=== PATIENT | female | born 1980 | race Caucasian/White ===

== ENCOUNTER 2018-05-08 15:54 | Emergency (ER) | payer MEDICAID, SELFPAY ==
[2018-05-08 15:54] VITALS: BP 187/100; PULSE 94; RESP 16; TEMP 36.6; O2SAT 100; BMI 33.9
--- NOTE | 2018-05-08 16:07 | RAD_ITS ---
STUDY: X-RAY CHEST REASON FOR EXAM: Female, 38 years old. Chest pain TECHNIQUE: AP COMPARISON: None. FINDINGS: EKG leads project over the chest. The lungs are clear and expanded. There is no demonstrated pleural abnormality. Normal size heart. Normal mediastinum and alan. Normal visualized pulmonary arteries. Normal visualized aortic arch and descending thoracic aorta. Normal visualized thoracic spine. Normal visualized ribs, clavicles, and shoulders. There is no demonstrated abnormality of the visualized soft tissue structures of the upper abdomen. RAD/Chest 1 View (Portable) IMPRESSION: Nonacute portable x-ray examination of the chest. Electronically Signed: Sukhwinder Liao MD at 16:21 EST , Service support ,
--- NOTE | 2018-05-08 16:07 | EKG12_ITS ---
Test Reason : CP Blood Pressure : / mmHG Vent. Rate : 085 BPM Atrial Rate : 085 BPM P-R Int : 152 ms QRS Dur : 078 ms QT Int : 390 ms P-R-T Axes : 034 -79 028 degrees QTc Int : 464 ms Normal sinus rhythm Indeterminate axis Borderline ECG Confirmed by ROSELIA WILLIS, GEM ([id number]), index editor GRAY CORREA ([id number]) on 05/11/2018 8:29:01 AM Referred By: MIKHAIL Confirmed By:GEM VELOZ MD
[2018-05-08] MEDS: Ipratropium/Albuterol Sulfate 3 ML AMPUL.NEB INHALATION (16:18)
[2018-05-08 16:19] VITALS: PULSE 78; RESP 10
[2018-05-08 16:24] VITALS: O2SAT 98
[2018-05-08] MEDS: HYDROcodone Bitartrate/Apap 5/325 Tablet PO (16:27)
[2018-05-08 16:48] LABS: Absolute Lymphocyte Count 5.39 X10^3/ul (0.83-4.51); Absolute Neutrophil Count 7.4 X10^3/uL (2.0-7.7); Basophil# 0.06 X10^3/uL; Basophil% 0.4 % (0-1); Differential Indicated SCAN CRITERIA MET; Eosinophil# 0.43 X10^3/uL; Hematocrit 51.8 % (37-47); Hemoglobin 17.6 g/dl (12.0-15.0); Lymphocyte # 5.39 X10^3/ul (4.0); Lymphocyte % 37.9 % (19-41); Mean Corpuscular Hgb 32.7 pg (27.0-32.0); Mean Corpuscular Volume 96.1 fL (81-99); Mean Platelet Vol. 11.4 fl (6.2-12.0); Monocyte% 6.3 % (0-10); Neutrophil # 7.38 X10^3/uL (2.7-7.7); POSITIVE COUNT NO; POSITIVE DIFFERENTIAL YES; POSITIVE MORPHOLOGY NO; Platelet Count 111 K/mm3 (150-450); RBC Distribution Width CV 14.3 % (11.6-14.6); RBC Distribution Width SD 50.4 fl (35.1-43.9); Red Blood Count 5.39 M/mm3 (4.2-5.4); White Blood Count 14.2 K/mm3 (4.4-11.0)
[2018-05-08 16:56] LABS: Anion Gap 6 (5-15); BUN 5 mg/dL (7-18); BUN/Creat Ratio 5.7 RATIO (10-20); Calcium,Total 8.8 mg/dL (8.5-10.1); Chloride 105 mmol/L (98-107); Creatinine, Serum 0.87 mg/dL (0.55-1.02); EST Glomerular Filtration Rate 77 mL/min (>60); Est Glom Filt Rate - Afr Amer 93 mL/min (>60); Estimated Creatinine Clearance 78.89 ml/min; Glucose 90 mg/dL (74-106); Potassium 3.6 mmol/L (3.5-5.1); Sodium Level 138 mmol/L (136-145)
[2018-05-08 16:58] LABS: D-Dimer Quantitative (DVT/PE) < 0.27 FEU/ug/m (0.27-0.49)
--- NOTE | 2018-05-08 17:07 | ED.VISSUMM ---
- ER Visit Summary Date of Service: 05/08/18 Chief Complaint: Chest pain History of Present Illness: The patient is a 38 F with right side chest pain that radiates to her back. It started this morning when she woke up. It is sharp. Nothing makes it better or worse. She never had this before. Patient reports her blood pressure has been high despite taking her lisinopril over the last 2 days. She is a smoker. Denies hormone use. Denies travel or recent hospitalization. She does have bilateral carpal tunnel pain. There has been an ongoing issue for her. Her pain gets out of control and causes her blood pressure to rise. Physical Examination: Afebrile and vital signs unremarkable except for blood pressure 187/100. Alert and oriented. No acute distress. HEENT exam unremarkable. Heart regular rate and rhythm. Wheezing and diminished breath sounds on her lung exam. Skin, extremities unremarkable. Test Results: EKG showed sinus rhythm at a rate of [address] and T wave changes. White count 14.2, hemoglobin 17.6, platelets 111. Metabolic panel unremarkable. Troponin and d-dimer normal. Chest x-ray normal. Emergency Department Course and Treatment: Patient treated with a DuoNeb and [place]ony while awaiting results. I suspect this is myofascial pain. She is hypertensive, and I did check a workup. Her workup was all fairly unremarkable. Heart score is 3, but I believe this is unlikely to be ACS. PE and dissection are extremely unlikely given her history, findings, and negative d-dimer. Platelets were 111 and lab called because they were clumping. They advised a repeat sample. Repeat was 145, but she had some continued clumping. I spoke with Dr. Kimble and asked him if this had any significance in the setting of chest pain, heart disease, PE, etc. He said that this has no significance at this time and had no further recommendations other than to follow-up with her primary doctor for repeat check. Patient was advised. Patient will receive a short course of pain medicine. Her repeat blood pressure was 126/91. She will continue her blood pressure medications at home. Follow-up with her primary care doctor for recheck. Treatment Plan: As above Disposition: Discharge Impression: 1. Chest wall pain 2. Hypertension This note was generated with [employer] software. It may contain incorrect words, spelling, and punctuation that were not noted in review of the chart prior to signing ED Disposition - Plan for ED Patient: Disposition: Home or Assisted Living Instructions: ED Chest Pain Atypical Unkn Cause Prescriptions: Hydrocodone Bitart/Apap 5-325 [[place] 5MG-325MG] 1 tab PO Q6H PRN PRN 3 Days #10 tab PRN Reason: Pain Referrals: Cayden Ayala MD [Primary Care Provider] -
[2018-05-08 17:08] VITALS: BP 126/71; PULSE 76; RESP 18; O2SAT 100
--- NOTE | 2018-05-08 17:10 | DCINST.ED_ITS ---
ED Disposition - Plan for ED Patient: Instructions: ED Chest Pain Atypical Unkn Cause Prescriptions: Hydrocodone Bitart/Apap 5-325 [[place] 5MG-325MG] 1 tab PO Q6H PRN PRN 3 Days #10 tab PRN Reason: Pain Referrals: Cayden Ayala MD [Primary Care Provider] -
[2018-05-08 17:15] LABS: Differential Comment SCANNED
[2018-05-08 17:18] LABS: Platelet Morphology CLUMPED
[2018-05-08 17:46] LABS: Platelet Count 145 K/mm3 (150-450)
[2018-05-08 18:01] VITALS: PULSE 79; RESP 16; O2SAT 98
== END 2018-05-08 18:10 | disposition home or self-care (01) ==
PROVIDERS: Emergency Provider Emergency Medicine; Family Provider Family Medicine; PCP Family Medicine
DX: R07.89 Other chest pain (principal); I10 Essential (primary) hypertension; R05 Cough; R06.00 Dyspnea, unspecified; G56.03 Carpal tunnel syndrome, bilateral upper limbs; Z79.899 Other long term (current) drug therapy; F17.200 Nicotine dependence, unspecified, uncomplicated
CPT/HCPCS: 71045; 80048; 84484; 85025; 85049; 85379; 93005; 94640; 99285; A4216

== ENCOUNTER 2018-10-20 15:48 | Emergency (ER) | payer MEDICAID, SELFPAY ==
[2018-10-20 15:49] VITALS: BP 188/114; PULSE 76; RESP 18; TEMP 36.2; O2SAT 98; BMI 33.0
--- NOTE | 2018-10-20 16:08 | DCINST.ED_ITS ---
ED Disposition - Plan for ED Patient: Instructions: Carpal Tunnel Prescriptions: Hydrocodone Bitart/Apap 5-325 [[place] 5MG-325MG] 1 tablet PO Q6H PRN PRN 3 Days #8 tablet PRN Reason: Pain Referrals: Cayden Ayala MD [Primary Care Provider] -
--- NOTE | 2018-10-20 16:11 | ED.DCSUM_ITS ---
- ER Visit Summary Date of Service: 10/20/18 Chief Complaint: Bilateral wrist pain History of Present Illness: The patient is a 38 F presenting with bilateral wrist pain. Patient states this started 3 to 4 weeks ago. She states she got a new job and has frequent repetitive motions with her hands. She is in the process of getting into orthopedics. She denies any injury. She has been wearing braces prescribed by Dr. Ayala. She has been taking ibuprofen at home. She presents due to persistent pain. Physical Examination: Vitals are stable. Patient is afebrile. Alert no acute distress. HEENT exam is unremarkable. Neck is supple. Lungs are clear and equal bilaterally. Heart is regular rate and rhythm. Extremities bilateral volar wrist tenderness with active full range of motion. Normal cap refill. Skin is warm and dry. No focal neurologic deficit. Remainder of exam is unremarkable. Emergency Department Course and Treatment: Patient was given short course of [place]. She is advised to continue her braces. Advised to follow-up with orthopedics. Advised return to ED for worsening complaints. Disposition: Discharge home Impression: Bilateral wrist pain, suspect carpal tunnel This note was generated with [employer] dictation software. It may contain incorrect words, spelling, and punctuation that were not noted in review of the chart prior to signing ED Disposition - Plan for ED Patient: Instructions: Carpal Tunnel Prescriptions: Hydrocodone Bitart/Apap 5-325 [[place] 5MG-325MG] 1 tab PO Q6H PRN PRN 3 Days #8 tab PRN Reason: Pain Prescription Printed Referrals: Cayden Ayala MD [Primary Care Provider] -
[2018-10-20] MEDS: HYDROcodone Bitartrate/Apap 5/325 Tablet PO (16:14)
== END 2018-10-20 16:41 | disposition home or self-care (01) ==
PROVIDERS: Emergency Provider Emergency Medicine; Family Provider Family Medicine; PCP Family Medicine
DX: M25.531 Pain in right wrist (principal); M25.532 Pain in left wrist; I10 Essential (primary) hypertension; Z79.899 Other long term (current) drug therapy; Z72.0 Tobacco use
CPT/HCPCS: 99282

== ENCOUNTER 2018-12-17 15:45 | Emergency (ER) | payer MEDICAID, SELFPAY ==
[2018-12-17 15:46] VITALS: BP 169/102; PULSE 74; RESP 18; TEMP 36.4; O2SAT 96; BMI 33.0
--- NOTE | 2018-12-17 16:30 | ED.VIS.GEN ---
History of Present Illness Chief Complaint: Upper Extremity Injury Informant: Patient Onset: Weeks Narrative: Patient presents to the ED with bilateral upper extremity pain. She localizes it to her wrists and hands. She was diagnosed with carpal tunnel syndrome by Dr. Ureña. She is scheduled to get nerve conduction studies on December 29. She states that she has tried wearing her cock-up wrist splints without relief. She has also tried ibuprofen without relief. She has not taken anything today for analgesia. She claims she was sent in by her orthopedic physician to have pain control. She denies any trauma. 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 Past Medical History - Allergies and Home Meds Allergies/Adverse Reactions: Allergies codeine Allergy (Verified 12/17/18 15:46) Other Methotrexate Analogues Adverse Reaction (Verified 12/17/18 15:46) Other Primary Care Physician: Cayden Ayala MD [Primary Care Provider] - Smoking Status: Current every day smoker Review of Systems General: Denies: Chills, Fever, Sweats Eyes: Denies: Visual changes - bilaterally, Diplopia ENT: Denies: Rhinorrhea, Sore throat Cardiovascular: Denies: Chest pain, Palpitations Respiratory: Denies: Dyspnea, Cough, Dyspnea on exertion Gastrointestinal: Denies: Abdominal pain, Nausea, Vomiting, Diarrhea, Melena, Hematochezia Genitourinary: Denies: Dysuria, Hematuria, Frequency Musculoskeletal: Reports: - - Bilateral wrist and hand pain.. Denies: Back pain, Extremity Pain Skin: Denies: Rash, Wounds Neurological: Reports: Parasthesia - 1-3 digits bilaterally. Denies: Headache, Weakness, Numbness Physical Exam Vital Signs/Narrative: Vital Signs Temp Pulse Resp BP Pulse Ox 12/17/18 15:46 97.6 F L 74 18 169/102 H 96 General: Well nourished, Well developed, No Acute Distress Head: Normocephalic, Atraumatic Eyes: Perrl, EOMI ENT: Moist mucous membranes, No rhinorrhea Neck: Supple, Nontender Cardiovascular: Regular rate, Regular rhythm, No murmurs Respiratory: No distress, CTA bilaterally, Chest nontender Abdomen: Soft, Nontender, Nondistended, Normal bowel sounds Back: Nontender, Normal Inspection Extremities: No edema, - - Tenderness to palpation of her bilateral ventral aspects of wrists. Positive Tinel sign bilaterally. Positive Phalen's bilaterally. Patient reports paresthesias to 1-3 digits bilaterally. No erythema, edema, ecchymosis. No concern for septic joint. Skin: Normal color, No rash Neurological: Alert, Oriented x3, Cranial nerves II-XII grossly intact, Normal Strength, Normal Sensation Psychological: Normal affect, Normal Mood Diagnostic/Tx/Re-eval - Medical Decision Making Patient presents to the ED with reports of bilateral upper extremity pain which she attributes to her carpal tunnel syndrome bilaterally. She denies any trauma. She was encouraged to read continue using her cock-up wrist splints. She will be placed on prednisone burst. She is given her first dose here. She was educated on rice therapy and advised to follow-up with her orthopedic physician as scheduled. She is educated on signs/symptoms. She is provided discharge instructions and agreeable to plan. Impression: Bilateral carpal tunnel syndrome Disposition: Home stable ED Disposition - Plan for ED Patient: Disposition: Non-Skill MI/Intermediate Care Diagnosis: Carpal tunnel syndrome on both sides Instructions: Carpal Tunnel Prescriptions: predniSONE tablet 60 mg PO DAILY #12 tab Prescription Printed Referrals: Cayden Ayala MD [Primary Care Provider] - Matt Ureña MD [STAFF PHYSICIAN] -
[2018-12-17] MEDS: predniSONE 20 MG Tablet 60 MG PO (17:17)
== END 2018-12-17 17:26 | disposition home or self-care (01) ==
PROVIDERS: Emergency Provider Physician Assistant; Family Provider Family Medicine; PCP Family Medicine
DX: G56.03 Carpal tunnel syndrome, bilateral upper limbs (principal); F17.200 Nicotine dependence, unspecified, uncomplicated
CPT/HCPCS: 99283

== ENCOUNTER → 2018-12-29 07:30 | Outpatient (CLI) | payer MEDICAID, SELFPAY ==
[2018-12-17 15:46] VITALS: BMI 33.0
--- NOTE | 2018-12-29 09:59 | NEURO_ITS ---
NCS and/or EMG Patient Report Ordering Doctor: Matt Ureña DATE OF SERVICE: 12/29/18 This is a bilateral upper extremity nerve conduction study performed on this 38-year-old female with a history of 4 years of abnormal sensations in her hands worse on the right. Bilateral upper extremity sensory motor nerve conduction studies performed demonstrating severe elongation of the left median motor distal latency with reduction of conduction velocity in amplitude and absence of the right median motor response. The bilateral median sensory responses are absent. The bilateral ulnar motor and sensory and radial sensory responses are preserved. The ulnar F waves are preserved, the median F waves are nondetectable. Impression: Severe carpal tunnel syndrome bilaterally. Dictated using [email or web address] software, not proofread
== END ==
PROVIDERS: Family Provider Family Medicine; PCP Family Medicine; Referring Provider Specialist; Visit Provider Specialist
DX: R20.2 Paresthesia of skin (principal)
CPT/HCPCS: 95911

== ENCOUNTER → 2020-01-30 10:33 | Outpatient (CLI) | payer MEDICAID, SELFPAY | PROVIDERS: PCP Family Medicine; Referring Provider Family Medicine; Visit Provider Family Medicine | DX: Z20.828 Contact with and (suspected) exposure to other viral communicable diseases (principal) | CPT/HCPCS: 87635; C9803; U0003 ==

== ENCOUNTER 2021-10-20 14:47 | Emergency (ER) | payer MEDICAID, SELFPAY ==
[2021-10-20 14:48] VITALS: BP 142/91; PULSE 91; RESP 15; TEMP 36.4; O2SAT 98; BMI 33.3
--- NOTE | 2021-10-20 15:13 | EX.ED.DYSGE1 ---
HPI History of Present Illness Chief Complaint: Nausea/Vomiting/Diarrhea Detail of Chief Complaint: Vomiting and diarrhea that started today Informant: patient Narrative Narrative: Patient presents to the emergency department with complaint of diarrhea that started this morning when she woke up. She has had frequent watery stools. Patient also started vomiting around noon and is vomited multiple times. She denies abdominal pain. Patient does feel somewhat lightheaded. 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 Patient denies any fevers. She denies urinary symptoms. Patient denies recent antibiotic usage. Prior similar symptoms: No PFSH PFSH Medical History (Updated 10/20/21 @ 16:[address] Puja Teixeira, DO) Anxiety HTN (hypertension) Hyperlipemia Home Medications lisinopril 5 mg tablet 5 mg PO DAILY 05/08/18 [History Last Taken 05/08/18 5 MG] prednisone 20 mg tablet 60 mg PO DAILY #12 tabs 12/17/18 [Rx Last Taken Unknown] ondansetron 4 mg disintegrating tablet 4 mg PO Q8H PRN PRN Nausea #10 tabs 10/20/21 [Rx Last Taken Unknown] Allergy/AdvReac Type Severity Reaction Status Date / Time codeine Allergy Other Verified 10/20/21 14:48 Methotrexate Analogues AdvReac Other Verified 12/17/18 15:46 Surgical History (Updated 10/20/21 @ 15:26 by Lexi Bonilla) History of partial hysterectomy Social History Smoking Status: Current every day smoker tobacco type: cigarettes EXAM Physical Exam Const Vital Signs: 10/20/21 14:48 Temperature 97.6 F L Temperature Source Temporal Pulse Rate 91 Respiratory Rate 15 Blood Pressure 142/91 H Blood Pressure Mean 108 Pulse Ox 98 Oxygen Delivery Method Room Air Positive well nourished and well developed General Appearance ED: well developed and NAD HEENT Reports TM's clear and moist mucous membranes normocephalic and atraumatic; Negative for trauma or tenderness Tympanic Membrane ED: Yes TM's clear Eyes PERRL and EOMs intact bilaterally General Eye ED: Negative for pale conjunctiva or scleral icterus Neck no lymphadenopathy, supple and no JVD General: Negative for tenderness Chest Wall inspection of chest normal and palpation of chest normal Chest: Negative for tenderness Resp normal respiratory effort and clear to auscultation bilaterally Effort and Inspection: Negative for respiratory distress or pain with movement Auscultation: Negative for rhonchi, wheezes or diminished lung sounds Cardio regular rate, regular rhythm, S1 normal heart sound, S2 normal heart sound and no murmurs Peripheral Pulses: pulses 2+ throughout GI normal to inspection, nondistended, normoactive bowel sounds, soft to palpation, non-tender, non-distended and no masses Back/Spine no CVA tenderness and no thoracic nor lumbar tenderness Extremity normal to inspection General Extremety ED: Negative for edema General Extremity: Negative for edema Neuro oriented x3, CN's II-XII intact bilaterally, no sensory deficits noted and gait normal Sensorium / Orientation: awake, alert, oriented to person, oriented to place and oriented to time Motor Exam: strength 5/5 throughout and strength abnormal Psych mental status grossly normal Skin no rashes or lesions noted and no wounds MDM MDM MDM Narrative Medical decision making narrative: IV line established on arrival. Patient was given a dose of Zofran IV. She was given a liter normal saline fluid bolus. Lab work showed an elevated white count 16.9 which I suspect is reactive from the retching and vomiting as well as from the gastroenteritis. Patient did have a depressed carbon dioxide of 17. Electrolytes otherwise unremarkable. Patient did have a repeat episode of 1 emesis and was given Reglan 5 mg IV and Benadryl 25 mg IV and then patient was able to tolerate p.o. intake. At this point she is asking to go home. I suspect patient has a viral gastroenteritis. She will be given a prescription for Zofran. She is to use Imodium as needed for diarrhea. Patient advised to return if persistent vomiting, diarrhea, dehydration, or condition should worsen anyway. Lab Data Attestation: I reviewed the patient's lab results. Labs: Laboratory Results - last 24 hr 10/20/21 10/20/21 15:10 15:10 WBC 16.9 H RBC 4.82 Hgb 16.2 H Hct 44.9 MCV 93.2 MCH 33.6 H MCHC 36.1 H RDW Std Deviation 47.1 H RDW Coeff of Zaria 13.8 Plt Count 307 MPV 11.3 Immature Gran % (Auto) 0.300 Neut % (Auto) 59.6 Lymph % (Auto) 34.9 [place] % (Auto) 3.3 Eos % (Auto) 1.2 Baso % (Auto) 0.7 Absolute Neuts (auto) 10.1 H Absolute Lymphs (auto) 5.90 H Nucleated RBC % 0 Differential Comment Sodium 137 Potassium 3.4 L Chloride 109 H Carbon Dioxide 17.0 L Anion Gap 11 BUN 13 Creatinine 1.19 H Estim Creat Clear Calc 55.98 Est GFR (MDRD) Af Amer 64 Est GFR (MDRD) Non-Af 53 L BUN/Creatinine Ratio 10.9 Glucose 181 H Calcium 10.1 Total Bilirubin 0.80 AST 17 ALT 27 Alkaline Phosphatase 114 Total Protein 8.0 Albumin 4.0 Globulin 4.0 Albumin/Globulin Ratio 1.0 Lipase 161 Discharge Plan Triage Chief Complaint: Nausea/Vomiting/Diarrhea ED Provider: Puja Teixeira Dx/Rx/DC Orders Clinical Impression: Viral gastroenteritis Instructions: ED Gastroenteritis, Viral (Adult) Prescriptions: New ondansetron [ondansetron] 4 MG tablet 4 mg PO Q8H PRN PRN (Reason: Nausea) Qty: 10 0RF No Action lisinopril 5 MG tablet 5 mg PO DAILY Label Comments: Take 1 tablet by mouth once daily. prednisone 20 MG tablet 60 mg PO DAILY Qty: 12 0RF Rx Instructions: With Food Primary Care Provider: Cayden Ayala Referrals: Cayden Ayala MD [Primary Care Provider] - 3-5 Days Activity Restrictions/Additional Instructions: Use Imodium as needed for the diarrhea. Disposition Disposition: Home, Self Care
[2021-10-20] MEDS: Ondansetron 4 MG/2 ML Vial IV (15:20)
[2021-10-20] MEDS: 0.9% Normal Saline 1,000 ML 1000 ML IV (15:20)
[2021-10-20 15:37] LABS: Absolute Neutrophil Count 10.1 X10^3/uL (2.0-7.7); Basophil# 0.11 X10^3/uL; Basophil% 0.7 % (0-1); Eosinophils% 1.2 % (0-5); Hematocrit 44.9 % (37-47); Hemoglobin 16.2 g/dL (12.0-15.0); Lymphocyte % 34.9 % (19-41); Mean Corp Hgb Conc 36.1 g/dL (32-36); Mean Corpuscular Hgb 33.6 pg (27.0-32.0); Mean Corpuscular Volume 93.2 fL (81-99); Mean Platelet Vol. 11.3 fl (6.2-12.0); Monocyte# 0.55 X10^3/uL; Monocyte% 3.3 % (0-10); NRBC Flagged by Analyzer 0 % (0-5); Neutrophil % 59.6 % (47-70); POSITIVE DIFFERENTIAL YES; POSITIVE MORPHOLOGY YES; Platelet Count 307 K/mm3 (150-450); RBC Distribution Width CV 13.8 % (11.6-14.6); RBC Distribution Width SD 47.1 fl (35.1-43.9); Red Blood Count 4.82 M/mm3 (4.2-5.4); White Blood Count 16.9 K/mm3 (4.4-11.0)
[2021-10-20 15:48] LABS: Differential Indicated SCAN CRITERIA MET
[2021-10-20 15:49] LABS: AST(SGOT) 17 U/L (15-37); Alanine Aminotransfer ALT/SGPT 27 U/L (13-56); Alkaline Phosphatase 114 U/L (45-117); Anion Gap 11 (5-15); BUN 13 mg/dL (7-18); BUN/Creat Ratio 10.9 RATIO (10-20); Calcium,Total 10.1 mg/dL (8.5-10.1); Chloride 109 mmol/L (98-107); Creatinine, Serum 1.19 mg/dL (0.55-1.02); EST Glomerular Filtration Rate 53 mL/min (>60); Est Glom Filt Rate - Afr Amer 64 mL/min (>60); Estimated Creatinine Clearance 55.98 ml/min; Glucose 181 mg/dL (74-106); Lipase 161 U/L (73-393); Potassium 3.4 mmol/L (3.5-5.1); Sodium Level 137 mmol/L (136-145)
[2021-10-20] MEDS: DiphenhydrAMINE 50 MG/ML Syringe 25 MG IV (16:22)
[2021-10-20] MEDS: Metoclopramide 10 MG/2 ML Vial 5 MG IV (16:22)
[2021-10-20 16:51] VITALS: RESP 18
== END 2021-10-20 17:05 | disposition home or self-care (01) ==
PROVIDERS: Emergency Provider Emergency Medicine; PCP Family Medicine; Visit Provider Emergency Medicine
DX: A08.4 Viral intestinal infection, unspecified (principal); I10 Essential (primary) hypertension; E78.5 Hyperlipidemia, unspecified; F17.210 Nicotine dependence, cigarettes, uncomplicated; Z79.899 Other long term (current) drug therapy
CPT/HCPCS: 80053; 83690; 85025; 96361; 96374; 96375; 99283; J7030; A4216; J2405

== ENCOUNTER 2021-10-20 22:59 | Emergency (ER) | payer MEDICAID, SELFPAY ==
[2021-10-20 23:00] VITALS: BP 165/110; PULSE 89; RESP 15; TEMP 36.2; O2SAT 100; BMI 31.4
--- NOTE | 2021-10-20 23:28 | EX.ED.DYSGE1 ---
HPI History of Present Illness Chief Complaint: Nausea/Vomiting Informant: patient and family Onset/Context/Timing Onset: Today Narrative Narrative: Patient returns to the ER secondary to continued nausea and vomiting. She was seen in the emergency room earlier today with nausea, vomiting, and diarrhea. Work-up revealed an elevated white count at 16.9 felt to be reactive from vomiting. She was able to tolerate p.o. fluids after receiving Reglan and Benadryl. She was discharged with a prescription for Zofran. Family states they were not able to make it to the pharmacy before they closed today. After returning home patient has had recurrent nausea and vomiting. She has not had any further diarrhea. [facility] Medical History Anxiety HTN (hypertension) Hyperlipemia Home Medications lisinopril 5 mg tablet 5 mg PO DAILY 05/08/18 [History Last Taken 05/08/18 5 MG] prednisone 20 mg tablet 60 mg PO DAILY #12 tabs 12/17/18 [Rx Last Taken Unknown] ondansetron 4 mg disintegrating tablet 4 mg PO Q8H PRN PRN Nausea #10 tabs 10/20/21 [Rx Last Taken Unknown] metoclopramide HCl 10 mg tablet (Reglan) 10 mg PO Q6H PRN nausea and vomiting #10 tabs 10/21/21 [Rx Last Taken Unknown] Allergy/AdvReac Type Severity Reaction Status Date / Time codeine Allergy Other Verified 10/20/21 14:48 Methotrexate Analogues AdvReac Other Verified 12/17/18 15:46 Surgical History History of partial hysterectomy Social History Smoking Status: Current every day smoker tobacco type: cigarettes ROS ROS ED Constitutional Constitutional ED: Denies chills or fever(s) Eyes Eyes: Denies change in vision or discharge from eye(s) ENT ENT ED: Denies discharge from eye(s), rhinorrhea or sore throat Cardiovascular Cardiovascular: Denies chest pain or palpitations Respiratory/Chest Respiratory/Chest: Denies cough or dyspnea Gastrointestinal Gastrointestinal: Reports abdominal pain, nausea and vomiting Genitourinary Genitourinary ED: Denies difficulty urinating or dysuria Musculoskeletal Musculoskeletal: Denies back pain or extremity pain Integumentary Denies Abrasions or rash Neurologic Neurologic: Denies headache(s) or weakness Psychiatric Psychiatric: Denies anxiety or depression Allergic/Immunologic Allergic/Immunologic ED: Denies lip swelling or urticaria EXAM Physical Exam Const Vital Signs: 10/20/21 23:00 10/21/21 03:29 Temperature 97.2 F L Temperature Source Temporal Pulse Rate 89 89 Respiratory Rate 15 16 Blood Pressure 165/110 H 139/79 H Blood Pressure Mean 128 Pulse Ox 100 95 Oxygen Delivery Method Room Air Positive well nourished and well developed General Appearance ED: well developed HEENT Reports moist mucous membranes Eyes EOMs intact bilaterally Chest Wall inspection of chest normal and palpation of chest normal Resp normal respiratory effort and clear to auscultation bilaterally Cardio regular rate and regular rhythm GI non-tender Auscultation: hypoactive bowel sounds Palpation: soft Extremity normal to inspection Neuro oriented x3 Skin no rashes or lesions noted MDM MDM MDM Narrative Medical decision making narrative: Patient received Reglan and Benadryl along with a liter of IV fluids. Due to a very busy emergency room patient slept here in 1 she awoke she reports recurrent nausea. She is then given a dose of Zofran. Treatment and Re-Evaluation Narrative: On final repeat check patient is requesting discharge to home. She states the meds will help for a while but then seem to wear off. She does not want to be admitted. She has Zofran at a local pharmacy to [facility] in the morning. I did send a prescription for Reglan tabs to the pharmacy here and she went home with those tonight. Return instructions are provided. Discharge Plan Triage Chief Complaint: Nausea/Vomiting ED Provider: Roseann Adams Dx/Rx/DC Orders Clinical Impression: Vomiting Instructions: ED Vomiting (Adult) Prescriptions: New metoclopramide HCl [Reglan] 10 mg tablet 10 mg PO Q6H PRN (Reason: nausea and vomiting) Qty: 10 0RF No Action lisinopril 5 MG tablet 5 mg PO DAILY Label Comments: Take 1 tablet by mouth once daily. prednisone 20 MG tablet 60 mg PO DAILY Qty: 12 0RF Rx Instructions: With Food ondansetron [ondansetron] 4 MG tablet 4 mg PO Q8H PRN PRN (Reason: Nausea) Qty: 10 0RF Primary Care Provider: Cayden Ayala Referrals: Cayden Ayala MD [Primary Care Provider] - 3-5 Days if not improving Disposition Disposition: Home, Self Care Discharge Date/Time: 10/21/21 03:29
[2021-10-20] MEDS: 0.9% Normal Saline 1,000 ML 1000 ML IV (23:51)
[2021-10-20] MEDS: Metoclopramide 10 MG/2 ML Vial 5 MG IV (23:51)
[2021-10-20] MEDS: DiphenhydrAMINE 50 MG/ML Syringe 25 MG IV (23:51)
[2021-10-21] MEDS: Ondansetron 4 MG/2 ML Vial IV (01:48)
[2021-10-21 03:29] VITALS: BP 139/79; PULSE 89; RESP 16; O2SAT 95
== END 2021-10-21 03:29 | disposition home or self-care (01) ==
PROVIDERS: Emergency Provider Emergency Medicine; PCP Family Medicine; Visit Provider Emergency Medicine
DX: R11.2 Nausea with vomiting, unspecified (principal); E78.5 Hyperlipidemia, unspecified; I10 Essential (primary) hypertension; F17.210 Nicotine dependence, cigarettes, uncomplicated; Z79.899 Other long term (current) drug therapy
CPT/HCPCS: J2405; J7030; A4216

== ENCOUNTER 2022-08-16 16:07 | Emergency (ER) | payer OTHER, MEDICAID, SELFPAY ==
[2022-08-16 16:08] VITALS: BP 136/89; PULSE 89; RESP 16; TEMP 35.9; O2SAT 99; BMI 29.7
--- NOTE | 2022-08-16 16:35 | EDS_ITS ---
HPI <OLGA Wolf - Last Filed: 08/16/22 16:44> History of Present Illness Chief Complaint: Laceration Narrative Narrative: Patient is a 42-year-old female with history of high blood pressure, tobacco use who presents to the emergency department with a laceration to the left fourth finger. 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 This injury occurred at 6 PM last evening. Secondary to this happening at work, she was at work today and is here for evaluation. Patient has full range of motion of her left hand. If the patient would have came in yesterday this laceration could have quired stitches. Patient's lacerations on the posterior side of the finger. PFSH <OLGA Wolf - Last Filed: 08/16/22 16:44> PFSH Medical History Anxiety HTN (hypertension) Hyperlipemia Home Medications lisinopril 5 mg tablet 5 mg PO DAILY 05/08/18 [History Last Taken 05/08/18 5 MG] prednisone 20 mg tablet 60 mg PO DAILY #12 tabs 12/17/18 [Rx Last Taken Unknown] ondansetron 4 mg disintegrating tablet 4 mg PO Q8H PRN PRN Nausea #10 tabs 10/20/21 [Rx Last Taken Unknown] metoclopramide HCl 10 mg tablet (Reglan) 10 mg PO Q6H PRN nausea and vomiting #10 tabs 10/21/21 [Rx Last Taken Unknown] Allergy/AdvReac Type Severity Reaction Status Date / Time codeine Allergy Other Verified 10/20/21 14:48 Methotrexate Analogues AdvReac Other Verified 12/17/18 15:46 Surgical History History of partial hysterectomy Social History Smoking Status: Current every day smoker tobacco type: cigarettes ROS <OLGA oWlf - Last Filed: 08/16/22 16:44> ROS ED ROS Narrative Constitutional: Negative for fever, chills, weight loss, weakness Eyes: Negative for vision loss, vision change, double vision ENT: Negative for any sore throat, ear pain, congestion Cardiovascular: Negative for any chest pain, tightness, palpitations Respiratory: Negative for any cough, sputum production, hemoptysis, dyspnea, dyspnea on exertion, orthopnea Gastrointestinal: Negative for any abdominal pain, nausea, vomiting, diarrhea, constipation, blood in stool, blood in vomit : Negative for any urinary frequency, dysuria, retention, blood in urine Muscle skeletal: Negative for any muscle joint pain, stiffness, myalgias, arthralgias, neck pain, back pain Neurological: Negative for any headache, syncope, numbness or tingling, dizziness Skin: Negative for any rashes, lumps, itching, abrasions. Laceration to the left fourth digit Psychiatric: Negative for any depression, anxiety, stress, suicidal ideation, homicidal ideation Hematologic: Negative for any easy bruising, excessive bruising, easy bleeding Allergies: Negative for any eczema, hives, rash EXAM <OLGA Wolf - Last Filed: 08/16/22 16:44> Physical Exam Narrative Exam Narrative: Vital signs reviewed. Extremities: No peripheral edema, no signs of gross trauma or deformity. Active full range of motion of all extremities. Patient has full range of motion of the left hand. Patient's laceration is in between the DIP and PIP joint of the posterior aspect of the fourth left finger. This would require sutures if it was done immediately however this is greater than 20 hours old. Patient has no tendon involvement. No neurological focal deficit. Neuro: Cranial nerves II through XII intact, no focal neurological deficits. Skin: Clean dry and intact with no rash, purpura, petechiae, vesicles or pustules. Backs/flank: No CVA tenderness, no midline spinal tenderness, no deformity. Psych: Normal mood and affect. No SI, HI or acute psychosis. Const Vital Signs: 08/16/22 16:08 Temperature 96.7 F L Temperature Source Temporal Pulse Rate 89 Respiratory Rate 16 Blood Pressure 136/89 H Blood Pressure Mean 104 Pulse Ox 99 Oxygen Delivery Method Room Air <Dr. Roseann Adams MD - Last Filed: 08/16/22 17:02> Physical Exam Const Vital Signs: 08/16/22 16:08 Temperature 96.7 F L Temperature Source Temporal Pulse Rate 89 Respiratory Rate 16 Blood Pressure 136/89 H Blood Pressure Mean 104 Pulse Ox 99 Oxygen Delivery Method Room Air [facility] <OLGA Wolf - Last Filed: 08/16/22 16:44> [facility] Treatment and Re-Evaluation Narrative: Patient appears well, patient appears nontoxic, vital signs are stable. Patient presents to the emergency department with complaints of a laceration to the left fourth finger that occurred yesterday while at work. This is a Workmen's Comp. All paperwork was filled out. At this time, patient will be updated on her tetanus vaccination today. Secondary to the wound being greater than 20 hours old, this will not be closed. The area was cleaned. I was able to place glue to the area patient tolerated well. Patient was placed in a tube gauze to decrease movement of the left finger to allow the skin to set. Patient is happy with the plan of care, she can return to work with full duty as long as she has a dressing in place. Patient has no questions, stable for discharge <Dr. Roseann Adams MD - Last Filed: 08/16/22 17:02> [facility] Treatment and Re-Evaluation Narrative: Patient appears well, patient appears nontoxic, vital signs are stable. Patient presents to the emergency department with complaints of a laceration to the left fourth finger that occurred yesterday while at work. This is a Workmen's Comp. All paperwork was filled out. At this time, patient will be updated on her tetanus vaccination today. Secondary to the wound being greater than 20 hours old, this will not be closed. The area was cleaned. I was able to place glue to the area patient tolerated well. Patient was placed in a tube gauze to decrease movement of the left finger to allow the skin to set. Patient is happy with the plan of care, she can return to work with full duty as long as she has a dressing in place. Patient has no questions, stable for discharge Patient seen and evaluated with ISHAAN. I personally interviewed and examined the patient. I was involved in all aspects of patient's orders, interpretation of results, and treatment. Patient presents secondary to laceration to her left fourth finger. Injury occurred 6 PM yesterday evening at work. She states she went to work today but bumped it on something and it started bleeding. Her employer wanted her to come in to have it evaluated. She denies numbness or tingling. She has full range of motion. She is unsure of her last tetanus update. Left upper extremity examination reveals a 1.5 cm laceration across the extensor surface of the fourth finger between the PIP and DIP joints. Bleeding is well controlled at this time. She has full range of motion of the digit. Normal sensation and cap refill distally. Patient presents well after 12 hours from initial injury. Wound will be cleansed and sealed with Dermabond. Dressing will be applied which will limit her ability to flex her finger. She is advised to keep the area covered with a glove at work. Discharge Plan Triage Chief Complaint: Laceration ED Midlevel Provider: Fernando Nava ED Provider: Roseann Adams Dx/Rx/DC Orders Clinical Impression: Finger laceration Instructions: ED Laceration, Extremity: Skin Glue Prescriptions: No Action lisinopril 5 MG tablet 5 mg PO DAILY Label Comments: Take 1 tablet by mouth once daily. prednisone 20 MG tablet 60 mg PO DAILY Qty: 12 0RF Rx Instructions: With Food ondansetron [ondansetron] 4 MG tablet 4 mg PO Q8H PRN PRN (Reason: Nausea) Qty: 10 0RF metoclopramide HCl [Reglan] 10 mg tablet 10 mg PO Q6H PRN (Reason: nausea and vomiting) Qty: 10 0RF Primary Care Provider: Cayden Ayala Referrals: Cayden Ayala MD [Primary Care Provider] - [facility] [Non-Staff] - Activity Restrictions/Additional Instructions: Keep your wound dressed. Your tetanus vaccination was updated. You can return to work full duty on August 18, 2022 Disposition Disposition: Home, Self Care
[2022-08-16] MEDS: Diphth,Pertuss(Acell),Tet Vac 0.5 ML Vial IM (16:59)
== END 2022-08-16 17:04 | disposition home or self-care (01) ==
PROVIDERS: Emergency Provider Emergency Medicine; PCP Family Medicine; Visit Provider Emergency Medicine
DX: S61.215A Laceration without foreign body of left ring finger without damage to nail, initial encounter (principal); F17.210 Nicotine dependence, cigarettes, uncomplicated; I10 Essential (primary) hypertension; E78.5 Hyperlipidemia, unspecified; W26.0XXA Contact with knife, initial encounter; Y92.512 Supermarket, store or market as the place of occurrence of the external cause; Y99.0 Civilian activity done for income or pay; Z23 Encounter for immunization
CPT/HCPCS: 12001; 90471; 90715; 99281; 99282

== ENCOUNTER 2023-03-27 07:51 | Emergency (ER) | payer MEDICAID, SELFPAY ==
[2023-03-27 07:52] VITALS: BP 191/123; PULSE 93; RESP 14; TEMP 37.2; O2SAT 100; BMI 30.1
--- NOTE | 2023-03-27 08:00 | ED.VIS.GI ---
HPI HPI - GI History of Present Illness Chief Complaint: Abd Pain Informant: patient Narrative Narrative: Patient presents with 25 hours of nausea and vomiting. She states bowel movements were little soft but not diarrhea. She cannot keep anything down. She gets intermittent cramping in the abdomen. She is also had a very slight cough. But she does not feel short of breath. No chest pain. She has had a little bit of nasal congestion. She has had chills but no documented fever. She does have some myalgias. She states she works at [employer] and everybody is sick with the flu. [facility] Medical History Anxiety HTN (hypertension) Hyperlipemia Home Medications lisinopril 5 mg tablet 5 mg PO DAILY 05/08/18 [History Last Taken 05/08/18 5 MG] atorvastatin 20 mg tablet 20 mg PO QHS 03/27/23 [History Last Taken Unknown] cholecalciferol (vitamin D3) 125 mcg (5,000 unit) capsule 125 mcg PO DAILY 03/27/23 [History Last Taken Unknown] fluoxetine 20 mg capsule 20 mg PO DAILY 03/27/23 [History Last Taken Unknown] omeprazole 20 mg capsule,delayed release 20 mg PO DAILY 03/27/23 [History Last Taken Unknown] ondansetron 4 mg disintegrating tablet 4 mg PO Q8H PRN PRN Nausea #10 tabs 03/27/23 [Rx Last Taken Unknown] promethazine 25 mg tablet 25 mg PO Q6H PRN PRN Nausea #10 TABLETS 03/27/23 [Rx Last Taken Unknown] Allergy/AdvReac Type Severity Reaction Status Date / Time codeine Allergy Other Verified 03/27/23 07:52 Methotrexate Analogues AdvReac Other Verified 03/27/23 07:52 Surgical History History of partial hysterectomy Social History Smoking Status: Current every day smoker tobacco type: cigarettes ROS ROS ED ROS Narrative A complete review of systems was performed and is negative except as documented in the history of present illness. Some specific details below. Constitutional: No recent fevers documented but she does have a lot of chills and feels hot and cold. EYE: Change in color or injection ENT: No difficulty swallowing. No swelling. Mild sneezing and nasal congestion. CV: No chest pain or palpitations. Respiratory: No dyspnea. No hemoptysis. Occasional cough very mild. No sputum. GI: Please see history of present illness. : No frequency dysuria or hematuria. Musculoskeletal: No recent trauma. Slight myalgias. Skin: No rash. Nondiaphoretic. Neuro: No weakness or numbness. Endocrine: No polyuria or polydipsia. EXAM Physical Exam Narrative Exam Narrative: CONSTITUTIONAL: Patient is nontoxic in appearance. The patient looks comfortable. HEENT: No notable trauma. Mucous membranes are somewhat dry. No sinus tenderness. No indication of pain with swallowing. No exudate. EYES: No conjunctival injection. No icterus. CARDIOVASCULAR: Regular rate. Rate about 90. Regular rhythm. No notable murmur. No JVD. RESPIRATORY: No respiratory distress. Breathing is unlabored. No wheezes. No rhonchi. No rales. No pain with a deep breath. No hypoxia with oxygen saturations normal at 100% on room air. GASTROINTESTINAL: Not distended. Bowel sounds are normal. No tenderness. No guarding. No rebound. No palpable mass. No bruit. Overall abdomen is actually quite benign. GENITOURINARY: No tenderness over the bladder. No CVA tenderness. MUSCULOSKELETAL: Atraumatic. No peripheral edema. No cord. No tenderness along the deep venous system. No asymmetry. NEUROLOGICAL: Patient is alert and appropriate. No focal deficit noted. SKIN: No noted rashes. No diaphoresis. PSYCHIATRIC: Patient is calm. Mood is appropriate. Const Vital Signs: 03/27/23 07:52 03/27/23 11:34 Temperature 98.9 F Temperature Source Temporal Pulse Rate 93 75 Respiratory Rate 14 18 Blood Pressure 191/123 H 167/90 H Blood Pressure Mean 145 115 Pulse Ox 100 99 Oxygen Delivery Method Room Air Room Air MDM MDM MDM Narrative Medical decision making narrative: Patient CBC shows a very high white count at 17.7. Platelets are normal. He is my only high. Patient's electrolytes show no marked abnormalities. Minimal elevation in creatinine and slight glucose elevation. Patient's liver function test show mild elevation of alkaline phosphatase but are otherwise normal. Patient is lipase is elevated. It is 214. This is just a little bit under 3 times normal. I rechecked the pain. She is feeling better. But she still has some just nonfocal hard to locate abdominal pain. With her high white count and negative viral studies I am going to do CAT scan of her abdomen. This may further define and indicate if she has pancreatitis. This is pending. My independent interpretation of her CT shows no significant acute abnormality. Final reading shows nothing acute but there is signs of a soft tissue in the right lower quadrant that is likely ovary patient's rechecked. She states the Phenergan really cut the nausea down and she feels significantly better now. We will get her home with Phenergan and Zofran so she has 2 options. Clinically she has a viral type illness. We did discuss that if she is having increased fevers pain vomiting blood in the stool distention or any other concerns she should return. Lab Data Attestation: I reviewed the patient's lab results. Labs: Laboratory Results - last 24 hr 03/27/23 03/27/23 08:05 08:24 WBC 17.7 H RBC 5.22 Hgb 16.2 H Hct 46.2 MCV 88.5 MCH 31.0 MCHC 35.1 RDW Std Deviation 44.1 H RDW Coeff of Zaria 13.5 Plt Count 266 MPV 11.6 Immature Gran % (Auto) 0.600 Neut % (Auto) 78.2 H Lymph % (Auto) 16.1 L Smyth % (Auto) 4.7 Eos % (Auto) 0.2 Baso % (Auto) 0.2 Absolute Neuts (auto) 13.9 H Absolute Lymphs (auto) 2.86 Nucleated RBC % 0 Sodium 138 Potassium 3.7 Chloride 104 Carbon Dioxide 25.0 Anion Gap 9 BUN 16 Creatinine 1.12 H Estim Creat Clear Calc 55.93 Est GFR (MDRD) Af Amer 68 Est GFR (MDRD) Non-Af 56 L BUN/Creatinine Ratio 14.3 Glucose 141 H Calcium 9.8 Total Bilirubin 1.30 H AST 25 ALT 24 Alkaline Phosphatase 127 H Total Protein 7.7 Albumin 3.8 Globulin 3.9 Albumin/Globulin Ratio 1.0 Lipase 214 H Radiography Diagnostic Testing: Clinical Impression(s) from Imaging Studies Abdomen/Pelvis CT 03/27/23 11:09 IMPRESSION: 1. No focal acute inflammatory process. 2. Soft tissue density in the right lower quadrant could represent right ovary. Electronically Signed: Madan Mayer MD at 12:10 EST , Discharge Plan Triage Chief Complaint: Abd Pain ED Provider: Manuel Gomez Dx/Rx/DC Orders Clinical Impression: Leukocytosis, Nausea & vomiting, Abdominal pain Instructions: ED Abdominal Pain Unkn Cause Fem Prescriptions: New promethazine [promethazine] 25 mg tablet 25 mg PO Q6H PRN PRN (Reason: Nausea) Qty: 10 0RF ondansetron [ondansetron] 4 mg tablet,disintegrating 4 mg PO Q8H PRN PRN (Reason: Nausea) Qty: 10 0RF No Action lisinopril 5 MG tablet 5 mg PO DAILY Patient Comments: Take 1 tablet by mouth once daily. atorvastatin 20 mg tablet 20 mg PO QHS Patient Comments: Take 1 tablet by mouth daily at bedtime. For cholesterol. fluoxetine 20 mg capsule 20 mg PO DAILY Patient Comments: TAKE 1 CAPSULE BY MOUTH ONCE DAILY omeprazole 20 mg capsule,delayed release(DR/EC) 20 mg PO DAILY cholecalciferol (vitamin D3) 125 mcg (5,000 unit) capsule 125 mcg PO DAILY Patient Comments: Take 1 capsule by mouth once daily. Primary Care Provider: Cayden Ayala Referrals: Cayden Ayala MD [Primary Care Provider] - 3-5 Days if not improving Disposition Disposition: Home, Self Care
[2023-03-27] MEDS: Ondansetron 4 MG/2 ML Vial IV ×2 (08:07→09:34)
[2023-03-27] MEDS: 0.9% Normal Saline (1000mL) 1,000 ML 1000 ML IV (08:07)
[2023-03-27 08:36] LABS: Absolute Lymphocyte Count 2.86 X10^3/uL (0.83-4.51); Absolute Neutrophil Count 13.9 X10^3/uL (2.0-7.7); Basophil# 0.03 X10^3/uL; Basophil% 0.2 % (0-1); Eosinophil# 0.03 X10^3/uL; Eosinophils% 0.2 % (0-5); Hematocrit 46.2 % (37-47); Hemoglobin 16.2 g/dL (12.0-15.0); Lymphocyte # 2.86 X10^3/ul (0.83-4.51); Lymphocyte % 16.1 % (19-41); Mean Corp Hgb Conc 35.1 g/dL (32-36); Mean Corpuscular Volume 88.5 fL (81-99); Mean Platelet Vol. 11.6 fl (6.2-12.0); Monocyte# 0.83 X10^3/uL; Monocyte% 4.7 % (0-10); NRBC Flagged by Analyzer 0 % (0-5); Neutrophil # 13.88 X10^3/uL (2.7-7.7); Neutrophil % 78.2 % (47-70); Platelet Count 266 K/mm3 (150-450); RBC Distribution Width CV 13.5 % (11.6-14.6); RBC Distribution Width SD 44.1 fl (35.1-43.9); Red Blood Count 5.22 M/mm3 (4.2-5.4); White Blood Count 17.7 K/mm3 (4.4-11.0)
--- OUTSIDE RECORDS SUMMARY | 2023-03-27 08:52 | XMS RPT_ITS | CCD ---
Author Name Unknown Address [address] [place] [address] Organization [facility] Care Team Providers Care Rhinestone Setter Name Role Phone Cathi Dunn MD Primary Care Provider CATHI DUNN Primary Care Unavailable CATHI DUNN Primary Care Unavailable CATHI DUNN Attending Unavailable CATHI DUNN Primary Care Unavailable BRITTANY QUARLES Referring Unavailable CATHI DUNN Primary Care Unavailable BRITTANY QUARLES Attending Unavailable CATHI DUNN Primary Care Unavailable CATHI DUNN Attending Unavailable CATHI DUNN Primary Care Unavailable CATHI DUNN Primary Care Unavailable CATHI DUNN Primary Care Unavailable CATHI DUNN Primary Care Unavailable SPENSER, KELLY Referring Unavailable CATHI DUNN Primary Care Unavailable SPENSER, KELLY Attending Unavailable CATHI DUNN Primary Care Unavailable CATHI DUNN Attending Unavailable Allergies Allergy Classification Reported Allergen(s) Allergy Type Date of Onset Reaction(s) Facility (20 sources) Acetaminophen / Codeine; Translations: [ACETAMINOPHEN-CO DEINE] Drug Allergy 5 [facility] Work Phone: (20 sources) flea bites [Other] Propensity to adverse reactions 5 [facility] Work Phone: (20 sources) Methotrexate; Translations: [METHOTREXATE] Drug Allergy 3 Other: See Comments, Unknown [facility] (1 source) OTHER; Translations: [OTHER] Propensity to adverse reactions (disorder) 5 [facility] Repository Medications Current Medications Medication Drug Class(es) Dates Sig (Normalized) Sig (Original) amoxicillin 875 mg oral tablet (1 source) Penicillin-class Antibacterial Start: 10-30-2023 End: 02-02-2023 take 1 tablet by mouth twice daily amoxicillin (AMOXIL) 875 mg tablet Indications: Other acute nonsuppurative otitis media of left ear, recurrence not specified Take 1 tablet by mouth two times a day for 7 days. 14 tablet 0 01/26/2023 02/02/2023 Active Completed/Discontinued Medications Medication Drug Class(es) Dates Sig (Normalized) Sig (Original) [id number] 200 actuat albuterol 0.09 mg/actuat metered dose inhaler (20 sources) beta2-Adrenergic Agonist Start: 04-09-2020 End: 03-27-2022 take 2 puff(s) by inhalation every six hours as needed albuterol HFA (PROAIR HFA) 90 mcg/actuation inhaler Indications: Chronic bronchitis, unspecified chronic bronchitis type (HCC) Inhale 2 Puffs as instructed every 6 hours as needed. 18 g 5 04/09/2020 03/27/2022 Discontinued Problems Active Problems Problem Classification Problem Date Documented Date Episodic/Chronic Anxiety disorders (2 sources) Mixed anxiety and depressive disorder; Translations: [Anxiety disorder, unspecified] Chronic Attention-deficit, conduct, and disruptive behavior disorders (20 sources) Attention-deficit hyperactivity disorder, unspecified type; Translations: [Attention deficit disorder with hyperactivity] Onset: 08-12-2007 08-12-2007 Chronic Chronic obstructive pulmonary disease and bronchiectasis (20 sources) Chronic bronchitis; Translations: [Unspecified chronic bronchitis] Onset: 07-18-2020 07-18-2020 Chronic Diseases of white blood cells (1 source) Leukocytosis; Translations: [Elevated white blood cell count, unspecified] Chronic Disorders of lipid metabolism (20 sources) Mixed hyperlipidemia; Translations: [Mixed hyperlipidemia] Onset: 07-18-2020 07-18-2020 Chronic Esophageal disorders (2 sources) Gastroesophageal reflux disease without esophagitis; Translations: [Gastro-esophageal reflux disease without esophagitis] Onset: 12-04-2022 12-03-2022 Chronic Essential hypertension (20 sources) Essential hypertension; Translations: [Essential (primary) hypertension] Onset: 07-18-2020 07-18-2020 Chronic Genitourinary symptoms and ill-defined conditions (3 sources) Microscopic hematuria; Translations: [Other microscopic hematuria] Episodic Mood disorders (20 sources) Recurrent major depressive episodes; Translations: [Major depressive disorder, recurrent, unspecified] Onset: 12-17-2004 06-29-2019 Chronic Nutritional deficiencies (3 sources) Vitamin D deficiency; Translations: [Vitamin D deficiency, unspecified] Onset: 03-27-2022 Chronic Other diseases of kidney and ureters (1 source) Abnormal renal function; Translations: [Disorder of kidney and ureter, unspecified] Episodic Other hematologic conditions (1 source) Red blood cell count raised; Translations: [Other abnormality of red blood cells] Episodic Other infections; including parasitic (1 source) Patient condition resolved; Translations: [Resolved [id number] syndrome] 01-19-2023 Episodic Other nutritional; endocrine; and metabolic disorders (11 sources) Obesity; Translations: [Other obesity due to excess calories] Onset: 07-19-2020 07-19-2020 Chronic Other nutritional; endocrine; and metabolic disorders (18 sources) Obesity caused by energy imbalance; Translations: [Other obesity due to excess calories] Onset: 07-19-2020 07-19-2020 Chronic Other upper respiratory infections (1 source) Bacterial sinusitis; Translations: [Chronic sinusitis, unspecified] 03-09-2023 Chronic Other upper respiratory infections (2 sources) Sore throat symptom; Translations: [Acute pharyngitis, unspecified] Episodic Otitis media and related conditions (1 source) Acute secretory otitis media; Translations: [Other acute nonsuppurative otitis media, left ear] 01-26-2023 Episodic Residual codes; unclassified (1 source) Generalized aches and pains; Translations: [Pain, unspecified] Episodic Spondylosis; intervertebral disc disorders; other back problems (1 source) Acute low back pain; Translations: [Acute low back pain without sciatica, unspecified back pain laterality] Episodic Substance-related disorders (7 sources) Smoker; Translations: [Nicotine dependence, unspecified, uncomplicated] Onset: 09-12-2009 01-19-2023 Chronic Viral infection (2 sources) Disease caused by 2019-nCoV; Translations: [COVID-19] Episodic Viral infection (1 source) COVID-19; Translations: [COVID] Onset: 03-27-2022 Past or Other Problems Problem Classification Problem Date Documented Da te Episodic/Chronic Other non-traumatic joint disorders (20 sources) Ankle pain; Translations: [Pain in unspecified ankle and joints of unspecified foot] Onset: 10-01-2012 10-01-2012 Episodic Other screening for suspected conditions (not mental disorders or infectious disease) (9 sources) Patient encounter status; Translations: [Encounter for screening for other suspected endocrine disorder] Onset: 03-27-2022 Episodic Screening and history of mental health and substance abuse codes (20 sources) Ex-cigarette smoker; Translations: [Personal history of nicotine dependence] Onset: 07-19-2020 07-19-2020 Episodic Sprains and strains (20 sources) Sprain of ankle; Translations: [Sprain of unspecified ligament of unspecified ankle, initial encounter] Onset: 10-01-2012 10-01-2012 Episodic Results Test Name Value Interpretation Reference Range Facil ity Vital Signs Date Time Vital Sign Value Performing Clinician Faci lity 01-26-2023 15:41-0400 Body temperature 98.2 [degF] Amanda Barrios APRN.THREAD MILLING MACHINE SET UP OPERATOR Work Phone: [facility] 01-26-2023 15:41-0400 Body weight 80.38 kg Amanda Barrios APRN.THREAD MILLING MACHINE SET UP OPERATOR Work Phone: [facility] 01-26-2023 15:41-0400 Diastolic blood pressure 80 mm[Hg] Amanda Martinez-Shane SENIOR ACCOUNTANT CPA.THREAD MILLING MACHINE SET UP OPERATOR Work Phone: [facility] 01-26-2023 15:41-0400 Heart rate 79 /min Amanda Barrios APRN.THREAD MILLING MACHINE SET UP OPERATOR Work Phone: [facility] 01-26-2023 15:41-0400 Respiratory rate 18 /min Amanda Barrios APRN.THREAD MILLING MACHINE SET UP OPERATOR Work Phone: [facility] 01-26-2023 15:41-0400 SaO2% (BldA) [Mass fraction] 99 % Amanda Barrios APRN.THREAD MILLING MACHINE SET UP OPERATOR Work Phone: [facility] 01-26-2023 15:41-0400 Systolic blood pressure 122 mm[Hg] Amanda Martinez-Shane GALVEZN.THREAD MILLING MACHINE SET UP OPERATOR Work Phone: [facility] 01-19-2023 13:34-0400 Body weight 82.15 kg Cathi Dunn MD Work Phone: [facility] 01-19-2023 13:34-0400 Diastolic blood pressure 74 mm[Hg] Cathi Dunn MD Work Phone: [facility] 01-19-2023 13:34-0400 Heart rate 74 /min Cathi Dunn MD Work Phone: [facility] 01-19-2023 13:34-0400 Respiratory rate 16 /min Cathi Dunn MD Work Phone: [facility] 01-19-2023 13:34-0400 Systolic blood pressure 124 mm[Hg] Cathi Dunn MD Work Phone: [facility] 12-04-2022 08:06-0400 Body height 168.5 cm Brittanygeovany Husainhof SENIOR ACCOUNTANT CPA.THREAD MILLING MACHINE SET UP OPERATOR Work Phone: [facility] 12-04-2022 08:06-0400 Body weight 82.56 kg Brittany Rodriguehof SENIOR ACCOUNTANT CPA.THREAD MILLING MACHINE SET UP OPERATOR Work Phone: [facility] 12-04-2022 08:06-0400 Diastolic blood pressure 102 mm[Hg] Brittany Tannhof SENIOR ACCOUNTANT CPA.THREAD MILLING MACHINE SET UP OPERATOR Work Phone: [facility] 12-04-2022 08:06-0400 Heart rate 68 /min Brittany Tannhof SENIOR ACCOUNTANT CPA.THREAD MILLING MACHINE SET UP OPERATOR Work Phone: [facility] 12-04-2022 08:06-0400 Respiratory rate 16 /min Brittany Tannhof SENIOR ACCOUNTANT CPA.THREAD MILLING MACHINE SET UP OPERATOR Work Phone: [facility] 12-04-2022 08:06-0400 SaO2% (BldA) [Mass fraction] 98 % Brittany Tannhof SENIOR ACCOUNTANT CPA.THREAD MILLING MACHINE SET UP OPERATOR Work Phone: [facility] 12-04-2022 08:06-0400 Systolic blood pressure 170 mm[Hg] Brittany Tannhof SENIOR ACCOUNTANT CPA.THREAD MILLING MACHINE SET UP OPERATOR Work Phone: [facility] 09-29-2022 19:02-0400 Body temperature 97.9 [degF] Cathi Dunn MD Work Phone: [facility] 09-29-2022 19:02-0400 Body weight 78.61 kg Cathi Dunn MD Work Phone: [facility] 09-29-2022 19:02-0400 Diastolic blood pressure 76 mm[Hg] Cathi Dunn MD Work Phone: [facility] 09-29-2022 19:02-0400 Heart rate 80 /min Cathi Dunn MD Work Phone: [facility] 09-29-2022 19:02-0400 Respiratory rate 20 /min Cathi Dunn MD Work Phone: [facility] 09-29-2022 19:02-0400 Systolic blood pressure 130 mm[Hg] Cathi Dunn MD Work Phone: [facility] 09-23-2022 15:11-0400 Body temperature 97.3 [degF] David Alejandro SENIOR ACCOUNTANT CPA.THREAD MILLING MACHINE SET UP OPERATOR Work Phone: [facility] 09-23-2022 15:11-0400 Body weight 76.75 kg David Alejandro SENIOR ACCOUNTANT CPA.THREAD MILLING MACHINE SET UP OPERATOR Work Phone: [facility] 09-23-2022 15:11-0400 Diastolic blood pressure 64 mm[Hg] David Alejandro SENIOR ACCOUNTANT CPA.THREAD MILLING MACHINE SET UP OPERATOR Work Phone: [facility] 09-23-2022 15:11-0400 Heart rate 66 /min David Alejandro SENIOR ACCOUNTANT CPA.THREAD MILLING MACHINE SET UP OPERATOR Work Phone: [facility] 09-23-2022 15:11-0400 Respiratory rate 16 /min David Alejandro SENIOR ACCOUNTANT CPA.THREAD MILLING MACHINE SET UP OPERATOR Work Phone: [facility] 09-23-2022 15:11-0400 SaO2% (BldA) [Mass fraction] 98 % David Alejandro SENIOR ACCOUNTANT CPA.THREAD MILLING MACHINE SET UP OPERATOR Work Phone: [facility] 09-23-2022 15:11-0400 Systolic blood pressure 102 mm[Hg] David Alejandro SENIOR ACCOUNTANT CPA.THREAD MILLING MACHINE SET UP OPERATOR Work Phone: [facility] 06-07-2022 10:41-0500 Body temperature 98.49 [degF] Judith Diana SENIOR ACCOUNTANT CPA.THREAD MILLING MACHINE SET UP OPERATOR Work Phone: [facility] 06-07-2022 10:41-0500 Body weight 85.09 kg Judith Diana SENIOR ACCOUNTANT CPA.THREAD MILLING MACHINE SET UP OPERATOR Work Phone: [facility] 06-07-2022 10:41-0500 Diastolic blood pressure 78 mm[Hg] Judith Diana SENIOR ACCOUNTANT CPA.THREAD MILLING MACHINE SET UP OPERATOR Work Phone: [facility] 06-07-2022 10:41-0500 Heart rate 82 /min Judith Diana SENIOR ACCOUNTANT CPA.THREAD MILLING MACHINE SET UP OPERATOR Work Phone: [facility] 06-07-2022 10:41-0500 Respiratory rate 21 /min Judith Diana SENIOR ACCOUNTANT CPA.THREAD MILLING MACHINE SET UP OPERATOR Work Phone: [facility] 06-07-2022 10:41-0500 SaO2% (BldA) [Mass fraction] 97 % Judith Diana SENIOR ACCOUNTANT CPA.THREAD MILLING MACHINE SET UP OPERATOR Work Phone: [facility] 06-07-2022 10:41-0500 Systolic blood pressure 108 mm[Hg] Judith Diana SENIOR ACCOUNTANT CPA.THREAD MILLING MACHINE SET UP OPERATOR Work Phone: [facility] 03-27-2022 13:50-0500 Body weight 84.1 kg Kelly Spenser SENIOR ACCOUNTANT CPA.THREAD MILLING MACHINE SET UP OPERATOR Work Phone: [facility] 03-27-2022 13:50-0500 Diastolic blood pressure 60 mm[Hg] Kelly Spenser SENIOR ACCOUNTANT CPA.THREAD MILLING MACHINE SET UP OPERATOR Work Phone: [facility] 03-27-2022 13:50-0500 Heart rate 64 /min Kelly Spenser SENIOR ACCOUNTANT CPA.THREAD MILLING MACHINE SET UP OPERATOR Work Phone: [facility] 03-27-2022 13:50-0500 Respiratory rate 16 /min Kelly Spenser SENIOR ACCOUNTANT CPA.THREAD MILLING MACHINE SET UP OPERATOR Work Phone: [facility] 03-27-2022 13:50-0500 Systolic blood pressure 110 mm[Hg] Kelly Spenser SENIOR ACCOUNTANT CPA.THREAD MILLING MACHINE SET UP OPERATOR Work Phone: [facility] 07-20-2021 12:39-0400 Body temperature 97.59 [degF] Ambar Denis APRN.THREAD MILLING MACHINE SET UP OPERATOR Work Phone: [facility] 07-20-2021 12:39-0400 Body weight 90.27 kg Ambar Denis APRN.THREAD MILLING MACHINE SET UP OPERATOR Work Phone: [facility] 07-20-2021 12:39-0400 Diastolic blood pressure 82 mm[Hg] Ambar Denis APRN.THREAD MILLING MACHINE SET UP OPERATOR Work Phone: [facility] 07-20-2021 12:39-0400 Heart rate 88 /min Ambar Denis APRN.THREAD MILLING MACHINE SET UP OPERATOR Work Phone: [facility] 07-20-2021 12:39-0400 Respiratory rate 16 /min Ambra Denis APRN.THREAD MILLING MACHINE SET UP OPERATOR Work Phone: [facility] 07-20-2021 12:39-0400 SaO2% (BldA) [Mass fraction] 97 % Ambar Denis APRN.THREAD MILLING MACHINE SET UP OPERATOR Work Phone: [facility] 07-20-2021 12:39-0400 Systolic blood pressure 142 mm[Hg] Ambar Denis APRN.THREAD MILLING MACHINE SET UP OPERATOR Work Phone: [facility] Encounters Encounter Date Encounter Type Care Provider Facility Start: 03-10-2023 ambulatory Cathi villalobos MD Work Phone: [facility] Start: 03-10-2023 Patient encounter procedure Cathi Dunn MD Work Phone: [facility] Procedures Date Procedure Procedure Detail Performing Clinician Start: 09-23-2022 Urnls dip stick/tabl et rgnt auto w/o microscopy Amanda Barrios APRN.THREAD MILLING MACHINE SET UP OPERATOR Work Phone: Start: 06-07-2022 Urnls dip stick/tabl et rgnt auto w/o microscopy Amanda Barrios APRN.THREAD MILLING MACHINE SET UP OPERATOR Work Phone: Start: 07-20-2021 STREP A MOLECULAR (POC) Ambar Denis APRN.THREAD MILLING MACHINE SET UP OPERATOR Work Phone: Start: 07-24-2020 Linda Denis APRN.ALEYDA Work Phone: Plan of Treatment Date Care Activity Detail Author Start: 08-16-2032 Urine microalbumin profile DTa P,Tdap,Td Vaccine (3 - Td or Tdap) [facility] Start: 02-08-2027 Urine microalbumin profile [facility] Start: 03-09-2024 Annual PCP Team Lean Process Deployment Consultant javad Disease Visit Annual PCP Team Chronic Disease Visit [facility] Start: 01-20-2024 Annual PCP Team Lean Process Deployment Consultant javad Disease Visit Annual PCP Team Chronic Disease Visit [facility] Start: 01-20-2024 BP Controlled (<130/80) BP Controlle d (<130/80) [facility] Start: 12-05-2023 ANNUAL PCP TEAM SUPERVISOR PAINT JAVAD DISEASE VISIT ANNUAL PCP TEAM CHRONIC DISEASE VISIT [facility] Start: 09-30-2023 ANNUAL PCP TEAM SUPERVISOR PAINT JAVAD DISEASE VISIT ANNUAL PCP TEAM CHRONIC DISEASE VISIT [facility] Start: 09-24-2023 BP CONTROLLED (<130/80) BP CONTROLLE D (<130/80) [facility] Start: 06-08-2023 BP CONTROLLED (<130/80) BP CONTROLLE D (<130/80) [facility] Start: 03-27-2023 ANNUAL PCP TEAM SUPERVISOR PAINT JAVAD DISEASE VISIT ANNUAL PCP TEAM CHRONIC DISEASE VISIT [facility] Start: 03-27-2023 BP CONTROLLED (<130/80) BP CONTROLLE D (<130/80) [facility] Start: 03-27-2023 COVID-19 VACCINE (#1) COVID-19 VACCI NE (#1) [facility] Immunizations Immunization Date Immunization Notes Care Provider Fa cility 02-02-2019 influenza, injectabl e, quadrivalent, contains preservative Ambar Denis APRN.CNP Work Phone: [facility] 02-02-2019 pneumococcal polysaccharide vaccine, 23 valent Ambar Denis APRN.CNP Work Phone: [facility] 02-02-2019 influenza virus vacc ine, unspecified formulation Kelly Dueñas APRN.ALEYDA Work Phone: [facility] 02-08-2017 tetanus toxoid, redu lalo diphtheria toxoid, and acellular pertussis vaccine, adsorbed Ambar Denis APRN.THREAD MILLING MACHINE SET UP OPERATOR Work Phone: [facility] Payers Date Payer Category Payer Medicaid [employer] [employer] [employer] [id number] 2002-Present [phone] [address] [place] [address] Medicaid [id number] 2002 Medicaid [id number] 2002 Medicaid [id number] Social History Date Type Detail Facility Start: 09-15-2017 End: 02-10-2022 Tobacco smoking status NHIS Ex-smoker [facility] End: 08-29-2019 History of tobacco use Current smoker [facility] Start: 01-29-1996 End: 08-29-2019 History of tobacco use Cigarette Smoker [facility] Start: 09-15-2017 End: 01-19-2023 Cigarettes smoked current (pack per day) - Reported 1 [facility] Start: 09-15-2017 End: 01-19-2023 Tobacco use and exposure Smokeless tobacco non-user [facility] Start: 07-20-2021 End: 03-06-2023 Alcohol intake Current non-drinker of alcohol (finding) [facility] Start: 07-16-2020 End: 03-26-2022 History SDOH Alcohol Frequency 1 [facility] Start: 07-16-2020 End: 03-26-2022 History SDOH Social Connections Membership 2 [facility] Start: 07-16-2020 End: 03-26-2022 History SDOH Social Connections Living 8 [facility] Start: 07-16-2020 End: 03-26-2022 History SDOH Physical Activity DPW 0 [facility] Start: 07-16-2020 End: 03-26-2022 History SDOH Stress 5 [facility] Start: 07-16-2020 History SDOH Financial 3 [facility] Start: 07-16-2020 Education 11 [facility] Start: 07-19-2020 End: 02-10-2022 Tobacco Comment 1 ppd for 20, currently vaping [facility] Start: 1980 Sex Assigned At Female [facility] Start: 07-10-2021 End: 07-20-2021 Exposure to SARS-CoV-2 (event) Not sure [facility] Start: 01-31-2022 End: 02-10-2022 Exposure to SARS-CoV-2 (event) Yes [facility] Work Phone: Start: 03-26-2022 History SDOH Financial 4 [facility] Start: 03-26-2022 End: 01-19-2023 Social connection and isolation panel [facility] Do you belong to any clubs or organizations such as latter-day groups, unions, fraternal or athletic groups, or school groups? No [facility] Are you now , , , , never or living with a partner? Living with partner [facility] Frequency of Alcohol Consumption Not on file [facility] How often do you hav e 6 or more drinks on 1 occasion? Never [facility] How hard is it for y ou to pay for the very basics like food, housing, medical care, and heating Not very hard [facility] Do you feel stress - tense, restless, nervous, or anxious, or unable to sleep at night because your mind is troubled all the time - these days [OSQ] Very much [facility] (I/We) worried wheth er (my/our) food would run out before (I/we) got money to buy more. Never true [facility] Start: 07-16-2020 Gender identity Identifies as female gender (finding) [facility] Start: 07-16-2020 Sexual orientation Heterosexual (finding) [facility] Start: 01-29-1996 Tobacco smoking status NHIS Smokes tobacco daily [facility] Clinical Notes 09-12-2009 to 03-10-2023 Telephone Encounter - Leonor Arevalo Ma - 03/10/2023 8:42 AM ESTTelephone Encounter - Cathi Dunn MD - 03/09/2023 6:20 PM ESTTelephone Encounter - Cheryl Brown Ma - 03/06/2023 2:11 PM EST Note Date & Type Note Facility 03-10-2023 Miscellaneous Notes See pt message and advise. Update pt once complete. Leonor Arevalo Ma documented in this encounter [facility] 03-09-2023 Miscellaneous Notes Note given today at virtual visit Cathi Dunn MD See mychart message. Cheryl Brown Ma documented in this encounter [facility] 03-09-2023 Note HNO ID: [id number] Author: Cathi Dunn MD Service: ? Author Type: Physician Type: Progress Notes Filed: 03/09/2023 3:48 PM Note Text: Chief Complaint No chief complaint on file. HPI: This Team Access Model visit is a virtual/phone encounter. It required patient-provider interaction for the medical decision making as documented below. Patient was offered a virtual/telemedicine appointment in lieu of an office visit due to recommendations to reduce patient exposure to COVID-19. Patient is aware of limitations of performing the visit without a face to face visit in the office setting and agrees. I have communicated my name and active licensure. The patient's identity and physical location were verified at the time of this visit. 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 Pt was in [facility] on Thursday for illness, the Covid and Flu test were negative. Pt c/o body aches and URI sx. She missed work 03/05- last week, would only give her a note excusing her for the Thursday that she was evaluated. Pt needs a note excusing her from work the previous days prior to evaluation. Fever resolved, but still with sinus pressure and congested. Feels she is able to return to work. Was recently treated with Amoxicillin that improved symptoms., but issues returned when the antibiotic was stopped. Past medical history, appointments, medications, allergies reviewed. Previous Medical History PAST MEDICAL HISTORY Diagnosis Date Adjustment disorder with depressed mood Condyloma acuminatum Depressive disorder, not elsewhere classified Essential hypertension Fetus or affected by ectopic of mother Other and unspecified ovarian cyst Ovarian cyst Other hyperlipidemia Type 2 diabetes mellitus (HCC) Pre-diabetes Unspecified chronic bronchitis (HCC) Chronic bronchitis Previous Surgical History PAST SURGICAL HISTORY Procedure Laterality Date ADENOIDECTOMY PRIMARY Adenoidectomy DELIVERY ONLY , low cervical LIG/TRNSXJ FLP TUBE ABDL/VAG APPR UNI/BI Tubal ligation TONSILLECTOMY PRIMARY/SECONDARY Tonsillectomy VAGINAL HYSTERECTOMY UTERUS 250 GM/< Hysterectomy, vaginal Family History FAMILY HISTORY Adopted: Yes Problem Relation Age of Onset Hypertension Mother Heart Mother [place] Lung Cancer Father Coronary Artery Disease Sister Hypertension Sister Developmental problem Brother Cancer Maternal Grandfather lung other (pt adopted) Other Patient Allergies ALLERGIES Allergen Reactions Flea Bites [Other] Methotrexate Other: See Comments Organ failure Tylenol-Codeine #3 * Current Medications Current Outpatient Medications on File Prior to Visit Medication Sig fluticasone (FLONASE) 50 mcg/actuation nasal spray Use 2 Sprays in each nostril once daily. Rinse mouth after use. varenicline (CHANTIX) 1 mg tablet Take 0.5 tablets by mouth once daily for 3 days, THEN 0.5 tablets two times a day for 4 days, THEN 1 tablet two times a day for 23 days. varenicline (CHANTIX) 1 mg tablet Take 1 tablet by mouth two times a day. (Patient not taking: Reported on 03/06/2023) atorvastatin (LIPITOR) 20 mg tablet Take 1 tablet by mouth daily at bedtime. For cholesterol. lisinopril-hydroCHLOROthiazide (ZESTORETIC) 20-12.5 mg per tablet Take half a pill daily. omeprazole (PRILOSEC) 20 mg capsule Take 1 capsule by mouth daily before breakfast. 1/2 hr before meal. FLUoxetine (PROZAC) 20 mg capsule Take 1 capsule by mouth once daily. Cholecalciferol, Vitamin D3, 125 mcg (5,000 unit) cap Take 1 capsule by mouth once daily. albuterol HFA (VENTOLIN HFA) 90 mcg/actuation inhaler Inhale 2 Puffs as instructed every 4 hours as needed for Wheezing/Shortness of Breath. No current facility-administered medications on file prior to visit. Social History Social History Tobacco Use Smoking status: Every Day Packs/day: 2.00 Years: 20.00 Additional pack years: 0.00 Total pack years: 40.00 Types: Cigarettes Start date: 01/1996 Smokeless tobacco: Never Tobacco comments: 1 ppd for 20, currently vaping Vaping Use Vaping Use: current everyday user Substances: Nicotine Devices: Disposable, Pre-filled or refillable cartridge Substance Use Topics Alcohol use: No Drug use: No EXAM: LMP 02/03/2011 Health Maintenance List Hepatitis B Vaccine(1 of 3 - 3-dose series) Never done Pneumococcal Vaccine(2 - PCV) due on 02/03/2020 BP Controlled (<130/80) due on 07/17/2021 Mammogram Screening due on 07/24/2021 Influenza Vaccine(1) due on 11/28/2022 Covid-19 Vaccine(1) due on 03/27/2023 Annual PCP Team Chronic Disease Visit due on 01/20/2024 DTaP,Tdap,Td Vaccine(3 - Td or Tdap) due on 08/16/2032 Hepatitis C Screening Completed HPV Vaccine Aged Out Pap T (more content not included)... [facility] 03-09-2023 History of Presen t illness Narrative Chief Complaint No chief complaint on file. HPI: This Team Access Model visit is a virtual/phone encounter. It required patient-provider interaction for the medical decision making as documented below. Patient was offered a virtual/telemedicine appointment in lieu of an office visit due to recommendations to reduce patient exposure to COVID-19. Patient is aware of limitations of performing the visit without a face to face visit in the office setting and agrees. I have communicated my name and active licensure. The patient's identity and physical location were verified at the time of this visit. 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 Pt was in [facility] on Thursday for illness, the Covid and Flu test were negative. Pt c/o body aches and URI sx. She missed work 03/05- last week, UC would only give her a note excusing her for the Thursday that she was evaluated. Pt needs a note excusing her from work the previous days prior to evaluation. Fever resolved, but still with sinus pressure and congested. Feels she is able to return to work. Was recently treated with Amoxicillin that improved symptoms., but issues returned when the antibiotic was stopped. Past medical history, appointments, medications, allergies reviewed. Previous Medical History PAST MEDICAL HISTORY Diagnosis Date Adjustment disorder with depressed mood Condyloma acuminatum Depressive disorder, not elsewhere classified Essential hypertension Fetus or affected by ectopic of mother Other and unspecified ovarian cyst Ovarian cyst Other hyperlipidemia Type 2 diabetes mellitus (HCC) Pre-diabetes Unspecified chronic bronchitis (HCC) Chronic bronchitis Previous Surgical History PAST SURGICAL HISTORY Procedure Laterality Date ADENOIDECTOMY PRIMARY <AGE 12 Adenoidectomy DELIVERY ONLY , low cervical LIG/TRNSXJ FLP TUBE ABDL/VAG APPR UNI/BI Tubal ligation TONSILLECTOMY PRIMARY/SECONDARY <AGE 12 Tonsillectomy VAGINAL HYSTERECTOMY UTERUS 250 GM/< Hysterectomy, vaginal Family History FAMILY HISTORY Adopted: Yes Problem Relation Age of Onset Hypertension Mother Heart Mother [place] Lung Cancer Father Coronary Artery Disease Sister Hypertension Sister Developmental problem Brother Cancer Maternal Grandfather lung other (pt adopted) Other Patient Allergies ALLERGIES Allergen Reactions Flea Bites [Other] Methotrexate Other: See Comments Organ failure Tylenol-Codeine #3 * Current Medications Current Outpatient Medications on File Prior to Visit Medication Sig fluticasone (FLONASE) 50 mcg/actuation nasal spray Use 2 Sprays in each nostril once daily. Rinse mouth after use. varenicline (CHANTIX) 1 mg tablet Take 0.5 tablets by mouth once daily for 3 days, THEN 0.5 tablets two times a day for 4 days, THEN 1 tablet two times a day for 23 days. varenicline (CHANTIX) 1 mg tablet Take 1 tablet by mouth two times a day. (Patient not taking: Reported on 03/06/2023) atorvastatin (LIPITOR) 20 mg tablet Take 1 tablet by mouth daily at bedtime. For cholesterol. lisinopril-hydroCHLOROthiazide (ZESTORETIC) 20-12.5 mg per tablet Take half a pill daily. omeprazole (PRILOSEC) 20 mg capsule Take 1 capsule by mouth daily before breakfast. 1/2 hr before meal. FLUoxetine (PROZAC) 20 mg capsule Take 1 capsule by mouth once daily. Cholecalciferol, Vitamin D3, 125 mcg (5,000 unit) cap Take 1 capsule by mouth once daily. albuterol HFA (VENTOLIN HFA) 90 mcg/actuation inhaler Inhale 2 Puffs as instructed every 4 hours as needed for Wheezing/Shortness of Breath. No current facility-administered medications on file prior to visit. Social History Social History Tobacco Use Smoking status: Every Day Packs/day: 2.00 Years: 20.00 Additional pack years: 0.00 Total pack years: 40.00 Types: Cigarettes Start date: 01/1996 Smokeless tobacco: Never Tobacco comments: 1 ppd for 20, currently vaping Vaping Use Vaping Use: current everyday user Substances: Nicotine Devices: Disposable, Pre-filled or refillable cartridge Substance Use Topics Alcohol use: No Drug use: No EXAM: LMP 02/03/2011 Health Maintenance List Hepatitis B Vaccine(1 of 3 - 3-dose series) Never done Pneumococcal Vaccine(2 - PCV) due on 02/03/2020 BP Controlled (<130/80) due on 07/17/2021 Mammogram Screening due on 07/24/2021 Influenza Vaccine(1) due on 11/28/2022 Covid-19 Vaccine(1) due on 03/27/2023 Annual PCP Team Chronic Disease Visit due on 01/20/2024 DTaP,Tdap,Td Vaccine(3 - Td or Tdap) due on 08/16/2032 Hepatitis C Screening Completed HPV Vaccine Aged Out Pap Testing Discontinued HPV Testing Discontinued HIV Screening Discontinued Data reviewed Office Visit on 03/06/2023 Component Date Value SARS-CoV-2 (Agent of COV* 03/06/2023 Not detected Influenza A PCR 03/06/2023 Not detected Influenza B PCR 03/06/2023 Not detected ASSESSMENT/PLAN: 1. Bacterial sinusitis - ICD9: 473.9, 041.9, ICD10: J32.9, B96.89 - Will begin treatment with Augmentin 875 mg PO BID for 10 days - Supportive care with plenty of fluids, rest, and analgesia prn. - Note for work done; may need [employer] papers also - AMOXICILLIN 875 MG-POTASSIUM CLAVULANATE 125 MG TABLET If not improved with antibiotics may consider ENT consult Follow up prn Cathi Dunn MD documented in this encounter [facility] 03-06-2023 Miscellaneous Notes PLEASE SEE OTHER MESSAGE 03/06/23. Roxanne Wilcox MA documented in this encounter [facility] 03-06-2023 Note HNO ID: [id number] Author: Buck Lockwood APRN.THREAD MILLING MACHINE SET UP OPERATOR Service: ? Author Type: Nurse Practitioner Type: Progress Notes Filed: 03/06/2023 11:20 AM Note Text: Subjective HPI Nontoxic-appearing female presents to urgent care with chief complaint of fever and cough. Duration of symptoms 3 days. Associated symptoms with today's chief complaint are on and off headache, muscle aches, fatigue, nonproductive cough, loose stools, night sweats, and fever. Patient stated symptoms started abruptly. Patient states they have used [id number] medication with some success. Patient states they were in contact with individuals who were diagnosed with influenza/COVID-19. Patient denies any pain at this time. Patient denies any visual changes, visual disturbance, shortness of breath, rash, exercise intolerance, pleuritic pain, productive cough, abdominal pain, nausea, vomiting, chest pain, or new rashes. Past medical history prescription medication use allergies reviewed. .Patient presents with: Cough: Congestion, diarrhea, nausea, fever, L ear pain, bodyaches x2 days PAST MEDICAL HISTORY Diagnosis Date Adjustment disorder with depressed mood Condyloma acuminatum Depressive disorder, not elsewhere classified Essential hypertension Fetus or affected by ectopic of mother Other and unspecified ovarian cyst Ovarian cyst Other hyperlipidemia Type 2 diabetes mellitus (HCC) Pre-diabetes Unspecified chronic bronchitis (HCC) Chronic bronchitis PAST SURGICAL HISTORY Procedure Laterality Date ADENOIDECTOMY PRIMARY Adenoidectomy DELIVERY ONLY , low cervical LIG/TRNSXJ FLP TUBE ABDL/VAG APPR UNI/BI Tubal ligation TONSILLECTOMY PRIMARY/SECONDARY Tonsillectomy VAGINAL HYSTERECTOMY UTERUS 250 GM/< Hysterectomy, vaginal ALLERGIES Flea Bites [Other], Methotrexate, and Tylenol-Codeine #3 [Acetaminophen-Codeine] MEDICATIONS fluticasone (FLONASE) 50 mcg/actuation nasal spray Use 2 Sprays in each nostril once daily. Rinse mouth after use. varenicline (CHANTIX) 1 mg tablet Take 0.5 tablets by mouth once daily for 3 days, THEN 0.5 tablets two times a day for 4 days, THEN 1 tablet two times a day for 23 days. varenicline (CHANTIX) 1 mg tablet Take 1 tablet by mouth two times a day. (Patient not taking: Reported on 03/06/2023) atorvastatin (LIPITOR) 20 mg tablet Take 1 tablet by mouth daily at bedtime. For cholesterol. lisinopril-hydroCHLOROthiazide (ZESTORETIC) 20-12.5 mg per tablet Take half a pill daily. omeprazole (PRILOSEC) 20 mg capsule Take 1 capsule by mouth daily before breakfast. 1/2 hr before meal. FLUoxetine (PROZAC) 20 mg capsule Take 1 capsule by mouth once daily. Cholecalciferol, Vitamin D3, 125 mcg (5,000 unit) cap Take 1 capsule by mouth once daily. albuterol HFA (VENTOLIN HFA) 90 mcg/actuation inhaler Inhale 2 Puffs as instructed every 4 hours as needed for Wheezing/Shortness of Breath. FAMILY HISTORY Adopted: Yes Problem Relation Age of Onset Hypertension Mother Heart Mother [place] Lung Cancer Father Coronary Artery Disease Sister Hypertension Sister Developmental problem Brother Cancer Maternal Grandfather lung other (pt adopted) Other Social History Tobacco Use Smoking status: Every Day Packs/day: 2.00 Years: 20.00 Additional pack years: 0.00 Total pack years: 40.00 Types: Cigarettes Start date: 01/1996 Smokeless tobacco: Never Tobacco comments: 1 ppd for 20, currently vaping Vaping Use Vaping Use: current everyday user Substances: Nicotine Devices: Disposable, Pre-filled or refillable cartridge Substance Use Topics Alcohol use: No Drug use: No BP 163/93 Pulse 79 Temp 36.8 ?C (98.2 ?F) Resp 18 Wt 82.6 kg (182 lb 3.2 oz) LMP 02/03/2011 SpO2 99% BMI 29.11 kg/m? Bp 147/82 Review of Systems Constitutional: Positive for chills, fever and malaise/fatigue. HENT: Positive for congestion and sore throat. Negative for ear discharge, ear pain and sinus pain. Eyes: Negative for blurred vision, pain, discharge and redness. Respiratory: Positive for cough. Negative for hemoptysis, sputum production, shortness of breath, wheezing and stridor. Cardiovascular: Negative for chest pain. Gastrointestinal: Positive for diarrhea. Negative for abdominal pain, nausea and vomiting. Genitourinary: Negative. Musculoskeletal: Positive for myalgias. Skin: Negative for itching and rash. Neurological: Positive for headaches. Negative for dizziness. Objective Physical Exam Constitutional: General: She is not in acute distress. Appearance: She is not diaphoretic. HENT: Head: Normocephalic. Jaw: No trismus, tenderness, swelling or pain on movement. Right Ear: Tympanic membrane, ear canal and external ear normal. Left Ear: Tympanic membrane, ear canal and external ear normal. Nose: Congestion present. Mouth/Throat: Mouth: Mucous membranes are moist. Pharynx (more content not included)... [facility] 01-26-2023 Note HNO ID: [id number] Author: Amanda Barrios APRN.THREAD MILLING MACHINE SET UP OPERATOR Service: ? Author Type: Nurse Practitioner Type: Progress Notes Filed: 01/26/2023 3:56 PM Note Text: Subjective Ear Pain Pertinent negatives include no chest pain, chills, congestion, coughing, fever, headaches, myalgias or sore throat. Chen Bailon is a 42 year old female who presents with 3 days of left ear pain, complains of itchiness in the ear and drainage in the ear, also feeling that the ear is completely clogged . She had COVID 2 weeks ago, those symptoms have resolved. She has not had a fever. She has been taking ibuprofen for pain. Rates pain 11/06. Describes pain as throbbing . Review of Systems Constitutional: Negative for chills and fever. HENT: Positive for ear pain and hearing loss. Negative for congestion and sore throat. Respiratory: Negative for cough and shortness of breath. Cardiovascular: Negative for chest pain. Musculoskeletal: Negative for myalgias. Neurological: Negative for dizziness and headaches. BP 122/80 Pulse 79 Temp 36.8 ?C (98.2 ?F) Resp 18 Wt 80.4 kg (177 lb 3.2 oz) LMP 02/03/2011 SpO2 99% BMI 28.31 kg/m? PAST MEDICAL HISTORY Diagnosis Date Adjustment disorder with depressed mood Condyloma acuminatum Depressive disorder, not elsewhere classified Essential hypertension Fetus or affected by ectopic of mother Other and unspecified ovarian cyst Ovarian cyst Other hyperlipidemia Type 2 diabetes mellitus (HCC) Pre-diabetes Unspecified chronic bronchitis (HCC) Chronic bronchitis PAST SURGICAL HISTORY Procedure Laterality Date ADENOIDECTOMY PRIMARY Adenoidectomy DELIVERY ONLY , low cervical LIG/TRNSXJ FLP TUBE ABDL/VAG APPR UNI/BI Tubal ligation TONSILLECTOMY PRIMARY/SECONDARY Tonsillectomy VAGINAL HYSTERECTOMY UTERUS 250 GM/< Hysterectomy, vaginal ALLERGIES Flea Bites [Other], Methotrexate, and Tylenol-Codeine #3 [Acetaminophen-Codeine] MEDICATIONS fluticasone (FLONASE) 50 mcg/actuation nasal spray Use 2 Sprays in each nostril once daily. Rinse mouth after use. amoxicillin (AMOXIL) 875 mg tablet Take 1 tablet by mouth two times a day for 7 days. varenicline (CHANTIX) 1 mg tablet Take 0.5 tablets by mouth once daily for 3 days, THEN 0.5 tablets two times a day for 4 days, THEN 1 tablet two times a day for 23 days. [START ON 02/18/2023] varenicline (CHANTIX) 1 mg tablet Take 1 tablet by mouth two times a day. atorvastatin (LIPITOR) 20 mg tablet Take 1 tablet by mouth daily at bedtime. For cholesterol. lisinopril-hydroCHLOROthiazide (ZESTORETIC) 20-12.5 mg per tablet Take half a pill daily. omeprazole (PRILOSEC) 20 mg capsule Take 1 capsule by mouth daily before breakfast. 1/2 hr before meal. FLUoxetine (PROZAC) 20 mg capsule Take 1 capsule by mouth once daily. Cholecalciferol, Vitamin D3, 125 mcg (5,000 unit) cap Take 1 capsule by mouth once daily. albuterol HFA (VENTOLIN HFA) 90 mcg/actuation inhaler Inhale 2 Puffs as instructed every 4 hours as needed for Wheezing/Shortness of Breath. FAMILY HISTORY Adopted: Yes Problem Relation Age of Onset Hypertension Mother Heart Mother [place] Lung Cancer Father Coronary Artery Disease Sister Hypertension Sister Developmental problem Brother Cancer Maternal Grandfather lung other (pt adopted) Other Social History Tobacco Use Smoking status: Every Day Packs/day: 2.00 Years: 20.00 Additional pack years: 0.00 Total pack years: 40.00 Types: Cigarettes Start date: 01/1996 Smokeless tobacco: Never Tobacco comments: 1 ppd for 20, currently vaping Vaping Use Vaping Use: current everyday user Substances: Nicotine Devices: Disposable, Pre-filled or refillable cartridge Substance Use Topics Alcohol use: No Drug use: No Objective Physical Exam Vitals and nursing note reviewed. Constitutional: General: She is not in acute distress. Appearance: Normal appearance. She is not ill-appearing. HENT: Right Ear: Tympanic membrane, ear canal and external ear normal. Left Ear: Ear canal and external ear normal. A middle ear effusion is present. Tympanic membrane is injected. Nose: Nose normal. Mouth/Throat: Mouth: Mucous membranes are moist. Pharynx: Oropharynx is clear. Uvula midline. No oropharyngeal exudate or posterior oropharyngeal erythema. Cardiovascular: Rate and Rhythm: Normal rate and regular rhythm. Heart sounds: Normal heart sounds. Pulmonary: Effort: Pulmonary effort is normal. No respiratory distress. Breath sounds: Normal breath sounds. No wheezing or rales. Musculoskeletal: Cervical back: Neck supple. Lymphadenopathy: Cervical: No cervical adenopathy. Skin: General: Skin is warm and dry. Findings: No erythema or rash. Neurological: Mental Status: She is alert. ASSESSMENT/PLAN: 1. Other acute nonsuppurative otitis media of left ear, recurrence not specified - ICD9: 381.00, (more content not included)... [facility] 01-26-2023 History of Presen t illness Narrative Subjective Ear Pain Pertinent negatives include no chest pain, chills, congestion, coughing, fever, headaches, myalgias or sore throat. Chen Bailon is a 42 year old female who presents with 3 days of left ear pain, complains of itchiness in the ear and drainage in the ear, also feeling that the ear is completely clogged . She had COVID 2 weeks ago, those symptoms have resolved. She has not had a fever. She has been taking ibuprofen for pain. Rates pain 8/10. Describes pain as throbbing . Review of Systems Constitutional: Negative for chills and fever. HENT: Positive for ear pain and hearing loss. Negative for congestion and sore throat. Respiratory: Negative for cough and shortness of breath. Cardiovascular: Negative for chest pain. Musculoskeletal: Negative for myalgias. Neurological: Negative for dizziness and headaches. BP 122/80 Pulse 79 Temp 36.8 C (98.2 F) Resp 18 Wt 80.4 kg (177 lb 3.2 oz) LMP 02/03/2011 SpO2 99% BMI 28.31 kg/m PAST MEDICAL HISTORY Diagnosis Date Adjustment disorder with depressed mood Condyloma acuminatum Depressive disorder, not elsewhere classified Essential hypertension Fetus or affected by ectopic of mother Other and unspecified ovarian cyst Ovarian cyst Other hyperlipidemia Type 2 diabetes mellitus (HCC) Pre-diabetes Unspecified chronic bronchitis (HCC) Chronic bronchitis PAST SURGICAL HISTORY Procedure Laterality Date ADENOIDECTOMY PRIMARY <AGE 12 Adenoidectomy DELIVERY ONLY , low cervical LIG/TRNSXJ FLP TUBE ABDL/VAG APPR UNI/BI Tubal ligation TONSILLECTOMY PRIMARY/SECONDARY <AGE 12 Tonsillectomy VAGINAL HYSTERECTOMY UTERUS 250 GM/< Hysterectomy, vaginal ALLERGIES Flea Bites [Other], Methotrexate, and Tylenol-Codeine #3 [Acetaminophen-Codeine] MEDICATIONS fluticasone (FLONASE) 50 mcg/actuation nasal spray Use 2 Sprays in each nostril once daily. Rinse mouth after use. amoxicillin (AMOXIL) 875 mg tablet Take 1 tablet by mouth two times a day for 7 days. varenicline (CHANTIX) 1 mg tablet Take 0.5 tablets by mouth once daily for 3 days, THEN 0.5 tablets two times a day for 4 days, THEN 1 tablet two times a day for 23 days. [START ON 02/18/2023] varenicline (CHANTIX) 1 mg tablet Take 1 tablet by mouth two times a day. atorvastatin (LIPITOR) 20 mg tablet Take 1 tablet by mouth daily at bedtime. For cholesterol. lisinopril-hydroCHLOROthiazide (ZESTORETIC) 20-12.5 mg per tablet Take half a pill daily. omeprazole (PRILOSEC) 20 mg capsule Take 1 capsule by mouth daily before breakfast. 1/2 hr before meal. FLUoxetine (PROZAC) 20 mg capsule Take 1 capsule by mouth once daily. Cholecalciferol, Vitamin D3, 125 mcg (5,000 unit) cap Take 1 capsule by mouth once daily. albuterol HFA (VENTOLIN HFA) 90 mcg/actuation inhaler Inhale 2 Puffs as instructed every 4 hours as needed for Wheezing/Shortness of Breath. FAMILY HISTORY Adopted: Yes Problem Relation Age of Onset Hypertension Mother Heart Mother [place] Lung Cancer Father Coronary Artery Disease Sister Hypertension Sister Developmental problem Brother Cancer Maternal Grandfather lung other (pt adopted) Other Social History Tobacco Use Smoking status: Every Day Packs/day: 2.00 Years: 20.00 Additional pack years: 0.00 Total pack years: 40.00 Types: Cigarettes Start date: 01/1996 Smokeless tobacco: Never Tobacco comments: 1 ppd for 20, currently vaping Vaping Use Vaping Use: current everyday user Substances: Nicotine Devices: Disposable, Pre-filled or refillable cartridge Substance Use Topics Alcohol use: No Drug use: No Objective Physical Exam Vitals and nursing note reviewed. Constitutional: General: She is not in acute distress. Appearance: Normal appearance. She is not ill-appearing. HENT: Right Ear: Tympanic membrane, ear canal and external ear normal. Left Ear: Ear canal and external ear normal. A middle ear effusion is present. Tympanic membrane is injected. Nose: Nose normal. Mouth/Throat: Mouth: Mucous membranes are moist. Pharynx: Oropharynx is clear. Uvula midline. No oropharyngeal exudate or posterior oropharyngeal erythema. Cardiovascular: Rate and Rhythm: Normal rate and regular rhythm. Heart sounds: Normal heart sounds. Pulmonary: Effort: Pulmonary effort is normal. No respiratory distress. Breath sounds: Normal breath sounds. No wheezing or rales. Musculoskeletal: Cervical back: Neck supple. Lymphadenopathy: Cervical: No cervical adenopathy. Skin: General: Skin is warm and dry. Findings: No erythema or rash. Neurological: Mental Status: She is alert. ASSESSMENT/PLAN: 1. Other acute nonsuppurative otitis media of left ear, recurrence not specified - ICD9: 381.00, ICD10: H65.192 - Will begin treatment with as per antibiotic as written, see orders - Supportive care with plenty of fluids, rest, and analgesia prn. - FLUTICASONE PROPIONATE 50 MCG/ACTUATION NASAL SPRAY,SUSPENSION - AMOXICILLIN 875 MG TABLET - Follow-up with your PCP in 3-5 days if symptoms have not improved or sooner if symptoms worsen - Discussed red flags and need for immediate medical evaluation if any occur. - Discussed supportive care treatment with fluids, rest and analgesia. - Discussed expected course of illness Amanda Barrios APRN.THREAD MILLING MACHINE SET UP OPERATOR documented in this encounter [facility] 01-26-2023 Instructions Amanda Barrios APRN.CNP - 01/26/2023 3:52 PM EDT ASSESSMENT/PLAN: 1. Other acute nonsuppurative otitis media of left ear, recurrence not specified - ICD9: 381.00, ICD10: H65.192 - Will begin treatment with as per antibiotic as written, see orders - Supportive care with plenty of fluids, rest, and analgesia prn. - FLUTICASONE PROPIONATE 50 MCG/ACTUATION NASAL SPRAY,SUSPENSION - AMOXICILLIN 875 MG TABLET - Follow-up with your PCP in 3-5 days if symptoms have not improved or sooner if symptoms worsen - Discussed red flags and need for immediate medical evaluation if any occur. - Discussed supportive care treatment with fluids, rest and analgesia. - Discussed expected course of illness Amanda Barrios APRN.CNP OTITIS MEDIA GENERAL INFORMATION: Otitis media is an infection of the middle ear. The middle ear sits behind the eardrum. This infection may be caused by a virus or bacteria and often follows a cold. Children often have repeat ear infections. Otitis media is not contagious. INSTRUCTIONS: 1. An antibiotic has been prescribed. It should be taken exactly as prescribed. Do not stop the medicine even if the symptoms go away. 2. [id number]-[id number] pain medication may be taken or other pain medication as prescribed by the doctor. 3. Nothing should be placed in the ear unless instructed by your doctor. 4. The patient may return to school/daycare or work when the temperature is normal (98.6 F or 37 C). 5. The patient should not swim while the ear is infected. CONTACT YOUR DOCTOR IF YOU OR YOUR CHILD: 1. Does not feel better within 36 hours. 2. Develops a temperature over 102E F (39E C). 3. Starts vomiting or has diarrhea. 4. Develops drainage from the affected ear. 5. Has any new problem that may be related to the medicine prescribed. RETURN TO THE ED IF: 1. You or your child has a severe headache or pain around the ear. 2. You or your child notice swelling around the ear. 3. You or your child has a seizure (convulsion), twitching of the facial muscles, or passes out. 4. You or your child is dizzy, has a stiff neck, or cannot walk or talk normally. 5. Your child becomes more irritable or listless (not interested in his or her surroundings, does not get soothed by you holding him or her). documented in this encounter [facility] 01-19-2023 Note HNO ID: [id number] Author: Cathi Dunn MD Service: ? Author Type: Physician Type: Progress Notes Filed: 01/19/2023 1:57 PM Note Text: Chief Complaint Patient presents with: Follow Up: Post covmo HPI Chen Bailon is a 42 year old female who presents here today for follow up. Smokes 1 to 2 ppd. She would like to quit. She tried to switch go vaping but it made her cough and chest hurt more. She moved to a new home this past week and is not able to smoke inside. Pt states she has been smoking since she was 16 years old. She is not sure if she would tolerate the patch due to have skin sensitivity. Follow up from [facility]. Pt had FMLA forms completed. Was off from 01/04/23 to 01/11/20. She went back to work on 01/13/23. Her sx have improved. She is able to work her full day without any fatigue or need to rest. She states her employer is asking for her to have a follow up to confirm she is ok to return to work. Denies any further sx other than ears. She took 2 home tests on 01/05/23 which came back positive. She used OTC medications and rested. She states that her ears are still congestion, pop, itch and has some congestion still. Past medical history, appointments, medications, allergies reviewed. Previous Medical History PAST MEDICAL HISTORY Diagnosis Date Adjustment disorder with depressed mood Condyloma acuminatum Depressive disorder, not elsewhere classified Essential hypertension Fetus or affected by ectopic of mother Other and unspecified ovarian cyst Ovarian cyst Other hyperlipidemia Type 2 diabetes mellitus (HCC) Pre-diabetes Unspecified chronic bronchitis (HCC) Chronic bronchitis Previous Surgical History PAST SURGICAL HISTORY Procedure Laterality Date ADENOIDECTOMY PRIMARY Adenoidectomy DELIVERY ONLY , low cervical LIG/TRNSXJ FLP TUBE ABDL/VAG APPR UNI/BI Tubal ligation TONSILLECTOMY PRIMARY/SECONDARY Tonsillectomy VAGINAL HYSTERECTOMY UTERUS 250 GM/< Hysterectomy, vaginal Family History FAMILY HISTORY Adopted: Yes Problem Relation Age of Onset Hypertension Mother Heart Mother HI Lung Cancer Father Coronary Artery Disease Sister Hypertension Sister Developmental problem Brother Cancer Maternal Grandfather lung other (pt adopted) Other Patient Allergies ALLERGIES Allergen Reactions Flea Bites [Other] Methotrexate Other: See Comments Organ failure Tylenol-Codeine #3 * Current Medications Current Outpatient Medications on File Prior to Visit Medication Sig atorvastatin (LIPITOR) 20 mg tablet Take 1 tablet by mouth daily at bedtime. For cholesterol. lisinopril-hydroCHLOROthiazide (ZESTORETIC) 20-12.5 mg per tablet Take half a pill daily. omeprazole (PRILOSEC) 20 mg capsule Take 1 capsule by mouth daily before breakfast. 1/2 hr before meal. FLUoxetine (PROZAC) 20 mg capsule Take 1 capsule by mouth once daily. dextromethorphan-guaiFENesin (MUCINEX DM) 30-600 mg per tablet Take 1 tablet by mouth twice daily. Cholecalciferol, Vitamin D3, 125 mcg (5,000 unit) cap Take 1 capsule by mouth once daily. fluticasone (FLOVENT HFA) 110 mcg/actuation inhaler Inhale 1 Puff as instructed twice daily. albuterol HFA (VENTOLIN HFA) 90 mcg/actuation inhaler Inhale 2 Puffs as instructed every 4 hours as needed for Wheezing/Shortness of Breath. (Patient not taking: Reported on 06/07/2022) No current facility-administered medications on file prior to visit. Social History Social History Tobacco Use Smoking status: Every Day Packs/day: 2.00 Years: 20.00 Additional pack years: 0.00 Total pack years: 40.00 Types: Cigarettes Start date: 01/1996 Smokeless tobacco: Never Tobacco comments: 1 ppd for 20, currently vaping Vaping Use Vaping Use: current everyday user Substances: Nicotine Devices: Disposable, Pre-filled or refillable cartridge Substance Use Topics Alcohol use: No Drug use: No EXAM: BP 124/74 Pulse 74 Resp 16 Wt 82.1 kg (181 lb 1.6 oz) LMP 02/03/2011 BMI 28.93 kg/m? General Appearance: Well appearing, alert, in no acute distress, well-hydrated, well nourished. and Overweight. Ears: External ears normal, canals clear. Lungs: Lungs clear to auscultation. No wheezing, rhonchi, rales.. Heart: RRR without murmur, gallop, or rubs. No ectopy. Health Maintenance List Hepatitis B Vaccine(1 of 3 - 3-dose series) Never done BP Controlled (<130/80) due on 07/17/2021 Mammogram Screening due on 07/24/2021 Influenza Vaccine(1) due on 11/28/2022 Covid-19 Vaccine(1) due on 03/27/2023 Annual PCP Team Chronic Disease Visit due on 12/05/2023 DTaP,Tdap,Td Vaccine(3 - Td or Tdap) due on 08/16/2032 Hepatitis C Screening Completed HPV Vaccine Aged Out Pap Testing Discontinued HPV Testing Discontinued HIV Screening Discontinued none None ASSESSMENT/PLAN: 1. Resolved [id number] syndrome - ICD9: V12.09, ICD10: Z86.16 (primar (more content not included)... [facility] 01-19-2023 History of Presen t illness Narrative Chief Complaint Patient presents with: Follow Up: Post covid HPI Chen Bailon is a 42 year old female who presents here today for follow up. Smokes 1 to 2 ppd. She would like to quit. She tried to switch go vaping but it made her cough and chest hurt more. She moved to a new home this past week and is not able to smoke inside. Pt states she has been smoking since she was 16 years old. She is not sure if she would tolerate the patch due to have skin sensitivity. Follow up from [facility]. Pt had FMLA forms completed. Was off from 01/04/23 to 01/11/20. She went back to work on 01/13/23. Her sx have improved. She is able to work her full day without any fatigue or need to rest. She states her employer is asking for her to have a follow up to confirm she is ok to return to work. Denies any further sx other than ears. She took 2 home tests on 01/05/23 which came back positive. She used OTC medications and rested. She states that her ears are still congestion, pop, itch and has some congestion still. Past medical history, appointments, medications, allergies reviewed. Previous Medical History PAST MEDICAL HISTORY Diagnosis Date Adjustment disorder with depressed mood Condyloma acuminatum Depressive disorder, not elsewhere classified Essential hypertension Fetus or affected by ectopic of mother Other and unspecified ovarian cyst Ovarian cyst Other hyperlipidemia Type 2 diabetes mellitus (HCC) Pre-diabetes Unspecified chronic bronchitis (HCC) Chronic bronchitis Previous Surgical History PAST SURGICAL HISTORY Procedure Laterality Date ADENOIDECTOMY PRIMARY <AGE 12 Adenoidectomy DELIVERY ONLY , low cervical LIG/TRNSXJ FLP TUBE ABDL/VAG APPR UNI/BI Tubal ligation TONSILLECTOMY PRIMARY/SECONDARY <AGE 12 Tonsillectomy VAGINAL HYSTERECTOMY UTERUS 250 GM/< Hysterectomy, vaginal Family History FAMILY HISTORY Adopted: Yes Problem Relation Age of Onset Hypertension Mother Heart Mother HI Lung Cancer Father Coronary Artery Disease Sister Hypertension Sister Developmental problem Brother Cancer Maternal Grandfather lung other (pt adopted) Other Patient Allergies ALLERGIES Allergen Reactions Flea Bites [Other] Methotrexate Other: See Comments Organ failure Tylenol-Codeine #3 * Current Medications Current Outpatient Medications on File Prior to Visit Medication Sig atorvastatin (LIPITOR) 20 mg tablet Take 1 tablet by mouth daily at bedtime. For cholesterol. lisinopril-hydroCHLOROthiazide (ZESTORETIC) 20-12.5 mg per tablet Take half a pill daily. omeprazole (PRILOSEC) 20 mg capsule Take 1 capsule by mouth daily before breakfast. 1/2 hr before meal. FLUoxetine (PROZAC) 20 mg capsule Take 1 capsule by mouth once daily. dextromethorphan-guaiFENesin (MUCINEX DM) 30-600 mg per tablet Take 1 tablet by mouth twice daily. Cholecalciferol, Vitamin D3, 125 mcg (5,000 unit) cap Take 1 capsule by mouth once daily. fluticasone (FLOVENT HFA) 110 mcg/actuation inhaler Inhale 1 Puff as instructed twice daily. albuterol HFA (VENTOLIN HFA) 90 mcg/actuation inhaler Inhale 2 Puffs as instructed every 4 hours as needed for Wheezing/Shortness of Breath. (Patient not taking: Reported on 06/07/2022) No current facility-administered medications on file prior to visit. Social History Social History Tobacco Use Smoking status: Every Day Packs/day: 2.00 Years: 20.00 Additional pack years: 0.00 Total pack years: 40.00 Types: Cigarettes Start date: 01/1996 Smokeless tobacco: Never Tobacco comments: 1 ppd for 20, currently vaping Vaping Use Vaping Use: current everyday user Substances: Nicotine Devices: Disposable, Pre-filled or refillable cartridge Substance Use Topics Alcohol use: No Drug use: No EXAM: BP 124/74 Pulse 74 Resp 16 Wt 82.1 kg (181 lb 1.6 oz) LMP 02/03/2011 BMI 28.93 kg/m General Appearance: Well appearing, alert, in no acute distress, well-hydrated, well nourished. and Overweight. Ears: External ears normal, canals clear. Lungs: Lungs clear to auscultation. No wheezing, rhonchi, rales.. Heart: RRR without murmur, gallop, or rubs. No ectopy. Health Maintenance List Hepatitis B Vaccine(1 of 3 - 3-dose series) Never done BP Controlled (<130/80) due on 07/17/2021 Mammogram Screening due on 07/24/2021 Influenza Vaccine(1) due on 11/28/2022 Covid-19 Vaccine(1) due on 03/27/2023 Annual PCP Team Chronic Disease Visit due on 12/05/2023 DTaP,Tdap,Td Vaccine(3 - Td or Tdap) due on 08/16/2032 Hepatitis C Screening Completed HPV Vaccine Aged Out Pap Testing Discontinued HPV Testing Discontinued HIV Screening Discontinued none None ASSESSMENT/PLAN: 1. Resolved [id number] syndrome - ICD9: V12.09, ICD10: Z86.16 (primary diagnosis) Sx improved Return to work letter written and faxed to [employer]. 2. Smoker - ICD9: 305.1, ICD10: F17.200 - Cessation encouraged. - Physiologic and physical aspects of tobacco addiction as well as strategies for quitting were discussed. - Counseling was given focusing on the harmful effects of this addiction especially given the patient's medical condition(s) which will be worsened because of the chemicals in tobacco. - Counseling was given 3-4 minutes. - Prescription for Chantix given Follow up in as needed. I agree with the Chief Complaint, ROS, and Past Histories independently gathered by the clinical software support analyst and the remaining scribed note accurately describes my personal service to the patient. Medical Decision Making: Problems: Low: Acute, uncomplicated illness or injury Risk: Moderate: Drug management Medical Decision Making Level: 3 - Low Cathi Dunn MD The documentation for this note was completed by Cheryl Brown Ma acting as scribe for Cathi Dunn MD. January 19, 2023 1:41 PM. Cheryl Brown Ma documented in this encounter [facility] 01-09-2023 Miscellaneous Notes Form faxed to [employer]. Pt notified via [employer]. Cheryl Brown Ma Form done Cathi Dunn MD DIANA/FMLA paperwork printed and on PCP's desk. Dr. Dunn please review & advise. Roxanne Wilcox MA Asked pt to send home Covid test results to the office before routing to Provider. Want positive test results before routing to Provider to decide if letter can be written. Leonor Arevalo Ma documented in this encounter [facility] 12-05-2022 Miscellaneous Notes Pt notified of results via [employer]. Cheryl Brown Ma Can you please call the patient and let her know I reviewed her lab results. Labs were all normal. A1c was 5.1, no signs of diabetes. Repeat testing will be due in 1 year. Please let me know if she has any questions. Thank you. Brittany Quarles APRN.ALEYDA documented in this encounter [facility] 12-04-2022 Note HNO ID: [id number] Author: Brittany Quarles APRN.ALEYDA Service: ? Author Type: Nurse Practitioner Type: Progress Notes Filed: 12/04/2022 8:42 AM Note Text: This is a 42 year old female who presents today with: Patient presents with: Yearly Exam HISTORY OF PRESENT ILLNESS: Chen Bailon is a 42 year old female. Patient presents with: Yearly Exam Here in the office for wellness exam. Diet: Eating a well balanced diet. Exercise: Walking daily. Vision: had exam, wearing glasses as needed. Dental: Due for exam. Sleep: 8 hours per night. Mood:Denies any increased sadness, anxiety, or SI/HI. HTN: Taking Zestoretic 20/12.5 mg daily. Not currently checking blood pressure at home. Denies chest pain, palpitations, dizziness, or edema. Currently out of medication for 2 days, waiting for insurance to restart. Refers she has had headache since running out of medication. Lipids: Taking Lipitor 20 mg daily. Watching diet. GERD: Taking Prilosec 20 mg daily. Symptoms well controlled medication. Chronic bronchitis: Using albuterol as needed. Smoking 3/4 PPD. Mammogram: Last completed 2020, normal. Due at this time order is in place. Pap: Last Pap 2010. No longer needed Hyster partial, still has right ovary. Vaccines: [place] wanting any vaccines at this time. PAST MEDICAL HISTORY: PAST MEDICAL HISTORY Diagnosis Date Adjustment disorder with depressed mood Condyloma acuminatum Depressive disorder, not elsewhere classified Essential hypertension Fetus or affected by ectopic of mother Other and unspecified ovarian cyst Ovarian cyst Other hyperlipidemia Type 2 diabetes mellitus (HCC) Pre-diabetes Unspecified chronic bronchitis (HCC) Chronic bronchitis PAST SURGICAL HISTORY Procedure Laterality Date ADENOIDECTOMY PRIMARY Adenoidectomy DELIVERY ONLY , low cervical LIG/TRNSXJ FLP TUBE ABDL/VAG APPR UNI/BI Tubal ligation TONSILLECTOMY PRIMARY/SECONDARY Tonsillectomy VAGINAL HYSTERECTOMY UTERUS 250 GM/< Hysterectomy, vaginal ALLERGIES Flea Bites [Other], Methotrexate, and Tylenol-Codeine #3 [Acetaminophen-Codeine] MEDICATIONS Current Outpatient Medications Medication Sig lisinopril-hydroCHLOROthiazide (ZESTORETIC) 20-12.5 mg per tablet Take half a pill daily. omeprazole (PRILOSEC) 20 mg capsule Take 1 capsule by mouth daily before breakfast. 1/2 hr before meal. FLUoxetine (PROZAC) 20 mg capsule Take 1 capsule by mouth once daily. dextromethorphan-guaiFENesin (MUCINEX DM) 30-600 mg per tablet Take 1 tablet by mouth twice daily. Cholecalciferol, Vitamin D3, 125 mcg (5,000 unit) cap Take 1 capsule by mouth once daily. atorvastatin (LIPITOR) 20 mg tablet Take 1 tablet by mouth daily at bedtime. For cholesterol. fluticasone (FLOVENT HFA) 110 mcg/actuation inhaler Inhale 1 Puff as instructed twice daily. albuterol HFA (VENTOLIN HFA) 90 mcg/actuation inhaler Inhale 2 Puffs as instructed every 4 hours as needed for Wheezing/Shortness of Breath. (Patient not taking: Reported on 06/07/2022) No current facility-administered medications for this visit. FAMILY HISTORY Adopted: Yes Problem Relation Age of Onset Hypertension Mother Heart Mother HI Lung Cancer Father Coronary Artery Disease Sister Hypertension Sister Developmental problem Brother Cancer Maternal Grandfather lung other (pt adopted) Other Social History Tobacco Use Smoking status: Former Packs/day: 1.00 Years: 20.00 Additional pack years: 0.00 Total pack years: 20.00 Types: Cigarettes Quit date: 08/2019 Years since quittin.2 Smokeless tobacco: Never Tobacco comments: 1 ppd for 20, currently vaping Vaping Use Vaping Use: current everyday user Substances: Nicotine Devices: Disposable, Pre-filled or refillable cartridge Substance Use Topics Alcohol use: No Drug use: No REVIEW OF SYSTEMS GENERAL: No weight loss, malaise or fevers/chills HEENT: Negative for frequent or significant headaches, No changes in hearing or vision. NECK: Negative for lumps, goiter, pain and significant neck swelling RESPIRATORY: Negative for cough, hemoptysis, wheezing, dyspnea or shortness of breath CARDIOVASCULAR: Negative for chest pain, leg swelling, orthopnea, or palpitations GI: No nausea, vomiting, or diarrhea/constipation. No hematochezia/melena. No heartburn or reflux symptoms. : No history of dysuria, frequency or incontinence MUSCULOSKELETAL: Negative for joint pain or swelling. SKIN: Negative for lesions, rash, and itching ENDOCRINE: Negative for cold or heat intolerance, polyuria, polydipsia and goiter NEURO: No history of headaches, syncope, paralysis, seizures or tremors MOOD: Negative for depression, anxiety, or suicidal ideation. EXAM: BP 170/102 Pulse 68 Resp 16 Ht 168.5 cm (5' 6.34 ) Wt 82.6 kg (182 lb) LMP 02/03/2011 SpO2 98% BMI 29.08 kg/m? PHYSICAL EXAM: General Appearance: Well appea (more content not included)... [facility] 12-04-2022 Instructions Brittany Quarles APRN.ALEYDA - 12/04/2022 8:23 AM EDT Get fasting labs completed. Start back on blood pressure medication, monitor blood pressure at home. Goal 130/80 or less. Due for mammogram May schedule appointment with ag equipment field service technician for exam. Recommend smoking cessation. Continue to eat well balanced diet and stay active. Follow up in 1 year or sooner pending test results. Health Promotion: - Eat healthy -- go to [employer] to get started - Have a yearly physical - Mammogram yearly after age 40 - Get at least 30 minutes of physical activity daily - Get at least 7 to 8 hours of sleep each night - Reach and maintain a healthy weight - Get help to quit or don't start smoking - Limit alcohol use to one drink or less - Do not use illegal drugs or misuse prescription drugs - Wear a helmet when riding a bike and wear protective gear for sports - Wear a seatbelt in cars and not text and drive - Wear sunscreen documented in this encounter [facility] 12-04-2022 History of Presen t illness Narrative This is a 42 year old female who presents today with: Patient presents with: Yearly Exam HISTORY OF PRESENT ILLNESS: Chen Bailon is a 42 year old female. Patient presents with: Yearly Exam Here in the office for wellness exam. Diet: Eating a well balanced diet. Exercise: Walking daily. Vision: had exam, wearing glasses as needed. Dental: Due for exam. Sleep: 8 hours per night. Mood:Denies any increased sadness, anxiety, or SI/HI. HTN: Taking Zestoretic 20/12.5 mg daily. Not currently checking blood pressure at home. Denies chest pain, palpitations, dizziness, or edema. Currently out of medication for 2 days, waiting for insurance to restart. Refers she has had headache since running out of medication. Lipids: Taking Lipitor 20 mg daily. Watching diet. GERD: Taking Prilosec 20 mg daily. Symptoms well controlled medication. Chronic bronchitis: Using albuterol as needed. Smoking 3/4 PPD. Mammogram: Last completed 2020, normal. Due at this time order is in place. Pap: Last Pap 2010. No longer needed Hyster partial, still has right ovary. Vaccines: [place] wanting any vaccines at this time. PAST MEDICAL HISTORY: PAST MEDICAL HISTORY Diagnosis Date Adjustment disorder with depressed mood Condyloma acuminatum Depressive disorder, not elsewhere classified Essential hypertension Fetus or affected by ectopic of mother Other and unspecified ovarian cyst Ovarian cyst Other hyperlipidemia Type 2 diabetes mellitus (HCC) Pre-diabetes Unspecified chronic bronchitis (HCC) Chronic bronchitis PAST SURGICAL HISTORY Procedure Laterality Date ADENOIDECTOMY PRIMARY <AGE 12 Adenoidectomy DELIVERY ONLY , low cervical LIG/TRNSXJ FLP TUBE ABDL/VAG APPR UNI/BI Tubal ligation TONSILLECTOMY PRIMARY/SECONDARY <AGE 12 Tonsillectomy VAGINAL HYSTERECTOMY UTERUS 250 GM/< Hysterectomy, vaginal ALLERGIES Flea Bites [Other], Methotrexate, and Tylenol-Codeine #3 [Acetaminophen-Codeine] MEDICATIONS Current Outpatient Medications Medication Sig lisinopril-hydroCHLOROthiazide (ZESTORETIC) 20-12.5 mg per tablet Take half a pill daily. omeprazole (PRILOSEC) 20 mg capsule Take 1 capsule by mouth daily before breakfast. 1/2 hr before meal. FLUoxetine (PROZAC) 20 mg capsule Take 1 capsule by mouth once daily. dextromethorphan-guaiFENesin (MUCINEX DM) 30-600 mg per tablet Take 1 tablet by mouth twice daily. Cholecalciferol, Vitamin D3, 125 mcg (5,000 unit) cap Take 1 capsule by mouth once daily. atorvastatin (LIPITOR) 20 mg tablet Take 1 tablet by mouth daily at bedtime. For cholesterol. fluticasone (FLOVENT HFA) 110 mcg/actuation inhaler Inhale 1 Puff as instructed twice daily. albuterol HFA (VENTOLIN HFA) 90 mcg/actuation inhaler Inhale 2 Puffs as instructed every 4 hours as needed for Wheezing/Shortness of Breath. (Patient not taking: Reported on 06/07/2022) No current facility-administered medications for this visit. FAMILY HISTORY Adopted: Yes Problem Relation Age of Onset Hypertension Mother Heart Mother HI Lung Cancer Father Coronary Artery Disease Sister Hypertension Sister Developmental problem Brother Cancer Maternal Grandfather lung other (pt adopted) Other Social History Tobacco Use Smoking status: Former Packs/day: 1.00 Years: 20.00 Additional pack years: 0.00 Total pack years: 20.00 Types: Cigarettes Quit date: 08/2019 Years since quittin.2 Smokeless tobacco: Never Tobacco comments: 1 ppd for 20, currently vaping Vaping Use Vaping Use: current everyday user Substances: Nicotine Devices: Disposable, Pre-filled or refillable cartridge Substance Use Topics Alcohol use: No Drug use: No REVIEW OF SYSTEMS GENERAL: No weight loss, malaise or fevers/chills HEENT: Negative for frequent or significant headaches, No changes in hearing or vision. NECK: Negative for lumps, goiter, pain and significant neck swelling RESPIRATORY: Negative for cough, hemoptysis, wheezing, dyspnea or shortness of breath CARDIOVASCULAR: Negative for chest pain, leg swelling, orthopnea, or palpitations GI: No nausea, vomiting, or diarrhea/constipation. No hematochezia/melena. No heartburn or reflux symptoms. : No history of dysuria, frequency or incontinence MUSCULOSKELETAL: Negative for joint pain or swelling. SKIN: Negative for lesions, rash, and itching ENDOCRINE: Negative for cold or heat intolerance, polyuria, polydipsia and goiter NEURO: No history of headaches, syncope, paralysis, seizures or tremors MOOD: Negative for depression, anxiety, or suicidal ideation. EXAM: BP 170/102 Pulse 68 Resp 16 Ht 168.5 cm (5' 6.34 ) Wt 82.6 kg (182 lb) LMP 02/03/2011 SpO2 98% BMI 29.08 kg/m PHYSICAL EXAM: General Appearance: Well appearing, alert, in no acute distress, well-hydrated, well nourished. Skin: Skin color, texture, turgor normal, no suspicious rashes or lesions. Head: Normocephalic, no masses, lesions, tenderness or abnormalities. Eyes: Anicteric sclera. Pupils are equally round and reactive to light. Extraocular movements are intact. Ears: External ears normal, canals clear. TMs pearly molina. Neck: Supple, no adenopathy; thyroid symmetric, normal size, no bruits. Lungs: Lungs clear to auscultation. No wheezing, rhonchi, rales. Heart: RRR without murmur, gallop, or rubs. No ectopy. Abdomen: Normal abdominal exam, Abdomen soft, non-tender. Bowel sounds normal. No masses, organomegaly, Negative CVA tenderness. Extremities: No deformities, edema, skin discoloration, clubbing or cyanosis. Good capillary refill. Musculoskeletal: No joint swelling, deformity, or tenderness. Peripheral Pulses: Normal, Capillary refill <2secs, strong peripheral pulses, Pulses palpable. Neurologic: Gait normal. Reflexes normal and symmetric. Sensation grossly intact. Mood: Pleasant, good eye contact, engaged. ASSESSMENT/PLAN: 1. Wellness examination - ICD9: V70.0, ICD10: Z00.00 (primary diagnosis) - Counseled on healthy diet and regular exercise - Calcium intake with supplements or by diet of 1000 mg/day for under 50, 5992-5596 mg/day for 50+ - Discussed need and benefit for weight loss. BMI 29.08 kg/(m^2) - Mammogram ordered - exam recommended once yearly - Smoking cessation encouraged; discussed risks to health and quitting strategies. Patient is not ready to quit - Depression screening tool completed and reviewed with patient. Based on score and interview, patient is not at risk for depression and recommended no further intervention at this time. - Follow up for annual exam in one year - COMP METABOLIC PANEL 2. Primary hypertension - ICD9: 401.9, ICD10: I10 - Uncontrolled, out of medication. - Continue current medications - Recommend home blood pressure monitoring, to bring results to next visit - Encouraged sodium restriction, DASH or Mediterranean diet - Recommend regular aerobic exercise - Discussed need for and benefit of weight loss. BMI 29.08 kg/(m^2) - Smoking cessation encouraged; discussed risks to health and quitting strategies. Patient is not ready to quit 3. Mixed hyperlipidemia - ICD9: 272.2, ICD10: E78.2 - Control undetermined, due for labs - Continue current medications - Counseled on healthy diet and regular exercise - ATORVASTATIN 20 MG TABLET - LIPID PANEL BASIC 4. GERD without esophagitis - ICD9: 530.81, ICD10: K21.9 - Stable, continue with current medication. 5. Chronic bronchitis, unspecified chronic bronchitis type (HCC) - ICD9: 491.9, ICD10: J42 - Stable, continue with albuterol as needed. - Smoking cessation encouraged. 6. Women's annual routine gynecological examination - ICD9: V72.31, ICD10: Z01.419 - CONSULT TO GYNECOLOGY 7. Screening for diabetes mellitus - ICD9: V77.1, ICD10: Z13.1 - HGB A1C Follow-up in 1 year or sooner pending test results. Discussed treatment plan and patient voices understanding. Patient's questions answered appropriately. Medications and potential side effects were discussed and patient voices understanding. Brittany Quarles APRN.CNP This note was partially generated using [employer] voice recognition system. Note was reviewed for accuracy. There may be minor misspellings or grammar miscues with [employer] voice recognition. documented in this encounter [facility] 12-02-2022 Miscellaneous Notes The following approved medication requests have been transmitted electronically. Requested Prescriptions Pending Prescriptions Disp Refills lisinopril-hydroCHLOROthiazide (ZESTORETIC) 20-12.5 mg per tablet 30 tablet 11 Sig: Take half a pill daily. Malik Mcdowell APRN.CNP Please see request was sent to pcp and he was out of office on 11/28 and this week Meghna Mcintosh Ma Patient has been identified by name and date of : Yes Last office visit in this department: 09/29/2022 Labs-03/27/22 NOV-12/04/22 RX INSTRUCTIONS: Patient aware RX will be sent to pharmacy. No need to notify patient. Patient phones requesting refills as follows: Requested Prescriptions Pending Prescriptions Disp Refills lisinopril-hydroCHLOROthiazide (ZESTORETIC) 20-12.5 mg per tablet 30 tablet 11 Sig: Take half a pill daily. Please review and advise. Roseann Garcia documented in this encounter [facility] 10-27-2022 Miscellaneous Notes The following approved medication requests have been transmitted electronically. Requested Prescriptions Pending Prescriptions Disp Refills FLUoxetine (PROZAC) 20 mg capsule 90 capsule 3 Sig: Take 1 capsule by mouth once daily. Malik Mcdowell APRN.ALEYDA Last office visit: none F/u scheduled: 09/29/22 Cheryl Brown Ma documented in this encounter [facility] 09-29-2022 Note HNO ID: [id number] Author: Cathi Dunn MD Service: ? Author Type: Physician Type: Progress Notes Filed: 09/29/2022 7:24 PM Note Text: Chief Complaint Patient presents with: Covid Follow Up HPI Chen Bailon is a 42 year old female who presents here today for Covid follow up. Pt here today for Covid + follow up. Pt was down visiting her mother in [place], [place] and was notified by her Mother that she tested positive for Covid. Pt seen in on 09/23/22 for UTI symptoms. Pt states on the evening of 09/23/22 and through out the night she started having symptoms. On 09/24/22 pt took a home test that came back positive. Pt had symptoms of fever, chills, body aches, sore throat, ear fullness/clogged, stuffy nose and fatigue. Feeling much better, fever down, notes that she still has some stuffy nose, nasal drainage, some continued tiredness and her ears cracking/popping. Has been using Ibuprofen OTC. Pt is needing a return to work letter, stating that she is okay to return to work. Works at [employer] in [employer] [facility]. Today is day 5. Past medical history, appointments, medications, allergies reviewed. Previous Medical History PAST MEDICAL HISTORY Diagnosis Date Adjustment disorder with depressed mood Condyloma acuminatum Depressive disorder, not elsewhere classified Essential hypertension Fetus or affected by ectopic of mother Other and unspecified ovarian cyst Ovarian cyst Other hyperlipidemia Type 2 diabetes mellitus (HCC) Pre-diabetes Unspecified chronic bronchitis (HCC) Chronic bronchitis Previous Surgical History PAST SURGICAL HISTORY Procedure Laterality Date ADENOIDECTOMY PRIMARY Adenoidectomy DELIVERY ONLY , low cervical LIG/TRNSXJ FLP TUBE ABDL/VAG APPR UNI/BI Tubal ligation TONSILLECTOMY PRIMARY/SECONDARY Tonsillectomy VAGINAL HYSTERECTOMY UTERUS 250 GM/< Hysterectomy, vaginal Family History FAMILY HISTORY Adopted: Yes Problem Relation Age of Onset Hypertension Mother Heart Mother HI Lung Cancer Father Coronary Artery Disease Sister Hypertension Sister Developmental problem Brother Cancer Maternal Grandfather lung other (pt adopted) Other Patient Allergies ALLERGIES Allergen Reactions Flea Bites [Other] Methotrexate Other: See Comments Organ failure Tylenol-Codeine #3 * Current Medications Current Outpatient Medications on File Prior to Visit Medication Sig nitrofurantoin monohydrate and macrocrystal (MACROBID) 100 mg capsule Take 1 capsule by mouth twice daily for 7 days. dextromethorphan-guaiFENesin (MUCINEX DM) 30-600 mg per tablet Take 1 tablet by mouth twice daily. Cholecalciferol, Vitamin D3, 125 mcg (5,000 unit) cap Take 1 capsule by mouth once daily. atorvastatin (LIPITOR) 20 mg tablet Take 1 tablet by mouth daily at bedtime. For cholesterol. FLUoxetine (PROZAC) 20 mg capsule Take 1 capsule by mouth once daily. lisinopril-hydroCHLOROthiazide (PRINZIDE,ZESTORETIC) 20-12.5 mg per tablet Take half a pill daily. omeprazole (PRILOSEC) 20 mg capsule Take 1 capsule by mouth daily before breakfast. 1/2 hr before meal. fluticasone (FLOVENT HFA) 110 mcg/actuation inhaler Inhale 1 Puff as instructed twice daily. albuterol HFA (VENTOLIN HFA) 90 mcg/actuation inhaler Inhale 2 Puffs as instructed every 4 hours as needed for Wheezing/Shortness of Breath. (Patient not taking: Reported on 06/07/2022) No current facility-administered medications on file prior to visit. Social History Social History Tobacco Use Smoking status: Former Packs/day: 1.00 Years: 20.00 Pack years: 20.00 Types: Cigarettes Quit date: 08/2019 Years since quittin.0 Smokeless tobacco: Never Tobacco comments: 1 ppd for 20, currently vaping Vaping Use Vaping Use: current everyday user Substances: Nicotine Devices: Disposable, Pre-filled or refillable cartridge Substance Use Topics Alcohol use: No Drug use: No EXAM: BP 130/76 (BP Site: Right Arm, BP Position: Sitting, BP Cuff Size: Regular Adult) Pulse 80 Temp 36.6 ?C (97.9 ?F) (Tympanic) Resp 20 Wt 78.6 kg (173 lb 4.8 oz) LMP 02/03/2011 BMI 27.80 kg/m? General Appearance: Well appearing, alert, in no acute distress, well-hydrated, well nourished.. Health Maintenance List HEPATITIS B(1 of 3 - 3-dose series) Never done MAMMOGRAM due on 07/24/2021 COVID-19 VACCINE(1) due on 03/27/2023 INFLUENZA(1) due on 11/28/2022 ANNUAL PCP TEAM CHRONIC DISEASE VISIT due on 03/27/2023 BP CONTROLLED (<130/80) due on 09/24/2023 DTAP,TDAP,TD(2 - Td or Tdap) due on 02/08/2027 HEPATITIS C SCREENING Completed PAP TESTING Discontinued HPV TESTING Discontinued HIV SCREENING Discontinued Data reviewed None ASSESSMENT/PLAN: 1. COVID - ICD9: 079.89, ICD10: U07.1 Note given for return to work; as she is 5 days out and improving, no fever, may return to work with wearing a mask for the next 5 days Follo (more content not included)... [facility] 09-29-2022 History of Presen t illness Narrative Chief Complaint Patient presents with: Covid Follow Up HPI Chen Bailon is a 42 year old female who presents here today for Covid follow up. Pt here today for Covid + follow up. Pt was down visiting her mother in [place], [place] and was notified by her Mother that she tested positive for Covid. Pt seen in on 09/23/22 for UTI symptoms. Pt states on the evening of 09/23/22 and through out the night she started having symptoms. On 09/24/22 pt took a home test that came back positive. Pt had symptoms of fever, chills, body aches, sore throat, ear fullness/clogged, stuffy nose and fatigue. Feeling much better, fever down, notes that she still has some stuffy nose, nasal drainage, some continued tiredness and her ears cracking/popping. Has been using Ibuprofen OTC. Pt is needing a return to work letter, stating that she is okay to return to work. Works at [employer] in the [facility]. Today is day 5. Past medical history, appointments, medications, allergies reviewed. Previous Medical History PAST MEDICAL HISTORY Diagnosis Date Adjustment disorder with depressed mood Condyloma acuminatum Depressive disorder, not elsewhere classified Essential hypertension Fetus or affected by ectopic of mother Other and unspecified ovarian cyst Ovarian cyst Other hyperlipidemia Type 2 diabetes mellitus (HCC) Pre-diabetes Unspecified chronic bronchitis (HCC) Chronic bronchitis Previous Surgical History PAST SURGICAL HISTORY Procedure Laterality Date ADENOIDECTOMY PRIMARY <AGE 12 Adenoidectomy DELIVERY ONLY , low cervical LIG/TRNSXJ FLP TUBE ABDL/VAG APPR UNI/BI Tubal ligation TONSILLECTOMY PRIMARY/SECONDARY <AGE 12 Tonsillectomy VAGINAL HYSTERECTOMY UTERUS 250 GM/< Hysterectomy, vaginal Family History FAMILY HISTORY Adopted: Yes Problem Relation Age of Onset Hypertension Mother Heart Mother HI Lung Cancer Father Coronary Artery Disease Sister Hypertension Sister Developmental problem Brother Cancer Maternal Grandfather lung other (pt adopted) Other Patient Allergies ALLERGIES Allergen Reactions Flea Bites [Other] Methotrexate Other: See Comments Organ failure Tylenol-Codeine #3 * Current Medications Current Outpatient Medications on File Prior to Visit Medication Sig nitrofurantoin monohydrate and macrocrystal (MACROBID) 100 mg capsule Take 1 capsule by mouth twice daily for 7 days. dextromethorphan-guaiFENesin (MUCINEX DM) 30-600 mg per tablet Take 1 tablet by mouth twice daily. Cholecalciferol, Vitamin D3, 125 mcg (5,000 unit) cap Take 1 capsule by mouth once daily. atorvastatin (LIPITOR) 20 mg tablet Take 1 tablet by mouth daily at bedtime. For cholesterol. FLUoxetine (PROZAC) 20 mg capsule Take 1 capsule by mouth once daily. lisinopril-hydroCHLOROthiazide (PRINZIDE,ZESTORETIC) 20-12.5 mg per tablet Take half a pill daily. omeprazole (PRILOSEC) 20 mg capsule Take 1 capsule by mouth daily before breakfast. 1/2 hr before meal. fluticasone (FLOVENT HFA) 110 mcg/actuation inhaler Inhale 1 Puff as instructed twice daily. albuterol HFA (VENTOLIN HFA) 90 mcg/actuation inhaler Inhale 2 Puffs as instructed every 4 hours as needed for Wheezing/Shortness of Breath. (Patient not taking: Reported on 06/07/2022) No current facility-administered medications on file prior to visit. Social History Social History Tobacco Use Smoking status: Former Packs/day: 1.00 Years: 20.00 Pack years: 20.00 Types: Cigarettes Quit date: 08/2019 Years since quittin.0 Smokeless tobacco: Never Tobacco comments: 1 ppd for 20, currently vaping Vaping Use Vaping Use: current everyday user Substances: Nicotine Devices: Disposable, Pre-filled or refillable cartridge Substance Use Topics Alcohol use: No Drug use: No EXAM: BP 130/76 (BP Site: Right Arm, BP Position: Sitting, BP Cuff Size: Regular Adult) Pulse 80 Temp 36.6 C (97.9 F) (Tympanic) Resp 20 Wt 78.6 kg (173 lb 4.8 oz) LMP 02/03/2011 BMI 27.80 kg/m General Appearance: Well appearing, alert, in no acute distress, well-hydrated, well nourished.. Health Maintenance List HEPATITIS B(1 of 3 - 3-dose series) Never done MAMMOGRAM due on 07/24/2021 COVID-19 VACCINE(1) due on 03/27/2023 INFLUENZA(1) due on 11/28/2022 ANNUAL PCP TEAM CHRONIC DISEASE VISIT due on 03/27/2023 BP CONTROLLED (<130/80) due on 09/24/2023 DTAP,TDAP,TD(2 - Td or Tdap) due on 02/08/2027 HEPATITIS C SCREENING Completed PAP TESTING Discontinued HPV TESTING Discontinued HIV SCREENING Discontinued Data reviewed None ASSESSMENT/PLAN: 1. COVID - ICD9: 079.89, ICD10: U07.1 Note given for return to work; as she is 5 days out and improving, no fever, may return to work with wearing a mask for the next 5 days Follow up prn Medical Decision Making: Problems: Low: Acute, uncomplicated illness or injury Risk: Low: Low risk from testing/treatment Medical Decision Making Level: 3 - Low Cathi Dunn MD documented in this encounter [facility] 09-29-2022 Miscellaneous Notes Pt scheduled, ok to come early if needed. Leonor Arevalo Ma Offered to schedule in office appt. Wait pt response. Leonor Arevalo Ma Pt was seen in [facility] on 09/23/22 w/only UTI complaint no Covid complaints. States she took home Covid test on 09/23 that was positive. Pt is past 5 day window to return back to work. Notified pt she needs to complete a visit to receive letter. Pt states she does not have a working phone but has device she is able to use to write [employer] messages and initially requested an appt on 09/29/22 after 4:00 pm with RS. This was offered to her. Leonor Arevalo Ma documented in this encounter [facility] 09-29-2022 Miscellaneous Notes Pt responded in another message, closing this message as this is a duplicate. Leonor Arevalo Ma Attempted to reach pt but receive message stating person you dialed is not able to receive calls at this time. Offered 7:40 pm VV via [employer]. Offered pt can receive letter via [employer] or we can fax letter to Employer if she can provide fax number. Leonor Arevalo Ma Offered pt VV at 7:20 pm with ME due to PCP due to R. Spenser being out of the office. Wait pt response. Leonor Arevalo Ma documented in this encounter [facility] 09-24-2022 Miscellaneous Notes Patient notified and verbalized understanding of instructions given.Nahomy Vasquez LPN Please call patient and let her know her urine culture revealed possible contamination. She may continue medication if symptoms are improving. If symptoms worsen, follow-up with PCP. documented in this encounter [facility] 09-23-2022 Note HNO ID: [id number] Author: David Allen APRN.THREAD MILLING MACHINE SET UP OPERATOR Service: ? Author Type: Nurse Practitioner Type: Progress Notes Filed: 09/23/2022 4:11 PM Note Text: Subjective HPI HPI Chen Bailon is a 42 year old female who presents today for CC of urinary urgency, frequency, burning, back pain. This started 5 days ago. Has tried otc medication for relief. Symptoms are worsened by nothing. Risk factors hx of UTI. .Patient presents with: Urinary Frequency: Frequency, lower back pain and blood x 5 days PAST MEDICAL HISTORY Diagnosis Date Adjustment disorder with depressed mood Condyloma acuminatum Depressive disorder, not elsewhere classified Essential hypertension Fetus or affected by ectopic of mother Other and unspecified ovarian cyst Ovarian cyst Other hyperlipidemia Type 2 diabetes mellitus (HCC) Pre-diabetes Unspecified chronic bronchitis (HCC) Chronic bronchitis PAST SURGICAL HISTORY Procedure Laterality Date ADENOIDECTOMY PRIMARY Adenoidectomy DELIVERY ONLY , low cervical LIG/TRNSXJ FLP TUBE ABDL/VAG APPR UNI/BI Tubal ligation TONSILLECTOMY PRIMARY/SECONDARY Tonsillectomy VAGINAL HYSTERECTOMY UTERUS 250 GM/< Hysterectomy, vaginal ALLERGIES Flea Bites [Other], Methotrexate, and Tylenol-Codeine #3 [Acetaminophen-Codeine] MEDICATIONS dextromethorphan-guaiFENesin (MUCINEX DM) 30-600 mg per tablet Take 1 tablet by mouth twice daily. Cholecalciferol, Vitamin D3, 125 mcg (5,000 unit) cap Take 1 capsule by mouth once daily. atorvastatin (LIPITOR) 20 mg tablet Take 1 tablet by mouth daily at bedtime. For cholesterol. FLUoxetine (PROZAC) 20 mg capsule Take 1 capsule by mouth once daily. lisinopril-hydroCHLOROthiazide (PRINZIDE,ZESTORETIC) 20-12.5 mg per tablet Take half a pill daily. omeprazole (PRILOSEC) 20 mg capsule Take 1 capsule by mouth daily before breakfast. 1/2 hr before meal. fluticasone (FLOVENT HFA) 110 mcg/actuation inhaler Inhale 1 Puff as instructed twice daily. albuterol HFA (VENTOLIN HFA) 90 mcg/actuation inhaler Inhale 2 Puffs as instructed every 4 hours as needed for Wheezing/Shortness of Breath. (Patient not taking: Reported on 06/07/2022) FAMILY HISTORY Adopted: Yes Problem Relation Age of Onset Hypertension Mother Heart Mother HI Lung Cancer Father Coronary Artery Disease Sister Hypertension Sister Developmental problem Brother Cancer Maternal Grandfather lung other (pt adopted) Other Social History Tobacco Use Smoking status: Former Packs/day: 1.00 Years: 20.00 Pack years: 20.00 Types: Cigarettes Quit date: 08/2019 Years since quittin.0 Smokeless tobacco: Never Tobacco comments: 1 ppd for 20, currently vaping Vaping Use Vaping Use: current everyday user Substances: Nicotine Devices: Disposable, Pre-filled or refillable cartridge Substance Use Topics Alcohol use: No Drug use: No Review of Systems Constitutional: Negative for chills, fever and weight loss. Respiratory: Negative for cough, shortness of breath and wheezing. Cardiovascular: Negative for chest pain and palpitations. Gastrointestinal: Negative for abdominal pain, blood in stool, constipation, diarrhea, heartburn, melena, nausea and vomiting. Genitourinary: Positive for dysuria, frequency and urgency. Negative for flank pain and hematuria. Musculoskeletal: Negative for myalgias. Objective Blood pressure 102/64, pulse 66, temperature 36.3 ?C (97.3 ?F), temperature source Tympanic, resp. rate 16, weight 76.7 kg (169 lb 3.2 oz), last menstrual period 02/03/2011, SpO2 98 %. Component Latest Ref Rng AND Units 03/27/2022 Protein, Total 6.3 - 8.0 g/dL 7.4 Albumin 3.9 - 4.9 g/dL 4.5 Calcium 8.5 - 10.2 mg/dL 9.8 Bilirubin, Total 0.2 - 1.3 mg/dL 0.4 Alkaline Phosphatase 34 - 123 U/L 128 (H) AST 13 - 35 U/L 16 ALT 7 - 38 U/L 14 Glucose 74 - 99 mg/dL 64 (L) BUN 7 - 21 mg/dL 8 Creatinine 0.58 - 0.96 mg/dL 1.03 (H) Sodium 136 - 144 mmol/L 138 Potassium 3.7 - 5.1 mmol/L 4.1 Chloride 97 - 105 mmol/L 103 CO2 22 - 30 mmol/L 21 (L) Anion Gap 9 - 18 mmol/L 14 eGFR >=60 mL/min/1.73mA? 70 Physical Exam Constitutional: General: She is not in acute distress. Appearance: Normal appearance. She is not toxic-appearing. Cardiovascular: Rate and Rhythm: Normal rate and regular rhythm. Heart sounds: Normal heart sounds. Pulmonary: Effort: Pulmonary effort is normal. Breath sounds: Normal breath sounds. Abdominal: General: Bowel sounds are normal. Palpations: Abdomen is soft. Tenderness: There is no abdominal tenderness. Skin: General: Skin is warm and dry. ASSESSMENT/PLAN: 1. Urinary frequency - ICD9: 788.41, ICD10: R35.0 acute - UA positive for germán esterase, hematuria, and proteinuria - Send urine for culture - Begin treatment with Macrobid 100 mg BID for 7 days Agrees to plan Declines avs - UA DIP, URINE (POC) - URINE CULTURE - NITROFURANT (more content not included)... [facility] 09-23-2022 Instructions David Allen APRN.CNP - 09/23/2022 4:11 PM EDT Patient Education for Female Urinary Tract Infections Possible complications: Pyelonehritis Renal abscess Expected course/prognosis: * symptoms resolve within 2-3 days after starting treatment in almost all patients * one-fourth of women with simple UTI experience a second UTI within 6 months, and half at some time during lifetime. * patients with multiple recurrent UTI and no underlying urinary tract abnormality may receive long-term prophylactic antibioitic treatment. Trimethoprim-sulfamethoxazole and nitrofurantoin common used. * women with frequent or intercourse-related UTI should empty bladder immediately before and following intercourse and consider postcoital antibiotic treament Instructions: * Maintain good hydration * Avoid sexual intercourse when symptoms present *Take antibiotic as directed * Return if symptoms not resolved or markedly improved within 48 hours * Return if fever, chills, or flank pain develop * If taking prophylactic antiobiotics, take at bedtime * Take showers instead of tub baths * Avoid feminine hygiene sprays and scented douches * Wipe urethra from front to back documented in this encounter [facility] 09-23-2022 History of Presen t illness Narrative Subjective HPI HPI Chen Bailon is a 42 year old female who presents today for CC of urinary urgency, frequency, burning, back pain. This started 5 days ago. Has tried otc medication for relief. Symptoms are worsened by nothing. Risk factors hx of UTI. .Patient presents with: Urinary Frequency: Frequency, lower back pain and blood x 5 days PAST MEDICAL HISTORY Diagnosis Date Adjustment disorder with depressed mood Condyloma acuminatum Depressive disorder, not elsewhere classified Essential hypertension Fetus or affected by ectopic of mother Other and unspecified ovarian cyst Ovarian cyst Other hyperlipidemia Type 2 diabetes mellitus (HCC) Pre-diabetes Unspecified chronic bronchitis (HCC) Chronic bronchitis PAST SURGICAL HISTORY Procedure Laterality Date ADENOIDECTOMY PRIMARY <AGE 12 Adenoidectomy DELIVERY ONLY , low cervical LIG/TRNSXJ FLP TUBE ABDL/VAG APPR UNI/BI Tubal ligation TONSILLECTOMY PRIMARY/SECONDARY <AGE 12 Tonsillectomy VAGINAL HYSTERECTOMY UTERUS 250 GM/< Hysterectomy, vaginal ALLERGIES Flea Bites [Other], Methotrexate, and Tylenol-Codeine #3 [Acetaminophen-Codeine] MEDICATIONS dextromethorphan-guaiFENesin (MUCINEX DM) 30-600 mg per tablet Take 1 tablet by mouth twice daily. Cholecalciferol, Vitamin D3, 125 mcg (5,000 unit) cap Take 1 capsule by mouth once daily. atorvastatin (LIPITOR) 20 mg tablet Take 1 tablet by mouth daily at bedtime. For cholesterol. FLUoxetine (PROZAC) 20 mg capsule Take 1 capsule by mouth once daily. lisinopril-hydroCHLOROthiazide (PRINZIDE,ZESTORETIC) 20-12.5 mg per tablet Take half a pill daily. omeprazole (PRILOSEC) 20 mg capsule Take 1 capsule by mouth daily before breakfast. 1/2 hr before meal. fluticasone (FLOVENT HFA) 110 mcg/actuation inhaler Inhale 1 Puff as instructed twice daily. albuterol HFA (VENTOLIN HFA) 90 mcg/actuation inhaler Inhale 2 Puffs as instructed every 4 hours as needed for Wheezing/Shortness of Breath. (Patient not taking: Reported on 06/07/2022) FAMILY HISTORY Adopted: Yes Problem Relation Age of Onset Hypertension Mother Heart Mother HI Lung Cancer Father Coronary Artery Disease Sister Hypertension Sister Developmental problem Brother Cancer Maternal Grandfather lung other (pt adopted) Other Social History Tobacco Use Smoking status: Former Packs/day: 1.00 Years: 20.00 Pack years: 20.00 Types: Cigarettes Quit date: 08/2019 Years since quittin.0 Smokeless tobacco: Never Tobacco comments: 1 ppd for 20, currently vaping Vaping Use Vaping Use: current everyday user Substances: Nicotine Devices: Disposable, Pre-filled or refillable cartridge Substance Use Topics Alcohol use: No Drug use: No Review of Systems Constitutional: Negative for chills, fever and weight loss. Respiratory: Negative for cough, shortness of breath and wheezing. Cardiovascular: Negative for chest pain and palpitations. Gastrointestinal: Negative for abdominal pain, blood in stool, constipation, diarrhea, heartburn, melena, nausea and vomiting. Genitourinary: Positive for dysuria, frequency and urgency. Negative for flank pain and hematuria. Musculoskeletal: Negative for myalgias. Objective Blood pressure 102/64, pulse 66, temperature 36.3 C (97.3 F), temperature source Tympanic, resp. rate 16, weight 76.7 kg (169 lb 3.2 oz), last menstrual period 02/03/2011, SpO2 98 %. Component Latest Ref Rng & Units 03/27/2022 Protein, Total 6.3 - 8.0 g/dL 7.4 Albumin 3.9 - 4.9 g/dL 4.5 Calcium 8.5 - 10.2 mg/dL 9.8 Bilirubin, Total 0.2 - 1.3 mg/dL 0.4 Alkaline Phosphatase 34 - 123 U/L 128 (H) AST 13 - 35 U/L 16 ALT 7 - 38 U/L 14 Glucose 74 - 99 mg/dL 64 (L) BUN 7 - 21 mg/dL 8 Creatinine 0.58 - 0.96 mg/dL 1.03 (H) Sodium 136 - 144 mmol/L 138 Potassium 3.7 - 5.1 mmol/L 4.1 Chloride 97 - 105 mmol/L 103 CO2 22 - 30 mmol/L 21 (L) Anion Gap 9 - 18 mmol/L 14 eGFR >=60 mL/min/1.73m 70 Physical Exam Constitutional: General: She is not in acute distress. Appearance: Normal appearance. She is not toxic-appearing. Cardiovascular: Rate and Rhythm: Normal rate and regular rhythm. Heart sounds: Normal heart sounds. Pulmonary: Effort: Pulmonary effort is normal. Breath sounds: Normal breath sounds. Abdominal: General: Bowel sounds are normal. Palpations: Abdomen is soft. Tenderness: There is no abdominal tenderness. Skin: General: Skin is warm and dry. ASSESSMENT/PLAN: 1. Urinary frequency - ICD9: 788.41, ICD10: R35.0 acute - UA positive for germán esterase, hematuria, and proteinuria - Send urine for culture - Begin treatment with Macrobid 100 mg BID for 7 days Agrees to plan Declines avs - UA DIP, URINE (POC) - URINE CULTURE - NITROFURANTOIN MONOHYDRATE & MACROCRYSTAL 100 MG ORAL CAP No problem-specific Assessment & Plan notes found for this encounter. documented in this encounter [facility] 07-30-2022 Note Patient Outreach (IN [facility]) CHEN BAILON ([id number]) 1980 F Date Time Provider Department 07/30/22 CATHI DUNN During your visit today, we recorded the following information about you: Allergies As of Date: 07/30/2022 Noted Allergy Reaction flea bites [Other] 12/17/2004 METHOTREXATE 06/07/2022 14 - Other: See Comments Comments: Organ failure TYLENOL-CODEINE #3 (ACETAMINOPHEN*12/17/2004 Date Reviewed: 06/07/2022 Reviewed by: Judith Ortiz APRN.ALEYDA - Fully Assessed Visit Diagnosis:Encounter for screening mammogram for breast cancer [Z12.31] Order(s):[facility] SCREENING [[id number]] Order #: [id number] FUTURE Prescriptions as of 08/04/2022 - dextromethorphan-guaiFENesin (MUCINEX DM) 30-600 mg per tablet Take 1 tablet by mouth twice daily. - Cholecalciferol, Vitamin D3, 125 mcg (5,000 unit) cap Take 1 capsule by mouth once daily. - atorvastatin (LIPITOR) 20 mg tablet Take 1 tablet by mouth daily at bedtime. For cholesterol. - FLUoxetine (PROZAC) 20 mg capsule Take 1 capsule by mouth once daily. - lisinopril-hydroCHLOROthiazide (PRINZIDE,ZESTORETIC) 20-12.5 mg per tablet Take half a pill daily. - omeprazole (PRILOSEC) 20 mg capsule Take 1 capsule by mouth daily before breakfast. 1/2 hr before meal. - fluticasone (FLOVENT HFA) 110 mcg/actuation inhaler Inhale 1 Puff as instructed twice daily. - albuterol HFA (VENTOLIN HFA) 90 mcg/actuation inhaler Inhale 2 Puffs as instructed every 4 hours as needed for Wheezing/Shortness of Breath. Problem List As Of Date 07/30/2022 Noted Resolved Major depressive disorder, recurrent episode (H*12/17/2004 ATTN DEFICIT W HYPERACT [F90.9] 08/12/2007 Tobacco abuse [Z72.0] 09/12/2009 07/19/2020 Ankle pain [M25.579] 10/01/2012 Sprain of ankle, unspecified site [S93.409A] 10/01/2012 Hypertension, essential [I10] 07/18/2020 Hyperlipidemia, mixed [E78.2] 07/18/2020 Chronic bronchitis (HCC) [J42] 07/18/2020 Class 1 obesity due to excess calories without *07/19/2020 Former cigarette smoker [Z87.891] 07/19/2020 Encounter Status:Closed by [email or web address], [facility] on 08/04/22 [facility] 06-09-2022 Miscellaneous Notes Please see pt message regarding urine testing Tammi Goldstein documented in this encounter [facility] 06-07-2022 Note HNO ID: [id number] Author: Judith Ortiz APRN.THREAD MILLING MACHINE SET UP OPERATOR Service: ? Author Type: Nurse Practitioner Type: Progress Notes Filed: 06/07/2022 10:55 AM Note Text: Subjective The history is provided by the patient. No mens locker room attendant was used. HPI Chen Bailon is a 42 year old female who presents today for CC of lower back and ?fever for one day She denies any frequency urgency or pain with urination. She has also noted nasal drainage and cough. Did home covid test that is negative. BP 108/78 Pulse 82 Temp 36.9 ?C (98.5 ?F) Resp 21 Wt 85.1 kg (187 lb 9.6 oz) LMP 02/03/2011 SpO2 97% BMI 30.10 kg/m? Social History Tobacco Use Smoking status: Former Packs/day: 1.00 Years: 20.00 Pack years: 20.00 Types: Cigarettes Quit date: 08/2019 Years since quittin.7 Smokeless tobacco: Never Tobacco comments: 1 ppd for 20, currently vaping Vaping Use Vaping Use: current everyday user Substances: Nicotine Devices: Disposable, Pre-filled or refillable cartridge Substance Use Topics Alcohol use: No Drug use: No PAST MEDICAL HISTORY Diagnosis Date Adjustment disorder with depressed mood Condyloma acuminatum Depressive disorder, not elsewhere classified Essential hypertension Fetus or affected by ectopic of mother Other and unspecified ovarian cyst Ovarian cyst Other hyperlipidemia Type 2 diabetes mellitus (HCC) Pre-diabetes Unspecified chronic bronchitis (HCC) Chronic bronchitis I have confirmed and edited as necessary, the [facility] Review of Systems Constitutional: Positive for chills, fever (tactile) and malaise/fatigue. HENT: Positive for congestion. Negative for ear pain, sinus pain and sore throat. Respiratory: Positive for cough. Negative for sputum production, shortness of breath and wheezing. Cardiovascular: Negative for chest pain. Gastrointestinal: Negative for abdominal pain, diarrhea, nausea and vomiting. Genitourinary: Positive for flank pain. Negative for dysuria, frequency, hematuria and urgency. Musculoskeletal: Positive for myalgias. Neurological: Negative for headaches. Objective Physical Exam Vitals and nursing note reviewed. Constitutional: Appearance: Normal appearance. HENT: Head: Normocephalic and atraumatic. Right Ear: Tympanic membrane, ear canal and external ear normal. Left Ear: Tympanic membrane, ear canal and external ear normal. Nose: Mucosal edema, congestion and rhinorrhea present. Right Sinus: No maxillary sinus tenderness or frontal sinus tenderness. Left Sinus: No maxillary sinus tenderness or frontal sinus tenderness. Mouth/Throat: Pharynx: Uvula midline. No oropharyngeal exudate or posterior oropharyngeal erythema. Cardiovascular: Rate and Rhythm: Normal rate and regular rhythm. Heart sounds: Normal heart sounds. Pulmonary: Effort: Pulmonary effort is normal. Breath sounds: Normal breath sounds. Comments: A ratting cough was noted during this encounter. Talking in full sentences. Handling secretions without drooling. Lips and nailbeds are pink without cyanosis. Abdominal: General: Bowel sounds are normal. There is no abdominal bruit. Palpations: Abdomen is not rigid. There is no mass or pulsatile mass. Tenderness: There is no abdominal tenderness. There is no guarding or rebound. Negative signs include Iniguez's sign and McBurney's sign. Lymphadenopathy: Head: Right side of head: No submental, submandibular or tonsillar adenopathy. Left side of head: No submental, submandibular or tonsillar adenopathy. Cervical: No cervical adenopathy. Skin: General: Skin is warm and dry. Neurological: Mental Status: She is alert and oriented to person, place, and time. Psychiatric: Mood and Affect: Affect normal. ASSESSMENT/PLAN: 1. Acute low back pain without sciatica, unspecified back pain laterality - ICD9: 724.2, ICD10: M54.50 (primary diagnosis) Appears to be body aches, no CVAT Will send urine culture if positive will need antibiotic called in - UA DIP, URINE (POC) - URINE CULTURE 2. Microscopic hematuria - ICD9: 599.72, ICD10: R31.29 Will send urine for micro, if still blood follow up with PCP - URINALYSIS, WITH MICROSCOPIC 3. URI, acute - ICD9: 465.9, ICD10: J06.9 - Discussed viral etiology and rationale for treatment. - Symptomatic treatment with prn analgesia - Supportive care with fluids and rest Home isolation Testing ordered Comfort measures discussed - see patient instructions. When to seek higher level of care Notified in 12-24 hours with results, available on [facility] - COVID WITH FLUA+B, ROUTINE 4. Body aches - ICD9: 780.96, ICD10: R52 Tylenol/ibuprofen - COVID WITH FLUA+B, ROUTINE Judith Ortiz APRN.CNP [facility] 06-07-2022 Instructions Judith Ortiz APRN.ALEYDA - 06/07/2022 10:54 AM EST covid and influenza test ordered You will be notified in 12-24 hours, results [facility] Home isolation until results are back Rest, increase water intake Motrin or Tylenol as needed for fever or pain. Salt water gargles, chloraseptic spray or lozenges as needed for sore throat. Warm beverages, honey. Nasal saline spray as needed Cool mist humidifier at night Tylenol (generic acetaminophen) 500 mg-2 tabs every 8 hrs. as needed for fever and aches Ibuprofen 600 mg (3-200mg tablets) every 6 hours Mucinex DM as ordered Will send urine for microscopic testing and culture, will call if treatment needed with antibiotic. If still blood in urine will need to follow up with PCP. * Seek medical care immediately, call 911, go to ER if you have chest pain, difficulty breathing, shortness of breath, inability to swallow. documented in this encounter [facility] 06-07-2022 History of Presen t illness Narrative Subjective The history is provided by the patient. No mens locker room attendant was used. HPI Chen Bailon is a 42 year old female who presents today for CC of lower back and ?fever for one day She denies any frequency urgency or pain with urination. She has also noted nasal drainage and cough. Did home covid test that is negative. BP 108/78 Pulse 82 Temp 36.9 C (98.5 F) Resp 21 Wt 85.1 kg (187 lb 9.6 oz) LMP 02/03/2011 SpO2 97% BMI 30.10 kg/m Social History Tobacco Use Smoking status: Former Packs/day: 1.00 Years: 20.00 Pack years: 20.00 Types: Cigarettes Quit date: 08/2019 Years since quittin.7 Smokeless tobacco: Never Tobacco comments: 1 ppd for 20, currently vaping Vaping Use Vaping Use: current everyday user Substances: Nicotine Devices: Disposable, Pre-filled or refillable cartridge Substance Use Topics Alcohol use: No Drug use: No PAST MEDICAL HISTORY Diagnosis Date Adjustment disorder with depressed mood Condyloma acuminatum Depressive disorder, not elsewhere classified Essential hypertension Fetus or affected by ectopic of mother Other and unspecified ovarian cyst Ovarian cyst Other hyperlipidemia Type 2 diabetes mellitus (HCC) Pre-diabetes Unspecified chronic bronchitis (HCC) Chronic bronchitis I have confirmed and edited as necessary, the [facility] Review of Systems Constitutional: Positive for chills, fever (tactile) and malaise/fatigue. HENT: Positive for congestion. Negative for ear pain, sinus pain and sore throat. Respiratory: Positive for cough. Negative for sputum production, shortness of breath and wheezing. Cardiovascular: Negative for chest pain. Gastrointestinal: Negative for abdominal pain, diarrhea, nausea and vomiting. Genitourinary: Positive for flank pain. Negative for dysuria, frequency, hematuria and urgency. Musculoskeletal: Positive for myalgias. Neurological: Negative for headaches. Objective Physical Exam Vitals and nursing note reviewed. Constitutional: Appearance: Normal appearance. HENT: Head: Normocephalic and atraumatic. Right Ear: Tympanic membrane, ear canal and external ear normal. Left Ear: Tympanic membrane, ear canal and external ear normal. Nose: Mucosal edema, congestion and rhinorrhea present. Right Sinus: No maxillary sinus tenderness or frontal sinus tenderness. Left Sinus: No maxillary sinus tenderness or frontal sinus tenderness. Mouth/Throat: Pharynx: Uvula midline. No oropharyngeal exudate or posterior oropharyngeal erythema. Cardiovascular: Rate and Rhythm: Normal rate and regular rhythm. Heart sounds: Normal heart sounds. Pulmonary: Effort: Pulmonary effort is normal. Breath sounds: Normal breath sounds. Comments: A ratting cough was noted during this encounter. Talking in full sentences. Handling secretions without drooling. Lips and nailbeds are pink without cyanosis. Abdominal: General: Bowel sounds are normal. There is no abdominal bruit. Palpations: Abdomen is not rigid. There is no mass or pulsatile mass. Tenderness: There is no abdominal tenderness. There is no guarding or rebound. Negative signs include Iniguez's sign and McBurney's sign. Lymphadenopathy: Head: Right side of head: No submental, submandibular or tonsillar adenopathy. Left side of head: No submental, submandibular or tonsillar adenopathy. Cervical: No cervical adenopathy. Skin: General: Skin is warm and dry. Neurological: Mental Status: She is alert and oriented to person, place, and time. Psychiatric: Mood and Affect: Affect normal. ASSESSMENT/PLAN: 1. Acute low back pain without sciatica, unspecified back pain laterality - ICD9: 724.2, ICD10: M54.50 (primary diagnosis) Appears to be body aches, no CVAT Will send urine culture if positive will need antibiotic called in - UA DIP, URINE (POC) - URINE CULTURE 2. Microscopic hematuria - ICD9: 599.72, ICD10: R31.29 Will send urine for micro, if still blood follow up with PCP - URINALYSIS, WITH MICROSCOPIC 3. URI, acute - ICD9: 465.9, ICD10: J06.9 - Discussed viral etiology and rationale for treatment. - Symptomatic treatment with prn analgesia - Supportive care with fluids and rest Home isolation Testing ordered Comfort measures discussed - see patient instructions. When to seek higher level of care Notified in 12-24 hours with results, available on mychart - COVID WITH FLUA+B, ROUTINE 4. Body aches - ICD9: 780.96, ICD10: R52 Tylenol/ibuprofen - COVID WITH FLUA+B, ROUTINE Judith Ortiz APRN.CNP documented in this encounter [facility] 04-01-2022 Miscellaneous Notes Pt notified and voiced understanding. Appt scheduled with Brittany Quarles on Thu at 4:20 PM. Reminder mailed. Cheryl Brown Ma ----- Message from Malik Mcdowell APRN.CNP sent at 03/29/2022 11:04 AM EST ----- Please let the patient know that her labs are abnormal, cholesterol is very high. She needs set up with a yearly visit to discuss results and recommendations. Malik Mcdowell CNP documented in this encounter [facility] 03-28-2022 Miscellaneous Notes Pt informed, verbalized understanding. Pt reports hasn't taken Lipitor in 6 months but will restart med. Tammi Fry Ma Please let Chen know that we received her lab results. Her kidney function is a bit decreased, but looks like this is stable for her. Her WBC and RBC counts are increased, again looks like this is not abnormal for her. I recommend she focus on getting at least 60-80ounces of water daily and rechecking these labs again in 2 weeks. She should then follow up with her PCP. Her cholesterol and triglyceride levels are very high. Is she taking the Lipitor 20mg that has been prescribed on her medication list? Kelly Dueñas APRN.CNP documented in this encounter [facility] 03-27-2022 Note HNO ID: [id number] Author: Kelly Dueñas APRN.CNP Service: ? Author Type: Nurse Practitioner Type: Progress Notes Filed: 03/27/2022 5:51 PM Note Text: Chief Complaint Patient presents with: Discussion: On fmla forms for being off work with flu then covid HPI Chen Bailon is a 42 year old female who presents here today for Above Complaints.. In December was in [facility] and was told she had the flu and written off work for 5 days. She works at [employer] and [employer] is requesting official FMLA forms. Most recently she tested positive for COVID on 03/21 and was home for 5 days. Had 102 fever. After 5 days was not allowed to return even though fever and sx had resolved. Is required to have release from physician prior to returning to work. Has filed a claim with [employer]. Past medical history, appointments, medications, allergies reviewed. Previous Medical History PAST MEDICAL HISTORY Diagnosis Date Adjustment disorder with depressed mood Condyloma acuminatum Depressive disorder, not elsewhere classified Essential hypertension Fetus or affected by ectopic of mother Other and unspecified ovarian cyst Ovarian cyst Other hyperlipidemia Type 2 diabetes mellitus (HCC) Pre-diabetes Unspecified chronic bronchitis (HCC) Chronic bronchitis Previous Surgical History PAST SURGICAL HISTORY Procedure Laterality Date ADENOIDECTOMY PRIMARY Adenoidectomy DELIVERY ONLY , low cervical LIG/TRNSXJ FLP TUBE ABDL/VAG APPR UNI/BI Tubal ligation TONSILLECTOMY PRIMARY/SECONDARY Tonsillectomy VAGINAL HYSTERECTOMY UTERUS 250 GM/< Hysterectomy, vaginal Family History FAMILY HISTORY Adopted: Yes Problem Relation Age of Onset Hypertension Mother Heart Mother HI Lung Cancer Father Coronary Artery Disease Sister Hypertension Sister Developmental problem Brother Cancer Maternal Grandfather lung other (pt adopted) Other Patient Allergies ALLERGIES Allergen Reactions Flea Bites [Other] Tylenol-Codeine #3 * Current Medications Current Outpatient Medications on File Prior to Visit Medication Sig Cholecalciferol, Vitamin D3, 125 mcg (5,000 unit) cap Take 1 capsule by mouth once daily. atorvastatin (LIPITOR) 20 mg tablet Take 1 tablet by mouth daily at bedtime. For cholesterol. FLUoxetine (PROZAC) 20 mg capsule Take 1 capsule by mouth once daily. lisinopril-hydroCHLOROthiazide (PRINZIDE,ZESTORETIC) 20-12.5 mg per tablet Take half a pill daily. omeprazole (PRILOSEC) 20 mg capsule Take 1 capsule by mouth daily before breakfast. 1/2 hr before meal. fluticasone (FLOVENT HFA) 110 mcg/actuation inhaler Inhale 1 Puff as instructed twice daily. albuterol HFA (VENTOLIN HFA) 90 mcg/actuation inhaler Inhale 2 Puffs as instructed every 4 hours as needed for Wheezing/Shortness of Breath. predniSONE (DELTASONE) 10 mg tablet Take 4 tabs daily for 3 days, then 2 tabs daily for 3 days, then 1 tab daily for 3 days with food. (Patient not taking: Reported on 03/27/2022) benzonatate (TESSALON PERLES) 100 mg capsule Take 1 capsule by mouth three times daily as needed for cough. (Patient not taking: Reported on 03/27/2022) ondansetron orally disintegrating (ZOFRAN ODT) 4 mg disintegrating tablet Take 1 tablet by mouth every 8 hours as needed for nausea/vomiting. (Patient not taking: Reported on 03/27/2022) albuterol HFA (PROAIR HFA) 90 mcg/actuation inhaler Inhale 2 Puffs as instructed every 6 hours as needed. fluticasone (FLONASE) 50 mcg/actuation nasal spray Use 2 Sprays in each nostril once daily. Rinse mouth after use. Current Facility-Administered Medications on File Prior to Visit Medication perflutren lipid microspheres 1.3 mL in NaCl (PF) 0.9% 10 mL injection (DEFINITY) sodium chloride 0.9 % (flush) 10 mL (BD POSIFLUSH) Social History Social History Tobacco Use Smoking status: Former Packs/day: 1.00 Years: 20.00 Pack years: 20.00 Types: Cigarettes Quit date: 08/2019 Years since quittin.5 Smokeless tobacco: Never Tobacco comments: 1 ppd for 20, currently vaping Vaping Use Vaping Use: current everyday user Substances: Nicotine Devices: Disposable, Pre-filled or refillable cartridge Substance Use Topics Alcohol use: No Drug use: No Review of Symptoms REVIEW OF SYSTEMS See HPI, otherwise negative EXAM: BP 110/60 (BP Site: Left Arm, BP Position: Sitting, BP Cuff Size: Regular Adult) Pulse 64 Resp 16 Wt 84.1 kg (185 lb 6.4 oz) LMP 02/03/2011 BMI 29.74 kg/m? General Appearance: Well appearing, alert, in no acute distress, well-hydrated, well nourished.. Lungs: Lungs clear to auscultation. No wheezing, rhonchi, rales.. Heart: RRR without murmur, gallop, or rubs. No ectopy. Health Maintenance List HEPATITIS B(1 of 3 - 3-dose series) Never done MAMMOGRAM due on 07/24/2021 INFLUENZA(1) due on 09/26/2022 COVID-19 VACCINE(1) due on 03/27/2023 CANDACE (more content not included)... [facility] 03-27-2022 Instructions Kelly Dueñas APRN.CNP - 03/27/2022 2:26 PM EST Have your labs drawn. Schedule your mammogram. Let me know if your work needs anything else from our office. documented in this encounter [facility] 03-27-2022 History of Presen t illness Narrative Chief Complaint Patient presents with: Discussion: On fmla forms for being off work with flu then covid HPI Chen Bailon is a 42 year old female who presents here today for Above Complaints.. [facility] and was told she had the flu and written off work for 5 days. She works at [employer] is requesting official FMLA forms. Most recently she tested positive for COVID on 03/21 and was home for 5 days. Had 102 fever. After 5 days was not allowed to return even though fever and sx had resolved. Is required to have release from physician prior to returning to work. Has filed a claim with [employer]. Past medical history, appointments, medications, allergies reviewed. Previous Medical History PAST MEDICAL HISTORY Diagnosis Date Adjustment disorder with depressed mood Condyloma acuminatum Depressive disorder, not elsewhere classified Essential hypertension Fetus or affected by ectopic of mother Other and unspecified ovarian cyst Ovarian cyst Other hyperlipidemia Type 2 diabetes mellitus (HCC) Pre-diabetes Unspecified chronic bronchitis (HCC) Chronic bronchitis Previous Surgical History PAST SURGICAL HISTORY Procedure Laterality Date ADENOIDECTOMY PRIMARY <AGE 12 Adenoidectomy DELIVERY ONLY , low cervical LIG/TRNSXJ FLP TUBE ABDL/VAG APPR UNI/BI Tubal ligation TONSILLECTOMY PRIMARY/SECONDARY <AGE 12 Tonsillectomy VAGINAL HYSTERECTOMY UTERUS 250 GM/< Hysterectomy, vaginal Family History FAMILY HISTORY Adopted: Yes Problem Relation Age of Onset Hypertension Mother Heart Mother [place] Lung Cancer Father Coronary Artery Disease Sister Hypertension Sister Developmental problem Brother Cancer Maternal Grandfather lung other (pt adopted) Other Patient Allergies ALLERGIES Allergen Reactions Flea Bites [Other] Tylenol-Codeine #3 * Current Medications Current Outpatient Medications on File Prior to Visit Medication Sig Cholecalciferol, Vitamin D3, 125 mcg (5,000 unit) cap Take 1 capsule by mouth once daily. atorvastatin (LIPITOR) 20 mg tablet Take 1 tablet by mouth daily at bedtime. For cholesterol. FLUoxetine (PROZAC) 20 mg capsule Take 1 capsule by mouth once daily. lisinopril-hydroCHLOROthiazide (PRINZIDE,ZESTORETIC) 20-12.5 mg per tablet Take half a pill daily. omeprazole (PRILOSEC) 20 mg capsule Take 1 capsule by mouth daily before breakfast. 1/2 hr before meal. fluticasone (FLOVENT HFA) 110 mcg/actuation inhaler Inhale 1 Puff as instructed twice daily. albuterol HFA (VENTOLIN HFA) 90 mcg/actuation inhaler Inhale 2 Puffs as instructed every 4 hours as needed for Wheezing/Shortness of Breath. predniSONE (DELTASONE) 10 mg tablet Take 4 tabs daily for 3 days, then 2 tabs daily for 3 days, then 1 tab daily for 3 days with food. (Patient not taking: Reported on 03/27/2022) benzonatate (TESSALON PERLES) 100 mg capsule Take 1 capsule by mouth three times daily as needed for cough. (Patient not taking: Reported on 03/27/2022) ondansetron orally disintegrating (ZOFRAN ODT) 4 mg disintegrating tablet Take 1 tablet by mouth every 8 hours as needed for nausea/vomiting. (Patient not taking: Reported on 03/27/2022) albuterol HFA (PROAIR HFA) 90 mcg/actuation inhaler Inhale 2 Puffs as instructed every 6 hours as needed. fluticasone (FLONASE) 50 mcg/actuation nasal spray Use 2 Sprays in each nostril once daily. Rinse mouth after use. Current Facility-Administered Medications on File Prior to Visit Medication perflutren lipid microspheres 1.3 mL in NaCl (PF) 0.9% 10 mL injection (DEFINITY) sodium chloride 0.9 % (flush) 10 mL (BD POSIFLUSH) Social History Social History Tobacco Use Smoking status: Former Packs/day: 1.00 Years: 20.00 Pack years: 20.00 Types: Cigarettes Quit date: 08/2019 Years since quittin.5 Smokeless tobacco: Never Tobacco comments: 1 ppd for 20, currently vaping Vaping Use Vaping Use: current everyday user Substances: Nicotine Devices: Disposable, Pre-filled or refillable cartridge Substance Use Topics Alcohol use: No Drug use: No Review of Symptoms REVIEW OF SYSTEMS See HPI, otherwise negative EXAM: BP 110/60 (BP Site: Left Arm, BP Position: Sitting, BP Cuff Size: Regular Adult) Pulse 64 Resp 16 Wt 84.1 kg (185 lb 6.4 oz) LMP 02/03/2011 BMI 29.74 kg/m General Appearance: Well appearing, alert, in no acute distress, well-hydrated, well nourished.. Lungs: Lungs clear to auscultation. No wheezing, rhonchi, rales.. Heart: RRR without murmur, gallop, or rubs. No ectopy. Health Maintenance List HEPATITIS B(1 of 3 - 3-dose series) Never done MAMMOGRAM due on 07/24/2021 INFLUENZA(1) due on 09/26/2022 COVID-19 VACCINE(1) due on 03/27/2023 ANNUAL PCP TEAM CHRONIC DISEASE VISIT due on 05/08/2022 BP CONTROLLED (<130/80) due on 02/10/2023 DTAP,TDAP,TD(2 - Td or Tdap) due on 02/08/2027 HEPATITIS C SCREENING Completed PAP TESTING Discontinued HPV TESTING Discontinued HIV SCREENING Discontinued Data reviewed Previous records, office notes ASSESSMENT/PLAN: 1. COVID - ICD9: 079.89, ICD10: U07.1 (primary diagnosis) Swab for COVID/influenza. Continue supportive care. Tx with doxycycline. 2. Vitamin D deficiency - ICD9: 268.9, ICD10: E55.9 Due for regular labs. - VITAMIN D 25 HYDROXY 3. Screening for thyroid disorder - ICD9: V77.0, ICD10: Z13.29 Due for regular labs. - TSH BLD 4. Screening for lipid disorders - ICD9: V77.91, ICD10: Z13.220 Due for regular labs. - LIPID PANEL BASIC 5. Screening for diabetes mellitus - ICD9: V77.1, ICD10: Z13.1 Due for regular labs. - COMP METABOLIC PANEL - HGB A1C 6. Well adult exam - ICD9: V70.0, ICD10: Z00.00 Letter written for work for days missed due to illness. If necessary, patient or [employer] will send forms to be completed. - VITAMIN D 25 HYDROXY - LIPID PANEL BASIC - COMP METABOLIC PANEL - CBC - HGB A1C - TSH BLD Kelly Dueñas APRN.CNP Greater than 50% of 38-minute visit spent face to face with patient in counseling and education. documented in this encounter [facility] 03-10-2022 Miscellaneous Notes The following approved medication requests have been transmitted electronically. Requested Prescriptions Pending Prescriptions Disp Refills Cholecalciferol, Vitamin D3, 125 mcg (5,000 unit) cap 90 capsule 3 Sig: Take 1 capsule by mouth once daily. Malik Mcdowell APRN.CNP Patient phones requesting refills as follows: Requested Prescriptions Pending Prescriptions Disp Refills Cholecalciferol, Vitamin D3, 125 mcg (5,000 unit) cap 90 capsule 3 Sig: Take 1 capsule by mouth once daily. REESE-05/08/21 Labs-05/13/21 NOV-none med filled 02/01/21 Please review and advise. Sun Joshi LPN documented in this encounter [facility] 02-03-2022 Miscellaneous Notes Pt notified via [employer] that she needs to call in to schedule yearly. Probably should get her in for a yearly. The following approved medication requests have been transmitted electronically. Requested Prescriptions Signed Prescriptions Disp Refills atorvastatin (LIPITOR) 20 mg tablet 30 tablet 2 Sig: Take 1 tablet by mouth daily at bedtime. For cholesterol. Authorizing Provider: MALIK MCDOWELL FLUoxetine (PROZAC) 20 mg capsule 90 capsule 3 Sig: Take 1 capsule by mouth once daily. Authorizing Provider: MALIK MCDOWELL APRN.THREAD MILLING MACHINE SET UP OPERATOR Patient has been identified by name and date of : Yes Requested Prescriptions Pending Prescriptions Disp Refills atorvastatin (LIPITOR) 20 mg tablet 30 tablet 2 Sig: Take 1 tablet by mouth daily at bedtime. For cholesterol. FLUoxetine (PROZAC) 20 mg capsule 90 capsule 3 Sig: Take 1 capsule by mouth once daily. RX INSTRUCTIONS: Patient aware RX will be sent to pharmacy. No need to notify patient. Aletha Denis MA Reese: 04/2021 acute issues No appointment scheduled documented in this encounter [facility] 08-27-2021 Miscellaneous Notes OK to refill as ordered Cathi Dunn MD Last OV; 05/08/21 Next OV: NOne Last Rx: 01/30/21 #30 w/5. Leonor Arevalo Ma documented in this encounter [facility] 07-20-2021 Instructions Ambar Denis APRN.THREAD MILLING MACHINE SET UP OPERATOR - 07/20/2021 1:05 PM EDT 1.) Get more rest than you usually do - this will speed your recovery. If you push hard with your usual busy schedule, you will be sicker longer. 2.) Drink a lot of water - enough to make you urinate every 2-3 hours (your urine should be a light yellow color). This helps thin the phlegm and sooth the airways. Gatorade (G2) is less in sugar and replaces your electrolytes if not eating well. 3.) Run a cool mist humidifier in your bedroom on high with the door closed. This is a natural way to decongest, and it helps lessen scratchy throats, nasal stuffiness and coughs. 4.) For those without blood pressure concerns, take Sudafed as a decongestant (decreases stuffiness-lets drain), but realize that you will need to take it every 4-6 hours for several days. The lower dose is generally better tolerated (30mg)... Some people can make feel fast heart rate/jittery. You also may try anti-allergy pill like Claritin(loratidine) 10mg or bib, benadryl (makes sleepy) over the counter as directed to help with drippy nose. Mucinex 600-1200mg twice daily(plain) may help thin secretions so they are easier to cough up. Those with high blood pressure and not with prostate problems can try oisy-[id number]-khypjjt Coricidin HBP for congestion. You may find nasal sprays such as Flonase or Nasacort, saline nasal spray and/or Netti Pot may be beneficial 5.) Take ibuprofen or acetominophen every 4-6 hours for pain/aches as needed if not contraindicated for you. Antibiotic as directed per prescription If you should breakout in a rash, stop the medicine and call the office. Any antibiotic has the potential to cause diarrhea due to alteration in the normal bacterial avery of the gut. This can be reduced by eating yogurt with active cultures or taking probiotics daily while on the medication. If diarrhea becomes severe (watery, large volumes or more than 3-4/day) call the office. Women may experience yeast vaginitis due to alteration in the vaginal avery. Symptoms include vaginal itching, irritation, and often a clumpy white discharge. If this occurs, there are several effective over the counter remedies available, including one-dose treatments. If these are unsuccessful, call the office. Antibiotics may interfer with control. If you are on oral contraceptives, use another form of protection (condoms, foams, jellies, diaphragm) throught the end of whatever pill pack you are on in 10 days. If you are not improving in 3-5 days or are worsening follow up with PCP documented in this encounter [facility] 07-20-2021 History of Presen t illness Narrative CC: Patient presents with: Eye Problem: right eye swelling and itching x 1 day, congestion sore throat x 1 week HPI: Chen Bailon is a 41 year old female who presents to the office with complaint of head congestion, cough, nonproductive and sore throat for a week. Symptoms are worsening Associated symptoms includes facial pain/pressure. Denies nausea, vomiting and diarrhea. Treatments tried include nothing so far. with no relief of symptoms. Sick contacts: unknown. History of asthma, frequent episodes of bronchitis, chronic bronchitis, bronchiectasis or COPD: No Smoker: No Seasonal/environmental allergies: No The ROS is otherwise negative. The patient's pmh, medications, allergies, and past visits are reviewed. PHYSICAL EXAM: BP 142/82 Pulse 88 Temp 36.4 C (97.6 F) Resp 16 Wt 90.3 kg (199 lb) LMP 02/03/2011 SpO2 97% BMI 31.93 kg/m General appearance: alert, cooperative, pleasant, in no acute distress Head: Normocephalic Eyes: EOM's intact, conjunctiva pink and moist, no icterus, sclera white, non-injected Oropharynx:moderate erythema, without exudates present Heart: Negative. RRR without obvious murmur, gallop, or rubs. No ectopy. Lungs: clear to auscultation, without rales or wheeze, good air exchange Patient also had a small insect bite under the right eye with a minimal amount of swelling said it manuel itch at times. No erythema noted or drainage notes. Denies any other symptoms with this. PAST MEDICAL HISTORY Diagnosis Date Adjustment disorder with depressed mood Condyloma acuminatum Depressive disorder, not elsewhere classified Essential hypertension Fetus or affected by ectopic of mother Other and unspecified ovarian cyst Ovarian cyst Other hyperlipidemia Type 2 diabetes mellitus (HCC) Pre-diabetes Unspecified chronic bronchitis (HCC) Chronic bronchitis PAST SURGICAL HISTORY Procedure Laterality Date ADENOIDECTOMY PRIMARY <AGE 12 Adenoidectomy DELIVERY ONLY , low cervical LIG/TRNSXJ FLP TUBE ABDL/VAG APPR UNI/BI Tubal ligation TONSILLECTOMY PRIMARY/SECONDARY <AGE 12 Tonsillectomy VAGINAL HYSTERECTOMY UTERUS 250 GM/< Hysterectomy, vaginal ALLERGIES Flea Bites [Other] and Tylenol-Codeine #3 [Acetaminophen-Codeine] MEDICATIONS FLUoxetine (PROZAC) 20 mg capsule Take 1 capsule by mouth once daily. Cholecalciferol, Vitamin D3, 125 mcg (5,000 unit) cap Take 1 capsule by mouth once daily. omeprazole (PRILOSEC) 20 mg capsule Take 1 capsule by mouth daily before breakfast. 1/2 hr before meal. lisinopril-hydroCHLOROthiazide (PRINZIDE,ZESTORETIC) 20-12.5 mg per tablet Take half a pill daily. atorvastatin (LIPITOR) 20 mg tablet Take 1 tablet by mouth daily at bedtime. For cholesterol. fluticasone (FLONASE) 50 mcg/actuation nasal spray Use 2 Sprays in each nostril once daily. Rinse mouth after use. fluticasone (FLOVENT HFA) 110 mcg/actuation inhaler Inhale 1 Puff as instructed twice daily. albuterol HFA (VENTOLIN HFA) 90 mcg/actuation inhaler Inhale 2 Puffs as instructed every 4 hours as needed for Wheezing/Shortness of Breath. doxycycline monohydrate 100 mg tablet Take 1 tablet by mouth twice daily for 5 days. albuterol HFA (PROAIR HFA) 90 mcg/actuation inhaler Inhale 2 Puffs as instructed every 6 hours as needed. FAMILY HISTORY Adopted: Yes Problem Relation Age of Onset Hypertension Mother Heart Mother [place] Lung Cancer Father Coronary Artery Disease Sister Hypertension Sister Developmental problem Brother Cancer Maternal Grandfather lung other (pt adopted) Other Social History Tobacco Use Smoking status: Former Smoker Packs/day: 1.00 Years: 20.00 Pack years: 20.00 Types: Cigarettes Quit date: 08/2019 Years since quittin.8 Smokeless tobacco: Never Used Tobacco comment: 1 ppd for 20, currently vaping Vaping Use Vaping Use: current everyday user Substances: Nicotine Devices: Disposable, Pre-filled or refillable cartridge Substance Use Topics Alcohol use: No Drug use: No ASSESSMENT/PLAN: 1. Sore throat - ICD9: 462, ICD10: J02.9 - STREP A MOLECULAR (POC) - negative Prescription instructions reviewed with patient as applicable. Doxycycline bid for 5 days for sinus. Will monitor symptoms or worsening. Potential red flag symptoms discussed with the patient. Reviewed appropriate action plan to take if red flag symptoms occur. Patient agreeable to treatment plan. Ambar Denis APRN.ALEYDA documented in this encounter [facility] documented as of this encounter (statuses as of 07/20/2021) [facility] History of Past illness Narrative* Problem Noted Date Resolved Date Tobacco abuse 09/12/2009 07/19/2020 documented as of this encounter (statuses as of 08/27/2021) [facility] of Past illness Narrative* Problem Noted Date Resolved Date Tobacco abuse 09/12/2009 07/19/2020 documented as of this encounter (statuses as of 08/27/2021) [facility] of Past illness Narrative* Problem Noted Date Resolved Date Tobacco abuse 09/12/2009 07/19/2020 documented as of this encounter (statuses as of 02/03/2022) [facility] of Past [facility] Narrative* Problem Noted Date Resolved Date Tobacco abuse 09/12/2009 07/19/2020 documented as of this encounter (statuses as of 03/10/2022) [facility] of Past illness Narrative* Problem Noted Date Resolved Date Tobacco abuse 09/12/2009 07/19/2020 documented as of this encounter (statuses as of 04/02/2022) [address]16-2010 History of Past illness Narrative* Problem Noted Date Resolved Date Tobacco abuse 09/12/2009 07/19/2020 documented as of this encounter (statuses as of 04/02/2022) [facility] of Past illness Narrative* Problem Noted Date Resolved Date Tobacco abuse 09/12/2009 07/19/2020 documented as of this encounter (statuses as of 04/03/2022) [facility] of Past illness Narrative* Problem Noted Date Resolved Date Tobacco abuse 09/12/2009 07/19/2020 documented as of this encounter (statuses as of 06/07/2022) [address]16[address]2010 History of Past illness Narrative* Problem Noted Date Resolved Date Tobacco abuse 09/12/2009 07/19/2020 documented as of this encounter (statuses as of 06/09/2022) [facility] of Past [facility] Narrative* Problem Noted Date Resolved Date Tobacco abuse 09/12/2009 07/19/2020 documented as of this encounter (statuses as of 08/04/2022) [facility] of Past illness Narrative* Problem Noted Date Resolved Date Tobacco abuse 09/12/2009 07/19/2020 documented as of this encounter (statuses as of 09/24/2022) [facility] of Past [facility] Narrative* Problem Noted Date Resolved Date Tobacco abuse 09/12/2009 07/19/2020 documented as of this encounter (statuses as of 09/25/2022) [facility] Past [facility] Narrative* Problem Noted Date Resolved Date Tobacco abuse 09/12/2009 07/19/2020 documented as of this encounter (statuses as of 09/29/2022) [facility] of Past illness Narrative* Problem Noted Date Resolved Date Tobacco abuse 09/12/2009 07/19/2020 documented as of this encounter (statuses as of 09/30/2022) [address]2010 History of Past illness Narrative* Problem Noted Date Resolved Date Tobacco abuse 09/12/2009 07/19/2020 documented as of this encounter (statuses as of 09/30/2022) [address]16[address]2010 History of Past illness Narrative* Problem Noted Date Diagnosed Date Resolved Date Tobacco abuse 09/12/2009 07/19/2020 documented as of this encounter (statuses as of 10/27/2022) [address]16[address]2010 History of Past illness Narrative* Problem Noted Date Diagnosed Date Resolved Date Tobacco abuse 09/12/2009 07/19/2020 documented as of this encounter (statuses as of 12/02/2022) [address]2010 History of Past illness Narrative* Problem Noted Date Diagnosed Date Resolved Date Tobacco abuse 09/12/2009 07/19/2020 documented as of this encounter (statuses as of 12/02/2022) [address]16[address]2010 History of Past illness Narrative* Problem Noted Date Diagnosed Date Resolved Date Tobacco abuse 09/12/2009 07/19/2020 documented as of this encounter (statuses as of 12/04/2022) [address]16[address]2010 History of Past illness Narrative* Problem Noted Date Diagnosed Date Resolved Date Tobacco abuse 09/12/2009 07/19/2020 documented as of this encounter (statuses as of 12/05/2022) [address]2010 History of Past illness Narrative* Problem Noted Date Diagnosed Date Resolved Date Tobacco abuse 09/12/2009 07/19/2020 documented as of this encounter (statuses as of 01/09/2023) [facility] Diagnosis Sore throat- Primary [facility] Primary hypertension- Primary Unspecified essential hypertension Mixed hyperlipidemia Anxiety and depression Dysthymic disorder [facility] Diagnosis Vitamin D deficiency Unspecified vitamin D deficiency [facility] Diagnosis COVID- Primary Vitamin D deficiency Unspecified vitamin D deficiency Screening for thyroid disorder Screening for lipid disorders Screening for diabetes mellitus Well adult exam Routine general medical examination at a health care facility [facility] Diagnosis Hyperlipidemia, mixed- Primary Mixed hyperlipidemia Elevated red blood cell count Polycythemia, secondary Leukocytosis, unspecified type Decreased renal function Unspecified disorder of kidney and ureter documented in this encounter [facility] note* Diagnosis Acute low back pain without sciatica, unspecified back pain laterality- Primary Microscopic hematuria URI, acute Acute upper respiratory infections of unspecified site Body aches Generalized pain documented in this encounter [facility] note* Diagnosis Microscopic hematuria- Primary documented in this encounter [facility] note* Diagnosis Encounter for screening mammogram for breast cancer documented in this encounter [facility] note* Diagnosis Urinary frequency- Primary documented in this encounter [facility] note* Diagnosis COVID- Primary documented in this encounter [facility] note* Diagnosis Anxiety and depression Dysthymic disorder documented in this encounter [facility] note* Diagnosis Mixed hyperlipidemia documented in this encounter [facility] note* Diagnosis Wellness examination- Primary Primary hypertension Unspecified essential hypertension Mixed hyperlipidemia GERD without esophagitis Esophageal reflux Chronic bronchitis, unspecified chronic bronchitis type (HCC) Women's annual routine gynecological examination Screening for diabetes mellitus documented in this encounter [facility] note* Diagnosis Resolved [id number] syndrome- Primary Smoker Tobacco use disorder documented in this encounter [facility] note* Diagnosis Other acute nonsuppurative otitis media of left ear, recurrence not specified- Primary documented in this encounter [facility] note* Diagnosis Bacterial sinusitis- Primary Unspecified sinusitis (chronic) documented in this encounter [facility] for referral (narrative)* Diagnostic Procedure Only (Routine) - Pending Review Specialty Diagnoses / Procedures Referred By Enrrique durán Referred To Contact [facility] Diagnoses Encounter for screening mammogram for breast cancer Procedures ROGER SCREENING SCREENING MAMMOGRAPHY BI 2-VIEW BREAST INC CAD Cathi Dunn MD [address] [place] [address] [facility] [address] [place] [address] Referral ID Status Reason Start Date Expiration Date Visits Requested Visits Authorized [id number] Pending Review Auto-Generat ed Referral 07/30/2022 08/29/2023 1 1 [facility] Summary Purpose Family History No Family History Records FoundNo Family History Records Found Advance Directives No Advanced Directives Records FoundNo Advanced Directives Records Found Health Concerns Infection Onset Date Last Indicated Resolved Time COVID-19 Rule-Out 06/07/2022 06/07/2022 Infection Onset Date Last Indicated Resolved Time COVID-19 Rule-Out 06/07/2022 06/07/2022 06/08/2022 4:09 AM EDT COVID-19 Confirmed 06/07/2022 06/07/2022 Infection Onset Date Last Indicated Resolved Time COVID-19 Rule-Out 03/06/2023 03/06/2023 03/06/2023 7:21 PM EST Reason for Referral Specialty Diagnoses / Procedures Referred By Contac t Referred To Contact Gynecology Diagnoses Women's annual routine gynecological examination Procedures CONSULT TO GYNECOLOGY OFFICE/OUTPATIENT [facility] MDM 60-74 MINUTES Brittany Quarles, NELLY.THREAD MILLING MACHINE SET UP OPERATOR [address] [place] [address] Referral ID Status Reason Start Date Expiration Date Visits Requested Visits Authorized [id number] Authorized PCP Requested Referral Auto-Generate d Referral 12/04/2022 12/04/2023 1 1 Additional Source Comments INFORMATION SOURCE (unrecogn ized section and content) DATE CREATED AUTHOR AUTHOR'S ORGANIZ ATION 03/11/2023 [facility] Source Comments (unrecognize d section and content) In the event this informatio n is protected by the Federal Confidentiality of Alcohol and Drug Abuse Patient Records regulations: The Federal rules restrict any use of the information to criminally investigate or prosecute any alcohol or drug abuse patient.[facility] the event this information is protected by the Federal Confidentiality of Alcohol and Drug Abuse Patient Records regulations: The Federal rules restrict any use of the information to criminally investigate or prosecute any alcohol or drug abuse patient.[facility] the event this information is protected by the Federal Confidentiality of Alcohol and Drug Abuse Patient Records regulations: The Federal rules restrict any use of the information to criminally investigate or prosecute any alcohol or drug abuse patient.[facility] the event this information is protected by the Federal Confidentiality of Alcohol and Drug Abuse Patient Records regulations: The Federal rules restrict any use of the information to criminally investigate or prosecute any alcohol or drug abuse patient.[facility] the event this information is protected by the Federal Confidentiality of Alcohol and Drug Abuse Patient Records regulations: The Federal rules restrict any use of the information to criminally investigate or prosecute any alcohol or drug abuse patient.[facility] the event this information is protected by the Federal Confidentiality of Alcohol and Drug Abuse Patient Records regulations: The Federal rules restrict any use of the information to criminally investigate or prosecute any alcohol or drug abuse patient.[facility] the event this information is protected by the Federal Confidentiality of Alcohol and Drug Abuse Patient Records regulations: The Federal rules restrict any use of the information to criminally investigate or prosecute any alcohol or drug abuse patient.[facility] the event this information is protected by the Federal Confidentiality of Alcohol and Drug Abuse Patient Records regulations: The Federal rules restrict any use of the information to criminally investigate or prosecute any alcohol or drug abuse patient.[facility] the event this information is protected by the Federal Confidentiality of Alcohol and Drug Abuse Patient Records regulations: The Federal rules restrict any use of the information to criminally investigate or prosecute any alcohol or drug abuse patient.[facility] the event this information is protected by the Federal Confidentiality of Alcohol and Drug Abuse Patient Records regulations: The Federal rules restrict any use of the information to criminally investigate or prosecute any alcohol or drug abuse patient.[facility] the event this information is protected by the Federal Confidentiality of Alcohol and Drug Abuse Patient Records regulations: The Federal rules restrict any use of the information to criminally investigate or prosecute any alcohol or drug abuse patient.[facility] the event this information is protected by the Federal Confidentiality of Alcohol and Drug Abuse Patient Records regulations: The Federal rules restrict any use of the information to criminally investigate or prosecute any alcohol or drug abuse patient.[facility] the event this information is protected by the Federal Confidentiality of Alcohol and Drug Abuse Patient Records regulations: The Federal rules restrict any use of the information to criminally investigate or prosecute any alcohol or drug abuse patient.[facility] the event this information is protected by the Federal Confidentiality of Alcohol and Drug Abuse Patient Records regulations: The Federal rules restrict any use of the information to criminally investigate or prosecute any alcohol or drug abuse patient.[facility] HospitalIn the event this information is protected by the Federal Confidentiality of Alcohol and Drug Abuse Patient Records regulations: The Federal rules restrict any use of the information to criminally investigate or prosecute any alcohol or drug abuse patient.[facility] the event this information is protected by the Federal Confidentiality of Alcohol and Drug Abuse Patient Records regulations: The Federal rules restrict any use of the information to criminally investigate or prosecute any alcohol or drug abuse patient.[facility] HospitalIn the event this information is protected by the Federal Confidentiality of Alcohol and Drug Abuse Patient Records regulations: The Federal rules restrict any use of the information to criminally investigate or prosecute any alcohol or drug abuse patient.[facility] HospitalIn the event this information is protected by the Federal Confidentiality of Alcohol and Drug Abuse Patient Records regulations: The Federal rules restrict any use of the information to criminally investigate or prosecute any alcohol or drug abuse patient.[facility] HospitalIn the event this information is protected by the Federal Confidentiality of Alcohol and Drug Abuse Patient Records regulations: The Federal rules restrict any use of the information to criminally investigate or prosecute any alcohol or drug abuse patient.[facility] HospitalIn the event this information is protected by the Federal Confidentiality of Alcohol and Drug Abuse Patient Records regulations: The Federal rules restrict any use of the information to criminally investigate or prosecute any alcohol or drug abuse patient.[facility] HospitalIn the event this information is protected by the Federal Confidentiality of Alcohol and Drug Abuse Patient Records regulations: The Federal rules restrict any use of the information to criminally investigate or prosecute any alcohol or drug abuse patient.[facility] HospitalIn the event this information is protected by the Federal Confidentiality of Alcohol and Drug Abuse Patient Records regulations: The Federal rules restrict any use of the information to criminally investigate or prosecute any alcohol or drug abuse patient.[facility] HospitalIn the event this information is protected by the Federal Confidentiality of Alcohol and Drug Abuse Patient Records regulations: The Federal rules restrict any use of the information to criminally investigate or prosecute any alcohol or drug abuse patient.[facility] HospitalIn the event this information is protected by the Federal Confidentiality of Alcohol and Drug Abuse Patient Records regulations: The Federal rules restrict any use of the information to criminally investigate or prosecute any alcohol or drug abuse patient.[facility] HospitalIn the event this information is protected by the Federal Confidentiality of Alcohol and Drug Abuse Patient Records regulations: The Federal rules restrict any use of the information to criminally investigate or prosecute any alcohol or drug abuse patient.[facility] HospitalIn the event this information is protected by the Federal Confidentiality of Alcohol and Drug Abuse Patient Records regulations: The Federal rules restrict any use of the information to criminally investigate or prosecute any alcohol or drug abuse patient.[facility] HospitalIn the event this information is protected by the Federal Confidentiality of Alcohol and Drug Abuse Patient Records regulations: The Federal rules restrict any use of the information to criminally investigate or prosecute any alcohol or drug abuse patient.[facility] HospitalIn the event this information is protected by the Federal Confidentiality of Alcohol and Drug Abuse Patient Records regulations: The Federal rules restrict any use of the information to criminally investigate or prosecute any alcohol or drug abuse patient.[facility] HospitalIn the event this information is protected by the Federal Confidentiality of Alcohol and Drug Abuse Patient Records regulations: The Federal rules restrict any use of the information to criminally investigate or prosecute any alcohol or drug abuse patient.[facility] Reason for Visit (unrecogniz ed section and content) Reason Onset Date Comments Refill Request 08/26/2021 Reason Onset Date Comments Refill Request 02/03/2022 Reason Onset Date Comments Refill Request 03/08/2022 Reason Comments Discussion On fmla forms for be ing off work with flu then covid Reason Comments Results Reason Comments Urinary Problem Fever, kidneys hurt, sleeping a lot, low back pain x 1 day Reason Comments Urinary Frequency Frequency, lower wally k pain and blood x 5 days Reason Comments Covid Follow Up Reason Onset Date Comments Refill Request 10/24/2022 Reason Onset Date Comments Refill Request 12/02/2022 Reason Comments Refill Request Reason Comments Yearly Exam Reason Comments Results Labs Reason Comments Follow Up Post covid Reason Comments Ear Pain Bilateral ear pain a nd clogged, L ear drainage x3 days Reason Comments URI Care Teams (unrecognized sec tion and content) Rhinestone Setter Relationship Specialty Start Date End Date Cathi Dunn MD [address] [place] [address] PCP - General 08/12/07 Rhinestone Setter Relationship Specialty Start Date End Date Cathi Dunn MD [address] [place] [address] PCP - General 08/12/07 Rhinestone Setter Relationship Specialty Start Date End Date Cathi Dunn MD [address] [place] [address] PCP - General 08/12/07 Rhinestone Setter Relationship Specialty Start Date End Date Cathi Dunn MD [address] [place] [address] PCP - General 08/12/07 Rhinestone Setter Relationship Specialty Start Date End Date Cathi Dunn MD [facility] [place] [address] PCP - General 08/12/07 Rhinestone Setter Relationship Specialty Start Date End Date Cathi Dunn MD [address] [facility] [place] [address] PCP - General 08/12/07 Rhinestone Setter Relationship Specialty Start Date End Date Cathi Dunn MD [address] [facility] [place] [address] PCP - General 08/12/07 Rhinestone Setter Relationship Specialty Start Date End Date Cathi Dunn MD [address] [facility] [place] [address] PCP - General 08/12/07 Rhinestone Setter Relationship Specialty Start Date End Date Cathi Dunn MD [address] [facility] [place] [address] PCP - General 08/12/07 Rhinestone Setter Relationship Specialty Start Date End Date Cathi Dunn MD [address] [facility] [place] [address] PCP - General 08/12/07 Rhinestone Setter Relationship Specialty Start Date End Date Cathi Dunn MD [address] [facility] [place] [address] PCP - General 08/12/07 Rhinestone Setter Relationship Specialty Start Date End Date Cathi Dunn MD [address] [facility] [place] [address] PCP - General 08/12/07 Rhinestone Setter Relationship Specialty Start Date End Date Cathi Dunn MD [address] [facility] [place] [address] PCP - General 08/12/07 Rhinestone Setter Relationship Specialty Start Date End Date Cathi Dunn MD [address] [place] [address] PCP - General 08/12/07 Rhinestone Setter Relationship Specialty Start Date End Date Cathi Dunn MD [address] [place] [address] PCP - General 08/12/07 Rhinestone Setter Relationship Specialty Start Date End Date Cathi Dunn MD [address] [place] [address] PCP - General 08/12/07 Rhinestone Setter Relationship Specialty Start Date End Date Cathi Dunn MD [address] [place] [address] PCP - General 08/12/07 Rhinestone Setter Relationship Specialty Start Date End Date Cathi Dunn MD [address] [place] [address] PCP - General 08/12/07 Rhinestone Setter Relationship Specialty Start Date End Date Cathi Dunn MD [address] [place] [address] PCP - General 08/12/07 Rhinestone Setter Relationship Specialty Start Date End Date Cathi Dunn MD [address] [place] [address] PCP - General 08/12/07 Rhinestone Setter Relationship Specialty Start Date End Date Cathi Dunn MD [address] [place] [address] PCP - General 08/12/07 FOR RECORDS PERTAINING TO PATIENTS WHO ARE OR HAVE BEEN ENROLLED IN A CHEMICAL DEPENDENCY/SUBSTANCEABUSE PROGRAM, SOME INFORMATION MAY BE OMITTED. This clinical summary was aggregated from multiple sources. Caution should be exercised in using it in the provision of clinical care. This summary normalizes information from multiple sources, and as a consequence, information in this document may materially change the coding, format and clinical context of patient data. In addition, data may be omitted in some cases. CLINICAL DECISIONS SHOULD BE BASED ON THE PRIMARY CLINICAL RECORDS. [facility]. provides no warranty or guarantee of the accuracy or completeness of information in this document.
[2023-03-27 08:54] LABS: AST(SGOT) 25 U/L (15-37); Alanine Aminotransfer ALT/SGPT 24 U/L (13-56); Albumin, Serum 3.8 g/dL (3.2-5.0); Alkaline Phosphatase 127 U/L (45-117); Anion Gap 9 (5-15); BUN 16 mg/dL (7-18); BUN/Creat Ratio 14.3 RATIO (10-20); Calcium,Total 9.8 mg/dL (8.5-10.1); Chloride 104 mmol/L (98-107); Creatinine, Serum 1.12 mg/dL (0.55-1.02); EST Glomerular Filtration Rate 56 mL/min (>60); Est Glom Filt Rate - Afr Amer 68 mL/min (>60); Estimated Creatinine Clearance 55.93 ml/min; Globulin 3.9 g/dL (2.2-4.2); Glucose 141 mg/dL (74-106); Lipase 214 U/L (13-75); Potassium 3.7 mmol/L (3.5-5.1); Protein, Total 7.7 g/dL (6.4-8.2); Sodium Level 138 mmol/L (136-145)
[2023-03-27 09:01] VITALS: BMI 32.6
--- NOTE | 2023-03-27 11:09 | CT_ITS ---
STUDY: CT ABDOMEN AND PELVIS WITH CONTRAST REASON FOR EXAM: Female, 43 years old. Pain RADIATION DOSAGE (If Supplied By Facility): CTDIvol = ( 14.78 ) mGy, DLP = ( 857.90 ) mGycm TECHNIQUE: IV 100mL Isovue-300 was administered. Transaxial images were obtained from the dome of the diaphragm to the symphysis pubis. Multiplanar coronal and sagittal images were reformatted. Individualized Dose Optimization Techniques Were Used For This CT. COMPARISON: No relevant prior comparison study available FINDINGS: The visualized lung bases are unremarkable. The visualized portions of the heart are within normal limits. Normal liver. Normal gallbladder and extrahepatic biliary system. Normal spleen. Normal pancreas. Normal bilateral adrenal glands. Normal visualized stomach. Normal in caliber small bowel loops. No evidence of acute diverticulitis. The appendix is visualized and appears normal. There is atherosclerotic calcification of the abdominal aorta, without a demonstrated aneurysm. No retroperitoneal adenopathy. Normal right kidney. Normal left kidney. Normal urinary bladder. 2.3 cm soft tissue density in the right lower quadrant adjacent to surgical clips could represent right ovary. Absent uterus consistent with previous hysterectomy. Normal abdominal wall. Degenerative changes in the lower lumbar spine. CT/Abdomen/Pelvis W IV Cont ONLY IMPRESSION: 1. No focal acute inflammatory process. 2. Soft tissue density in the right lower quadrant could represent right ovary. Electronically Signed: Madan Mayer MD at 12:10 EST ,
[2023-03-27 11:34] VITALS: BP 167/90; PULSE 75; RESP 18; O2SAT 99
[2023-03-27] MEDS: proMETHazine 25 MG Tablet PO (11:50)
[2023-03-27] MEDS: Ibuprofen 200 MG Tablet 400 MG PO (13:20)
== END 2023-03-27 13:31 | disposition home or self-care (01) ==
PROVIDERS: Emergency Provider Emergency Medicine; PCP Family Medicine; Visit Provider Emergency Medicine
DX: R10.9 Unspecified abdominal pain (principal); F17.210 Nicotine dependence, cigarettes, uncomplicated; R11.2 Nausea with vomiting, unspecified; R74.8 Abnormal levels of other serum enzymes; I10 Essential (primary) hypertension; E78.5 Hyperlipidemia, unspecified; F41.9 Anxiety disorder, unspecified; Z79.899 Other long term (current) drug therapy
CPT/HCPCS: 74177; 80053; 83690; 85025; 87631; 96361; 96374; 96376; 99282; J7030; Q9967; A4216; J2405

== ENCOUNTER 2023-03-29 12:02 | Emergency (ER) | payer MEDICAID, SELFPAY ==
[2023-03-29 12:04] VITALS: BP 89/74; PULSE 58; RESP 16; TEMP 36; O2SAT 98
[2023-03-29 12:13] VITALS: BP 112/79; PULSE 95; RESP 27
[2023-03-29 12:14] VITALS: BMI 28.7
--- NOTE | 2023-03-29 12:36 | CT_ITS ---
STUDY: CT BRAIN WITHOUT CONTRAST REASON FOR EXAM: Female, 43 years old. dizziness RADIATION DOSAGE (If Supplied By Facility): CTDIvol = ( 44.99 ) mGy, DLP = ( 745.49 ) mGycm TECHNIQUE: Transaxial CT imaging of the brain was performed without administration of intravenous contrast material. Individualized dose optimization techniques were used for this CT. COMPARISON: No relevant priors. FINDINGS: Normal soft tissue structures. Normal calvarium. Normal size ventricles and extra-axial spaces for the patient''s age. Normal white matter tracts of the cerebral hemispheres. Normal basal ganglia and thalami. Normal brainstem. Normal cerebellum. There is no intracranial hemorrhage. There are no findings of an acute ischemic infarction. Normal visualized paranasal sinuses. CT/Brain/Head without Contrast IMPRESSION: No evidence of acute intracranial bleed, mass or ischemia. Electronically Signed: Guzman Lares DO at 13:51 EST ,
--- NOTE | 2023-03-29 12:37 | EKG12_ITS ---
Test Reason : DIZZINESS Blood Pressure : / mmHG Vent. Rate : 078 BPM Atrial Rate : 078 BPM P-R Int : 134 ms QRS Dur : 078 ms QT Int : 404 ms P-R-T Axes : 003 205 012 degrees QTc Int : 460 ms Normal sinus rhythm Normal ECG Confirmed by ROSELIA WILLIS, GEM ([id number]), content editor GONZALO CASTILLO ([id number]) on 03/31/2023 8:31:50 AM Referred By: KENJI Confirmed By:GEM VELOZ MD
--- NOTE | 2023-03-29 12:45 | EX.ED.DYSGE1 ---
HPI <RAMON Marino - Last Filed: 03/29/23 20:40> History of Present Illness Chief Complaint: Dizziness Narrative Narrative: Patient presenting today due to dizziness that started at 9:45 AM this morning when she woke up. She reports that she tried to get out of bed but felt off balance with walking, she also felt a room spinning sensation. She reports that she had to ask her partner to help her ambulate because she felt like she was going to fall, she felt like he was pulling her towards the right. She reports that her symptoms then subsided and she went outside to smoke a cigarette but was unable to light the lead athlete with her right hand, she then put the cigarette in her right hand and felt like she was unable to hold it. She reports intermittent numbness, tingling, and weakness in her right arm. She denies any history of stroke. She reports a history of hypertension, hyperlipidemia, tobacco abuse, depression, anxiety, and GERD. She reports that she was here a few days ago with nausea, vomiting, diarrhea, and abdominal pain which has resolved. [facility] <RAMON Marino - Last Filed: 03/29/23 20:40> [facility] Medical History Anxiety HTN (hypertension) Hyperlipemia Home Medications lisinopril 5 mg tablet 5 mg PO DAILY 05/08/18 [History Last Taken 05/08/18 5 MG] atorvastatin 20 mg tablet 20 mg PO QHS 03/27/23 [History Last Taken Unknown] cholecalciferol (vitamin D3) 125 mcg (5,000 unit) capsule 125 mcg PO DAILY 03/27/23 [History Last Taken Unknown] fluoxetine 20 mg capsule 20 mg PO DAILY 03/27/23 [History Last Taken Unknown] omeprazole 20 mg capsule,delayed release 20 mg PO DAILY 03/27/23 [History Last Taken Unknown] ondansetron 4 mg disintegrating tablet 4 mg PO Q8H PRN PRN Nausea #10 tabs 03/27/23 [Rx Last Taken Unknown] promethazine 25 mg tablet 25 mg PO Q6H PRN PRN Nausea #10 TABLETS 03/27/23 [Rx Last Taken Unknown] meclizine 25 mg tablet 25 mg PO 4X/DAY PRN PRN Dizziness #20 tabs 03/29/23 [Rx Last Taken Unknown] Allergy/AdvReac Type Severity Reaction Status Date / Time codeine Allergy Other Verified 03/29/23 12:03 Methotrexate Analogues AdvReac Other Verified 03/29/23 12:03 Surgical History History of partial hysterectomy Social History Smoking Status: Current every day smoker tobacco type: cigarettes ROS <RAMON Marino - Last Filed: 03/29/23 20:40> ROS ED Constitutional Constitutional ED: Denies chills or fever(s) Eyes Eyes: Denies change in vision Cardiovascular Cardiovascular: Denies chest pain or palpitations Respiratory/Chest Respiratory/Chest: Denies cough or dyspnea Gastrointestinal Gastrointestinal: Denies abdominal pain, nausea or vomiting Genitourinary Genitourinary ED: Denies dysuria, hematuria or urinary urgency Musculoskeletal Musculoskeletal: Denies arthralgias or myalgias Integumentary Denies rash Neurologic Neurologic: Reports dizziness and paresthesias; Denies confusion, headache(s) or weakness EXAM <RAMON Marino - Last Filed: 03/29/23 20:40> Physical Exam Const Vital Signs: 03/29/23 12:04 03/29/23 12:13 03/29/23 12:15 Temperature 96.8 F L Temperature Source Temporal Pulse Rate 58 L 95 Respiratory Rate 16 27 H Respiratory Effort Normal Non-Labored Respiratory Pattern Normal Blood Pressure 89/74 L 112/79 Blood Pressure Mean 79 90 Pulse Ox 98 Oxygen Delivery Method Room Air Room Air 03/29/23 14:57 Temperature Temperature Source Pulse Rate 78 Respiratory Rate 18 Respiratory Effort Respiratory Pattern Blood Pressure 107/57 L Blood Pressure Mean 73 Pulse Ox 97 Oxygen Delivery Method Positive well nourished, well developed and no apparent distress General Appearance ED: well developed HEENT Reports normocephalic, head/scalp atraumatic and TM's clear Tympanic Membrane ED: Yes TM's clear bilateral Mouth ED: Yes moist mucous membranes normal Eyes PERRL and EOMs intact bilaterally Neck full ROM and supple Chest Wall inspection of chest normal Resp normal respiratory effort and clear to auscultation bilaterally Cardio regular rate and regular rhythm GI soft to palpation, non-tender, non-distended and no masses Back/Spine normal ROM and normal to inspection Extremity normal to inspection and full ROM Neuro oriented x3, CN's II-XII intact bilaterally, moves all extremities, no focal motor deficits and no sensory deficits noted Sensorium / Orientation: awake and alert Coordination / Balance: shgemy-ht-colv test normal, tzxd-qd-sacz test normal, Romberg test negative, rapid alternating mvmt upper ext normal and rapid alternating mvmt lower ext normal Speech: speech normal Gait (Neuro): normal gait; Negative for ataxic Motor Exam: strength 5/5 throughout Psych mental status grossly normal and thought process normal Skin no rashes or lesions noted and no wounds <Dr. Manuel Gomez MD - Last Filed: 03/29/23 13:13> Physical Exam Const Vital Signs: 03/29/23 12:04 03/29/23 12:13 03/29/23 12:15 Temperature 96.8 F L Temperature Source Temporal Pulse Rate 58 L 95 Respiratory Rate 16 27 H Respiratory Effort Normal Non-Labored Respiratory Pattern Normal Blood Pressure 89/74 L 112/79 Blood Pressure Mean 79 90 Pulse Ox 98 Oxygen Delivery Method Room Air Room Air 03/29/23 14:57 Temperature Temperature Source Pulse Rate 78 Respiratory Rate 18 Respiratory Effort Respiratory Pattern Blood Pressure 107/57 L Blood Pressure Mean 73 Pulse Ox 97 Oxygen Delivery Method [facility] <RAMON Marino - Last Filed: 03/29/23 20:40> [facility] Narrative Medical decision making narrative: Patient presenting with dizziness and intermittent right arm paresthesias that started this morning. She reports she felt off balance with walking which concerned her. I did ambulate her in the room, not appreciating any ataxia. I did perform a Jozef-Hallpike on her, she reported feeling dizzy on the left side, there was no nystagmus. Her blood pressure is a little low at 89/74. She recently had N/V/D. I do suspect that she could be dehydrated given she is normally hypertensive here. Low suspicion for stroke, however, head CT will be obtained to rule out intracranial abnormality. NIH 0. Basic labs will be obtained. She will be given IV fluids and meclizine. She has elevated WBC but this is consistent with previous labs. BUN 22, creatinine 1.7, this is elevated from baseline. I do suspect that she is dehydrated. Head CT is negative for any acute process. On reexamination she reports that she is feeling much better. Her blood pressure has improved and she is requesting to go home. She was given potassium replacement here. I did encourage her to stay well-hydrated and have given her return instructions. She will also be given a prescription for meclizine. Lab Data Attestation: I reviewed the patient's lab results. Lab results narrative: WBC 16.6, RBC 5.72, H&H 17.4 and 51.5, potassium 3, BUN 22, creatinine 1.7 Labs: Laboratory Results - last 24 hr 03/29/23 12:45 WBC 16.6 H RBC 5.72 H Hgb 17.4 H Hct 51.5 H MCV 90.0 MCH 30.4 MCHC 33.8 RDW Std Deviation 43.9 RDW Coeff of Zaria 13.3 Plt Count MPV Not Reportable Immature Gran % (Auto) 0.600 Neut % (Auto) 45.9 L Lymph % (Auto) 44.6 H Mckean % (Auto) 6.9 Eos % (Auto) 1.0 Baso % (Auto) 1.0 Absolute Neuts (auto) 7.6 Absolute Lymphs (auto) 7.42 H Nucleated RBC % 0 Differential Comment SCANNED Reactive Lymphocytes 2+ Platelet Estimate ADEQUATE Plt Morphology Comment LARGE Sodium 136 Potassium 3.0 L Chloride 105 Carbon Dioxide 23.0 Anion Gap 8 BUN 22 H Creatinine 1.70 H Estim Creat Clear Calc 38.40 Est GFR (MDRD) Af Amer 42 L Est GFR (MDRD) Non-Af 35 L BUN/Creatinine Ratio 12.9 Glucose 85 Calcium 9.7 Radiography Diagnostic Testing: Clinical Impression(s) from Imaging Studies Brain CT 03/29/23 12:36 IMPRESSION: No evidence of acute intracranial bleed, mass or ischemia. Electronically Signed: Guzman Lares DO at 13:51 EST , <Dr. Manuel Gomez MD - Last Filed: 03/29/23 13:13> [facility] Lab Data Labs: Laboratory Results - last 24 hr 03/29/23 12:45 WBC 16.6 H RBC 5.72 H Hgb 17.4 H Hct 51.5 H MCV 90.0 MCH 30.4 MCHC 33.8 RDW Std Deviation 43.9 RDW Coeff of Zaria 13.3 Plt Count MPV Not Reportable Immature Gran % (Auto) 0.600 Neut % (Auto) 45.9 L Lymph % (Auto) 44.6 H Mckean % (Auto) 6.9 Eos % (Auto) 1.0 Baso % (Auto) 1.0 Absolute Neuts (auto) 7.6 Absolute Lymphs (auto) 7.42 H Nucleated RBC % 0 Differential Comment SCANNED Reactive Lymphocytes 2+ Platelet Estimate ADEQUATE Plt Morphology Comment LARGE Sodium 136 Potassium 3.0 L Chloride 105 Carbon Dioxide 23.0 Anion Gap 8 BUN 22 H Creatinine 1.70 H Estim Creat Clear Calc 38.40 Est GFR (MDRD) Af Amer 42 L Est GFR (MDRD) Non-Af 35 L BUN/Creatinine Ratio 12.9 Glucose 85 Calcium 9.7 Radiography Diagnostic Testing: Clinical Impression(s) from Imaging Studies Brain CT 03/29/23 12:36 IMPRESSION: No evidence of acute intracranial bleed, mass or ischemia. Electronically Signed: Guzman DO Arnaud at 13:51 EST , EKG Initial EKG: Comments: My independent interpretation of the patient's EKG shows a normal sinus rhythm. Overall rate of 78. No acute ST elevation or depression. No ectopy. AK interval, QRS duration and QTc are normal. Treatment and Re-Evaluation :: I have personally performed a face to face assessment of the patient and have reviewed the ISHAAN Note. I performed a substantive portion of the visit including all aspects of the following. My mac findings include: History: Patient's story is a little bit different than prior given when I talk with her. She does tell me she noted right arm symptoms mostly. But then she got dizziness. When I asked her to explain this it does sound like true vertigo. I do not think she was presyncopal. She did not feel like she was going to pass out but she felt like she was falling so she laid on the ground. She states she got warm feeling in her hand. But then she tells me she got warm and tingly in all her extremities. She states that the nausea vomiting and diarrhea that she had the other day is markedly better. She is not having it anymore but she is still not drinking much. She states she was drinking water. Then she moved up to drinking some Sprite. She is eating saltine crackers. But it does not sound like she has much fluid intake. This brings into question does she have electrolyte issues or dehydration as the source of her symptoms. Her blood pressure was initially low and it was low at home and this could be supportive of this. Exam: NIH is 0. Patient is awake alert appropriate. She can tell exactly what area of what finger I am touching on her including her right hand that seems to have more symptoms than the left. Medical Decision Making: We will do CT scan of the head doubt this is a stroke type issue. We will do electrolytes. Discharge Plan Triage Chief Complaint: Dizziness ED Midlevel Provider: Torie Escobedo ED Provider: Manuel Gomez Dx/Rx/DC Orders Clinical Impression: Dizziness, Dehydration Instructions: ED Dehydration (Adult), ED Vertigo, Unspecified Prescriptions: New meclizine 25 mg tablet 25 mg PO 4X/DAY PRN PRN (Reason: Dizziness) Qty: 20 0RF No Action lisinopril 5 MG tablet 5 mg PO DAILY Patient Comments: Take 1 tablet by mouth once daily. atorvastatin 20 mg tablet 20 mg PO QHS Patient Comments: Take 1 tablet by mouth daily at bedtime. For cholesterol. fluoxetine 20 mg capsule 20 mg PO DAILY Patient Comments: TAKE 1 CAPSULE BY MOUTH ONCE DAILY omeprazole 20 mg capsule,delayed release(DR/EC) 20 mg PO DAILY cholecalciferol (vitamin D3) 125 mcg (5,000 unit) capsule 125 mcg PO DAILY Patient Comments: Take 1 capsule by mouth once daily. promethazine [promethazine] 25 mg tablet 25 mg PO Q6H PRN PRN (Reason: Nausea) Qty: 10 0RF ondansetron [ondansetron] 4 mg tablet,disintegrating 4 mg PO Q8H PRN PRN (Reason: Nausea) Qty: 10 0RF Primary Care Provider: Cayden Ayala Referrals: Cayden Ayala MD [Primary Care Provider] - 3-5 Days Activity Restrictions/Additional Instructions: Well-hydrated, please return for any worsening of your symptoms. Disposition Disposition: Home, Self Care Discharge Date/Time: 12/31/23 14:59
[2023-03-29] MEDS: Meclizine HCl 25 MG Tablet PO (12:50)
[2023-03-29] MEDS: 0.9% Normal Saline (1000mL) 1,000 ML 999 ML IV (12:52)
[2023-03-29 12:54] LABS: Absolute Lymphocyte Count 7.42 X10^3/uL (0.83-4.51); Absolute Neutrophil Count 7.6 X10^3/uL (2.0-7.7); Basophil# 0.17 X10^3/uL; Differential Indicated SCAN CRITERIA MET; Eosinophil# 0.17 X10^3/uL; Hematocrit 51.5 % (37-47); Hemoglobin 17.4 g/dL (12.0-15.0); Lymphocyte # 7.42 X10^3/ul (0.83-4.51); Lymphocyte % 44.6 % (19-41); Mean Corp Hgb Conc 33.8 g/dL (32-36); Mean Corpuscular Hgb 30.4 pg (27.0-32.0); Monocyte# 1.15 X10^3/uL; Monocyte% 6.9 % (0-10); NRBC Flagged by Analyzer 0 % (0-5); Neutrophil # 7.62 X10^3/uL (2.7-7.7); Neutrophil % 45.9 % (47-70); POSITIVE DIFFERENTIAL YES; POSITIVE MORPHOLOGY YES; RBC Distribution Width CV 13.3 % (11.6-14.6); RBC Distribution Width SD 43.9 fl (35.1-43.9); Red Blood Count 5.72 M/mm3 (4.2-5.4); White Blood Count 16.6 K/mm3 (4.4-11.0)
--- OUTSIDE RECORDS SUMMARY | 2023-03-29 12:58 | XMS RPT_ITS | CCD ---
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 Name Role Phone Cathi Dunn MD Primary Care Provider CATHI DUNN Primary Care Unavailable BRITTANY QUARLES Attending Unavailable CATHI DUNN Attending Unavailable CATHI DUNN Primary Care Unavailable CATHI DUNN Primary Care Unavailable CATHI DUNN Primary Care Unavailable CATHI DUNN Attending Unavailable CATHI DUNN Primary Care Unavailable CATHI DUNN Primary Care Unavailable CATHI DUNN Primary Care Unavailable CATHI DUNN Attending Unavailable CATHI DUNN Primary Care Unavailable BRITTANY QUARLES Referring Unavailable CATHI DUNN Primary Care Unavailable Allergies Allergy Classification Reported Allergen(s) Allergy Type Date of Onset Reaction(s) Facility (20 sources) Acetaminophen / Codeine; Translations: [ACETAMINOPHEN-CO DEINE] Drug Allergy [address] [place] [address] Work Phone: (20 sources) flea bites [Other] Propensity to adverse reactions [address] [place] [address] Work Phone: (20 sources) Methotrexate; Translations: [METHOTREXATE] Drug Allergy 3 Other: See Comments, Unknown [facility] (1 source) OTHER; Translations: [OTHER] Propensity to adverse reactions (disorder) 5 [facility] Repository Medications Current Medications Medication Drug Class(es) Dates Sig (Normalized) Sig (Original) amoxicillin 875 mg oral tablet (1 source) Penicillin-class Antibacterial Start: 01-26-2023 End: 02-02-2023 take 1 tablet by mouth twice daily amoxicillin (AMOXIL) 875 mg tablet Indications: Other acute nonsuppurative otitis media of left ear, recurrence not specified Take 1 tablet by mouth two times a day for 7 days. 14 tablet 0 01/26/2023 02/02/2023 Active Completed/Discontinued Medications Medication Drug Class(es) Dates Sig (Normalized) Sig (Original) [id number] 200 actuat albuterol 0.09 mg/actuat metered dose [...] unspecified] Onset: 12-17-2004 06-29-2019 Chronic Nutritional deficiencies (2 sources) Vitamin D deficiency; Translations: [Vitamin D deficiency, unspecified] Chronic Other diseases of kidney and ureters (1 source) Abnormal renal function; Translations: [Disorder of kidney and ureter, unspecified] Episodic Other hematologic conditions (1 source) Red blood cell count raised; Translations: [Other abnormality of red blood cells] Episodic Other infections; including parasitic (1 source) Patient condition resolved; Translations: [Resolved [id number] syndrome] 01-19-2023 Episodic Other nutritional; endocrine; and [...] Disease caused by 2019-nCoV; Translations: [COVID-19] Episodic Past or Other Problems Problem Classification Problem Date Documented Da te Episodic/Chronic Other non-traumatic joint disorders (20 sources) Ankle pain; Translations: [Pain in unspecified ankle and joints of unspecified foot] Onset: 10-01-2012 10-01-2012 Episodic Other screening for suspected conditions (not mental disorders or infectious disease) (6 sources) Patient encounter status; Translations: [Encounter for screening for other suspected endocrine disorder] Onset: 12-04-2022 Episodic Screening and history of mental health [...] 01-26-2023 15:41-0400 Body temperature 98.2 [degF] Amanda Praisler-Wood MEDICAID COLLECTION SPECIALIST.FIRST HELPER Work Phone: [facility] 01-26-2023 15:41-0400 Body weight 80.38 kg Amanda Praisler-Wood MEDICAID COLLECTION SPECIALIST.FIRST HELPER Work Phone: [facility] 01-26-2023 15:41-0400 Diastolic blood pressure 80 mm[Hg] Amanda Praisler-Wood MEDICAID COLLECTION SPECIALIST.FIRST HELPER Work Phone: [facility] 01-26-2023 15:41-0400 Heart rate 79 /min Amanda Praisler-Wood MEDICAID COLLECTION SPECIALIST.FIRST HELPER Work Phone: [facility] 01-26-2023 15:41-0400 Respiratory rate 18 /min Amanda Praisler-Wood MEDICAID COLLECTION SPECIALIST.FIRST HELPER Work Phone: [facility] 01-26-2023 15:41-0400 SaO2% (BldA) [Mass fraction] 99 % Amanda Praisler-Wood MEDICAID COLLECTION SPECIALIST.FIRST HELPER Work Phone: [facility] 01-26-2023 15:41-0400 Systolic blood pressure 122 mm[Hg] Amanda Praisler-Wood MEDICAID COLLECTION SPECIALIST.FIRST HELPER Work Phone: [facility] 01-19-2023 13:34-0400 Body weight 82.15 kg Cathi Dunn MD Work Phone: [facility] 01-19-2023 13:34-0400 Diastolic blood pressure 74 mm[Hg] Cathi Dunn MD Work Phone: [facility] 01-19-2023 13:34-0400 Heart rate 74 /min Cathi Dunn MD Work Phone: [facility] 01-19-2023 13:34-0400 Respiratory rate 16 /min Cathi Dunn MD Work Phone: [facility] 01-19-2023 13:34-0400 Systolic blood pressure 124 mm[Hg] Cathi Dunn MD Work Phone: [facility] 12-04-2022 08:06-0400 Body height 168.5 cm Brittany Rodriguehof MEDICAID COLLECTION SPECIALIST.FIRST HELPER Work Phone: [facility] 12-04-2022 08:06-0400 Body weight 82.56 kg Brittany Husainhof MEDICAID COLLECTION SPECIALIST.FIRST HELPER Work Phone: [facility] 12-04-2022 08:06-0400 Diastolic blood pressure 102 mm[Hg] Brittany Husainhof MEDICAID COLLECTION SPECIALIST.FIRST HELPER Work Phone: [facility] 12-04-2022 08:06-0400 Heart rate 68 /min Brittanygeovany Husainhof MEDICAID COLLECTION SPECIALIST.FIRST HELPER Work Phone: [facility] 12-04-2022 08:06-0400 Respiratory rate 16 /min Brittany Husainhof MEDICAID COLLECTION SPECIALIST.FIRST HELPER Work Phone: [facility] 12-04-2022 08:06-0400 SaO2% (BldA) [Mass fraction] 98 % Brittanygeovany Husainhof MEDICAID COLLECTION SPECIALIST.FIRST HELPER Work Phone: [facility] 12-04-2022 08:06-0400 Systolic blood pressure 170 mm[Hg] Brittany Husainhof MEDICAID COLLECTION SPECIALIST.FIRST HELPER Work Phone: [facility] 09-29-2022 19:02-0400 Body temperature 97.9 [degF] Catih Dunn MD Work Phone: [facility] 09-29-2022 19:02-0400 Body weight 78.61 kg Cathi Dunn MD Work Phone: [facility] 09-29-2022 19:02-0400 Diastolic blood pressure 76 mm[Hg] Cathi Dunn MD Work Phone: [facility] 09-29-2022 19:02-0400 Heart rate 80 /min Cathi Dunn MD Work Phone: [facility] 09-29-2022 19:02-0400 Respiratory rate 20 /min Cathi Dunn MD Work Phone: [facility] 09-29-2022 19:02-0400 Systolic blood pressure 130 mm[Hg] Cathi Dunn MD Work Phone: [facility] 09-23-2022 15:11-0400 Body temperature 97.3 [degF] David Allen MEDICAID COLLECTION SPECIALIST.FIRST HELPER Work Phone: [facility] 09-23-2022 15:11-0400 Body weight 76.75 kg David Allen MEDICAID COLLECTION SPECIALIST.FIRST HELPER Work Phone: [facility] 09-23-2022 15:11-0400 Diastolic blood pressure 64 mm[Hg] David Allen MEDICAID COLLECTION SPECIALIST.FIRST HELPER Work Phone: [facility] 09-23-2022 15:11-0400 Heart rate 66 /min David Allen MEDICAID COLLECTION SPECIALIST.FIRST HELPER Work Phone: [facility] 09-23-2022 15:11-0400 Respiratory rate 16 /min David Allen MEDICAID COLLECTION SPECIALIST.FIRST HELPER Work Phone: [facility] 09-23-2022 15:11-0400 SaO2% (BldA) [Mass fraction] 98 % David Allen MEDICAID COLLECTION SPECIALIST.FIRST HELPER Work Phone: [facility] 09-23-2022 15:11-0400 Systolic blood pressure 102 mm[Hg] David Allen MEDICAID COLLECTION SPECIALIST.FIRST HELPER Work Phone: [facility] 06-07-2022 10:41-0500 Body temperature 98.49 [degF] Judith Ortiz MEDICAID COLLECTION SPECIALIST.FIRST HELPER Work Phone: [facility] 06-07-2022 10:41-0500 Body weight 85.09 kg Judith Diana MEDICAID COLLECTION SPECIALIST.FIRST HELPER Work Phone: [facility] 06-07-2022 10:41-0500 Diastolic blood pressure 78 mm[Hg] Judith Diana MEDICAID COLLECTION SPECIALIST.FIRST HELPER Work Phone: [facility] 06-07-2022 10:41-0500 Heart rate 82 /min Judith Diana MEDICAID COLLECTION SPECIALIST.FIRST HELPER Work Phone: [facility] 06-07-2022 10:41-0500 Respiratory rate 21 /min Judith Diana MEDICAID COLLECTION SPECIALIST.FIRST HELPER Work Phone: [facility] 06-07-2022 10:41-0500 SaO2% (BldA) [Mass fraction] 97 % Judith Diana MEDICAID COLLECTION SPECIALIST.FIRST HELPER Work Phone: [facility] 06-07-2022 10:41-0500 Systolic blood pressure 108 mm[Hg] Judith Diana MEDICAID COLLECTION SPECIALIST.FIRST HELPER Work Phone: [facility] 03-27-2022 13:50-0500 Body weight 84.1 kg Kelly Spenser MEDICAID COLLECTION SPECIALIST.FIRST HELPER Work Phone: [facility] 03-27-2022 13:50-0500 Diastolic blood pressure 60 mm[Hg] Kelly Spenser MEDICAID COLLECTION SPECIALIST.FIRST HELPER Work Phone: [facility] 03-27-2022 13:50-0500 Heart rate 64 /min Kelly Spenser MEDICAID COLLECTION SPECIALIST.FIRST HELPER Work Phone: [facility] 03-27-2022 13:50-0500 Respiratory rate 16 /min Kelly Spenser MEDICAID COLLECTION SPECIALIST.FIRST HELPER Work Phone: [facility] 03-27-2022 13:50-0500 Systolic blood pressure 110 mm[Hg] Kelly Spenser MEDICAID COLLECTION SPECIALIST.FIRST HELPER Work Phone: [facility] 07-20-2021 12:39-0400 Body temperature 97.59 [degF] Ambar Denis MEDICAID COLLECTION SPECIALIST.FIRST HELPER Work Phone: [facility] 07-20-2021 12:39-0400 Body weight 90.27 kg Ambar Denis APRN.FIRST HELPER Work Phone: [facility] 07-20-2021 12:39-0400 Diastolic blood pressure 82 mm[Hg] Ambar Denis APRN.FIRST HELPER Work Phone: [facility] 07-20-2021 12:39-0400 Heart rate 88 /min Ambar Denis APRN.FIRST HELPER Work Phone: [facility] 07-20-2021 12:39-0400 Respiratory rate 16 /min Ambar Denis APRN.FIRST HELPER Work Phone: [facility] 07-20-2021 12:39-0400 SaO2% (BldA) [Mass fraction] 97 % Ambar Denis APRN.FIRST HELPER Work Phone: [facility] 07-20-2021 12:39-0400 Systolic blood pressure 142 mm[Hg] Ambar Denis APRN.FIRST HELPER Work Phone: [facility] Encounters Encounter Date Encounter Type Care Provider Facility Start: 03-10-2023 ambulatory Cathi villalobos MD Work Phone: [facility] Start: 03-10-2023 Patient encounter procedure Cathi Dunn MD Work Phone: [facility] Procedures Date Procedure Procedure Detail Performing Clinician Start: 09-23-2022 Urnls dip stick/tabl et rgnt auto w/o microscopy Amanda Barrios APRN.FIRST HELPER Work Phone: Start: 06-07-2022 Urnls dip stick/tabl et rgnt auto w/o microscopy Amanda Barrios APRN.FIRST HELPER Work Phone: Start: 07-20-2021 STREP A MOLECULAR (POC) Ambar Denis APRN.FIRST HELPER Work Phone: Start: 07-24-2020 Mammography Ambar Denis APRN.FIRST HELPER Work Phone: Plan of Treatment Date Care Activity Detail Author Start: 08-16-2032 Urine microalbumin profile DTa P,Tdap,Td Vaccine (3 - Td or Tdap) [facility] Start: 02-08-2027 Urine microalbumin profile [facility] Start: 03-09-2024 Annual PCP Team Bobbin Trucker javad Disease Visit Annual PCP Team Chronic Disease Visit [facility] Start: 01-20-2024 Annual PCP Team Bobbin Trucker javad Disease Visit Annual PCP Team Chronic Disease Visit [facility] Start: 01-20-2024 BP Controlled (<130/80) BP Controlle d (<130/80) [facility] Start: 12-05-2023 ANNUAL PCP TEAM INVERTER AND CLIPPER JAVAD DISEASE VISIT ANNUAL PCP TEAM CHRONIC DISEASE VISIT [facility] Start: 09-30-2023 ANNUAL PCP TEAM INVERTER AND CLIPPER JAVAD DISEASE VISIT ANNUAL PCP TEAM CHRONIC DISEASE VISIT [facility] Start: 09-24-2023 BP CONTROLLED (<130/80) BP CONTROLLE D (<130/80) [facility] Start: 06-08-2023 BP CONTROLLED (<130/80) BP CONTROLLE D (<130/80) [facility] Start: 03-27-2023 ANNUAL PCP TEAM INVERTER AND CLIPPER JAVAD DISEASE VISIT ANNUAL PCP TEAM CHRONIC DISEASE VISIT [facility] Start: 03-27-2023 BP CONTROLLED (<130/80) BP CONTROLLE D (<130/80) [facility] Start: 03-27-2023 COVID-19 VACCINE (#1) COVID-19 VACCI NE (#1) [facility] Immunizations Immunization Date Immunization Notes Care Provider Fa tammyty 02-02-2019 influenza, injectabl e, quadrivalent, contains preservative Ambar Denis APRN.FIRST HELPER Work Phone: [facility] 02-02-2019 pneumococcal polysaccharide vaccine, 23 valent Ambar Denis APRN.FIRST HELPER Work Phone: [facility] 02-02-2019 influenza virus vacc ine, unspecified formulation Kelly Dueñas APRN.FIRST HELPER Work Phone: [facility] 02-08-2017 tetanus toxoid, redu lalo diphtheria toxoid, and acellular pertussis vaccine, adsorbed Ambar Denis APRN.FIRST HELPER Work Phone: [facility] Payers Date Payer Category Payer Medicaid [id number] 2002 Medicaid [employer] [id number] 2002-Present [phone] [address] [place] [address] Medicaid [id number] 2002 Medicaid [id number] Social History Date Type Detail Facility Start: 09-15-2017 End: 02-10-2022 Tobacco smoking status NHIS Ex-smoker [facility] End: 08-29-2019 History of tobacco use Current smoker [facility] Start: 01-29-1996 End: 08-29-2019 History of tobacco use Cigarette Smoker [facility] Start: 09-15-2017 End: 01-19-2023 Cigarettes smoked current (pack per day) - Reported 1 [facility] Start: 09-15-2017 End: 01-19-2023 Tobacco use and exposure Smokeless tobacco non-user [facility] Start: 07-20-2021 End: 03-06-2023 Alcohol intake Current non-drinker of alcohol (finding) [facility] Start: 07-16-2020 End: 03-26-2022 History SDOH Alcohol Frequency 1 [facility] Start: 07-16-2020 End: 03-26-2022 History SDOH Social Connections Membership 2 [facility] Start: 07-16-2020 End: 03-26-2022 History SDOH Social Connections Living 8 [facility] Start: 07-16-2020 End: 03-26-2022 History SDOH Physical Activity DPW 0 [facility] Start: 07-16-2020 End: 03-26-2022 History SDOH Stress 5 [facility] Start: 07-16-2020 History SDOH Financial 3 [facility] Start: 07-16-2020 Education 11 [facility] Start: 07-19-2020 End: 02-10-2022 Tobacco Comment 1 ppd for 20, currently vaping [facility] Start: 1980 Sex Assigned At Female [facility] Start: 07-10-2021 End: 07-20-2021 Exposure to SARS-CoV-2 (event) Not sure [facility] Start: 01-31-2022 End: 02-10-2022 Exposure to SARS-CoV-2 (event) Yes [facility] Work Phone: Start: 03-26-2022 History SDOH Financial 4 [facility] Start: 03-26-2022 End: 01-19-2023 Social connection and isolation panel [facility] Do you belong to any clubs or organizations such as gnosticist groups, unions, fraternal or athletic groups, or school groups? No [facility] Are you now , , , , never or living with a partner? Living with partner [facility] Frequency of Alcohol Consumption Not on file [facility] How often do you hav e 6 or more drinks on 1 occasion? Never [facility] How hard is it for y ou to pay for the very basics like food, housing, medical care, and heating Not very hard [facility] Do you feel stress - tense, restless, nervous, or anxious, or unable to sleep at night because your mind is troubled all the time - these days [OSQ] Very much [facility] (I/We) worried albin er (my/our) food would run out before (I/we) got money to buy more. Never true [facility] Start: 07-16-2020 Gender identity Identifies as female gender (finding) [facility] Start: 07-16-2020 Sexual orientation Heterosexual (finding) [facility] Start: 01-29-1996 Tobacco smoking status NHIS Smokes tobacco daily [facility] Clinical Notes 09-12-2009 to 03-10-2023 Telephone Encounter - Leonor Arevalo Ma - 03/10/2023 8:42 AM ESTTelephone Encounter - Cathi Dunn MD - 03/09/2023 6:20 PM ESTTelephone Encounter - Cheryl Brown Ma - 03/06/2023 2:11 PM EST Note Date & Type Note Facility 03-10-2023 Miscellaneous Notes See pt message and advise. Update pt once complete. Leonor Arevalo Ma documented in this encounter [facility] 03-09-2023 Miscellaneous Notes Note given today at virtual visit Ctahi Dunn MD See RETCt message. Cheryl Brown Ma documented in this encounter [facility] 03-09-2023 Note HNO ID: [id number] Author: Cathi Dunn MD Service: ? Author [...] visit. Either the patient or their legal b2b sales representative has been informed of the [...] Age of Onset Hypertension Mother Heart Mother [place] Lung Cancer Father Coronary Artery Disease Sister [...] Out Pap T (more content not included)... [facility] 03-09-2023 History of Presen t illness Narrative [...] visit. Either the patient or their legal b2b sales representative has been informed of the [...] Age of Onset Hypertension Mother Heart Mother [place] Lung Cancer Father Coronary Artery Disease Sister [...] Cathi Dunn MD documented in this encounter [facility] 03-06-2023 Miscellaneous Notes PLEASE SEE OTHER MESSAGE 03/06/23. Roxanne Wilcox MA documented in this encounter [facility] 03-06-2023 Note HNO ID: [id number] Author: Buck Lockwood APRN.FIRST HELPER Service: ? Author Type: Nurse Practitioner Type: [...] started abruptly. Patient states they have used [id number] medication with some success. Patient states they [...] Age of Onset Hypertension Mother Heart Mother [place] Lung Cancer Father Coronary Artery Disease Sister [...] are moist. Pharynx (more content not included)... [facility] 01-26-2023 Note HNO ID: [id number] Author: Amanda Barrios APRN.FIRST HELPER Service: ? Author Type: Nurse Practitioner Type: [...] Age of Onset Hypertension Mother Heart Mother [place] Lung Cancer Father Coronary Artery Disease Sister [...] - ICD9: 381.00, (more content not included)... [facility] 01-26-2023 History of Presen t illness Narrative [...] Age of Onset Hypertension Mother Heart Mother [place] Lung Cancer Father Coronary Artery Disease Sister [...] Discussed expected course of illness Amanda Barrios APRN.FIRST HELPER documented in this encounter [facility] 01-26-2023 Instructions Amanda Barrios APRN.ALEYDA - 01/26/2023 3:52 PM EDT ASSESSMENT/PLAN: 1. [...] Discussed expected course of illness Amanda Barrios APRN.FIRST HELPER OTITIS MEDIA GENERAL INFORMATION: Otitis media is [...] even if the symptoms go away. 2. Yrcq-tve-aqkggyo pain medication may be taken or other [...] him or her). documented in this encounter [facility] 01-19-2023 Note HNO ID: [id number] Author: Cathi Dunn MD Service: ? Author Type: Physician Type: Progress Notes Filed: 01/19/2023 1:57 PM Note Text: Chief Complaint Patient presents with: Follow Up: Post covmt HPI Chen Bailon is a 42 year [...] to have skin sensitivity. Follow up from [facility]. Pt had FMLA forms completed. Was [...] Age of Onset Hypertension Mother Heart Mother [place] Lung Cancer Father Coronary Artery Disease Sister [...] Screening Discontinued none None ASSESSMENT/PLAN: 1. Resolved [id number] syndrome - ICD9: V12.09, ICD10: Z86.16 (primar (more content not included)... [facility] 01-19-2023 History of Presen t illness Narrative [...] to have skin sensitivity. Follow up from [facility]. Pt had FMLA forms completed. Was off [...] Age of Onset Hypertension Mother Heart Mother [place] Lung Cancer Father Coronary Artery Disease Sister [...] Screening Discontinued none None ASSESSMENT/PLAN: 1. Resolved [id number] syndrome - ICD9: V12.09, ICD10: Z86.16 (primary [...] Past Histories independently gathered by the clinical technician support association and the remaining scribed note accurately describes [...] Cheryl Brown Ma documented in this encounter [facility] 01-09-2023 Miscellaneous Notes Form faxed to [facility]. Pt notified via [email or web address]. Cheryl Brown Ma Form done Cathi Dunn MD DIANA/FMLA paperwork printed and on PCP's desk. Dr. Dunn please review & advise. Roxanne Wilcox MA Asked pt to send home Covid test results to the office before routing to Provider. Want positive test results before routing to Provider to decide if letter can be written. Leonor Arevalo Ma documented in this encounter [facility] 12-05-2022 Miscellaneous Notes Pt notified of results via [email or web address]. Cheryl Brown Ma Can you please call the patient and let her know I reviewed her lab results. Labs were all normal. A1c was 5.1, no signs of diabetes. Repeat testing will be due in 1 year. Please let me know if she has any questions. Thank you. Brittany Quarles APRN.FIRST HELPER documented in this encounter [facility] 12-04-2022 Note HNO ID: [id number] Author: Brittany Quarles APRN.FIRST HELPER Service: ? Author Type: Nurse Practitioner Type: [...] Age of Onset Hypertension Mother Heart Mother [place] Lung Cancer Father Coronary Artery Disease Sister [...] Appearance: Well appea (more content not included)... [facility] 12-04-2022 Instructions Brittany Quarles APRN.CNP - 12/04/2022 8:23 AM EDT Get fasting labs completed. Start back on blood pressure medication, monitor blood pressure at home. Goal 130/80 or less. Due for mammogram May schedule appointment with heavy equipment technician for exam. Recommend smoking cessation. Continue to eat well balanced diet and stay active. Follow up in 1 year or sooner pending test results. Health Promotion: - Eat healthy -- go to [email or web address] to get started - Have a yearly [...] - Wear sunscreen documented in this encounter [facility] 12-04-2022 History of Presen t illness Narrative [...] Age of Onset Hypertension Mother Heart Mother [place] Lung Cancer Father Coronary Artery Disease Sister [...] diet of 1000 mg/day for under 50, [id number] mg/day for 50+ - Discussed need and [...] APRN.CNP This note was partially generated using [employer] voice recognition system. Note was reviewed for accuracy. There may be minor misspellings or grammar miscues with [employer] voice recognition. documented in this encounter [facility] 12-02-2022 Miscellaneous Notes The following approved medication [...] advise. Roseann Garcia documented in this encounter [facility] 10-27-2022 Miscellaneous Notes The following approved medication requests have been transmitted electronically. Requested Prescriptions Pending Prescriptions Disp Refills FLUoxetine (PROZAC) 20 mg capsule 90 capsule 3 Sig: Take 1 capsule by mouth once daily. Malik Mcdowell APRN.ALEYDA Last office visit: none F/u scheduled: 09/29/22 Cheryl Brown Ma documented in this encounter [facility] 09-29-2022 Note HNO ID: [id number] Author: Cathi Dunn MD Service: ? Author Type: Physician Type: Progress Notes Filed: 09/29/2022 7:24 PM Note Text: Chief Complaint Patient presents with: Covid Follow Up HPI Chen Bailon is a 42 year old female who presents here today for Covid follow up. Pt here today for Covid + follow up. Pt was down visiting her mother in [place], [place] and was notified by her Mother [...] okay to return to work. Works at [employer] in [place]. Today is day 5. Past medical history, [...] Age of Onset Hypertension Mother Heart Mother [place] Lung Cancer Father Coronary Artery Disease Sister [...] 5 days Follo (more content not included)... [facility] 09-29-2022 History of Presen t illness Narrative Chief Complaint Patient presents with: Covid Follow Up HPI Chen Bailon is a 42 year old female who presents here today for Covid follow up. Pt here today for Covid + follow up. Pt was down visiting her mother in [place], [place] and was notified by her Mother [...] okay to return to work. Works at [employer] in [employer]. Today is day 5. Past medical history, [...] Age of Onset Hypertension Mother Heart Mother [place] Lung Cancer Father Coronary Artery Disease Sister [...] Cathi Dunn MD documented in this encounter [facility] 09-29-2022 Miscellaneous Notes Pt scheduled, ok to [...] she is able to use to write [employer] messages and initially requested an appt on 09/29/22 after 4:00 pm with RS. This was offered to her. Leonor Arevalo Ma documented in this encounter [facility] 09-29-2022 Miscellaneous Notes Pt responded in another message, closing this message as this is a duplicate. Leonor Arevalo Ma Attempted to reach pt but receive message stating person you dialed is not able to receive calls at this time. Offered 7:40 pm VV via [employer]. Offered pt can receive letter via Rust[employer] or we can fax letter to Employer if she can provide fax number. Leonor Arevalo Ma Offered pt VV at 7:20 pm with ME due to PCP due to R. Spenser being out of the office. Wait pt response. Leonor Arevalo Ma documented in this encounter [facility] 09-24-2022 Miscellaneous Notes Patient notified and verbalized understanding of instructions given.Nahomy Vasquez LPN Please call patient and let her know her urine culture revealed possible contamination. She may continue medication if symptoms are improving. If symptoms worsen, follow-up with PCP. documented in this encounter [facility] 09-23-2022 Note HNO ID: [id number] Author: David Allen APRN.FIRST HELPER Service: ? Author Type: Nurse Practitioner Type: [...] Age of Onset Hypertension Mother Heart Mother [place] Lung Cancer Father Coronary Artery Disease Sister [...] CULTURE - NITROFURANT (more content not included)... [facility] 09-23-2022 Instructions David Allen APRN.CNP - 09/23/2022 [...] front to back documented in this encounter [facility] 09-23-2022 History of Presen t illness Narrative [...] Age of Onset Hypertension Mother Heart Mother [place] Lung Cancer Father Coronary Artery Disease Sister [...] for this encounter. documented in this encounter [facility] 07-30-2022 Note Patient Outreach (IN TMMN) CHEN BAILON ([id number]) 1980 F Date Time Provider Department 07/30/22 CATHI DUNN During your visit today, we recorded the following information about you: Allergies As of Date: 07/30/2022 Noted Allergy Reaction flea bites [Other] 12/17/2004 METHOTREXATE 06/07/2022 14 - Other: See Comments Comments: Organ failure TYLENOL-CODEINE #3 (ACETAMINOPHEN*12/17/2004 Date Reviewed: 06/07/2022 Reviewed by: Judith Ortiz APRN.FIRST HELPER - Fully Assessed Visit Diagnosis:Encounter for screening mammogram for breast cancer [Z12.31] Order(s):[facility] SCREENING [[id number]] Order #: [id number] FUTURE Prescriptions as of 08/04/2022 - dextromethorphan-guaiFENesin [...] cigarette smoker [Z87.891] 07/19/2020 Encounter Status:Closed by Assurz, PRODUSER on 08/04/22 [facility] 06-09-2022 Miscellaneous Notes Please see pt message regarding urine testing Tammi Goldstein documented in this encounter [facility] 06-07-2022 Note HNO ID: [id number] Author: Judith Ortiz APRN.FIRST HELPER Service: ? Author Type: Nurse Practitioner Type: Progress Notes Filed: 06/07/2022 10:55 AM Note Text: Subjective The history is provided by the patient. No russian language instructor was used. HPI Chen Bailon is a [...] have confirmed and edited as necessary, the [facility] Review of Systems Constitutional: Positive for chills, [...] in 12-24 hours with results, available on [facility] - COVID WITH FLUA+B, ROUTINE 4. Body aches - ICD9: 780.96, ICD10: R52 Tylenol/ibuprofen - COVID WITH FLUA+B, ROUTINE Judith Ortiz APRN.CNP [facility] 06-07-2022 Instructions Judith Ortiz APRN.ALEYDA - 06/07/2022 10:54 AM EST covid and influenza test ordered You will be notified in 12-24 hours, results available on [employer] Home isolation until results are back Rest, [...] inability to swallow. documented in this encounter [facility] 06-07-2022 History of Presen t illness Narrative Subjective The history is provided by the patient. No russian language instructor was used. HPI Chen Bailon is a [...] have confirmed and edited as necessary, the [facility] Review of Systems Constitutional: Positive for chills, [...] Judith Ortiz APRN.CNP documented in this encounter [facility] 04-01-2022 Miscellaneous Notes Pt notified and voiced [...] Malik Mcdowell CNP documented in this encounter [facility] 03-28-2022 Miscellaneous Notes Pt informed, verbalized understanding. [...] been prescribed on her medication list? Kelly Spenser, MEDICAID COLLECTION SPECIALIST.FIRST HELPER documented in this encounter [facility] 03-27-2022 Instructions Kelly Dueñas APRN.CNP - 03/27/2022 2:26 PM EST Have your labs drawn. Schedule your mammogram. Let me know if your work needs anything else from our office. documented in this encounter [facility] 03-27-2022 History of Presen t illness Narrative Chief Complaint Patient presents with: Discussion: On fmla forms for being off work with flu then covid HPI Chen Bailon is a 42 year old female who presents here today for Above Complaints.. In December was in [facility] and was told she had the flu and written off work for 5 days. She works at [employer] is requesting official FMLA forms. Most recently she tested positive for COVID on 03/21 and was home for 5 days. Had 102 fever. After 5 days was not allowed to return even though fever and sx had resolved. Is required to have release from physician prior to returning to work. Has filed a claim with [employer]. Past medical history, appointments, medications, allergies reviewed. [...] Age of Onset Hypertension Mother Heart Mother [place] Lung Cancer Father Coronary Artery Disease Sister [...] counseling and education. documented in this encounter [facility] 03-10-2022 Miscellaneous Notes The following approved medication requests have been transmitted electronically. Requested Prescriptions Pending Prescriptions Disp Refills Cholecalciferol, Vitamin D3, 125 mcg (5,000 unit) cap 90 capsule 3 Sig: Take 1 capsule by mouth once daily. Malik Mcdowell APRN.FIRST HELPER Patient phones requesting refills as follows: Requested Prescriptions Pending Prescriptions Disp Refills Cholecalciferol, Vitamin D3, 125 mcg (5,000 unit) cap 90 capsule 3 Sig: Take 1 capsule by mouth once daily. REESE-05/08/21 Labs-05/13/21 NOV-none med filled 02/01/21 Please review and advise. Sun Joshi LPN documented in this encounter [facility] 02-03-2022 Miscellaneous Notes Pt notified via Rustoria that she needs to call in to [...] mouth once daily. Authorizing Provider: MALIK MCDOWELL APRN.FIRST HELPER Patient has been identified by name and [...] No appointment scheduled documented in this encounter [facility] 08-27-2021 Miscellaneous Notes OK to refill as ordered Cathi Dunn MD Last OV; 05/08/21 Next OV: NOne Last Rx: 01/30/21 #30 w/5. Leonor Arevalo Ma documented in this encounter [facility] 07-20-2021 Instructions Ambar Denis APRN.FIRST HELPER - 07/20/2021 1:05 PM EDT 1.) Get [...] and not with prostate problems can try [id number] Coricidin HBP for congestion. You may find [...] up with PCP documented in this encounter [facility] 07-20-2021 History of Presen t illness Narrative [...] Age of Onset Hypertension Mother Heart Mother [place] Lung Cancer Father Coronary Artery Disease Sister [...] Ambar Denis APRN.ALEYDA documented in this encounter [facility] documented as of this encounter (statuses as of 07/20/2021) [facility] of [facility] Narrative* Problem Noted Date Resolved Date Tobacco abuse 09/12/2009 07/19/2020 documented as of this encounter (statuses as of 08/27/2021) [facility] Narrative* Problem Noted Date Resolved Date Tobacco abuse 09/12/2009 07/19/2020 documented as of this encounter (statuses as of 08/27/2021) [facility] Narrative* Problem Noted Date Resolved Date Tobacco abuse 09/12/2009 07/19/2020 documented as of this encounter (statuses as of 02/03/2022) [facility] Narrative* Problem Noted Date Resolved Date Tobacco abuse 09/12/2009 07/19/2020 documented as of this encounter (statuses as of 03/10/2022) [facility] Narrative* Problem Noted Date Resolved Date Tobacco abuse 09/12/2009 07/19/2020 documented as of this encounter (statuses as of 04/02/2022) [facility] Narrative* Problem Noted Date Resolved Date Tobacco abuse 09/12/2009 07/19/2020 documented as of this encounter (statuses as of 04/02/2022) [facility] Narrative* Problem Noted Date Resolved Date Tobacco abuse 09/12/2009 07/19/2020 documented as of this encounter (statuses as of 04/03/2022) [facility] Narrative* Problem Noted Date Resolved Date Tobacco abuse 09/12/2009 07/19/2020 documented as of this encounter (statuses as of 06/07/2022) [facility] Narrative* Problem Noted Date Resolved Date Tobacco abuse 09/12/2009 07/19/2020 documented as of this encounter (statuses as of 06/09/2022) [address] History of Past illness Narrative* Problem Noted Date Resolved Date Tobacco abuse 09/12/2009 07/19/2020 documented as of this encounter (statuses as of 08/04/2022) [address] History of Past illness Narrative* Problem Noted Date Resolved Date Tobacco abuse 09/12/2009 07/19/2020 documented as of this encounter (statuses as of 09/24/2022) [address] History of Past illness Narrative* Problem Noted Date Resolved Date Tobacco abuse 09/12/2009 07/19/2020 documented as of this encounter (statuses as of 09/25/2022) [address] History of Past illness Narrative* Problem Noted Date Resolved Date Tobacco abuse 09/12/2009 07/19/2020 documented as of this encounter (statuses as of 09/29/2022) [facility] N[facility]* Problem Noted Date Resolved Date Tobacco abuse 09/12/2009 07/19/2020 documented as of this encounter (statuses as of 09/30/2022) [facility] N[facility]ative* Problem Noted Date Resolved Date Tobacco abuse 09/12/2009 07/19/2020 documented as of this encounter (statuses as of 09/30/2022) [facility] N[facility]ative* Problem Noted Date Diagnosed Date Resolved Date Tobacco abuse 09/12/2009 07/19/2020 documented as of this encounter (statuses as of 10/27/2022) [facility] N[facility]ative* Problem Noted Date Diagnosed Date Resolved Date Tobacco abuse 09/12/2009 07/19/2020 documented as of this encounter (statuses as of 12/02/2022) [facility] Narrative* Problem Noted Date Diagnosed Date Resolved Date Tobacco abuse 09/12/2009 07/19/2020 documented as of this encounter (statuses as of 12/02/2022) [facility] N[facility]ative* Problem Noted Date Diagnosed Date Resolved Date Tobacco abuse 09/12/2009 07/19/2020 documented as of this encounter (statuses as of 12/04/2022) [facility] Narrative* Problem Noted Date Diagnosed Date Resolved Date Tobacco abuse 09/12/2009 07/19/2020 documented as of this encounter (statuses as of 12/05/2022) [facility] N[facility]ative* Problem Noted Date Diagnosed Date Resolved Date Tobacco abuse 09/12/2009 07/19/2020 documented as of this encounter (statuses as of 01/09/2023) [facility] note* Diagnosis Sore throat- Primary Acute pharyngitis [facility] Diagnosis Primary hypertension- Primary Unspecified essential hypertension Mixed hyperlipidemia Anxiety and depression Dysthymic disorder [facility] Diagnosis Vitamin D deficiency Unspecified vitamin D deficiency [facility] Diagnosis COVID- Primary Vitamin D deficiency Unspecified vitamin D deficiency Screening for thyroid disorder Screening for lipid disorders Screening for diabetes mellitus Well adult exam Routine general medical examination at a [facility] care facility [facility] Diagnosis Hyperlipidemia, mixed- Primary Mixed hyperlipidemia Elevated red blood cell count Polycythemia, secondary Leukocytosis, unspecified type Decreased renal function Unspecified disorder of kidney and ureter [facility] Diagnosis Acute low back pain without sciatica, unspecified back pain laterality- Primary Microscopic hematuria URI, acute Acute upper respiratory infections of unspecified site Body aches Generalized pain [facility] Diagnosis Microscopic hematuria- Primary [facility] Diagnosis Encounter for screening mammogram for breast cancer [facility] Diagnosis Urinary frequency- Primary [facility] Diagnosis COVID- Primary [facility] Diagnosis Anxiety and depression Dysthymic disorder [facility] Diagnosis Mixed hyperlipidemia [facility] Diagnosis Wellness examination- Primary Primary hypertension Unspecified essential hypertension Mixed hyperlipidemia GERD without esophagitis Esophageal reflux Chronic bronchitis, unspecified chronic bronchitis type (HCC) Women's annual routine gynecological examination Screening for diabetes mellitus [facility] Diagnosis Resolved [id number] syndrome- Primary Smoker Tobacco use disorder [facility] Diagnosis Other acute nonsuppurative otitis media of left ear, recurrence not specified- Primary [facility] Diagnosis Bacterial sinusitis- Primary Unspecified sinusitis (chronic) documented in this encounter [facility] for referral (narrative)* Diagnostic Procedure Only (Routine) - Pending Review Specialty Diagnoses / Procedures Referred By Enrrique durán Referred To Contact [facility] Diagnoses Encounter for screening mammogram for breast cancer Procedures ROGER SCREENING SCREENING MAMMOGRAPHY BI 2-VIEW BREAST INC CAD Cathi Dunn MD [address] [place] [address] [facility] [address] [place] [address] Referral ID Status Reason Start Date Expiration Date Visits Requested Visits Authorized [id number] Pending Review Auto-Generat ed Referral 07/30/2022 08/29/2023 1 1 [facility] Summary Purpose Family History No Family History [...] Referral Specialty Diagnoses / Procedures Referred By Enrrique durán Referred To Contact Gynecology Diagnoses Women's annual routine gynecological examination Procedures CONSULT TO GYNECOLOGY OFFICE/OUTPATIENT [facility] MDM 60-74 MINUTES Brittany Quarles, NELLY.ALEYDA [address] [place] [address] Referral ID Status Reason Start Date Expiration Date Visits Requested Visits Authorized [id number] Authorized PCP Requested Referral Auto-Generate d Referral 12/04/2022 12/04/2023 1 1 Additional Source Comments INFORMATION SOURCE (unrecogn ized section and content) DATE CREATED AUTHOR AUTHOR'S HANNY HALE 03/28/2023 [facility] Source Comments (unrecognize d section and content) In the event this informatio n is protected by the Federal Confidentiality of Alcohol and Drug Abuse Patient Records regulations: The Federal rules restrict any use of the information to criminally investigate or prosecute any alcohol or drug abuse patient.[facility] the event this information is protected by the Federal Confidentiality of Alcohol and Drug Abuse Patient Records regulations: The Federal rules restrict any use of the information to criminally investigate or prosecute any alcohol or drug abuse patient.[facility] the event this information is protected by the Federal Confidentiality of Alcohol and Drug Abuse Patient Records regulations: The Federal rules restrict any use of the information to criminally investigate or prosecute any alcohol or drug abuse patient.[facility] the event this information is protected by the Federal Confidentiality of Alcohol and Drug Abuse Patient Records regulations: The Federal rules restrict any use of the information to criminally investigate or prosecute any alcohol or drug abuse patient.[facility] the event this information is protected by the Federal Confidentiality of Alcohol and Drug Abuse Patient Records regulations: The Federal rules restrict any use of the information to criminally investigate or prosecute any alcohol or drug abuse patient.[facility] the event this information is protected by the Federal Confidentiality of Alcohol and Drug Abuse Patient Records regulations: The Federal rules restrict any use of the information to criminally investigate or prosecute any alcohol or drug abuse patient.[facility] the event this information is protected by the Federal Confidentiality of Alcohol and Drug Abuse Patient Records regulations: The Federal rules restrict any use of the information to criminally investigate or prosecute any alcohol or drug abuse patient.[facility] the event this information is protected by the Federal Confidentiality of Alcohol and Drug Abuse Patient Records regulations: The Federal rules restrict any use of the information to criminally investigate or prosecute any alcohol or drug abuse patient.[facility] the event this information is protected by the Federal Confidentiality of Alcohol and Drug Abuse Patient Records regulations: The Federal rules restrict any use of the information to criminally investigate or prosecute any alcohol or drug abuse patient.[facility] the event this information is protected by the Federal Confidentiality of Alcohol and Drug Abuse Patient Records regulations: The Federal rules restrict any use of the information to criminally investigate or prosecute any alcohol or drug abuse patient.[facility] the event this information is protected by the Federal Confidentiality of Alcohol and Drug Abuse Patient Records regulations: The Federal rules restrict any use of the information to criminally investigate or prosecute any alcohol or drug abuse patient.[facility] the event this information is protected by the Federal Confidentiality of Alcohol and Drug Abuse Patient Records regulations: The Federal rules restrict any use of the information to criminally investigate or prosecute any alcohol or drug abuse patient.[facility] Center[facility] the event this information is protected by the Federal Confidentiality of Alcohol and Drug Abuse Patient Records regulations: The Federal rules restrict any use of the information to criminally investigate or prosecute any alcohol or drug abuse patient.[facility] Center[facility] the event this information is protected by the Federal Confidentiality of Alcohol and Drug Abuse Patient Records regulations: The Federal rules restrict any use of the information to criminally investigate or prosecute any alcohol or drug abuse patient.[facility] Center[facility] the event this information is protected by the Federal Confidentiality of Alcohol and Drug Abuse Patient Records regulations: The Federal rules restrict any use of the information to criminally investigate or prosecute any alcohol or drug abuse patient.[facility] Center[facility] the event this information is protected by the Federal Confidentiality of Alcohol and Drug Abuse Patient Records regulations: The Federal rules restrict any use of the information to criminally investigate or prosecute any alcohol or drug abuse patient.[facility] Center[facility] the event this information is protected by the Federal Confidentiality of Alcohol and Drug Abuse Patient Records regulations: The Federal rules restrict any use of the information to criminally investigate or prosecute any alcohol or drug abuse patient.[facility] Center[facility] the event this information is protected by the Federal Confidentiality of Alcohol and Drug Abuse Patient Records regulations: The Federal rules restrict any use of the information to criminally investigate or prosecute any alcohol or drug abuse patient.[facility] Center[facility] the event this information is protected by the Federal Confidentiality of Alcohol and Drug Abuse Patient Records regulations: The Federal rules restrict any use of the information to criminally investigate or prosecute any alcohol or drug abuse patient.[facility] Center[facility] the event this information is protected by the Federal Confidentiality of Alcohol and Drug Abuse Patient Records regulations: The Federal rules restrict any use of the information to criminally investigate or prosecute any alcohol or drug abuse patient.[facility] Center[facility] the event this information is protected by the Federal Confidentiality of Alcohol and Drug Abuse Patient Records regulations: The Federal rules restrict any use of the information to criminally investigate or prosecute any alcohol or drug abuse patient.[facility] CenterIn the event this information is protected by the Federal Confidentiality of Alcohol and Drug Abuse Patient Records regulations: The Federal rules restrict any use of the information to criminally investigate or prosecute any alcohol or drug abuse patient.[facility] CenterIn the event this information is protected by the Federal Confidentiality of Alcohol and Drug Abuse Patient Records regulations: The Federal rules restrict any use of the information to criminally investigate or prosecute any alcohol or drug abuse patient.[facility] CenterIn the event this information is protected by the Federal Confidentiality of Alcohol and Drug Abuse Patient Records regulations: The Federal rules restrict any use of the information to criminally investigate or prosecute any alcohol or drug abuse patient.[facility] CenterIn the event this information is protected by the Federal Confidentiality of Alcohol and Drug Abuse Patient Records regulations: The Federal rules restrict any use of the information to criminally investigate or prosecute any alcohol or drug abuse patient.[facility] CenterIn the event this information is protected by the Federal Confidentiality of Alcohol and Drug Abuse Patient Records regulations: The Federal rules restrict any use of the information to criminally investigate or prosecute any alcohol or drug abuse patient.[facility] CenterIn the event this information is protected by the Federal Confidentiality of Alcohol and Drug Abuse Patient Records regulations: The Federal rules restrict any use of the information to criminally investigate or prosecute any alcohol or drug abuse patient.[facility] CenterIn the event this information is protected by the Federal Confidentiality of Alcohol and Drug Abuse Patient Records regulations: The Federal rules restrict any use of the information to criminally investigate or prosecute any alcohol or drug abuse patient.[facility] CenterIn the event this information is protected by the Federal Confidentiality of Alcohol and Drug Abuse Patient Records regulations: The Federal rules restrict any use of the information to criminally investigate or prosecute any alcohol or drug abuse patient.[facility] Reason for Visit (unrecogniz ed section and [...] Care Teams (unrecognized sec tion and content) [employer] Operator Relationship Specialty Start Date End Date Cathi Dunn MD [address] [facility] [place] [address] PCP - General 08/12/07 [employer] Cart Operator Relationship Specialty Start Date End Date Cathi Dunn MD [address] [place] [address], [place] [address] PCP - General 08/12/07 [employer] Cart Operator Relationship Specialty Start Date End Date Cathi Dunn MD [address] [place] [address] [place] [address] PCP - General 08/12/07 [employer] Operator Relationship Specialty Start Date End Date Cathi Dunn MD [address] [place] [address] [place] [address] PCP - General 08/12/07 Sand[employer]ink Cart Operator Relationship Specialty Start Date End Date Cathi Dunn MD [address] [place] [address] [place] [address] PCP - General 08/12/07 Sand[employer] Drink Cart Operator Relationship Specialty Start Date End Date Cathi Dunn MD [address] [place] [address], [place] [address] PCP - General 08/12/07 [employer] Cart Operator Relationship Specialty Start Date End Date Cathi Dunn MD [address] [place] [address], [place] [address] PCP - General 08/12/07 Sand[employer] Cart Operator Relationship Specialty Start Date End Date Cathi Dunn MD [address] [place] [address], [place] [address] PCP - General 08/12/07 Sand[employer] Cart Operator Relationship Specialty Start Date End Date Cathi Dunn MD [address] [place] [address], [place] [address] PCP - General 08/12/07 Sand[employer] Cart Operator Relationship Specialty Start Date End Date Cathi Dunn MD [address] [facility] [place] [address] PCP - General 08/12/07 Sand[employer] Cart Operator Relationship Specialty Start Date End Date Cathi Dunn MD [address] [place] [address] PCP - General 08/12/07 [employer] Operator Relationship Specialty Start Date End Date Cathi Dunn MD [address] [place] [address] PCP - General 08/12/07 [employer] Operator Relationship Specialty Start Date End Date Cathi Dunn MD [address] [place] [address] PCP - General 08/12/07 [employer] Operator Relationship Specialty Start Date End Date Cathi Dunn MD [address] [place] [address] PCP - General 08/12/07 [employer] Operator Relationship Specialty Start Date End Date Cathi Dunn MD [address] [place] [address] PCP - General 08/12/07 [employer] Operator Relationship Specialty Start Date End Date Cathi Dunn MD [address] [place] [address] PCP - General 08/12/07 [employer] Operator Relationship Specialty Start Date End Date Cathi Dunn MD [address] [place] [address] PCP - General 08/12/07 [employer] Operator Relationship Specialty Start Date End Date Cathi Dunn MD [address] [place], [place] [id number] PCP - General 08/12/07 [employer] Operator Relationship Specialty Start Date End Date Cathi Dunn MD [address] [place], [place] [id number] PCP - General 08/12/07 [employer] Operator Relationship Specialty Start Date End Date Cathi Dunn MD [address] [place], [place] [id number] PCP - General 08/12/07 [employer] Operator Relationship Specialty Start Date End Date Cathi Dunn MD [address] [place], [place] [id number] PCP - General 08/12/07 FOR RECORDS PERTAINING [...] BE BASED ON THE PRIMARY CLINICAL RECORDS. [facility]. provides no warranty or guarantee of the accuracy or completeness of information in this document.
[2023-03-29 13:03] LABS: Anion Gap 8 (5-15); BUN 22 mg/dL (7-18); BUN/Creat Ratio 12.9 RATIO (10-20); Calcium,Total 9.7 mg/dL (8.5-10.1); Chloride 105 mmol/L (98-107); EST Glomerular Filtration Rate 35 mL/min (>60); Est Glom Filt Rate - Afr Amer 42 mL/min (>60); Glucose 85 mg/dL (74-106); Sodium Level 136 mmol/L (136-145)
[2023-03-29] MEDS: Potassium Chloride Oral Tablet 20 MEQ 40 MEQ PO (13:19)
[2023-03-29 13:28] LABS: Differential Comment SCANNED; Platelet Estimate ADEQUATE (ADEQ); Platelet Morphology LARGE; Reactive Lymphocyte 2+
[2023-03-29] MEDS: 0.9% Normal Saline (500mL Bag) 500 ML 999 ML IV (13:54)
[2023-03-29 14:57] VITALS: BP 107/57; PULSE 78; RESP 18; O2SAT 97
== END 2023-03-29 14:59 | disposition home or self-care (01) ==
PROVIDERS: Physician Assistant; Emergency Provider Emergency Medicine; PCP Family Medicine; Visit Provider Emergency Medicine
DX: E86.0 Dehydration (principal); R42 Dizziness and giddiness; I95.9 Hypotension, unspecified; R20.0 Anesthesia of skin; R20.2 Paresthesia of skin; I10 Essential (primary) hypertension; E78.5 Hyperlipidemia, unspecified; K21.9 Gastro-esophageal reflux disease without esophagitis; F17.210 Nicotine dependence, cigarettes, uncomplicated; Z79.899 Other long term (current) drug therapy
CPT/HCPCS: 70450; 80048; 85025; 93005; 96360; 96361; 99283; J7030; J7040; A4216

== ENCOUNTER → 2023-06-08 | Outpatient (CLI) | payer MEDICAID, SELFPAY ==
--- NOTE | 2023-06-08 | NASAL_PTH ---
PATHOLOGY RESULTS PATIENT: CHEN JARAMILLO LOC: [facility] U#:[id number] AGE/SX: 43/F ROOM: RE06/08/[address]: Dr. Calvin Brewster MD : 1980 BED: DIS: 06/08/2023 SPEC #: [id number] RECD: 06/09/23 08:02 STATUS: DIGNA RONALD #: [id number] DEEPA: 06/08/23 00:[address]: Calvin Brewster DEPT: SURGICAL PATHOLOGY RECD BY: Roxanne Gray ENTERED: 06/09/23 08:04 SP TYPE: NASAL SPEC OTHR DR: Dr. Cayden Ayala MD [facility] Tissues: Nasopharynx, NOS Eustachian tube, NOS Procedures: Surgery Specimen Level IV HEADER OPERATION: Left myringotomy with tubes and nasopharyngeal biopsy PRE-OP DIAGNOSIS: Chronic serous otitis media, left ear, Conductive hearing loss, unilateral, left ear with unrestricted hearing on the contralateral side TISSUE SUBMITTED: A- Nasopharyngeal roof biopsy, B- Nasopharynx/Eustachian tube orifice MICROSCOPIC DIAGNOSIS A. Nasopharyngeal roof, biopsy; Benign respiratory mucosa. Underlying polytypic lymphoid aggregates. No evidence of malignancy. See comment. B. Nasopharynx/Eustachian tube orifice, biopsy; Benign respiratory mucosa. Underlying polytypic lymphoid aggregates. No evidence of malignancy. See comment. AM/ 06/10/23 COMMENT A&B. Immunohistochemistry ([id number]) supports the above diagnosis. The lesions may represent adenoidal tissue. Clinical correlation is suggested. Case has been reviewed in consultation with Dr. Glass who concurs with the above diagnosis. IDC:[id number] MICROSCOPIC DESCRIPTION Slides are reviewed. GROSS DESCRIPTION A - Received in fixative is one container labeled with the patient's name and designated Nasopharyngeal roof. The specimen consists of multiple irregular fragments of mendosa soft tissue that in aggregate measure 1.5 x 1.0 x 0.1 cm. The specimen is totally submitted in one cassette. B - Received in fixative is one container labeled with the patient's name and designated Nasopharynx/ Eustachian tube orifice. The specimen consists of two irregular fragments of light mendosa soft tissue measuring 0.8 x 0.4 x 0.1 cm and 0.2 x 0.2 x 0.1 cm. The specimen is totally submitted in one cassette. / SJ:cristina 06/09/2023 TC:5 CPT:36158g9
--- OUTSIDE RECORDS SUMMARY | 2023-06-08 20:41 | XMS RPT_ITS | CCD ---
Author Name Unknown Address [address] [place] [address] Organization [facility] Care Team Providers Care Venereal Disease Investigator Name Role Phone Cathi Dunn MD Primary Care Provider [phone] Cathi Dunn MD Primary Care Provider Louis Felipe MD Unavailable CATHI DUNN Referring Unavailable CATHI DUNN Primary Care Unavailable CATHI DUNN Primary Care Unavailable BRITTANY QUARLES Referring Unavailable LOUIS FELIPE Attending Unavailable CATHI DUNN Primary Care Unavailable CATHI DUNN Primary Care Unavailable LOUIS FELIPE Referring Unavailable CATHI DUNN Primary Care Unavailable BRITTANY QUARLES Attending Unavailable CATHI DUNN Primary Care Unavailable LOUIS FELIPE Attending Unavailable CATHI DUNN Primary Care Unavailable BRITTANY QUARLES Attending Unavailable CATHI DUNN Attending Unavailable CATHI DUNN Primary Care Unavailable CATHI DUNN Primary Care Unavailable CATHI DUNN Primary Care Unavailable CATHI DUNN Primary Care Unavailable BRITTANY QUARLES Referring Unavailable CATHI DUNN Primary Care Unavailable CATHI DUNN Primary Care Unavailable CATHI DUNN Attending Unavailable CATHI DUNN Primary Care Unavailable CATHI DUNN Attending Unavailable CATHI DUNN Primary Care Unavailable CATHI DUNN Primary Care Unavailable BRITTANY QUARLES Attending Unavailable CATHI DUNN Primary Care Unavailable BRITTANY QUARLES Referring Unavailable CATHI DUNN Referring Unavailable CATHI DUNN Primary Care Unavailable Allergies Allergy Classification Reported Allergen(s) Allergy Type Date of Onset Reaction(s) Facility (20 sources) Acetaminophen / Codeine; Translations: [ACETAMINOPHEN-CO DEINE] Drug Allergy 5 [facility] Work Phone: (20 sources) flea bites [Other] Propensity to adverse reactions 5 [facility] Work Phone: (20 sources) Methotrexate; Translations: [METHOTREXATE] Drug Allergy Other: See Comments, Unknown [facility] (1 source) OTHER; Translations: [OTHER] Propensity to adverse reactions (disorder) 5 [facility] Repository Medications Current Medications Medication Drug Class(es) Dates Sig (Normalized) Sig (Original) [id number] 200 actuat albuterol 0.09 mg/actuat metered dose inhaler (20 sources) beta2-Adrenergic Agonist Start: 03-31-2023 End: 08-18-2023 take 2 puff(s) by inhalation every four hours as needed for wheezing albuterol HFA (VENTOLIN HFA) 90 mcg/actuation inhaler Indications: Bronchitis Inhale 2 Puffs as instructed every 4 hours as needed for wheezing/shortnes s of breath. 1 Each 2 05/20/2023 08/18/2023 Active Completed/Discontinued Medications Medication Drug Class(es) Dates Sig (Normalized) Sig (Original) benzonatate 100 mg oral capsule (2 sources) Non-narcotic Antitussive Start: 02-10-2022 End: 03-27-2022 take 1 capsule by mouth every eight hours as needed benzonatate (TESSALON PERLES) 100 mg capsule Take 1 capsule by mouth three times daily as needed for cough. 18 capsule 0 02/10/2022 03/27/2022 Discontinued Problems Active Problems Problem Classification [...] [Unspecified chronic bronchitis] Onset: 07-18-2020 07-18-2020 Chronic Chronic obstructive pulmonary disease and bronchiectasis (1 source) Bronchitis, not specified as acute or chronic; Translations: [Bronchitis] Onset: 03-31-2023 Episodic Conditions associated with dizziness or vertigo (1 source) Benign paroxysmal vertigo, unspecified ear; Translations: [BPPV (benign paroxysmal positional vertigo), unspecified laterality] Onset: 03-31-2023 Episodic Diseases of white blood cells (7 sources) Leukocytosis; Translations: [Elevated white blood cell count, unspecified] Onset: 05-13-2023 Chronic Disorders of lipid metabolism (20 sources) Mixed hyperlipidemia; Translations: [Mixed hyperlipidemia] Onset: 07-18-2020 07-18-2020 Chronic Esophageal disorders (2 sources) Gastroesophageal reflux disease without esophagitis; Translations: [Gastro-esophageal reflux disease without esophagitis] Onset: 12-04-2022 12-03-2022 Chronic Essential hypertension (20 sources) Essential hypertension; Translations: [Essential (primary) hypertension] Onset: 07-18-2020 07-18-2020 Chronic Fluid and electrolyte disorders (1 source) Dehydration; Translations: [Dehydration] Onset: 03-31-2023 Episodic Genitourinary symptoms and ill-defined conditions (3 sources) Microscopic hematuria; Translations: [Other microscopic hematuria] Episodic Mood disorders (20 sources) Recurrent major depressive episodes; Translations: [Major depressive disorder, recurrent, unspecified] Onset: 12-17-2004 06-29-2019 Chronic Nutritional deficiencies (2 sources) Vitamin D deficiency; Translations: [Vitamin D deficiency, unspecified] Chronic Other aftercare (1 source) Encounter for follow-up examination after completed treatment for conditions other than malignant neoplasm; Translations: [Hospital discharge follow-up] Onset: 03-31-2023 Episodic Other diseases of kidney and ureters (1 source) Abnormal renal function; Translations: [Disorder of kidney and ureter, unspecified] Episodic Other hematologic conditions (1 source) Red blood cell count raised; Translations: [Other abnormality of red blood cells] Episodic Other infections; including parasitic (1 source) Patient condition resolved; Translations: [Resolved avpm-[id number] syndrome] 01-19-2023 Episodic Other lower respiratory disease (1 source) Cough; Translations: [Acute cough] 05-11-2023 Episodic Other nutritional; endocrine; and metabolic disorders (11 sources) Obesity; Translations: [Other obesity due to excess calories] Onset: 07-19-2020 07-19-2020 Chronic Other nutritional; endocrine; and metabolic disorders (20 sources) Obesity caused by energy imbalance; Translations: [Other obesity due to excess calories] Onset: 07-19-2020 07-19-2020 Chronic Other screening for suspected conditions (not mental disorders or infectious disease) (8 sources) Patient encounter status; Translations: [Encounter for screening for other suspected endocrine disorder] Onset: 12-04-2022 Episodic Other upper respiratory disease (1 source) Congestion of nasal sinus; Translations: [Nasal congestion] 05-20-2023 Episodic Other upper respiratory disease (1 source) Nasal congestion; Translations: [Sinus congestion] Onset: 05-20-2023 Episodic Other upper respiratory infections (1 source) Bacterial sinusitis; Translations: [Chronic sinusitis, unspecified] 03-09-2023 Chronic Other upper respiratory infections (7 sources) Sore throat symptom; Translations: [Acute pharyngitis, unspecified] Onset: 05-20-2023 Episodic Otitis media and related conditions (1 source) Acute secretory otitis media; Translations: [Other acute nonsuppurative otitis media, left ear] 01-26-2023 Episodic Residual codes; unclassified (1 source) Generalized aches and pains; Translations: [Pain, unspecified] Episodic Residual codes; unclassified (1 source) Chronic disease - general; Translations: [Illness, unspecified] 05-13-2023 Episodic Residual codes; unclassified (1 source) Illness, unspecified; Translations: [Chronic illness] Onset: 05-13-2023 Episodic Spondylosis; intervertebral disc disorders; other back problems (1 source) Acute low back pain; Translations: [Acute low back pain without sciatica, unspecified back pain laterality] Episodic Substance-related disorders (13 sources) Smoker; Translations: [Nicotine dependence, unspecified, uncomplicated] Onset: 09-12-2009 01-19-2023 Chronic Viral infection (2 sources) Disease caused by 2019-nCoV; Translations: [COVID-19] Episodic Past or Other Problems Problem Classification Problem Date Documented Da te Episodic/Chronic Other non-traumatic joint disorders (20 sources) Ankle pain; Translations: [Pain in unspecified ankle and joints of unspecified foot] Onset: 10-01-2012 10-01-2012 Episodic Screening and history of mental health [...] Vital Sign Value Performing Clinician Faci lity 05-20-2023 14:10-0500 Body temperature 98.91 [degF] Brittany Quarles STATISTICAL ENGINEER.WEIGHER AND CRUSHER Work Phone: [facility] 05-20-2023 14:10-0500 Body weight 86.18 kg Brittany Quarles STATISTICAL ENGINEER.WEIGHER AND CRUSHER Work Phone: [facility] 05-20-2023 14:10-0500 Diastolic blood pressure 82 mm[Hg] Brittany Quarles STATISTICAL ENGINEER.WEIGHER AND CRUSHER Work Phone: [facility] 05-20-2023 14:10-0500 Heart rate 87 /min Brittany Quarles STATISTICAL ENGINEER.WEIGHER AND CRUSHER Work Phone: [facility] 05-20-2023 14:10-0500 Respiratory rate 16 /min Brittany Quarles STATISTICAL ENGINEER.WEIGHER AND CRUSHER Work Phone: [facility] 05-20-2023 14:10-0500 SaO2% (BldA) [Mass fraction] 96 % Brittany Quarles STATISTICAL ENGINEER.WEIGHER AND CRUSHER Work Phone: [facility] 05-20-2023 14:10-0500 Systolic blood pressure 116 mm[Hg] Brittany Quarles STATISTICAL ENGINEER.WEIGHER AND CRUSHER Work Phone: [facility] 05-13-2023 10:49-0500 Body height 168.9 cm Louis Felipe MD Work Phone: [facility] 05-13-2023 10:49-0500 Body temperature 97.5 [degF] Louis Felipe MD Work Phone: [facility] 05-13-2023 10:49-0500 Body weight 84.82 kg Louis Felipe MD Work Phone: [facility] 05-13-2023 10:49-0500 Diastolic blood pressure 98 mm[Hg] Louis Felipe MD Work Phone: [facility] 05-13-2023 10:49-0500 Heart rate 87 /min Louis Felipe MD Work Phone: [facility] 05-13-2023 10:49-0500 SaO2% (BldA) [Mass fraction] 99 % Louis Felipe MD Work Phone: [facility] 05-13-2023 10:49-0500 Systolic blood pressure 159 mm[Hg] Louis Felipe MD Work Phone: [facility] 05-11-2023 13:34-0500 Body temperature 97.7 [degF] Calvin Dowell MD Work Phone: [facility] 05-11-2023 13:34-0500 Body weight 84.73 kg Calvin Dowell MD Work Phone: [facility] 05-11-2023 13:34-0500 Diastolic blood pressure 72 mm[Hg] Calvin Dowell MD Work Phone: [facility] 05-11-2023 13:34-0500 Heart rate 94 /min Calvin Dowell MD Work Phone: [facility] 05-11-2023 13:34-0500 Respiratory rate 16 /min Calvin Dowell MD Work Phone: [facility] 05-11-2023 13:34-0500 SaO2% (BldA) [Mass fraction] 97 % Calvin Dowell MD Work Phone: [facility] 05-11-2023 13:34-0500 Systolic blood pressure 124 mm[Hg] Calvin Dowell MD Work Phone: [facility] 01-26-2023 15:41-0400 Body temperature 98.2 [degF] Amanda Praisler-Wood STATISTICAL ENGINEER.WEIGHER AND CRUSHER Work Phone: [facility] 01-26-2023 15:41-0400 Body weight 80.38 kg Amanda Praisler-Wood STATISTICAL ENGINEER.WEIGHER AND CRUSHER Work Phone: [facility] 01-26-2023 15:41-0400 Diastolic blood pressure 80 mm[Hg] Amanda Praisler-Wood STATISTICAL ENGINEER.WEIGHER AND CRUSHER Work Phone: [facility] 01-26-2023 15:41-0400 Heart rate 79 /min Amanda Praisler-Wood STATISTICAL ENGINEER.WEIGHER AND CRUSHER Work Phone: [facility] 01-26-2023 15:41-0400 Respiratory rate 18 /min Amanda Praisler-Wood STATISTICAL ENGINEER.WEIGHER AND CRUSHER Work Phone: [facility] 01-26-2023 15:41-0400 SaO2% (BldA) [Mass fraction] 99 % Amanda Praisler-Wood STATISTICAL ENGINEER.WEIGHER AND CRUSHER Work Phone: [facility] 01-26-2023 15:41-0400 Systolic blood pressure 122 mm[Hg] Amanda Praisler-Wood STATISTICAL ENGINEER.WEIGHER AND CRUSHER Work Phone: [facility] 01-19-2023 13:34-0400 Body weight 82.15 kg Cathi Dunn MD Work Phone: [facility] 01-19-2023 13:34-0400 Diastolic blood pressure 74 mm[Hg] Cathi Dunn MD Work Phone: [facility] 01-19-2023 13:34-0400 Heart rate 74 /min Cathi Dunn MD Work Phone: [facility] 01-19-2023 13:34-0400 Respiratory rate 16 /min Cathi Dunn MD Work Phone: [facility] 01-19-2023 13:34-0400 Systolic blood pressure 124 mm[Hg] Cathi Dunn MD Work Phone: [facility] 12-04-2022 08:06-0400 Body height 168.5 cm Brittany Tannhof STATISTICAL ENGINEER.WEIGHER AND CRUSHER Work Phone: [facility] 12-04-2022 08:06-0400 Body weight 82.56 kg Brittany Tannhof STATISTICAL ENGINEER.WEIGHER AND CRUSHER Work Phone: [facility] 12-04-2022 08:06-0400 Diastolic blood pressure 102 mm[Hg] Brittany Tannhof STATISTICAL ENGINEER.WEIGHER AND CRUSHER Work Phone: [facility] 12-04-2022 08:06-0400 Heart rate 68 /min Brittany Tannhof STATISTICAL ENGINEER.WEIGHER AND CRUSHER Work Phone: [facility] 12-04-2022 08:06-0400 Respiratory rate 16 /min Brittany Tannhof STATISTICAL ENGINEER.WEIGHER AND CRUSHER Work Phone: [facility] 12-04-2022 08:06-0400 SaO2% (BldA) [Mass fraction] 98 % Brittany Tannhof STATISTICAL ENGINEER.WEIGHER AND CRUSHER Work Phone: [facility] 12-04-2022 08:06-0400 Systolic blood pressure 170 mm[Hg] Brittany Tannhof STATISTICAL ENGINEER.WEIGHER AND CRUSHER Work Phone: [facility] 09-29-2022 19:02-0400 Body temperature 97.9 [degF] Cathi Dunn MD Work Phone: [facility] 09-29-2022 19:02-0400 Body weight 78.61 kg Cathi Dunn MD Work Phone: [facility] 09-29-2022 19:02-0400 Diastolic blood pressure 76 mm[Hg] Cathi Dunn MD Work Phone: [facility] 09-29-2022 19:02-0400 Heart rate 80 /min Cathi Dunn MD Work Phone: [facility] 09-29-2022 19:02-0400 Respiratory rate 20 /min Cathi Dunn MD Work Phone: [facility] 09-29-2022 19:02-0400 Systolic blood pressure 130 mm[Hg] Cathi Dunn MD Work Phone: [facility] 09-23-2022 15:11-0400 Body temperature 97.3 [degF] David Alejandro STATISTICAL ENGINEER.WEIGHER AND CRUSHER Work Phone: [facility] 09-23-2022 15:11-0400 Body weight 76.75 kg David Alejandro STATISTICAL ENGINEER.WEIGHER AND CRUSHER Work Phone: [facility] 09-23-2022 15:11-0400 Diastolic blood pressure 64 mm[Hg] David Alejandro STATISTICAL ENGINEER.WEIGHER AND CRUSHER Work Phone: [facility] 09-23-2022 15:11-0400 Heart rate 66 /min David Alejandro STATISTICAL ENGINEER.WEIGHER AND CRUSHER Work Phone: [facility] 09-23-2022 15:11-0400 Respiratory rate 16 /min David Alejandro STATISTICAL ENGINEER.WEIGHER AND CRUSHER Work Phone: [facility] 09-23-2022 15:11-0400 SaO2% (BldA) [Mass fraction] 98 % David Alejandro STATISTICAL ENGINEER.WEIGHER AND CRUSHER Work Phone: [facility] 09-23-2022 15:11-0400 Systolic blood pressure 102 mm[Hg] David Alejandro STATISTICAL ENGINEER.WEIGHER AND CRUSHER Work Phone: [facility] 06-07-2022 10:41-0500 Body temperature 98.49 [degF] Judith Diana STATISTICAL ENGINEER.WEIGHER AND CRUSHER Work Phone: [facility] 06-07-2022 10:41-0500 Body weight 85.09 kg Judith Diana STATISTICAL ENGINEER.WEIGHER AND CRUSHER Work Phone: [facility] 06-07-2022 10:41-0500 Diastolic blood pressure 78 mm[Hg] Judith Diana STATISTICAL ENGINEER.WEIGHER AND CRUSHER Work Phone: [facility] 06-07-2022 10:41-0500 Heart rate 82 /min Judith Diana STATISTICAL ENGINEER.WEIGHER AND CRUSHER Work Phone: [facility] 06-07-2022 10:41-0500 Respiratory rate 21 /min Judith Diana STATISTICAL ENGINEER.WEIGHER AND CRUSHER Work Phone: [facility] 06-07-2022 10:41-0500 SaO2% (BldA) [Mass fraction] 97 % Judith Ortiz STATISTICAL ENGINEER.WEIGHER AND CRUSHER Work Phone: [facility] 06-07-2022 10:41-0500 Systolic blood pressure 108 mm[Hg] Judith Ortiz STATISTICAL ENGINEER.WEIGHER AND CRUSHER Work Phone: [facility] 03-27-2022 13:50-0500 Body weight 84.1 kg Kelly Dueñas STATISTICAL ENGINEER.WEIGHER AND CRUSHER Work Phone: [facility] 03-27-2022 13:50-0500 Diastolic blood pressure 60 mm[Hg] Kelly Spenser STATISTICAL ENGINEER.WEIGHER AND CRUSHER Work Phone: [facility] 03-27-2022 13:50-0500 Heart rate 64 /min Kelly Ibarraman STATISTICAL ENGINEER.WEIGHER AND CRUSHER Work Phone: [facility] 03-27-2022 13:50-0500 Respiratory rate 16 /min Kelly Dueñas STATISTICAL ENGINEER.WEIGHER AND CRUSHER Work Phone: [facility] 03-27-2022 13:50-0500 Systolic blood pressure 110 mm[Hg] Kellybri Ibarraman STATISTICAL ENGINEER.WEIGHER AND CRUSHER Work Phone: [facility] 07-20-2021 12:39-0400 Body temperature 97.59 [degF] Ambar Denis STATISTICAL ENGINEER.WEIGHER AND CRUSHER Work Phone: [facility] 07-20-2021 12:39-0400 Body weight 90.27 kg Ambar Denis APRN.WEIGHER AND CRUSHER Work Phone: [facility] 07-20-2021 12:39-0400 Diastolic blood pressure 82 mm[Hg] Ambar Denis STATISTICAL ENGINEER.WEIGHER AND CRUSHER Work Phone: [facility] 07-20-2021 12:39-0400 Heart rate 88 /min Ambar Denis STATISTICAL ENGINEER.WEIGHER AND CRUSHER Work Phone: [facility] 07-20-2021 12:39-0400 Respiratory rate 16 /min Ambar Denis STATISTICAL ENGINEER.WEIGHER AND CRUSHER Work Phone: [facility] 07-20-2021 12:39-0400 SaO2% (BldA) [Mass fraction] 97 % Ambar Denis APRN.WEIGHER AND CRUSHER Work Phone: [facility] 07-20-2021 12:39-0400 Systolic blood pressure 142 mm[Hg] Ambar Denis APRN.ALEYDA Work Phone: [facility] Encounters Encounter Date Encounter Type Care Provider Facility Start: 06-03-2023 End: 06-03-2023 ambulatory [facility] Facility:[facility] Start: 06-03-2023 End: 06-03-2023 ambulatory Louis Felipe MD Work Phone: Hematology/Oncology Procedures Date Procedure Procedure Detail Performing Clinician Start: 05-20-2023 STREP A MOLECULAR (POC) Brittany Quarles APRN.WEIGHER AND CRUSHER Work Phone: Start: 09-23-2022 Urnls dip stick/tabl et rgnt auto w/o microscopy Amanda Barrios APRN.WEIGHER AND CRUSHER Work Phone: Start: 06-07-2022 Urnls dip stick/tabl et rgnt auto w/o microscopy Amanda Barrios APRN.WEIGHER AND CRUSHER Work Phone: Start: 07-20-2021 STREP A MOLECULAR (POC) Ambar Denis APRN.WEIGHER AND CRUSHER Work Phone: Start: 07-24-2020 Mammography Ambar Denis APRN.WEIGHER AND CRUSHER Work Phone: Plan of Treatment Date Care Activity Detail Author Start: 08-16-2032 Urine microalbumin profile DTa P,Tdap,Td Vaccine (3 - Td or Tdap) [facility] Start: 02-08-2027 Urine microalbumin profile [facility] Start: 05-20-2024 Annual PCP Team Lap Winder javad Disease Visit Annual PCP Team Chronic Disease Visit [facility] Start: 05-11-2024 BP Controlled (<130/80) BP Controlle d (<130/80) [facility] Start: 04-13-2024 Screening for malign ant neoplasm of breast Mammogram Screening [facility] Start: 01-02-2025 Annual PCP Team Lap Winder javad Disease Visit Annual PCP Team Chronic Disease Visit [facility] Start: 03-09-2024 Annual PCP Team Lap Winder javad Disease Visit Annual PCP Team Chronic Disease Visit [facility] Start: 01-20-2024 Annual PCP Team Lap Winder javad Disease Visit Annual PCP Team Chronic Disease Visit [facility] Start: 01-20-2024 BP Controlled (<130/80) BP Controlle d (<130/80) [facility] Start: 12-05-2023 ANNUAL PCP TEAM FIRST MATE JAVAD DISEASE VISIT ANNUAL PCP TEAM CHRONIC DISEASE VISIT [facility] Start: 09-30-2023 ANNUAL PCP TEAM FIRST MATE JAVAD DISEASE VISIT ANNUAL PCP TEAM CHRONIC DISEASE VISIT [facility] Start: 09-24-2023 BP CONTROLLED (<130/80) BP CONTROLLE D (<130/80) [facility] Start: 06-08-2023 BP CONTROLLED (<130/80) BP CONTROLLE D (<130/80) [facility] Start: 03-27-2023 ANNUAL PCP TEAM FIRST MATE JAVAD DISEASE VISIT ANNUAL PCP TEAM CHRONIC DISEASE VISIT [facility] Start: 03-27-2023 BP CONTROLLED (<130/80) BP CONTROLLE D (<130/80) [facility] Start: 03-27-2023 COVID-19 VACCINE (#1) COVID-19 VACCI NE (#1) [facility] Immunizations Immunization Date Immunization Notes Care Provider Ulisses vernon 02-02-2019 influenza, injectabl e, quadrivalent, contains preservative Ambar Denis APRN.WEIGHER AND CRUSHER Work Phone: [facility] 02-02-2019 pneumococcal polysaccharide vaccine, 23 valent Ambar Denis APRN.WEIGHER AND CRUSHER Work Phone: [facility] 02-02-2019 influenza virus vacc ine, unspecified formulation Kelly Dueñas APRN.WEIGHER AND CRUSHER Work Phone: [facility] 02-08-2017 tetanus toxoid, redu lalo diphtheria toxoid, and acellular pertussis vaccine, adsorbed Ambar Denis APRN.WEIGHER AND CRUSHER Work Phone: [facility] Payers Date Payer Category Payer Medicaid [id number] 2002 Medicaid [employer] [employer] [id number] 2002-Present [phone] [address] [place] [address] Medicaid [id number] 2002 Medicaid [id number] Social History Date Type Detail Facility Start: 09-15-2017 End: 02-10-2022 Tobacco smoking status NHIS Ex-smoker [facility] End: 08-29-2019 History of tobacco use Current smoker [facility] Start: 01-29-1996 End: 08-29-2019 History of tobacco use Cigarette Smoker [facility] Start: 09-15-2017 End: 01-19-2023 Cigarettes smoked current (pack per day) - Reported 1 [facility] Start: 09-15-2017 End: 05-13-2023 Tobacco use and exposure Smokeless tobacco non-user [facility] Start: 07-20-2021 End: 05-20-2023 Alcohol intake Current non-drinker of alcohol (finding) [facility] Start: 07-16-2020 End: 03-26-2022 History SDOH Alcohol Frequency 1 [facility] Start: 07-16-2020 End: 03-26-2022 History SDOH Social Connections Membership 2 [facility] Start: 07-16-2020 End: 03-26-2022 History SDOH Social Connections Living 8 [facility] Start: 07-16-2020 End: 03-26-2022 History SDOH Physical Activity DPW 0 [facility] Start: 07-16-2020 End: 03-26-2022 History SDOH Stress 5 [facility] Start: 07-16-2020 History SDOH Financial 3 [facility] Start: 07-16-2020 Education 11 [facility] Start: 07-19-2020 End: 02-10-2022 Tobacco Comment 1 ppd for 20, currently vaping [facility] Start: 1980 Sex Assigned At Female [facility] Start: 07-10-2021 End: 07-20-2021 Exposure to SARS-CoV-2 (event) Not sure [facility] Start: 01-31-2022 End: 02-10-2022 Exposure to SARS-CoV-2 (event) Yes [facility] Work Phone: Start: 03-26-2022 History SDOH Financial 4 [facility] Start: 03-26-2022 End: 01-19-2023 Social connection and isolation panel [facility] Do you belong to any clubs or organizations such as mandaen groups, unions, fraternal or athletic groups, or school groups? No [facility] Are you now , , , , never or living with a partner? Living with partner [facility] Frequency of Alcohol Consumption Not on file [facility] How often do you hav e 6 or more drinks on 1 occasion? Never [facility] How hard is it for y ou to pay for the very basics like food, housing, medical care, and heating Not very hard [facility] Do you feel stress - tense, restless, nervous, or anxious, or unable to sleep at night because your mind is troubled all the time - these days [OSQ] Very much [facility] (I/We) worried albin er (my/our) food would run out before (I/we) got money to buy more. Never true [facility] Start: 07-16-2020 Gender identity Identifies as female gender (finding) [facility] Start: 07-16-2020 Sexual orientation Heterosexual (finding) [facility] Start: 01-19-2023 End: 05-13-2023 Tobacco smoking status NHIS Smokes tobacco daily [facility] How often to you hav e a drink containing alcohol? Monthly or less [facility] How many standard dr inks containing alcohol do you have on a typical day? 1 or 2 [facility] How hard is it for y ou to pay for the very basics like food, housing, medical care, and heating Somewhat hard [facility] Start: 05-13-2023 Tobacco Comment Pt has cut back to 1 pack daiy [facility] Clinical Notes 09-12-2009 to 06-03-2023 Louis Felipe MD - 06/03/2023 12:28 PM ESTPatient InstructionsBrittany Quarles APRN.[employer] - 05/20/2023 2:20 PM ESTTelephone Encounter - Amelie Witt RN - 05/19/2023 10:13 AM EST Note Date & Type Note Facility 06-03-2023 Note HNO ID: [id number] Author: LOUIS FELIPE MD Service: ? Author Type: Physician Type: Progress Notes Filed: 06/03/2023 12:38 Note Text: Video visit Reviewed flow cytometry result, mild lymphocytosis appears reactive in nature. We can follow cbc, recheck in 1 year. 15 minutes in prep call and documentation. Louis Felipe MD June 03, 2023 [facility] 06-03-2023 History of Presen t illness Narrative Video visit Reviewed flow cytometry result, mild lymphocytosis appears reactive in nature. We can follow cbc, recheck in 1 year. 15 minutes in prep call and documentation. Louis Felipe MD June 03, 2023 documented in this encounter [facility] 05-20-2023 Note HNO ID: [id number] Author: BRITTANY QUARLES APRN.[employer] Service: ? Author Type: Nurse Practitioner Type: Progress Notes Filed: 05/20/2023 18:48 Note Text: This is a 43 year old female who presents today with: Patient presents with: Acute Visit: cough won't go away HISTORY OF PRESENT ILLNESS: Chen Bailon is a 43 year old female. Patient presents with: Acute Visit: cough won't go away Here in the office for on going cough and sore throat. Had Covid at the end of February. Was seen in [facility] ER. Missed several weeks of work due to illness. Has been following with hematology due to elevated WBC. Cough is dry. Sore throat started yesterday with post nasal drip. Has been taking Flonase. Has been using Theraflu. Refers that she went to urgent care last week, was given RX zpack. No record for my review. Smoking 1 PPD with history of chronic bronchitis. Does not follow with pulmonology. No history of asthma or COPD. PAST MEDICAL HISTORY: PAST MEDICAL HISTORY Diagnosis Date Adjustment disorder with depressed mood Condyloma acuminatum Depressive disorder, not elsewhere classified Essential hypertension Fetus or affected by ectopic of mother Other and unspecified ovarian cyst Ovarian cyst Other hyperlipidemia Type 2 diabetes mellitus (HCC) Pre-diabetes Unspecified chronic bronchitis (HCC) Chronic bronchitis PAST SURGICAL HISTORY Procedure Laterality Date ADENOIDECTOMY PRIMARY Adenoidectomy DELIVERY ONLY 12/03/2001 , low cervical SECTION HX 01/31/2005 LIG/TRNSXJ FLP TUBE ABDL/VAG APPR UNI/BI Tubal ligation TONSILLECTOMY PRIMARY/SECONDARY Tonsillectomy VAGINAL HYSTERECTOMY UTERUS 250 GM/< Hysterectomy, vaginal ALLERGIES Methotrexate and Tylenol-Codeine #3 [Acetaminophen-Codeine] MEDICATIONS Current Outpatient Medications Medication Sig Cholecalciferol, Vitamin D3, 125 mcg (5,000 unit) cap Take 1 capsule by mouth once daily. FLUoxetine (PROZAC) 20 mg capsule Take 1 capsule by mouth once daily. meclizine (ANTIVERT) 25 mg tab Take 25 mg by mouth three times a day as needed. ondansetron orally disintegrating (ZOFRAN ODT) 4 mg disintegrating tablet EVERY 8 HOURS NEEDED promethazine (PHENERGAN) 25 mg tablet EVERY 6 HOURS NEEDED albuterol HFA (VENTOLIN HFA) 90 mcg/actuation inhaler Inhale 2 Puffs as instructed every 4 hours as needed for wheezing/shortness of breath. fluticasone (FLONASE) 50 mcg/actuation nasal spray Use 2 Sprays in each nostril once daily. Rinse mouth after use. varenicline (CHANTIX) 1 mg tablet Take 0.5 tablets by mouth once daily for 3 days, THEN 0.5 tablets two times a day for 4 days, THEN 1 tablet two times a day for 23 days. (Patient not taking: Reported on 05/11/2023) varenicline (CHANTIX) 1 mg tablet Take 1 tablet by mouth two times a day. (Patient not taking: Reported on 05/11/2023) atorvastatin (LIPITOR) 20 mg tablet Take 1 tablet by mouth daily at bedtime. For cholesterol. lisinopril-hydroCHLOROthiazide (ZESTORETIC) 20-12.5 mg per tablet Take half a pill daily. omeprazole (PRILOSEC) 20 mg capsule Take 1 capsule by mouth daily before breakfast. 1/2 hr before meal. No current facility-administered medications for this visit. FAMILY HISTORY Adopted: Yes Problem Relation Age of Onset Hypertension Mother Heart Mother [place] Lung Cancer Father Coronary Artery Disease Sister Hypertension Brother Hyperlipidemia Brother Cancer Maternal Grandfather lung other (pt adopted) Other Social History Tobacco Use Smoking status: Every Day Packs/day: 2.00 Years: 23.00 Additional pack years: 0.00 Total pack years: 46.00 Types: Cigarettes Smokeless tobacco: Never Tobacco comments: Pt has cut back to 1 pack daiy Vaping Use Vaping Use: current everyday user Substances: Nicotine Devices: Disposable, Pre-filled or refillable cartridge Substance Use Topics Alcohol use: No Drug use: No REVIEW OF SYSTEMS GENERAL: No weight loss, malaise or fevers/chills HEENT: + Sore Throat NECK: Negative for lumps, goiter, pain and significant neck swelling RESPIRATORY: + Cough CARDIOVASCULAR: Negative for chest pain, leg swelling, [...] depression, anxiety, or suicidal ideation. EXAM: BP 116/82 Pulse 87 Temp 37.2 ?C (98.9 ?F) Resp 16 Wt 86.2 kg (190 lb) LMP 02/03/2011 SpO2 96% BMI 30.21 kg/m? PHYSICAL EXAM: General Appearance: Well appearing, alert, in no acute distress, well-hydrated, wel (more content not included)... [facility] 05-20-2023 Instructions Brittany Quarles APRN.CNP - 05/20/2023 2:34 PM EST Strep was negative. Viral upper respiratory infection. Continue supportive care at home, stay well hydrated. May use Mucinex D as needed for sinus and chest congestion. Follow up if no improvement. documented in this encounter [facility] 05-20-2023 History of Presen t illness Narrative This is a 43 year old female who presents today with: Patient presents with: Acute Visit: cough won't go away HISTORY OF PRESENT ILLNESS: Chen Bailon is a 43 year old female. Patient presents with: Acute Visit: cough won't go away Here in the office for on going cough and sore throat. Had Covid at the end of February. Was seen in [facility] ER. Missed several weeks of work due to illness. Has been following with hematology due to elevated WBC. Cough is dry. Sore throat started yesterday with post nasal drip. Has been taking Flonase. Has been using Theraflu. Refers that she went to urgent care last week, was given RX zpack. No record for my review. Smoking 1 PPD with history of chronic bronchitis. Does not follow with pulmonology. No history of asthma or COPD. PAST MEDICAL HISTORY: PAST MEDICAL HISTORY Diagnosis Date Adjustment disorder with depressed mood Condyloma acuminatum Depressive disorder, not elsewhere classified Essential hypertension Fetus or affected by ectopic of mother Other and unspecified ovarian cyst Ovarian cyst Other hyperlipidemia Type 2 diabetes mellitus (HCC) Pre-diabetes Unspecified chronic bronchitis (HCC) Chronic bronchitis PAST SURGICAL HISTORY Procedure Laterality Date ADENOIDECTOMY PRIMARY <AGE 12 Adenoidectomy DELIVERY ONLY 12/03/2001 , low cervical SECTION HX 01/31/2005 LIG/TRNSXJ FLP TUBE ABDL/VAG APPR UNI/BI Tubal ligation TONSILLECTOMY PRIMARY/SECONDARY <AGE 12 Tonsillectomy VAGINAL HYSTERECTOMY UTERUS 250 GM/< Hysterectomy, vaginal ALLERGIES Methotrexate and Tylenol-Codeine #3 [Acetaminophen-Codeine] MEDICATIONS Current Outpatient Medications Medication Sig Cholecalciferol, Vitamin D3, 125 mcg (5,000 unit) cap Take 1 capsule by mouth once daily. FLUoxetine (PROZAC) 20 mg capsule Take 1 capsule by mouth once daily. meclizine (ANTIVERT) 25 mg tab Take 25 mg by mouth three times a day as needed. ondansetron orally disintegrating (ZOFRAN ODT) 4 mg disintegrating tablet EVERY 8 HOURS NEEDED promethazine (PHENERGAN) 25 mg tablet EVERY 6 HOURS NEEDED albuterol HFA (VENTOLIN HFA) 90 mcg/actuation inhaler Inhale 2 Puffs as instructed every 4 hours as needed for wheezing/shortness of breath. fluticasone (FLONASE) 50 mcg/actuation nasal spray Use 2 Sprays in each nostril once daily. Rinse mouth after use. varenicline (CHANTIX) 1 mg tablet Take 0.5 tablets by mouth once daily for 3 days, THEN 0.5 tablets two times a day for 4 days, THEN 1 tablet two times a day for 23 days. (Patient not taking: Reported on 05/11/2023) varenicline (CHANTIX) 1 mg tablet Take 1 tablet by mouth two times a day. (Patient not taking: Reported on 05/11/2023) atorvastatin (LIPITOR) 20 mg tablet Take 1 tablet by mouth daily at bedtime. For cholesterol. lisinopril-hydroCHLOROthiazide (ZESTORETIC) 20-12.5 mg per tablet Take half a pill daily. omeprazole (PRILOSEC) 20 mg capsule Take 1 capsule by mouth daily before breakfast. 1/2 hr before meal. No current facility-administered medications for this visit. FAMILY HISTORY Adopted: Yes Problem Relation Age of Onset Hypertension Mother Heart Mother [place] Lung Cancer Father Coronary Artery Disease Sister Hypertension Brother Hyperlipidemia Brother Cancer Maternal Grandfather lung other (pt adopted) Other Social History Tobacco Use Smoking status: Every Day Packs/day: 2.00 Years: 23.00 Additional pack years: 0.00 Total pack years: 46.00 Types: Cigarettes Smokeless tobacco: Never Tobacco comments: Pt has cut back to 1 pack daiy Vaping Use Vaping Use: current everyday user Substances: Nicotine Devices: Disposable, Pre-filled or refillable cartridge Substance Use Topics Alcohol use: No Drug use: No REVIEW OF SYSTEMS GENERAL: No weight loss, malaise or fevers/chills HEENT: + Sore Throat NECK: Negative for lumps, goiter, pain and significant neck swelling RESPIRATORY: + Cough CARDIOVASCULAR: Negative for chest pain, leg swelling, [...] depression, anxiety, or suicidal ideation. EXAM: BP 116/82 Pulse 87 Temp 37.2 C (98.9 F) Resp 16 Wt 86.2 kg (190 lb) LMP 02/03/2011 SpO2 96% BMI 30.21 kg/m PHYSICAL EXAM: General Appearance: Well appearing, alert, in no acute distress, well-hydrated, well nourished. Skin: Skin color, texture, turgor normal, no suspicious rashes or lesions. Head: Normocephalic, no masses, lesions, tenderness or abnormalities. Eyes: Anicteric sclera. Pupils are equally round and reactive to light. Extraocular movements are intact. Ears: External ears normal, canals clear. TMs pearly molina. Nose/Sinuses: Nares normal, septum midline, mucosa normal, no drainage or sinus tenderness. Oropharynx: Positive findings: mild oropharyngeal erythema. Neck: Supple, no adenopathy; thyroid symmetric, normal size, no bruits. Lungs: Lungs clear to auscultation. No wheezing, rhonchi, rales. + Cough Heart: RRR without murmur, gallop, or rubs. No ectopy. Extremities: No deformities, edema, skin discoloration, clubbing or cyanosis. Good capillary refill. Peripheral Pulses: Normal, Capillary refill <2secs, strong peripheral pulses, Pulses palpable. Neurologic: Gait normal. Reflexes normal and symmetric. Sensation grossly intact. ASSESSMENT/PLAN: 1. URI, acute - ICD9: 465.9, ICD10: J06.9 (primary diagnosis) - Discussed viral etiology and rationale for treatment. - Group A strep molecular testing negative - Symptomatic treatment with prn analgesia - Supportive care with fluids and rest 2. Sore throat - ICD9: 462, ICD10: J02.9 - Group A strep molecular testing negative 3. Sinus congestion - ICD9: 478.19, ICD10: R09.81 - May use Mucinex D as needed. - Stay well hydrated. - PSEUDOEPHEDRINE-GUAIFENESIN ER 120 MG-1,200 MG TAB,EXTEND RELEASE 12HR Follow-up if no improvement. Discussed treatment plan and patient voices understanding. Patient's questions answered appropriately. Medications and potential side effects were discussed and patient voices understanding. Brittany Quarles APRN.[employer] This note was partially generated using Sequella recognition system. Note was reviewed for accuracy. There may be minor misspellings or grammar miscues with Dragon voice recognition. documented in this encounter [facility] 05-19-2023 Miscellaneous Notes According to schedule, patient has scheduled appt for 05/20. Will close this encounter. Amelie Witt RN documented in this encounter [facility] 05-13-2023 Note HNO ID: [id number] Author: LOUIS FELIPE MD Service: ? Author Type: Physician Type: Progress Notes Filed: 05/13/2023 15:39 Note Text: HISTORY OF PRESENT ILLNESS: Chen Bailon is a 43 year old female February 2023 was in hospital, was having sweats, n/v, went to hospital saw elevated WBC. Has had recurrent bronchitis recently. Reviewed cbc shows absolute lymphocytosis. CLINICAL IMPRESSION: Blood sent for flow cytometry drawn today RECOMMENDATION/PLAN: 1. Virtual follow up in 7-10 days Written and verbal health teaching given to patient, patient verbalizes understanding and agrees with treatment plan. PAST MEDICAL HISTORY Diagnosis Date Adjustment disorder with depressed mood Condyloma acuminatum Depressive disorder, not elsewhere classified Essential hypertension Fetus or affected by ectopic of mother Other and unspecified ovarian cyst Ovarian cyst Other hyperlipidemia Type 2 diabetes mellitus (HCC) Pre-diabetes Unspecified chronic bronchitis (HCC) Chronic bronchitis PAST SURGICAL HISTORY Procedure Laterality Date ADENOIDECTOMY PRIMARY Adenoidectomy DELIVERY ONLY 12/03/2001 , low cervical SECTION HX 01/31/2005 LIG/TRNSXJ FLP TUBE ABDL/VAG APPR UNI/BI Tubal ligation TONSILLECTOMY PRIMARY/SECONDARY Tonsillectomy VAGINAL HYSTERECTOMY UTERUS 250 GM/< Hysterectomy, vaginal FAMILY HISTORY Adopted: Yes Problem Relation Age of Onset Hypertension Mother Heart Mother [place] Lung Cancer Father Coronary Artery Disease Sister Hypertension Brother Hyperlipidemia Brother Cancer Maternal Grandfather lung other (pt adopted) Other Social History Tobacco Use Smoking status: Every Day Packs/day: 2.00 Years: 23.00 Additional pack years: 0.00 Total pack years: 46.00 Types: Cigarettes Smokeless tobacco: Never Tobacco comments: Pt has cut back to 1 pack daiy Vaping Use Vaping Use: current everyday user Substances: Nicotine Devices: Disposable, Pre-filled or refillable cartridge Substance Use Topics Alcohol use: No Drug use: No ALLERGIES: ALLERGIES Allergen Reactions Methotrexate Unknown Organ failure Tylenol-Codeine #3 * CURRENT OUTPATIENT MEDICATIONS: azithromycin (ZITHROMAX Z-AYUSH) 250 mg tablet Take 2 tablets day one, then, 1 tablet daily until gone. Cholecalciferol, Vitamin D3, 125 mcg (5,000 unit) cap Take 1 capsule by mouth once daily. FLUoxetine (PROZAC) 20 mg capsule Take 1 capsule by mouth once daily. meclizine (ANTIVERT) 25 mg tab Take 25 mg by mouth three times a day as needed. ondansetron orally disintegrating (ZOFRAN ODT) 4 mg disintegrating tablet EVERY 8 HOURS NEEDED promethazine (PHENERGAN) 25 mg tablet EVERY 6 HOURS NEEDED albuterol HFA (VENTOLIN HFA) 90 mcg/actuation inhaler Inhale 2 Puffs as instructed every 4 hours as needed for wheezing/shortness of breath. fluticasone (FLONASE) 50 mcg/actuation nasal spray Use 2 Sprays in each nostril once daily. Rinse mouth after use. atorvastatin (LIPITOR) 20 mg tablet Take 1 tablet by mouth daily at bedtime. For cholesterol. lisinopril-hydroCHLOROthiazide (ZESTORETIC) 20-12.5 mg per tablet Take half a pill daily. omeprazole (PRILOSEC) 20 mg capsule Take 1 capsule by mouth daily before breakfast. 1/2 hr before meal. varenicline (CHANTIX) 1 mg tablet Take 0.5 tablets by mouth once daily for 3 days, THEN 0.5 tablets two times a day for 4 days, THEN 1 tablet two times a day for 23 days. (Patient not taking: Reported on 05/11/2023) varenicline (CHANTIX) 1 mg tablet Take 1 tablet by mouth two times a day. (Patient not taking: Reported on 05/11/2023) REVIEW OF SYSTEMS: GENERAL: No fever, night sweats, weight loss or malaise. All other reviewed and negative other than HPI. PHYSICAL EXAMINATION: VITAL SIGNS: BP 159/98 Pulse 87 Temp (Src) 97.5 (Temporal) Ht 5' 6.5 (1.69m) Wt 187 lb (84.8kg) SpO2 99% LMP 02/03/2011 BMI 29.73 kg/(m2). GENERAL APPEARANCE: Well appearing, in no acute distress, alert and oriented x3, well-hydrated, well nourished. No palpable adenopathy or splenomegaly I spent a total of 45 minutes on the date of the service which included preparing to see the patient, [id number] patient care, completing clinical documentation, obtaining and/or reviewing separately obtained history, performing a medically appropriate examination, counseling and educating the patient/family/caregiver, ordering medications, tests, or procedures, independently interpreting results (not separately reported), and communicating results to the patient/family/caregiver. Electronically Signed: Louis Felipe MD May 13, 2023 10:58 AM [facility] 05-13-2023 History of Presen t illness Narrative HISTORY OF PRESENT ILLNESS: Chen Bailon is a 43 year old female February 2023 was in hospital, was having sweats, n/v, went to hospital saw elevated WBC. Has had recurrent bronchitis recently. Reviewed cbc shows absolute lymphocytosis. CLINICAL IMPRESSION: Blood sent for flow cytometry drawn today RECOMMENDATION/PLAN: 1. Virtual follow up in 7-10 days Written and verbal health teaching given to patient, patient verbalizes understanding and agrees with treatment plan. PAST MEDICAL HISTORY Diagnosis Date Adjustment disorder with depressed mood Condyloma acuminatum Depressive disorder, not elsewhere classified Essential hypertension Fetus or affected by ectopic of mother Other and unspecified ovarian cyst Ovarian cyst Other hyperlipidemia Type 2 diabetes mellitus (HCC) Pre-diabetes Unspecified chronic bronchitis (HCC) Chronic bronchitis PAST SURGICAL HISTORY Procedure Laterality Date ADENOIDECTOMY PRIMARY <AGE 12 Adenoidectomy DELIVERY ONLY 12/03/2001 , low cervical SECTION HX 01/31/2005 LIG/TRNSXJ FLP TUBE ABDL/VAG APPR UNI/BI Tubal ligation TONSILLECTOMY PRIMARY/SECONDARY <AGE 12 Tonsillectomy VAGINAL HYSTERECTOMY UTERUS 250 GM/< Hysterectomy, vaginal FAMILY HISTORY Adopted: Yes Problem Relation Age of Onset Hypertension Mother Heart Mother [place] Lung Cancer Father Coronary Artery Disease Sister Hypertension Brother Hyperlipidemia Brother Cancer Maternal Grandfather lung other (pt adopted) Other Social History Tobacco Use Smoking status: Every Day Packs/day: 2.00 Years: 23.00 Additional pack years: 0.00 Total pack years: 46.00 Types: Cigarettes Smokeless tobacco: Never Tobacco comments: Pt has cut back to 1 pack daiy Vaping Use Vaping Use: current everyday user Substances: Nicotine Devices: Disposable, Pre-filled or refillable cartridge Substance Use Topics Alcohol use: No Drug use: No ALLERGIES: ALLERGIES Allergen Reactions Methotrexate Unknown Organ failure Tylenol-Codeine #3 * CURRENT OUTPATIENT MEDICATIONS: azithromycin (ZITHROMAX Z-AYUSH) 250 mg tablet Take 2 tablets day one, then, 1 tablet daily until gone. Cholecalciferol, Vitamin D3, 125 mcg (5,000 unit) cap Take 1 capsule by mouth once daily. FLUoxetine (PROZAC) 20 mg capsule Take 1 capsule by mouth once daily. meclizine (ANTIVERT) 25 mg tab Take 25 mg by mouth three times a day as needed. ondansetron orally disintegrating (ZOFRAN ODT) 4 mg disintegrating tablet EVERY 8 HOURS NEEDED promethazine (PHENERGAN) 25 mg tablet EVERY 6 HOURS NEEDED albuterol HFA (VENTOLIN HFA) 90 mcg/actuation inhaler Inhale 2 Puffs as instructed every 4 hours as needed for wheezing/shortness of breath. fluticasone (FLONASE) 50 mcg/actuation nasal spray Use 2 Sprays in each nostril once daily. Rinse mouth after use. atorvastatin (LIPITOR) 20 mg tablet Take 1 tablet by mouth daily at bedtime. For cholesterol. lisinopril-hydroCHLOROthiazide (ZESTORETIC) 20-12.5 mg per tablet Take half a pill daily. omeprazole (PRILOSEC) 20 mg capsule Take 1 capsule by mouth daily before breakfast. 1/2 hr before meal. varenicline (CHANTIX) 1 mg tablet Take 0.5 tablets by mouth once daily for 3 days, THEN 0.5 tablets two times a day for 4 days, THEN 1 tablet two times a day for 23 days. (Patient not taking: Reported on 05/11/2023) varenicline (CHANTIX) 1 mg tablet Take 1 tablet by mouth two times a day. (Patient not taking: Reported on 05/11/2023) REVIEW OF SYSTEMS: GENERAL: No fever, night sweats, weight loss or malaise. All other reviewed and negative other than HPI. PHYSICAL EXAMINATION: VITAL SIGNS: BP 159/98 Pulse 87 Temp (Src) 97.5 (Temporal) Ht 5' 6.5 (1.69m) Wt 187 lb (84.8kg) SpO2 99% LMP 02/03/2011 BMI 29.73 kg/(m^2). GENERAL APPEARANCE: Well appearing, in no acute distress, alert and oriented x3, well-hydrated, well nourished. No palpable adenopathy or splenomegaly I spent a total of 45 minutes on the date of the service which included preparing to see the patient, [id number] patient care, completing clinical documentation, obtaining and/or reviewing separately obtained history, performing a medically appropriate examination, counseling and educating the patient/family/caregiver, ordering medications, tests, or procedures, independently interpreting results (not separately reported), and communicating results to the patient/family/caregiver. Electronically Signed: Louis Felipe MD May 13, 2023 10:58 AM documented in this encounter [facility] 05-11-2023 Note HNO ID: [id number] Author: CALVIN DOWELL MD Service: ? Author Type: Physician Type: Progress Notes Filed: 05/11/2023 13:59 Note Text: Patient presents with: Chest Congestion: cough x 3 days HPI: Feeling sick for about week, improving but has chest congestion. Her child had viral URI last week. Had flu diagnosed at the ER last month (vomiting). Positive symptoms: productive Cough, Shortness of breath, Wheezing, Chest tightness, Sinus pressure, Nasal Congestion, Rhinorrhea, Negative symptoms: Sore throat, Fever, Vomiting, Diarrhea, OTC: Cold Medicine, aleve, inhaler. Took prednisone 03/31/23. Elevated WBC 04/06/23. PAST MEDICAL HISTORY Diagnosis Date Adjustment disorder with depressed mood Condyloma acuminatum Depressive disorder, not elsewhere classified Essential hypertension Fetus or affected by ectopic of mother Other and unspecified ovarian cyst Ovarian cyst Other hyperlipidemia Type 2 diabetes mellitus (HCC) Pre-diabetes Unspecified chronic bronchitis (HCC) Chronic bronchitis MEDICATIONS: Current Outpatient Medications Medication Sig Cholecalciferol, Vitamin D3, 125 mcg (5,000 unit) cap Take 1 capsule by mouth once daily. FLUoxetine (PROZAC) 20 mg capsule Take 1 capsule by mouth once daily. meclizine (ANTIVERT) 25 mg tab ondansetron orally disintegrating (ZOFRAN ODT) 4 mg disintegrating tablet EVERY 8 HOURS NEEDED promethazine (PHENERGAN) 25 mg tablet EVERY 6 HOURS NEEDED albuterol HFA (VENTOLIN HFA) 90 mcg/actuation inhaler Inhale 2 Puffs as instructed every 4 hours as needed for wheezing/shortness of breath. fluticasone (FLONASE) 50 mcg/actuation nasal spray Use 2 Sprays in each nostril once daily. Rinse mouth after use. atorvastatin (LIPITOR) 20 mg tablet Take 1 tablet by mouth daily at bedtime. For cholesterol. lisinopril-hydroCHLOROthiazide (ZESTORETIC) 20-12.5 mg per tablet Take half a pill daily. omeprazole (PRILOSEC) 20 mg capsule Take 1 capsule by mouth daily before breakfast. 1/2 hr before meal. varenicline (CHANTIX) 1 mg tablet Take 0.5 tablets by mouth once daily for 3 days, THEN 0.5 tablets two times a day for 4 days, THEN 1 tablet two times a day for 23 days. (Patient not taking: Reported on 05/11/2023) varenicline (CHANTIX) 1 mg tablet Take 1 tablet by mouth two times a day. (Patient not taking: Reported on 05/11/2023) No current facility-administered medications for this visit. ALLERGIES: ALLERGIES Allergen Reactions Methotrexate Unknown Organ failure Tylenol-Codeine #3 * VITALS: BP 124/72 Pulse 94 Temp 36.5 ?C (97.7 ?F) Resp 16 Wt 84.7 kg (186 lb 12.8 oz) LMP 02/03/2011 SpO2 97% BMI 29.84 kg/m? PHYSICAL EXAM: GEN: mildly ill appearing HEENT: PERRL, EOMI, conjunctiva clear Ears: canals clear. RTM without erythema, bulge, or effusion. Left middle ear effusion (clear) without erythema or bulge. Sinuses: non-tender frontal sinus, non-tender maxillary sinuses Throat: moist mucous membranes, mild erythema, no exudate Neck: supple, no thyromegaly, no lymphadenopathy HEART: regular rate and rhythm, no murmurs LUNGS: clear to auscultation, no wheezes or crackles, no increased WOB; wheezy cough Component Latest Ref Rng AND Units 04/06/2023 WBC 3.70 - 11.00 k/uL 16.73 (H) ASSESSMENT/PLAN: 1. URI, acute - ICD9: 465.9, ICD10: J06.9 (primary diagnosis) 2. Acute cough - ICD9: 786.2, ICD10: R05.1 3. Chronic bronchitis, unspecified chronic bronchitis type (HCC) - ICD9: 491.9, ICD10: J42 4. Leukocytosis, unspecified type - ICD9: 288.60, ICD10: D72.829 - COVID AND INFLUENZA A/B AND RSV NAAT, ROUTINE - AZITHROMYCIN 250 MG TABLET Provided work excuse for this weekend. Avoid steroid which was a likely contributor to her elevated WBC 04/06/23. Keep follow up with hematology this week. Calvin Dowell MD [facility] 05-11-2023 History of Presen t illness Narrative Patient presents with: Chest Congestion: cough x 3 days HPI: Feeling sick for about week, improving but has chest congestion. Her child had viral URI last week. Had flu diagnosed at the ER last month (vomiting). Positive symptoms: productive Cough, Shortness of breath, Wheezing, Chest tightness, Sinus pressure, Nasal Congestion, Rhinorrhea, Negative symptoms: Sore throat, Fever, Vomiting, Diarrhea, OTC: Cold Medicine, aleve, inhaler. Took prednisone 03/31/23. Elevated WBC 04/06/23. PAST MEDICAL HISTORY Diagnosis Date Adjustment disorder with depressed mood Condyloma acuminatum Depressive disorder, not elsewhere classified Essential hypertension Fetus or affected by ectopic of mother Other and unspecified ovarian cyst Ovarian cyst Other hyperlipidemia Type 2 diabetes mellitus (HCC) Pre-diabetes Unspecified chronic bronchitis (HCC) Chronic bronchitis MEDICATIONS: Current Outpatient Medications Medication Sig Cholecalciferol, Vitamin D3, 125 mcg (5,000 unit) cap Take 1 capsule by mouth once daily. FLUoxetine (PROZAC) 20 mg capsule Take 1 capsule by mouth once daily. meclizine (ANTIVERT) 25 mg tab ondansetron orally disintegrating (ZOFRAN ODT) 4 mg disintegrating tablet EVERY 8 HOURS NEEDED promethazine (PHENERGAN) 25 mg tablet EVERY 6 HOURS NEEDED albuterol HFA (VENTOLIN HFA) 90 mcg/actuation inhaler Inhale 2 Puffs as instructed every 4 hours as needed for wheezing/shortness of breath. fluticasone (FLONASE) 50 mcg/actuation nasal spray Use 2 Sprays in each nostril once daily. Rinse mouth after use. atorvastatin (LIPITOR) 20 mg tablet Take 1 tablet by mouth daily at bedtime. For cholesterol. lisinopril-hydroCHLOROthiazide (ZESTORETIC) 20-12.5 mg per tablet Take half a pill daily. omeprazole (PRILOSEC) 20 mg capsule Take 1 capsule by mouth daily before breakfast. 1/2 hr before meal. varenicline (CHANTIX) 1 mg tablet Take 0.5 tablets by mouth once daily for 3 days, THEN 0.5 tablets two times a day for 4 days, THEN 1 tablet two times a day for 23 days. (Patient not taking: Reported on 05/11/2023) varenicline (CHANTIX) 1 mg tablet Take 1 tablet by mouth two times a day. (Patient not taking: Reported on 05/11/2023) No current facility-administered medications for this visit. ALLERGIES: ALLERGIES Allergen Reactions Methotrexate Unknown Organ failure Tylenol-Codeine #3 * VITALS: BP 124/72 Pulse 94 Temp 36.5 C (97.7 F) Resp 16 Wt 84.7 kg (186 lb 12.8 oz) LMP 02/03/2011 SpO2 97% BMI 29.84 kg/m PHYSICAL EXAM: GEN: mildly ill appearing HEENT: PERRL, EOMI, conjunctiva clear Ears: canals clear. RTM without erythema, bulge, or effusion. Left middle ear effusion (clear) without erythema or bulge. Sinuses: non-tender frontal sinus, non-tender maxillary sinuses Throat: moist mucous membranes, mild erythema, no exudate Neck: supple, no thyromegaly, no lymphadenopathy HEART: regular rate and rhythm, no murmurs LUNGS: clear to auscultation, no wheezes or crackles, no increased WOB; wheezy cough Component Latest Ref Rng & Units 04/06/2023 WBC 3.70 - 11.00 k/uL 16.73 (H) ASSESSMENT/PLAN: 1. URI, acute - ICD9: 465.9, ICD10: J06.9 (primary diagnosis) 2. Acute cough - ICD9: 786.2, ICD10: R05.1 3. Chronic bronchitis, unspecified chronic bronchitis type (HCC) - ICD9: 491.9, ICD10: J42 4. Leukocytosis, unspecified type - ICD9: 288.60, ICD10: D72.829 - COVID & INFLUENZA A/B & RSV NAAT, ROUTINE - AZITHROMYCIN 250 MG TABLET Provided work excuse for this weekend. Avoid steroid which was a likely contributor to her elevated WBC 04/06/23. Keep follow up with hematology this week. Calvin Dowell MD documented in this encounter [facility] 04-29-2023 Note HNO ID: [id number] Author: LISA LOPEZ RDMS Service: ? Author Type: Boat Canvas Maker And Installer Type: Progress Notes Filed: 04/29/2023 15:21 Note Text: Radiology Service Progress Note PATIENT NAME: Chen Bailon DATE OF SERVICE: April 29, 2023 TIME: 3:21 PM PATIENT IDENTITY VERIFICATION COMPLETED USING TWO (2) IDENTIFIERS: Name and Date of confirmed by patient verbally. FALL SCREENING: Has the patient had 2 falls in the last year or 1 fall with injury or currently using an Ambulatory Assistive Device (Walker, Cane, Wheelchair, Crutches, etc.)? No PATIENT GENDER DATA: Female. status: : No status: NO. PATIENT RELEVANT IMPLANT DATA REVIEWED: Not Applicable PATIENT PRESENTS WITH AN IMPLANTABLE OR ATTACHED WELLNESS PROGRAM ADMINISTRATOR: No RADIOLOGY DEPARTMENT: Ultrasound PERIPHERAL IV DATA: Not applicable SIGNED BY: Lisa Lopez RDMS April 29, 2023 3:21 PM [facility] 04-13-2023 Note HNO ID: [id number] Author: CHRISTY JIMENEZ Mammo Tech Service: ? Author Type: Boat Canvas Maker And Installer Type: Progress Notes Filed: 04/13/2023 14:59 Note Text: Radiology Service Progress Note PATIENT NAME: Chen Bailon DATE OF SERVICE: April 13, 2023 TIME: 2:40 PM PATIENT IDENTITY VERIFICATION COMPLETED USING TWO (2) IDENTIFIERS: Name and Date of confirmed by patient verbally. FALL SCREENING: Has the patient had 2 falls in the last year or 1 fall with injury or currently using an Ambulatory Assistive Device (Walker, Cane, Wheelchair, Crutches, etc.)? No PATIENT GENDER DATA: Female. status: : No status: NO. PATIENT RELEVANT IMPLANT DATA REVIEWED: Not Applicable RADIOLOGY DEPARTMENT: Mammography PERIPHERAL IV DATA: Not applicable SIGNED BY: Christy Jimenez [employer] April 13, 2023 2:40 PM [facility] 03-31-2023 Note HNO ID: [id number] Author: Brittany Quarles APRN.WEIGHER AND CRUSHER Service: ? Author Type: Nurse Practitioner Type: Progress Notes Filed: 03/31/2023 9:17 AM Note Text: This is a 43 year old female who presents today with: No chief complaint on file. HISTORY OF PRESENT ILLNESS: Chen Bailon is a 43 year old female. No chief complaint on file. Here in the office to discuss chronic illness? Was seen at [facility] ER 03/27 for abdominal pain, labs and CT scan Abdomen was normal. Then again 03/19/2023 [facility]/ER FOLLOW UP: Reason for visit: Dizziness Which facility: [facility] ER Date of visit: 03/29/2023 Diagnosis: Dizziness and dehydration. Testing done: Positive Jozef-Hallpike on the left side, no nystagmus. Blood pressure was mildly low 89/74, concerns for possible dehydration as well. CT of brain normal. WBC elevated. Treatment given: IV fluids and meclizine. Current symptoms: Refers still having on going dizziness when moving quickly and rolling over in bed. Dizziness comes and goes. No BPPV information provided at ER discharge. Trying to stay hydrated. Has had on going cold symptoms for several months, cough is productive at times, clear mucus. Has been on Augmentin and Amoxicillin. Ongoing SOB and wheezing, smoking 1 PPD. No HX COPD Needs FMLA forms from - Thursday04/06/2022 PAST MEDICAL HISTORY: PAST MEDICAL HISTORY Diagnosis [...] HYSTERECTOMY UTERUS 250 GM/< Hysterectomy, vaginal ALLERGIES Methotrexate and Tylenol-Codeine #3 [Acetaminophen-Codeine] MEDICATIONS Current Outpatient Medications Medication Sig fluticasone (FLONASE) 50 mcg/actuation nasal [...] Wheezing/Shortness of Breath. No current facility-administered medications for this visit. FAMILY HISTORY Adopted: Yes Problem Relation Age of Onset Hypertension Mother Heart Mother [place] Lung Cancer Father Coronary Artery Disease Sister [...] goiter, pain and significant neck swelling RESPIRATORY: + Cough/SOB CARDIOVASCULAR: Negative for chest pain, leg swelling, orthopnea, or palpitations GI: No nausea, vomiting, or diarrhea/constipation. No hematochezia/melena. No heartburn or reflux symptoms. : No history of dysuria, frequency or incontinence MUSCULOSKELETAL: Negative for joint pain or swelling. SKIN: Negative for lesions, rash, and itching ENDOCRINE: Negative for cold or heat intolerance, polyuria, polydipsia and goiter NEURO: + Dizziness MOOD: Negative for depression, anxiety, or suicidal ideation. EXAM: BP 112/68 Pulse 78 Resp 16 Wt 80.3 kg (177 lb) LMP 02/03/2011 SpO2 99% BMI 28.28 kg/m? PHYSICAL EXAM: General Appe (more content not included)... [facility] 03-10-2023 Miscellaneous Notes See pt message and advise. Update pt once complete. Leonor Arevalo Ma documented in this encounter [facility] 03-09-2023 Miscellaneous Notes Note given today at virtual visit Cathi Dunn MD See mychart message. Cheryl Brown Ma documented in this encounter [facility] 03-09-2023 Note HNO ID: [id number] Author: Cathi Dunn MD Service: ? Author [...] visit. Either the patient or their legal hospital sales representative has been informed of the [...] Age of Onset Hypertension Mother Heart Mother [place] Lung Cancer Father Coronary Artery Disease Sister [...] Out Pap T (more content not included)... [facility] 03-09-2023 History of Presen t illness Narrative [...] visit. Either the patient or their legal hospital sales representative has been informed of the [...] Age of Onset Hypertension Mother Heart Mother [place] Lung Cancer Father Coronary Artery Disease Sister [...] Cathi Dunn MD documented in this encounter [facility] 03-06-2023 Miscellaneous Notes PLEASE SEE OTHER MESSAGE 03/06/23. Roxanne Wilcox MA documented in this encounter [facility] 03-06-2023 Note HNO ID: [id number] Author: Buck Lockwood APRN.WEIGHER AND CRUSHER Service: ? Author Type: Nurse Practitioner Type: [...] started abruptly. Patient states they have used wvxd-qch-iiipbrm medication with some success. Patient states they [...] Age of Onset Hypertension Mother Heart Mother [place] Lung Cancer Father Coronary Artery Disease Sister [...] are moist. Pharynx (more content not included)... [facility] 01-26-2023 Note HNO ID: [id number] Author: Amanda Barrios APRN.WEIGHER AND CRUSHER Service: ? Author Type: Nurse Practitioner Type: [...] Age of Onset Hypertension Mother Heart Mother [place] Lung Cancer Father Coronary Artery Disease Sister [...] - ICD9: 381.00, (more content not included)... [facility] 01-26-2023 History of Presen t illness Narrative [...] Age of Onset Hypertension Mother Heart Mother [place] Lung Cancer Father Coronary Artery Disease Sister [...] expected course of illness Amanda Barrios APRN.CNP documented in this encounter [facility] 01-26-2023 Instructions Amanda Barrios APRN.CNP - [...] even if the symptoms go away. 2. Lrox-clb-jnxlbcn pain medication may be taken or other [...] him or her). documented in this encounter [facility] 01-19-2023 Note HNO ID: [id number] Author: Cathi Dunn MD Service: ? Author [...] to have skin sensitivity. Follow up from [employer]. Pt had FMLA forms completed. Was off [...] Age of Onset Hypertension Mother Heart Mother [place] Lung Cancer Father Coronary Artery Disease Sister [...] Screening Discontinued none None ASSESSMENT/PLAN: 1. Resolved nvyw-[id number] syndrome - ICD9: V12.09, ICD10: Z86.16 (primar (more content not included)... [facility] 01-19-2023 History of Presen t illness Narrative [...] to have skin sensitivity. Follow up from [facility]. Pt had FMLA forms completed. Was [...] Age of Onset Hypertension Mother Heart Mother [place] Lung Cancer Father Coronary Artery Disease Sister [...] Screening Discontinued none None ASSESSMENT/PLAN: 1. Resolved uufy-[id number] syndrome - ICD9: V12.09, ICD10: Z86.16 (primary [...] Past Histories independently gathered by the clinical passport support associate and the remaining scribed note accurately describes [...] Cheryl Brown Ma documented in this encounter [facility] 01-09-2023 Miscellaneous Notes Form faxed to [employer]. Pt notified via [employer]. Cheryl Brown Ma Form done Cathi Dunn MD DIANA/FMLA paperwork printed and on PCP's desk. Dr. Dunn please review & advise. Roxanne Wilcox MA Asked pt to send home Covid test results to the office before routing to Provider. Want positive test results before routing to Provider to decide if letter can be written. Leonor Arevalo Ma documented in this encounter [facility] 12-05-2022 Miscellaneous Notes Pt notified of results via [employer]. Cheryl Brown Ma Can you please call the patient and let her know I reviewed her lab results. Labs were all normal. A1c was 5.1, no signs of diabetes. Repeat testing will be due in 1 year. Please let me know if she has any questions. Thank you. Brittany Quarles APRN.ALEYDA documented in this encounter [facility] 12-04-2022 Note HNO ID: [id number] Author: Brittany Quarles APRN.CNP Service: ? Author Type: Nurse Practitioner [...] Age of Onset Hypertension Mother Heart Mother [place] Lung Cancer Father Coronary Artery Disease Sister [...] Appearance: Well appea (more content not included)... [facility] 12-04-2022 Instructions Brittany Quarles APRN.ALEYDA - 12/04/2022 8:23 AM EDT Get fasting labs completed. Start back on blood pressure medication, monitor blood pressure at home. Goal 130/80 or less. Due for mammogram May schedule appointment with aircraft powertrain repairer for exam. Recommend smoking cessation. Continue to eat well balanced diet and stay active. Follow up in 1 year or sooner pending test results. Health Promotion: - Eat healthy -- go to [email or web address] to get started - Have a yearly [...] - Wear sunscreen documented in this encounter [facility] 12-04-2022 History of Presen t illness [...] Age of Onset Hypertension Mother Heart Mother [place] Lung Cancer Father Coronary Artery Disease Sister [...] diet of 1000 mg/day for under 50, 2787-3350 mg/day for 50+ - Discussed need and [...] APRN.CNP This note was partially generated using [employer] voice recognition system. Note was reviewed for accuracy. There may be minor misspellings or grammar miscues with [employer] voice recognition. documented in this encounter [facility] 12-02-2022 Miscellaneous Notes The following approved [...] advise. Roseann Garcia documented in this encounter [facility] 10-27-2022 Miscellaneous Notes The following approved medication requests have been transmitted electronically. Requested Prescriptions Pending Prescriptions Disp Refills FLUoxetine (PROZAC) 20 mg capsule 90 capsule 3 Sig: Take 1 capsule by mouth once daily. Malik Mcdowell APRN.CNP Last office visit: none F/u scheduled: 09/29/22 Cheryl Brown Ma documented in this encounter [facility] 09-29-2022 Note HNO ID: [id number] Author: Cathi Dunn MD Service: ? Author Type: Physician Type: Progress Notes Filed: 09/29/2022 7:24 PM Note Text: Chief Complaint Patient presents with: Covid Follow Up HPI Chen Bailon is a 42 year old female who presents here today for Covid follow up. Pt here today for Covid + follow up. Pt was down visiting her mother in [place], [place] and was notified by her Mother [...] okay to return to work. Works at [employer] in the [employer]. Today is day 5. Past medical history, [...] Age of Onset Hypertension Mother Heart Mother [place] Lung Cancer Father Coronary Artery Disease Sister [...] 5 days Follo (more content not included)... [facility] 09-29-2022 History of Presen t illness Narrative Chief Complaint Patient presents with: Covid Follow Up HPI Chen Bailon is a 42 year old female who presents here today for Covid follow up. Pt here today for Covid + follow up. Pt was down visiting her mother in [place], [place] and was notified by her Mother [...] okay to return to work. Works at [employer] in the [employer]. Today is day 5. Past medical history, [...] Age of Onset Hypertension Mother Heart Mother [place] Lung Cancer Father Coronary Artery Disease Sister [...] Cathi Dunn MD documented in this encounter [facility] 09-29-2022 Miscellaneous Notes Pt scheduled, ok [...] she is able to use to write [employer] messages and initially requested an appt on 09/29/22 after 4:00 pm with RS. This was offered to her. Leonor Arevalo Ma documented in this encounter [facility] 09-29-2022 Miscellaneous Notes Pt responded in another message, closing this message as this is a duplicate. Leonor Arevalo Ma Attempted to reach pt but receive message stating person you dialed is not able to receive calls at this time. Offered 7:40 pm VV via 5 examplest. Offered pt can receive letter via [employer] or we can fax letter to Employer if she can provide fax number. Leonor Arevalo Ma Offered pt VV at 7:20 pm with ME due to PCP due to R. Spenser being out of the office. Wait pt response. Leonor Arevalo Ma documented in this encounter [facility] 09-24-2022 Miscellaneous Notes Patient notified and verbalized understanding of instructions given.Nahomy Vasquez LPN Please call patient and let her know her urine culture revealed possible contamination. She may continue medication if symptoms are improving. If symptoms worsen, follow-up with PCP. documented in this encounter [facility] 09-23-2022 Note HNO ID: [id number] Author: David Allen APRN.WEIGHER AND CRUSHER Service: ? Author Type: Nurse Practitioner Type: [...] Age of Onset Hypertension Mother Heart Mother [place] Lung Cancer Father Coronary Artery Disease Sister [...] CULTURE - NITROFURANT (more content not included)... [facility] 09-23-2022 Instructions David Allen APRN.[facility] - 09/23/2022 4:11 PM EDT Patient Education [...] front to back documented in this encounter [facility] 09-23-2022 History of Presen t illness [...] Age of Onset Hypertension Mother Heart Mother [place] Lung Cancer Father Coronary Artery Disease Sister [...] for this encounter. documented in this encounter [facility] 07-30-2022 Note Patient Outreach (IN TMMN) CHEN BAILON ([id number]) 1980 F Date Time Provider Department 07/30/22 CATHI DUNN During your visit today, we recorded the following information about you: Allergies As of Date: 07/30/2022 Noted Allergy Reaction flea bites [Other] 12/17/2004 METHOTREXATE 06/07/2022 14 - Other: See Comments Comments: Organ failure TYLENOL-CODEINE #3 (ACETAMINOPHEN*12/17/2004 Date Reviewed: 06/07/2022 Reviewed by: Judith Ortiz APRN.WEIGHER AND CRUSHER - Fully Assessed Visit Diagnosis:Encounter for screening mammogram for breast cancer [Z12.31] Order(s):[facility] SCREENING [[id number]] Order #: [id number] FUTURE Prescriptions as of 08/04/2022 - dextromethorphan-guaiFENesin [...] cigarette smoker [Z87.891] 07/19/2020 Encounter Status:Closed by Monetsu, PRODUSER on 08/04/22 [facility] 06-09-2022 Miscellaneous Notes Please see pt message regarding urine testing Tammi Goldstein documented in this encounter [facility] 06-07-2022 Note HNO ID: [id number] Author: Judith Ortiz APRN.WEIGHER AND CRUSHER Service: ? Author Type: Nurse Practitioner Type: Progress Notes Filed: 06/07/2022 10:55 AM Note Text: Subjective The history is provided by the patient. No spanish medical interpreter was used. HPI Chen Bailon is a [...] have confirmed and edited as necessary, the [facility] Review of Systems Constitutional: Positive for [...] in 12-24 hours with results, available on [employer] - COVID WITH FLUA+B, ROUTINE 4. Body aches - ICD9: 780.96, ICD10: R52 Tylenol/ibuprofen - COVID WITH FLUA+B, ROUTINE Judith Ortiz APRN.CNP [facility] 06-07-2022 Instructions Judith Ortiz APRN.CNP - 06/07/2022 10:54 AM EST covid and influenza test ordered You will be notified in 12-24 hours, results [facility] Home isolation until results are back Rest, [...] inability to swallow. documented in this encounter [facility] 06-07-2022 History of Presen t illness Narrative Subjective The history is provided by the patient. No spanish medical interpreter was used. HPI Chen Bailon is a [...] have confirmed and edited as necessary, the [facility] Review of Systems Constitutional: Positive for [...] in 12-24 hours with results, [facility] - COVID WITH FLUA+B, ROUTINE 4. Body aches - ICD9: 780.96, ICD10: R52 Tylenol/ibuprofen - COVID WITH FLUA+B, ROUTINE Judith Ortiz APRN.WEIGHER AND CRUSHER documented in this encounter [facility] 04-01-2022 Miscellaneous Notes Pt notified and [...] Malik Mcdowell CNP documented in this encounter [facility] 03-28-2022 Miscellaneous Notes Pt informed, verbalized [...] Kelly Dueñas APRN.CNP documented in this encounter [facility] 03-27-2022 Instructions Kelly Dueñas APRN.CNP - 03/27/2022 2:26 PM EST Have your labs drawn. Schedule your mammogram. Let me know if your work needs anything else from our office. documented in this encounter [facility] 03-27-2022 History of Presen t illness [...] work for 5 days. She works at [employer] and Linda is requesting official [place] forms. Most recently she tested positive for COVID on 03/21 and was home for 5 days. Had 102 fever. After 5 days was not allowed to return even though fever and sx had resolved. Is required to have release from physician prior to returning to work. Has filed a claim with Linda. Past medical history, appointments, medications, allergies reviewed. [...] Age of Onset Hypertension Mother Heart Mother [place] Lung Cancer Father Coronary Artery Disease Sister [...] counseling and education. documented in this encounter [facility] 03-10-2022 Miscellaneous Notes The following approved medication requests have been transmitted electronically. Requested Prescriptions Pending Prescriptions Disp Refills Cholecalciferol, Vitamin D3, 125 mcg (5,000 unit) cap 90 capsule 3 Sig: Take 1 capsule by mouth once daily. Malik Mcdowell APRN.ALEYDA Patient phones requesting refills as follows: Requested Prescriptions Pending Prescriptions Disp Refills Cholecalciferol, Vitamin D3, 125 mcg (5,000 unit) cap 90 capsule 3 Sig: Take 1 capsule by mouth once daily. REESE-05/08/21 Labs-05/13/21 NOV-none med filled 02/01/21 Please review and advise. Sun Joshi LPN documented in this encounter [facility] 02-03-2022 Miscellaneous Notes Pt notified via [employer] that she needs to call in to [...] mouth once daily. Authorizing Provider: MALIK MCDOWELL APRN.ALEYDA Patient has been identified by name and [...] No appointment scheduled documented in this encounter [facility] 08-27-2021 Miscellaneous Notes OK to refill as ordered Cathi Dunn MD Last OV; 05/08/21 Next OV: NOne Last Rx: 01/30/21 #30 w/5. Leonor Arevalo Ma documented in this encounter [facility] 07-20-2021 Instructions Ambar Denis APRN.WEIGHER AND CRUSHER - 07/20/2021 1:05 PM EDT 1.) Get [...] and not with prostate problems can try nyce-xhq-adikumf Coricidin HBP for congestion. You may find [...] up with PCP documented in this encounter [facility] 07-20-2021 History of Presen t illness [...] Age of Onset Hypertension Mother Heart Mother [place] Lung Cancer Father Coronary Artery Disease Sister [...] Ambar Denis APRN.ALEYDA documented in this encounter [facility] documented as of this encounter (statuses as of 07/20/2021) [facility] [facility] Narrative* Problem Noted Date Resolved Date Tobacco abuse 09/12/2009 07/19/2020 documented as of this encounter (statuses as of 08/27/2021) [facility] History of Past illness Narrative* Problem Noted Date Resolved Date Tobacco abuse 09/12/2009 07/19/2020 documented as of this encounter (statuses as of 08/27/2021) [facility] History of Past illness Narrative* Problem Noted Date Resolved Date Tobacco abuse 09/12/2009 07/19/2020 documented as of this encounter (statuses as of 02/03/2022) [address]16-2010 History of Past illness Narrative* Problem Noted Date Resolved Date Tobacco abuse 09/12/2009 07/19/2020 documented as of this encounter (statuses as of 03/10/2022) [address]16-2010 History of Past illness Narrative* Problem Noted Date Resolved Date Tobacco abuse 09/12/2009 07/19/2020 documented as of this encounter (statuses as of 04/02/2022) [address]16-2010 History of Past illness Narrative* Problem Noted Date Resolved Date Tobacco abuse 09/12/2009 07/19/2020 documented as of this encounter (statuses as of 04/02/2022) [address]16-2010 History of Past illness Narrative* Problem Noted Date Resolved Date Tobacco abuse 09/12/2009 07/19/2020 documented as of this encounter (statuses as of 04/03/2022) [address]16-2010 History of Past illness Narrative* Problem Noted Date Resolved Date Tobacco abuse 09/12/2009 07/19/2020 documented as of this encounter (statuses as of 06/07/2022) [address]16-2010 History of Past illness Narrative* Problem Noted Date Resolved Date Tobacco abuse 09/12/2009 07/19/2020 documented as of this encounter (statuses as of 06/09/2022) [address]16-2010 History of Past illness Narrative* Problem Noted Date Resolved Date Tobacco abuse 09/12/2009 07/19/2020 documented as of this encounter (statuses as of 08/04/2022) [address]16-2010 History of Past illness Narrative* Problem Noted Date Resolved Date Tobacco abuse 09/12/2009 07/19/2020 documented as of this encounter (statuses as of 09/24/2022) [address]16-2010 History of Past illness Narrative* Problem Noted Date Resolved Date Tobacco abuse 09/12/2009 07/19/2020 documented as of this encounter (statuses as of 09/25/2022) [address]16-2010 History of Past illness Narrative* Problem Noted Date Resolved Date Tobacco abuse 09/12/2009 07/19/2020 documented as of this encounter (statuses as of 09/29/2022) [address]16-2010 History of Past illness Narrative* Problem Noted Date Resolved Date Tobacco abuse 09/12/2009 07/19/2020 documented as of this encounter (statuses as of 09/30/2022) [address]16-2010 History of Past illness Narrative* Problem Noted Date Resolved Date Tobacco abuse 09/12/2009 07/19/2020 documented as of this encounter (statuses as of 09/30/2022) [address]16-2010 History of Past illness Narrative* Problem Noted Date Diagnosed Date Resolved Date Tobacco abuse 09/12/2009 07/19/2020 documented as of this encounter (statuses as of 10/27/2022) [address]16-2010 History of Past illness Narrative* Problem Noted Date Diagnosed Date Resolved Date Tobacco abuse 09/12/2009 07/19/2020 documented as of this encounter (statuses as of 12/02/2022) [address]16-2010 History of Past illness Narrative* Problem Noted Date Diagnosed Date Resolved Date Tobacco abuse 09/12/2009 07/19/2020 documented as of this encounter (statuses as of 12/02/2022) [address]16-2010 History of Past illness Narrative* Problem Noted Date Diagnosed Date Resolved Date Tobacco abuse 09/12/2009 07/19/2020 documented as of this encounter (statuses as of 12/04/2022) [facility] History of Past illness Narrative* Problem Noted Date Diagnosed Date Resolved Date Tobacco abuse 09/12/2009 07/19/2020 documented as of this encounter (statuses as of 12/05/2022) [address]16[address]2010 History of Past illness Narrative* Problem Noted Date Diagnosed Date Resolved Date Tobacco abuse 09/12/2009 07/19/2020 documented as of this encounter (statuses as of 01/09/2023) [facility] Diagnosis Sore throat- Primary Acute pharyngitis [facility] Diagnosis Primary hypertension- Primary Unspecified essential hypertension Mixed hyperlipidemia Anxiety and depression Dysthymic disorder [facility] Diagnosis Vitamin D deficiency Unspecified vitamin D deficiency [facility] Diagnosis COVID- Primary Vitamin D deficiency Unspecified vitamin D deficiency Screening for thyroid disorder Screening for lipid disorders Screening for diabetes mellitus Well adult exam Routine general medical examination at a health care facility documented in this encounter [facility] note* Diagnosis Hyperlipidemia, mixed- Primary Mixed hyperlipidemia Elevated red blood cell count Polycythemia, secondary Leukocytosis, unspecified type Decreased renal function Unspecified disorder of kidney and ureter [facility] Diagnosis Acute low back pain without sciatica, unspecified back pain laterality- Primary Microscopic hematuria URI, acute Acute upper respiratory infections of unspecified site Body aches Generalized pain [facility] Diagnosis Microscopic hematuria- Primary [facility] Diagnosis Encounter for screening mammogram for breast cancer [facility] Diagnosis Urinary frequency- Primary documented in this encounter [facility] note* Diagnosis COVID- Primary [facility] Diagnosis Anxiety and depression Dysthymic disorder [facility]* Diagnosis Mixed hyperlipidemia [facility] Diagnosis Wellness examination- Primary Primary hypertension Unspecified essential hypertension Mixed hyperlipidemia GERD without esophagitis Esophageal reflux Chronic bronchitis, unspecified chronic bronchitis type (HCC) Women's annual routine gynecological examination Screening for diabetes mellitus documented in this encounter [facility] note* Diagnosis 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 Smoker Tobacco use disorder documented in this encounter [facility] note* Diagnosis Other acute nonsuppurative otitis media of left ear, recurrence not specified- Primary documented in this encounter [facility] note* Diagnosis Bacterial sinusitis- Primary Unspecified sinusitis (chronic) [facility] Diagnosis URI, acute- Primary Acute upper respiratory infections of unspecified site Acute cough Chronic bronchitis, unspecified chronic bronchitis type (HCC) Leukocytosis, unspecified type documented in this encounter [facility] note* Diagnosis Lymphocytosis- Primary Lymphocytosis (symptomatic) Leukocytosis, unspecified type Chronic illness Other unknown and unspecified cause of morbidity or mortality documented in this encounter [facility] note* Diagnosis URI, acute- Primary Acute upper respiratory infections of unspecified site Sore throat Acute pharyngitis Sinus congestion Other diseases of nasal cavity and sinuses [facility] Diagnosis Lymphocytosis- Primary Lymphocytosis (symptomatic) [facility] Diagnostic Procedure Only (Routine) - Pending Review Specialty Diagnoses / Procedures Referred By Enrrique durán Referred To Contact [facility] Diagnoses Encounter for screening mammogram for breast cancer Procedures ROGER SCREENING SCREENING MAMMOGRAPHY BI 2-VIEW BREAST INC CAD Cathi Dunn MD [address] [place] [address] [facility] [address] [place] [address] Referral ID Status Reason Start Date Expiration Date Visits Requested Visits Authorized [id number] Pending Review Auto-Generat ed Referral 07/30/2022 08/29/2023 1 1 [facility] Summary Purpose Family History No Family [...] gynecological examination Procedures CONSULT TO GYNECOLOGY OFFICE/OUTPATIENT NEW HIGH MDM 60-74 MINUTES Brittany Quarles APRN.ALEYDA [address] [place] [address] Referral ID Status Reason Start Date Expiration Date Visits Requested Visits Authorized [id number] Authorized PCP Requested Referral Auto-Generate d Referral 12/04/2022 12/04/2023 1 1 Additional Source Comments INFORMATION SOURCE (unrecogn ized section and content) DATE CREATED AUTHOR AUTHOR'S ORGANIZ ATION 06/04/2023 [facility] Source Comments (unrecognize d section and content) In the event this informatio n is protected by the Federal Confidentiality of Alcohol and Drug Abuse Patient Records regulations: The Federal rules restrict any use of the information to criminally investigate or prosecute any alcohol or drug abuse patient.[facility] the event this information is protected by the Federal Confidentiality of Alcohol and Drug Abuse Patient Records regulations: The Federal rules restrict any use of the information to criminally investigate or prosecute any alcohol or drug abuse patient.[facility] the event this information is protected by the Federal Confidentiality of Alcohol and Drug Abuse Patient Records regulations: The Federal rules restrict any use of the information to criminally investigate or prosecute any alcohol or drug abuse patient.[facility] the event this information is protected by the Federal Confidentiality of Alcohol and Drug Abuse Patient Records regulations: The Federal rules restrict any use of the information to criminally investigate or prosecute any alcohol or drug abuse patient.[facility] the event this information is protected by the Federal Confidentiality of Alcohol and Drug Abuse Patient Records regulations: The Federal rules restrict any use of the information to criminally investigate or prosecute any alcohol or drug abuse patient.[facility] the event this information is protected by the Federal Confidentiality of Alcohol and Drug Abuse Patient Records regulations: The Federal rules restrict any use of the information to criminally investigate or prosecute any alcohol or drug abuse patient.[facility] the event this information is protected by the Federal Confidentiality of Alcohol and Drug Abuse Patient Records regulations: The Federal rules restrict any use of the information to criminally investigate or prosecute any alcohol or drug abuse patient.[facility] the event this information is protected by the Federal Confidentiality of Alcohol and Drug Abuse Patient Records regulations: The Federal rules restrict any use of the information to criminally investigate or prosecute any alcohol or drug abuse patient.[facility] the event this information is protected by the Federal Confidentiality of Alcohol and Drug Abuse Patient Records regulations: The Federal rules restrict any use of the information to criminally investigate or prosecute any alcohol or drug abuse patient.[facility] the event this information is protected by the Federal Confidentiality of Alcohol and Drug Abuse Patient Records regulations: The Federal rules restrict any use of the information to criminally investigate or prosecute any alcohol or drug abuse patient.[facility] the event this information is protected by the Federal Confidentiality of Alcohol and Drug Abuse Patient Records regulations: The Federal rules restrict any use of the information to criminally investigate or prosecute any alcohol or drug abuse patient.[facility] the event this information is protected by the Federal Confidentiality of Alcohol and Drug Abuse Patient Records regulations: The Federal rules restrict any use of the information to criminally investigate or prosecute any alcohol or drug abuse patient.[facility] the event this information is protected by the Federal Confidentiality of Alcohol and Drug Abuse Patient Records regulations: The Federal rules restrict any use of the information to criminally investigate or prosecute any alcohol or drug abuse patient.[facility] the event this information is protected by the Federal Confidentiality of Alcohol and Drug Abuse Patient Records regulations: The Federal rules restrict any use of the information to criminally investigate or prosecute any alcohol or drug abuse patient.[facility] the event this information is protected by the Federal Confidentiality of Alcohol and Drug Abuse Patient Records regulations: The Federal rules restrict any use of the information to criminally investigate or prosecute any alcohol or drug abuse patient.[facility] the event this information is protected by the Federal Confidentiality of Alcohol and Drug Abuse Patient Records regulations: The Federal rules restrict any use of the information to criminally investigate or prosecute any alcohol or drug abuse patient.[facility] the event this information is protected by the Federal Confidentiality of Alcohol and Drug Abuse Patient Records regulations: The Federal rules restrict any use of the information to criminally investigate or prosecute any alcohol or drug abuse patient.[facility] the event this information is protected by the Federal Confidentiality of Alcohol and Drug Abuse Patient Records regulations: The Federal rules restrict any use of the information to criminally investigate or prosecute any alcohol or drug abuse patient.[facility] the event this information is protected by the Federal Confidentiality of Alcohol and Drug Abuse Patient Records regulations: The Federal rules restrict any use of the information to criminally investigate or prosecute any alcohol or drug abuse patient.[facility]In the event this information is protected by the Federal Confidentiality of Alcohol and Drug Abuse Patient Records regulations: The Federal rules restrict any use of the information to criminally investigate or prosecute any alcohol or drug abuse patient.[facility] the event this information is protected by the Federal Confidentiality of Alcohol and Drug Abuse Patient Records regulations: The Federal rules restrict any use of the information to criminally investigate or prosecute any alcohol or drug abuse patient.[facility] the event this information is protected by the Federal Confidentiality of Alcohol and Drug Abuse Patient Records regulations: The Federal rules restrict any use of the information to criminally investigate or prosecute any alcohol or drug abuse patient.[facility] the event this information is protected by the Federal Confidentiality of Alcohol and Drug Abuse Patient Records regulations: The Federal rules restrict any use of the information to criminally investigate or prosecute any alcohol or drug abuse patient.[facility] the event this information is protected by the Federal Confidentiality of Alcohol and Drug Abuse Patient Records regulations: The Federal rules restrict any use of the information to criminally investigate or prosecute any alcohol or drug abuse patient.[facility] the event this information is protected by the Federal Confidentiality of Alcohol and Drug Abuse Patient Records regulations: The Federal rules restrict any use of the information to criminally investigate or prosecute any alcohol or drug abuse patient.[facility]In the event this information is protected by the Federal Confidentiality of Alcohol and Drug Abuse Patient Records regulations: The Federal rules restrict any use of the information to criminally investigate or prosecute any alcohol or drug abuse patient.[facility]In the event this information is protected by the Federal Confidentiality of Alcohol and Drug Abuse Patient Records regulations: The Federal rules restrict any use of the information to criminally investigate or prosecute any alcohol or drug abuse patient.[facility]In the event this information is protected by the Federal Confidentiality of Alcohol and Drug Abuse Patient Records regulations: The Federal rules restrict any use of the information to criminally investigate or prosecute any alcohol or drug abuse patient.[facility]In the event this information is protected by the Federal Confidentiality of Alcohol and Drug Abuse Patient Records regulations: The Federal rules restrict any use of the information to criminally investigate or prosecute any alcohol or drug abuse patient.[facility]In the event this information is protected by the Federal Confidentiality of Alcohol and Drug Abuse Patient Records regulations: The Federal rules restrict any use of the information to criminally investigate or prosecute any alcohol or drug abuse patient.[facility]In the event this information is protected by the Federal Confidentiality of Alcohol and Drug Abuse Patient Records regulations: The Federal rules restrict any use of the information to criminally investigate or prosecute any alcohol or drug abuse patient.[facility]In the event this information is protected by the Federal Confidentiality of Alcohol and Drug Abuse Patient Records regulations: The Federal rules restrict any use of the information to criminally investigate or prosecute any alcohol or drug abuse patient.[facility]In the event this information is protected by the Federal Confidentiality of Alcohol and Drug Abuse Patient Records regulations: The Federal rules restrict any use of the information to criminally investigate or prosecute any alcohol or drug abuse patient.[facility]In the event this information is protected by the Federal Confidentiality of Alcohol and Drug Abuse Patient Records regulations: The Federal rules restrict any use of the information to criminally investigate or prosecute any alcohol or drug abuse patient.[facility]In the event this information is protected by the Federal Confidentiality of Alcohol and Drug Abuse Patient Records regulations: The Federal rules restrict any use of the information to criminally investigate or prosecute any alcohol or drug abuse patient.[facility] Reason for Visit (unrecogniz ed section [...] ear drainage x3 days Reason Comments URI Reason Comments Chest Congestion cough x 3 days Reason Comments New Patient Evaluation Specialty Diagnoses / Procedures Referred By Contac t Referred To Contact Hematology Diagnoses Leukocytosis, unspecified type Chronic illness Procedures CONSULT TO HEMATOLOGY OFFICE/OUTPATIENT NEW HIGH MDM 60 MINUTES Brittany Quarles APRN.[employer] [address] [place] [address] Referral ID Status Reason Start Date Expiration Date V isits Requested Visits Authorized [id number] Closed PCP Requested Referral 04/16/2023 04/15/2024 1 1 Reason Comments Acute Visit cough won't go away Reason Comments Established Patient Care Teams (unrecognized sec tion and content) Venereal Disease Investigator Relationship Specialty Start Date End Date Cathi Dunn MD [address] [place], [place] [id number] PCP - General 08/12/07 Venereal Disease Investigator Relationship Specialty Start Date End Date Cathi Dunn MD [address] [place], [place] [id number] PCP - General 08/12/07 Venereal Disease Investigator Relationship Specialty Start Date End Date Cathi Dunn MD [address] [facility] [place] [address] PCP - General 08/12/07 Venereal Disease Investigator Relationship Specialty Start Date End Date Cathi Dunn MD [address] [place] [address] PCP - General 08/12/07 Venereal Disease Investigator Relationship Specialty Start Date End Date Cathi Dunn MD [address] [place] [address] PCP - General 08/12/07 Venereal Disease Investigator Relationship Specialty Start Date End Date Cathi Dunn MD [address] [place] [address] PCP - General 08/12/07 Venereal Disease Investigator Relationship Specialty Start Date End Date Cathi Dunn MD [address] [place] [address] PCP - General 08/12/07 Venereal Disease Investigator Relationship Specialty Start Date End Date Cathi Dunn MD [address] [place] [address] PCP - General 08/12/07 Venereal Disease Investigator Relationship Specialty Start Date End Date Cathi Dunn MD [address] [place] [address] PCP - General 08/12/07 Venereal Disease Investigator Relationship Specialty Start Date End Date Cathi Dunn MD [address] [place] [address] PCP - General 08/12/07 Venereal Disease Investigator Relationship Specialty Start Date End Date Cathi Dunn MD [address] [place] [address] PCP - General 08/12/07 Venereal Disease Investigator Relationship Specialty Start Date End Date Cathi Dunn MD [address] [place] [address] PCP - General 08/12/07 Venereal Disease Investigator Relationship Specialty Start Date End Date Cathi Dunn MD [address] [place] [address] PCP - General 08/12/07 Venereal Disease Investigator Relationship Specialty Start Date End Date Cathi Dunn MD [address] [place] [address] PCP - General 08/12/07 Venereal Disease Investigator Relationship Specialty Start Date End Date Cathi Dunn MD [address] [place] [address] PCP - General 08/12/07 Venereal Disease Investigator Relationship Specialty Start Date End Date Cathi Dunn MD [address] [place] [address] PCP - General 08/12/07 Venereal Disease Investigator Relationship Specialty Start Date End Date Cathi Dunn MD [address] [place] [address] PCP - General 08/12/07 Venereal Disease Investigator Relationship Specialty Start Date End Date Cathi Dunn MD [address] [place] [address] PCP - General 08/12/07 Venereal Disease Investigator Relationship Specialty Start Date End Date Cathi Dunn MD [address] [place] [address] PCP - General 08/12/07 Venereal Disease Investigator Relationship Specialty Start Date End Date Cathi Dunn MD [address] [place] [address] PCP - General 08/12/07 Venereal Disease Investigator Relationship Specialty Start Date End Date Cathi Dunn MD [address] [place] [address] PCP - General 08/12/07 Venereal Disease Investigator Relationship Specialty Start Date End Date Cathi Dunn MD [address] [place] [address] PCP - General 08/12/07 Venereal Disease Investigator Relationship Specialty Start Date End Date Cathi Dunn MD [address] [place] [address] PCP - General 08/12/07 Venereal Disease Investigator Relationship Specialty Start Date End Date Cathi Dunn MD [address] [place] [address] PCP - General 08/12/07 Louis Felipe MD [address] [place] [facility] [place] [address] Hematology/Oncology 05/15/23 Venereal Disease Investigator Relationship Specialty Start Date End Date Cathi Dunn MD [address] [place] [address] PCP - General 08/12/07 Louis Felipe MD [address] [facility] [place] [address] Hematology/Oncology 05/15/23 Venereal Disease Investigator Relationship Specialty Start Date End Date Cathi Dunn MD [address] [place], [place] [id number] PCP - General 08/12/07 Louis Felipe MD [address] [place], [place] [id number] Hematology/Oncology 05/15/23 FOR RECORDS PERTAINING TO PATIENTS WHO ARE [...] BE BASED ON THE PRIMARY CLINICAL RECORDS. [employer] provides no warranty or guarantee of the accuracy or completeness of information in this document.
--- NOTE | 2023-06-09 | IMM_PTH ---
PATHOLOGY RESULTS PATIENT: CHEN JARAMILLO LOC: [facility] U#:[id number] AGE/SX: 43/F ROOM: RE06/08/[address]: Dr. Calvin Brewster MD : 1980 BED: DIS: 06/08/2023 SPEC #: [id number] RECD: 06/10/23 16:31 STATUS: DIGNA REQ #: [id number] DEEPA: 06/09/23 00:[address]: Calvin Brewster DEPT: IMMUNOHISTOCHEMISTRY RECD BY: Karin Gr ENTERED: 06/10/23 16:34 SP TYPE: IMMUNO OTHR DR: Dr. Cayden Ayala MD Tissues: Nasopharynx, NOS Nasopharynx, NOS Procedures: BCL-2 (add) BCL-6 (add) CD10 (add) CD138 (add) CD15 (add) CD23 (add) CD3 (add) CD30 (add) CD43 (add) CD45 (add) CD5 (add) CD79A (add) CYCLIN (add) KI-67 (add) P53 (add) MUM1 (add) Pankeratin (initial) CD20 (initial) PHYSICIAN & INSTITUTION [place] [id number] SPECIMEN INFORMATION: Tissue Source: A - Nasopharyngeal roof biopsy, B - Nasopharynx/Eustachian tube orifice Clinical Info: Chronic serous otitis media left ear Specimen Number: [id number] A & B CPT code: 02108 x2, 66002 x34 METHODOLOGY: Deparaffinized sections of prefer/formalin-fixed tissue or PAP/DQ stained slides are incubated with monoclonal/polyclonal antibodies/oligonucleotide probes. Localization is made via biotin free immunoperoxidase method. Appropriate controls are performed and reacted as expected. Results on target cell population are indicated in the following table: RESULTS: ANTIBODY / CLONE RESULT Block A AE1-3 (AE1/AE3/PCK26) negative CD3 (PS1) positive CD5 (SP10) positive CD10 (56C6) negative CD15 (MMA) negative CD20 (L26) positive CD23 (1B12) negative CD30 (Eliecer-H2) negative CD43 (L60) positive CD45 (RP2/18) positive CD79a (11E3) positive CD138 (B-A38) negative BCL-2 (bcl-2/100/D5) positive BCL-6 ([id number]/A8) negative Cyclin D1/BCL-1 (SP4) negative MUM1 (MRQ-43) negative P53 (DO-7) negative, null pattern Ki-67 (30-9) positive, low Block B AE1-3 (AE1/AE3/PCK26) negative CD3 (PS1) positive CD5 (SP10) positive CD10 (56C6) negative CD15 (MMA) negative CD20 (L26) positive CD23 (1B12) negative CD30 (Eliecer-H2) negative CD43 (L60) positive CD45 (RP2/18) positive CD79a (11E3) positive CD138 (B-A38) negative BCL-2 (bcl-2/100/D5) positive BCL-6 (YN904U/A8) negative Cyclin D1/BCL-1 (SP4) negative MUM1 (MRQ-43) negative P53 (DO-7) negative, null pattern Ki-67 (30-9) positive, low These tests were developed and their performance characteristics determined by [facility]. They may not have been cleared or approved by the U.S. Food and Drug Administration. The FDA has determined that such clearance or approval is not necessary. The above immunohistochemical/dualISH markers are ordered and reviewed by the Pathologist. INTERPRETATION: A. Nasopharyngeal roof, biopsy: Polytypic lymphoid tissue. See comment. B. Nasopharynx/Eustachian tube orifice: Polytypic lymphoid tissue. See comment. ALEXEY/ 06/11/2023 Comment: A&B. There is no evidence of lymphoproliferative disorder.
== END | disposition home or self-care (01) ==
LOC: LABSPEC 15:34
PROVIDERS: PCP Family Medicine; Referring Provider Otolaryngology; Visit Provider Otolaryngology
DX: H65.22 Chronic serous otitis media, left ear (principal); H90.12 Conductive hearing loss, unilateral, left ear, with unrestricted hearing on the contralateral side
CPT/HCPCS: 88305; 88341; 88342

== ENCOUNTER 2023-11-28 10:10 | Emergency (ER) | payer MEDICAID, SELFPAY ==
[2023-11-28 10:11] VITALS: BP 136/75; PULSE 65; RESP 20; TEMP 36.4; O2SAT 100; BMI 30.2
--- NOTE | 2023-11-28 10:52 | EDS_ITS ---
HPI History of Present Illness Chief Complaint: Nausea/Vomiting Informant: patient Onset/Context/Timing Onset: Today Context: Sudden Onset Timing: Continuous Quality: Burning Location: Abdomen Worsened by: Vomiting Relieved by: Nothing Narrative Narrative: Patient presents with nausea, vomiting, and chills that began today. Patient states that tested positive for COVID 4 days ago. Patient states she was feeling better until today when she started having the nausea and vomiting. Patient admits to some burning pain in her abdomen. Patient states the pain is worse with vomiting. Patient states nothing makes it better. states patient attempted to take 2 nausea medicines this morning but vomited them up. Patient denies any fevers. Patient denies any diarrhea. Patient denies any urinary complaints. [facility] Medical History (Updated 11/28/23 @ 11:[address] Jabier Slade DO) GERD (gastroesophageal reflux disease) Anxiety Hyperlipemia HTN (hypertension) Home Medications ?Medication ?Instructions ?Recorded ?Last Taken ?Type lisinopril 5 mg tablet 5 mg PO DAILY 05/08/18 05/08/18 History 5 MG atorvastatin 20 mg tablet 20 mg PO QHS 03/27/23 Unknown History cholecalciferol (vitamin D3) 125 125 mcg PO DAILY 03/27/23 Unknown History mcg (5,000 unit) capsule fluoxetine 20 mg capsule 20 mg PO DAILY 03/27/23 Unknown History omeprazole 20 mg capsule,delayed 20 mg PO DAILY 03/27/23 Unknown History release ondansetron 4 mg disintegrating 4 mg PO Q8H PRN PRN Nausea #10 tabs 03/27/23 Unknown Rx tablet promethazine 25 mg tablet 25 mg PO Q6H PRN PRN Nausea #10 03/27/23 Unknown Rx TABLETS meclizine 25 mg tablet 25 mg PO 4X/DAY PRN PRN Dizziness 03/29/23 Unknown Rx #20 tabs Allergy/AdvReac Type Severity Reaction Status Date / Time codeine Allergy Other Verified 11/28/23 10:11 Methotrexate Analogues AdvReac Other Verified 11/28/23 10:11 Surgical History History of partial hysterectomy Social History Smoking Status: Current every day smoker tobacco type: cigarettes ROS ROS ED Constitutional Constitutional ED: Reports chills and subjective; Denies fever(s) Eyes Eyes: Denies blurry vision or change in vision ENT ENT ED: Denies rhinorrhea or sore throat Cardiovascular Cardiovascular: Denies chest pain or palpitations Respiratory/Chest Respiratory/Chest: Denies cough or dyspnea Gastrointestinal Gastrointestinal: Reports abdominal pain, nausea and vomiting; Denies diarrhea or melena Genitourinary Genitourinary ED: Denies dysuria or hematuria Musculoskeletal Musculoskeletal: Reports neck pain; Denies back pain Integumentary Denies abscess or rash Neurologic Neurologic: Reports headache(s); Denies weakness Allergic/Immunologic Allergic/Immunologic ED: Denies mouth swelling or urticaria EXAM Physical Exam Const Vital Signs: 11/28/23 10:11 Temperature 97.6 F L Temperature Source Temporal Pulse Rate 65 Respiratory Rate 20 H Blood Pressure 136/75 H Blood Pressure Mean 95 Pulse Ox 100 Oxygen Delivery Method Room Air Positive well nourished and well developed General Appearance ED: well developed and NAD HEENT Reports moist mucous membranes Neck supple and no JVD Resp normal respiratory effort and clear to auscultation bilaterally Cardio regular rate and regular rhythm GI non-distended Palpation: soft and tender epigastric, LLQ, RLQ, LUQ, RUQ, periumbilical and suprapubic; Negative for guarding or rebound tenderness present Extremity normal to inspection Neuro oriented x3, CN's II-XII intact bilaterally and no sensory deficits noted Sensorium / Orientation: alert Motor Exam: strength 5/5 throughout Psych mental status grossly normal MDM MDM MDM Narrative Medical decision making narrative: Differential diagnosis includes viral illness, dehydration, electrolyte abnormality, anemia, pancreatitis, gastroenteritis, and urinary tract infection. CBC will be obtained to assess for leukocytosis and anemia. Comprehensive metabolic profile will be obtained to assess for hepatic function, renal function, and electrolyte abnormality. Lipase will be obtained to assess for pancreatitis. Urinalysis will be obtained to assess for urinary tract infection and hematuria. Treatment and Re-Evaluation :: Patient did not want to stay for IV fluids and antiemetics. Patient did not want to have lab work drawn. Patient just wanted to go home. Patient was advised of the risks and benefits again signing out AGAINST MEDICAL ADVICE. Patient agrees with this and will sign out AGAINST MEDICAL ADVICE. Discharge Plan Triage Chief Complaint: Nausea/Vomiting ED Provider: Jabier Slade Dx/Rx/DC Orders Clinical Impression: COVID-19, Nausea and vomiting Prescriptions: No Action lisinopril 5 MG tablet 5 mg PO DAILY Patient Comments: Take 1 tablet by mouth once daily. atorvastatin 20 mg tablet 20 mg PO QHS Patient Comments: Take 1 tablet by mouth daily at bedtime. For cholesterol. fluoxetine 20 mg capsule 20 mg PO DAILY Patient Comments: TAKE 1 CAPSULE BY MOUTH ONCE DAILY omeprazole 20 mg capsule,delayed release(DR/EC) 20 mg PO DAILY cholecalciferol (vitamin D3) 125 mcg (5,000 unit) capsule 125 mcg PO DAILY Patient Comments: Take 1 capsule by mouth once daily. promethazine [promethazine] 25 mg tablet 25 mg PO Q6H PRN PRN (Reason: Nausea) Qty: 10 0RF ondansetron [ondansetron] 4 mg tablet,disintegrating 4 mg PO Q8H PRN PRN (Reason: Nausea) Qty: 10 0RF meclizine 25 mg tablet 25 mg PO 4X/DAY PRN PRN (Reason: Dizziness) Qty: 20 0RF Primary Care Provider: Cayden Ayala Referrals: Cayden Ayala MD [Primary Care Provider] - Print Language: Kinyarwanda Disposition Disposition: Against Medical Advice
== END 2023-11-28 11:27 | disposition left against medical advice (07) ==
PROVIDERS: Emergency Provider Emergency Medicine; PCP Family Medicine; Visit Provider Emergency Medicine
DX: U07.1 COVID-19 (principal); R11.2 Nausea with vomiting, unspecified; E78.5 Hyperlipidemia, unspecified; R10.9 Unspecified abdominal pain; I10 Essential (primary) hypertension; K21.9 Gastro-esophageal reflux disease without esophagitis; F41.9 Anxiety disorder, unspecified; F17.210 Nicotine dependence, cigarettes, uncomplicated; Z79.899 Other long term (current) drug therapy
CPT/HCPCS: 99282; A4216

== ENCOUNTER 2023-11-30 04:43 | Emergency (ER) | payer SELFPAY ==
[2023-11-30 04:44] VITALS: BP 117/104; PULSE 97; RESP 22; TEMP 36.6; O2SAT 99; BMI 28.8
[2023-11-30 05:11] LABS: Absolute Lymphocyte Count 4.86 X10^3/uL (0.83-4.51); Absolute Neutrophil Count 10.3 X10^3/uL (2.0-7.7); Basophil# 0.06 X10^3/uL; Basophil% 0.4 % (0-1); Eosinophil# 0.03 X10^3/uL; Eosinophils% 0.2 % (0-5); Hematocrit 46.6 % (37-47); Hemoglobin 16.7 g/dL (12.0-15.0); Lymphocyte # 4.86 X10^3/ul (0.83-4.51); Lymphocyte % 30.2 % (19-41); Mean Corp Hgb Conc 35.8 g/dL (32-36); Mean Corpuscular Hgb 31.7 pg (27.0-32.0); Mean Corpuscular Volume 88.6 fL (81-99); Mean Platelet Vol. 10.9 fl (6.2-12.0); Monocyte# 0.76 X10^3/uL; Monocyte% 4.7 % (0-10); NRBC Flagged by Analyzer 0 % (0-5); Neutrophil # 10.34 X10^3/uL (2.7-7.7); Neutrophil % 64.1 % (47-70); POSITIVE MORPHOLOGY YES; Platelet Count 324 K/mm3 (150-450); RBC Distribution Width CV 13.9 % (11.6-14.6); RBC Distribution Width SD 44.9 fl (35.1-43.9); Red Blood Count 5.26 M/mm3 (4.2-5.4); White Blood Count 16.1 K/mm3 (4.4-11.0)
[2023-11-30 05:18] LABS: Differential Indicated SCAN CRITERIA MET
[2023-11-30] MEDS: Ondansetron 4 MG/2 ML Vial IV (05:22)
[2023-11-30] MEDS: 0.9% Normal Saline (1000mL) 1,000 ML 999 ML IV ×2 (05:22→07:22)
[2023-11-30 05:30] LABS: AST(SGOT) 25 U/L (15-37); Alanine Aminotransfer ALT/SGPT 20 U/L (13-56); Alkaline Phosphatase 123 U/L (45-117); Anion Gap 13 (5-15); BUN 19 mg/dL (7-18); BUN/Creat Ratio 16.4 RATIO (10-20); Bilirubin, Direct 0.24 mg/dL (0.00-0.30); Calcium,Total 9.7 mg/dL (8.5-10.1); Chloride 98 mmol/L (98-107); Creatinine, Serum 1.16 mg/dL (0.55-1.02); EST Glomerular Filtration Rate 54 mL/min (>60); Est Glom Filt Rate - Afr Amer 65 mL/min (>60); Globulin 3.8 g/dL (2.2-4.2); Glucose 144 mg/dL (74-106); Lipase 31 U/L (13-75); Magnesium 2.4 mg/dL (1.6-2.6); Potassium 2.8 mmol/L (3.5-5.1); Protein, Total 7.8 g/dL (6.4-8.2); Sodium Level 133 mmol/L (136-145)
[2023-11-30 06:02] LABS: Atypical Lymphocyte 2+ %
[2023-11-30] MEDS: Potassium Chloride Oral Tablet 20 MEQ 40 MEQ PO (06:27)
[2023-11-30] MEDS: proCHLORPERazine 10 MG/2 ML Vial IV (06:27)
[2023-11-30] MEDS: Potassium Chloride 10mEq/100mL 10 MEQ/100 ML IV.SOLN. 100 MEQ IV BOLUS ×2 (06:38→07:50)
[2023-11-30 06:41] VITALS: BP 180/74; PULSE 78; RESP 20; TEMP 36.8; O2SAT 99
--- NOTE | 2023-11-30 07:33 | EX.ED.DYSGE1 ---
HPI History of Present Illness Chief Complaint: Nausea/Vomiting Informant: patient and spouse/S.O. Narrative Narrative: Patient is a 43-year-old female with past medical history of hypertension hyperlipidemia GERD and anxiety. She states that she was diagnosed with COVID by home test on . She states that she awoke Thursday morning with nausea and bouts of vomiting. She states that she threw up every hour all day Thursday. She states that symptoms seem to slightly improved Thursday during the day but come evening time of vomiting reoccurred. She denies any loose stool or diarrhea and she denies any constipation or inability to pass flatus. She states that with the persistent bouts of nausea and vomiting she was concern for dehydration and secondary to this comes in for evaluation. [facility] Medical History GERD (gastroesophageal reflux disease) Anxiety Hyperlipemia HTN (hypertension) Home Medications ?Medication ?Instructions ?Recorded ?Last Taken ?Type atorvastatin 20 mg tablet 20 mg PO QHS 03/27/23 Unknown History cholecalciferol (vitamin D3) 125 125 mcg PO DAILY 03/27/23 Unknown History mcg (5,000 unit) capsule fluoxetine 20 mg capsule 20 mg PO DAILY 03/27/23 Unknown History omeprazole 20 mg capsule,delayed 20 mg PO DAILY 03/27/23 Unknown History release lisinopril 20 0.5 tab PO DAILY 11/30/23 Unknown History mg-hydrochlorothiazide 12.5 mg tablet nirmatrelvir 300 mg (150 mg 3 tab PO BID 11/30/23 Unknown History x2)-ritonavir 100 mg tablet,dose pack (Paxlovid) ondansetron 4 mg disintegrating 4 mg PO TID PRN nausea and 11/30/23 Unknown Rx tablet vomiting #21 tabs potassium chloride 10 mEq 10 meq PO DAILY 7 days #7 caps 11/30/23 Unknown Rx capsule,extended release promethazine 25 mg tablet 25 mg PO TID PRN nausea and 11/30/23 Unknown Rx vomiting #21 tabs Allergy/AdvReac Type Severity Reaction Status Date / Time codeine Allergy Other Verified 11/28/23 10:11 Methotrexate Analogues AdvReac Other Verified 11/28/23 10:11 Surgical History History of partial hysterectomy Social History Smoking Status: Current every day smoker tobacco type: cigarettes ROS ROS ED Constitutional Constitutional ED: Denies chills or fever(s) Eyes Eyes: Denies blurry vision or change in vision ENT ENT ED: Reports rhinorrhea and sore throat Cardiovascular Cardiovascular: Denies chest pain Respiratory/Chest Respiratory/Chest: Reports cough; Denies dyspnea Gastrointestinal Gastrointestinal: Reports nausea and vomiting; Denies abdominal pain, constipation, diarrhea or melena Genitourinary Genitourinary ED: Denies dysuria or hematuria Musculoskeletal Musculoskeletal: Reports myalgias Integumentary Denies rash Neurologic Neurologic: Denies headache(s) Hematologic/Lymphatic Hematologic/Lymphatic: Denies easy bleeding or easy bruising EXAM Physical Exam Const Vital Signs: 11/30/23 04:44 11/30/23 06:41 Temperature 97.8 F 98.3 F Temperature Source Oral Oral Pulse Rate 97 78 Respiratory Rate 22 H 20 H Blood Pressure 117/104 H 180/74 H Blood Pressure Mean 108 109 Pulse Ox 99 99 Oxygen Delivery Method Room Air Room Air Positive well nourished, well developed and obese General Appearance ED: well developed; Negative for pallor Nutritional Appearance: obese HEENT HEENT Narrative: Mucous membranes are dry and tacky No tongue or lip swelling no oral lesions no airway edema or compromise No secondary findings in the posterior pharynx to suggest infection Eyes PERRL and EOMs intact bilaterally General Eye ED: Negative for scleral icterus Neck supple Neck Narrative: No nuchal rigidity or meningeal signs Resp normal respiratory effort and clear to auscultation bilaterally Cardio regular rate and regular rhythm GI non-tender, non-distended and no masses GI Narrative: Abdomen is soft nontender nondistended with hyperactive bowel sounds. No voluntary guarding or rigidity or pulsatile mass. Auscultation: hyperactive bowel sounds Palpation: soft Back/Spine no CVA tenderness Extremity normal to inspection Neuro oriented x3, CN's II-XII intact bilaterally and no sensory deficits noted Sensorium / Orientation: alert Motor Exam: strength 5/5 throughout Psych mental status grossly normal Skin no rashes or lesions noted Skin Narrative: Skin turgor is increased General Skin Exam: Negative for jaundice or pallor MDM MDM MDM Narrative Medical decision making narrative: Patient presented to the ER afebrile with a soft nonsurgical abdomen. She has reported COVID which was diagnosed by home test 4 to 5 days ago. She reported bouts of nausea and vomiting for approximate the past 48 hours. She denies any known sick contact. Differential diagnosis is for COVID induced gastritis versus infection from a secondary virus such as [place] virus or rotavirus. There is concern for pancreatitis versus biliary colic or acute cholecystitis. There is also concern for acute kidney injury or electrolyte abnormality. Secondary to his basic blood work was obtained. Patient's white count is elevated at 16.1 which is most likely stress response as patient had similar symptoms in 2022 with an elevated white count at the same level and a normal CT scan at that time. Patient's kidney function is just slightly elevated but her potassium is down at 2.8 consistent with her history and exam showing dehydration. Lipase is normal going against acute pancreatitis and liver enzymes are not clinically elevated going against biliary colic or acute cholecystitis. I discussed with patient potential for CT scan of her abdomen and pelvis based on her symptoms and elevated white count. However she does not have abdominal pain on exam and she states that this feels similar to 2022 and since her CAT scan was normal at that time she does not want repeat radiation. With her potassium being low at 2.8 however she was given 40 mill equivalents by mouth and 20 mill equivalents by IV. She was hydrated with 2 L of normal saline and treated with Zofran and Compazine for nausea. At this time I do not feel there is need for admission or further workup as history and exam indicate patient most likely has a viral stomach infection causing mild dehydration and electrolyte abnormality but as the patient was able to drink water without further bouts of vomiting and does not have neurologic findings associated with the hyponatremia she is safe for discharge with symptomatic care History & Record Review Discussion w/independent historian: Patient and Significant other Lab Data Attestation: I reviewed the patient's lab results. Labs: Laboratory Results - last 24 hr 11/30/23 04:44 WBC 16.1 H RBC 5.26 Hgb 16.7 H Hct 46.6 MCV 88.6 MCH 31.7 MCHC 35.8 RDW Std Deviation 44.9 H RDW Coeff of Zaria 13.9 Plt Count 324 MPV 10.9 Immature Gran % (Auto) 0.400 Neut % (Auto) 64.1 Lymph % (Auto) 30.2 Dewitt % (Auto) 4.7 Eos % (Auto) 0.2 Baso % (Auto) 0.4 Absolute Neuts (auto) 10.3 H Absolute Lymphs (auto) 4.86 H Nucleated RBC % 0 Atypical Lymphocytes 2+ Sodium 133 L Potassium 2.8 L Chloride 98 Carbon Dioxide 22.0 Anion Gap 13 BUN 19 H Creatinine 1.16 H Estim Creat Clear Calc 64.80 Est GFR (MDRD) Af Amer 65 Est GFR (MDRD) Non-Af 54 L BUN/Creatinine Ratio 16.4 Glucose 144 H Calcium 9.7 Magnesium 2.4 Total Bilirubin 1.20 H Direct Bilirubin 0.24 AST 25 ALT 20 Alkaline Phosphatase 123 H Total Protein 7.8 Albumin 4.0 Globulin 3.8 Lipase 31 Discharge Plan Triage Chief Complaint: Nausea/Vomiting Other Complaint: Confusion ED Provider: Julio C Ma Dx/Rx/DC Orders Clinical Impression: Nausea and vomiting, Dehydration, Acute hyponatremia, COVID-19, Hypertension Instructions: Dehydration, ED Hyponatremia, ED Gastroenteritis, Viral (Adult) Prescriptions: New potassium chloride 10 mEq capsule, extended release 10 meq PO DAILY 7 Days Qty: 7 0RF ondansetron 4 mg tablet,disintegrating 4 mg PO TID PRN (Reason: nausea and vomiting) Qty: 21 0RF promethazine 25 mg tablet 25 mg PO TID PRN (Reason: nausea and vomiting) Qty: 21 0RF No Action atorvastatin 20 mg tablet 20 mg PO QHS Patient Comments: Take 1 tablet by mouth daily at bedtime. For cholesterol. fluoxetine 20 mg capsule 20 mg PO DAILY Patient Comments: TAKE 1 CAPSULE BY MOUTH ONCE DAILY omeprazole 20 mg capsule,delayed release(DR/EC) 20 mg PO DAILY cholecalciferol (vitamin D3) 125 mcg (5,000 unit) capsule 125 mcg PO DAILY Patient Comments: Take 1 capsule by mouth once daily. lisinopril-hydrochlorothiazide 20-12.5 mg tablet 0.5 tab PO DAILY Paxlovid 300 mg (150 mg x 2)-100 mg tablets,dose pack 3 tab PO BID Primary Care Provider: Cayden Ayala Referrals: Cayden Ayala MD [Primary Care Provider] - Activity Restrictions/Additional Instructions: Please take the prescribed medication as directed controlling further bouts of nausea and vomiting and to replace the potassium. Return to the ER should you have any further concerns or worsening of symptoms Print Language: Czech Disposition Disposition: Home, Self Care
[2023-11-30 08:00] VITALS: BP 148/97; PULSE 76; RESP 18; O2SAT 98
[2023-11-30 08:58] VITALS: BP 148/97; PULSE 76; RESP 18; TEMP 37.1; O2SAT 98
== END 2023-11-30 08:58 | disposition home or self-care (01) ==
PROVIDERS: Emergency Provider Emergency Medicine; PCP Family Medicine; Visit Provider Emergency Medicine
DX: U07.1 COVID-19 (principal); E87.1 Hypo-osmolality and hyponatremia; E87.6 Hypokalemia; R11.2 Nausea with vomiting, unspecified; E86.0 Dehydration; R41.0 Disorientation, unspecified; I10 Essential (primary) hypertension; E78.5 Hyperlipidemia, unspecified; K21.9 Gastro-esophageal reflux disease without esophagitis; F41.9 Anxiety disorder, unspecified; F17.210 Nicotine dependence, cigarettes, uncomplicated; Z79.899 Other long term (current) drug therapy
CPT/HCPCS: 80048; 80076; 83690; 83735; 85025; 96361; 96365; 96366; 96375; 99284; J7030; A4216; J2405